=== PATIENT | female | born 1960 | race Caucasian/White ===

== ENCOUNTER 2020-02-09 13:32 | Outpatient (REF) | payer OTHER, SELFPAY | END 2020-02-09 13:33 | disposition home or self-care (01) | LOC: HO.HMGCLDS 13:32 | PROVIDERS: Visit Provider Internal Medicine | DX: Z20.828 Contact with and (suspected) exposure to other viral communicable diseases (principal) | CPT/HCPCS: C9803; U0003 ==

== ENCOUNTER 2020-04-18 07:57 | Outpatient (REF) | payer OTHER, SELFPAY ==
[2020-04-18 11:15] LABS: Hematocrit 39.4 % (37-47); Hemoglobin 12.6 g/dl (12.0-16.0); Mean Corpuscular Hemoglobin 30.4 pg (27.0-33.0); Mean Corpuscular Volume 94.9 fL (80-98); Mean Platelet Volume 10.3 fL (9.4-12.3); Platelet Count 324 X10*3/uL (160-400); Red Blood Count 4.15 X10*6/uL (4.20-5.50); Red Cell Distribution Width 14.3 % (11.0-16.0); White Blood Count 6.3 X10*3/uL (4.8-10.8)
[2020-04-18 11:28] LABS: Alanine Aminotransferase 25 U/L (0-31); Albumin Level 4.5 g/dL (3.5-5.0); Alkaline Phosphatase 81 U/L (39-117); Anion Gap 16 (12-20); Aspartate Amino Transferase 30 U/L (5-31); Bilirubin Total 0.4 mg/dL (0.0-1.0); Blood Urea Nitrogen 16 mg/dL (9-16); Calcium 8.3 mg/dL (8.4-10.2); Carbon Dioxide 27 mmol/L (22-29); Chloride 99 mmol/L (96-108); Cholesterol 226 mg/dL; Estimated Glomerular Filt Rate > 60; Glucose Fasting 75 mg/dL (60-99); HDL Cholesterol 79 mg/dL; LDL Cholesterol Calculated 114 mg/dl; Potassium 4.3 mmol/l (3.3-5.1); Sodium 138 mmol/L (135-145); Total Protein 7.6 g/dL (6.5-8.0); Triglycerides 166 mg/dL
[2020-04-18 12:01] LABS: Thyroid Stimulating Hormone 1.21 uIU/mL (0.32-4.0)
== END 2020-04-18 07:58 | disposition home or self-care (01) ==
LOC: HO.HMGCLDS 07:57
PROVIDERS: PCP Internal Medicine; Visit Provider Internal Medicine
DX: J42 Unspecified chronic bronchitis (principal); E78.2 Mixed hyperlipidemia; F32.9 Major depressive disorder, single episode, unspecified
CPT/HCPCS: 36415; 80053; 80061; 84443; 85027

== ENCOUNTER 2021-01-28 15:12 | Inpatient (IN) | payer OTHER, SELFPAY ==
[2021-01-28] VITALS (10 sets, daily range): BP systolic 105–125; BP diastolic 61–68; PULSE 92–104; RESP 16; TEMP 36.6; O2SAT 80–99; BMI 28.3
--- NOTE | ~2021-01-28 | XR_ITS ---
EXAMINATION: XR CHEST CLINICAL INFORMATION: COPD COMPARISON: Previous chest x-ray December [address] January 2015 TECHNIQUE: Frontal view of the chest was obtained. FINDINGS: The cardiac and mediastinal contours are stable. There is a new surgical staple line projecting over the right upper lung. There are bilateral infiltrates, left greater than right suggestive of pneumonia. There is blunting of the right lateral costophrenic angle. This does not appear appreciably changed from previous exam and may represent a chronic small right pleural effusion or pleural thickening. There is no left pleural effusion. There is no pneumothorax. Bony structures are unremarkable. XR/XR chest 1V IMPRESSION: Bilateral infiltrates, left greater than right, probably representing pneumonia. New postsurgical changes to the right upper lung. Chronic blunting of the right lateral costophrenic angle.
--- NOTE | 2021-01-28 16:03 | ECG_ITS ---
Test Reason : dyspnea Blood Pressure : / mmHG Vent. Rate : 108 BPM Atrial Rate : 108 BPM P-R Int : 166 ms QRS Dur : 094 ms QT Int : 366 ms P-R-T Axes : 045 059 -05 degrees QTc Int : 490 ms Sinus tachycardia Intra-ventricular conduction delay Nonspecific T wave abnormality Abnormal ECG T wave amplitude has decreased in Anterolateral leads Inferior leads Referred By: Kayla Briones Electronically Signed By:DALIA GOODEN MD
--- NOTE | 2021-01-28 16:05 | ED_ITS ---
HPI - URI/Sore Throat General Chief Complaint: Upper Respiratory Symptoms Stated Complaint: SOB X'S 3 DAYS Time Seen by Provider: 01/28/21 15:31 Source: patient and EMS Mode of arrival: EMS Limitations: no limitations History of Present Illness HPI Narrative: Patient comes emergency room by EMS from her primary care physician's office. Patient states that she made an appointment today because she has been feeling short of breath. Patient is known to have COPD, last exacerbation was over 5 years ago. Patient only uses inhalers, has no nebulizer home. Patient had a breathing treatment at her PCPs office, oxygen saturation 88% on room air. EMS was called, and was brought to the emergency room. Patient overall feeling better. Related Data Home Medications Medication Instructions Recorded Confirmed aripiprazole 5 mg tablet 5 mg PO DAILY 07/03/20 01/28/21 clonazepam 0.5 mg tablet 1 mg PO DAILY 07/03/20 01/28/21 fluoxetine 40 mg capsule 80 mg PO DAILY 07/03/20 01/28/21 bupropion HCl 150 mg tablet,12 hr 150 mg PO BID 01/08/21 01/28/21 sustained-release clonazepam 0.5 mg tablet 1 tab PO BEDTIME 01/28/21 01/28/21 quetiapine 50 mg tablet 1 tab PO BEDTIME 01/28/21 01/28/21 rosuvastatin 20 mg tablet (Crestor) 20 mg PO BEDTIME 01/28/21 01/28/21 Previous Rx's Medication Instructions Recorded mometasone-formoterol HFA 200 2 puff PO BID #13 g 08/27/20 mcg-5 mcg/actuation aerosol inhaler umeclidinium 62.5 mcg/actuation 1 inh PO DAILY #90 ea 12/01/20 blister powder for inhalation (Incruse Ellipta) Allergies Allergy/AdvReac Type Severity Reaction Status Date / Time No Known Allergies Allergy Verified 01/28/21 14:13 [No Known Allergies*] Review of Systems Review of Systems: Constitutional : No Weight loss, No Fever, No Chills, No Night Sweats, No Fatigue, No Malaise ENT/Mouth : No Hearing loss, No Ear Pain, No Nasal Congestion, No Sinus Pain, No Hoarseness, No sore throat, No Rhinorrhea, No Swallowing Difficulty Eyes: No Eye Pain, No Swelling, No Redness, No Foreign Body, No Discharge, No Vision Changes Cardiovascular : No Chest Pain, No SOB, No Dyspnea on Exertion, No Orthopnea, No Edema, No Palpitations Respiratory : Increased cough with sputum, wheezing, increased shortness of breath, worse with exertion. Gastrointestinal : No Nausea, No Vomiting, No Diarrhea, No Constipation, No abdominal Pain, No Hematochezia, No Melena Genitourinary : no irregular bleeding, No Dysuria, No Urinary Frequency, No Hematuria, No Urinary Incontinence, No Urgency, No Flank Pain, No Urinary Flow Changes, No Hesitancy Musculoskeletal : No joint pain, No Myalgias, No Joint Swelling Skin : No Skin Lesions, No rash Neuro : No Weakness, No Numbness, No Paresthesias, No Loss of Consciousness, No Dizziness, No Headache Psych : No Anxiety/Panic, No Depression, No SI/HI/AH/VH, No Social Issues, Heme/Lymph: No Bruising, No Bleeding,No Lymphadenopathy Endocrine : No Polyuria, No Polydipsia, No Temperature Intolerance COUNTS INCLUDE 234 BEDS AT THE [facility] Past Medical History Medical History Annual physical exam Colonoscopy refused COPD (chronic obstructive pulmonary disease) Depression Hyperlipidemia Normal breast exam PTSD (post-traumatic stress disorder) Recurrent pleural effusion Family History Family History Father No problems noted. Mother No problems noted. Social History Social History Housing: Apartment Alcohol intake: never Patient Tobacco Use Status: Former Tobacco user Quit Date: 10 years ago e-Cigarette/Vaping Use: Never Used Use of substances other than those prescribed or required for medical reasons: No Advance Directives: No Advance Directives Information Provided: No Patient : No Current occupational status: retired Physical Exam Vital Signs: Vital Signs: Last Vital Signs Pulse 99 01/28/21 19:49 BP 124/68 01/28/21 15:27 Pulse Ox 89 L 01/28/21 18:42 Oxygen Flow Rate 15 01/28/21 15:30 Body Mass Index 28.3 Const: Other: Appearance: Alert. Oriented X3. No acute distress. Eyes: Pupils equal, round and reactive to light. ENT: Pharynx normal. Neck: Normal inspection. Neck supple. No lymph nodes noted. No crepitus CVS: Normal heart rate and rhythm. Pulses normal. Normal S1 and S2 Respiratory: No respiratory distress, bilateral diffuse wheezing, moderate air movement Abdomen: Soft and nontender. No rigidity. No distention. Skin: Skin warm and dry. Normal skin color. Normal skin turgor. Extremities: No lower extremity edema. No Lacerations. No Rash Neuro: Oriented X 3. No motor deficit. No sensory deficit. Moving all extermities. No slurred speech. Course Course Course Narrative: Patient's oxygen saturation dropped to 88% with any exertion or coughing even on 2 L of oxygen. Patient will be admitted for bilateral pneumonia, COPD exacerbation. Patient was given one dose of IV ceftriaxone and azithromycin. Multiple breathing treatments. I discussed the patient with Dr. Clark, patient admitted. MDM - URI/Sore Throat Lab Data Result diagrams: 01/28/21 16:41 01/28/21 16:41 Labs: Lab Results 01/28/21 01/28/21 01/28/21 Range/Units 16:40 16:41 16:41 WBC 13.0 H (4.8-10.8) X10*3/uL RBC 3.65 L (4.20-5.50) X10*6/uL Hgb 10.9 L (12.0-16.0) g/dl Hct 32.7 L (37.0-47.0) % MCV 89.6 (80.0-98.0) fL MCH 29.9 (27.0-33.0) pg MCHC 33.3 (31.0-35.0) g/dl RDW 12.9 (11.0-16.0) % Plt Count 393 (160-400) X10*3/uL MPV 9.7 (9.4-12.3) fL Immature Gran % (Auto) 0.7 H (0.0-0.4) % Neut % (Auto) 87.0 H (45-73) % Lymph % (Auto) 8.5 L (20-40) % [place] % (Auto) 3.4 (2-11) % Eos % (Auto) 0.2 (0-4) % Baso % (Auto) 0.2 (0-2) % Lymph # (Auto) 1.1 L (1.2-4.9) X10*3/uL [place] # (Auto) 0.4 (0.1-1.2) X10*3/uL Eos # (Auto) 0.0 (0.0-0.4) X10*3/uL Baso # (Auto) 0.0 (0.0-0.2) X10*3/uL Abs Immat Gran (auto) 0.09 H (0.00-0.03) X10*3/uL Absolute Neuts (auto) 11.3 H (2.0-8.3) x10*3/uL Absolute Nucleated RBC 0.000 (0.0-0.012) X10*3/uL Nucleated RBC % (auto) 0.0 (0.0-0.2) /100WBC Sodium 136 (135-145) mmol/L Potassium 3.8 (3.3-5.1) mmol/L Chloride 100 (96-108) mmol/L Carbon Dioxide 23 (22-29) mmol/L Anion Gap 17 (12-20) BUN 4 L D (9-16) mg/dL Creatinine 0.70 (0.5-1.4) mg/dL Estim Creat Clear Calc 96.6 Estimated GFR > 60 Random Glucose 131 H (60-115) mg/dL Lactic Acid (0.5-2.0) mmol/L Calcium 8.6 (8.4-10.2) mg/dL Total Bilirubin 0.5 (0.0-1.0) mg/dL Direct Bilirubin 0.2 (0.0-0.5) mg/dL AST 36 H (5-31) U/L ALT 23 (0-31) U/L Alkaline Phosphatase 100 D (39-117) U/L Troponin I High Sens < 3.5 (<3.5-17.0) ng/L B-Natriuretic Peptide 45 (<100) pg/mL Total Protein 7.1 (6.5-8.0) g/dL Albumin 3.8 (3.5-5.0) g/dL Urine Color Urine Appearance Urine pH (5.0-8.0) Ur Specific [place] (1.005-1.025) Urine Protein (NEG-TRACE) MG/DL Urine Glucose (UA) (NEG) MG/DL Urine Ketones (NEG) MG/DL Urine Blood (NEG) Urine Nitrite (NEG) Ur Leukocyte Esterase (NEG) Urine RBC (0) /HPF Urine WBC (0-4) /HPF Ur Squamous Epith Cells /LPF Urine Bacteria /LPF COVID-19 ([facility]) (Negative) COVID-19 Clin Com 01/28/21 01/28/21 01/28/21 Range/Units 16:41 16:42 18:47 WBC (4.8-10.8) X10*3/uL RBC (4.20-5.50) X10*6/uL Hgb (12.0-16.0) g/dl Hct (37.0-47.0) % MCV (80.0-98.0) fL MCH (27.0-33.0) pg MCHC (31.0-35.0) g/dl RDW (11.0-16.0) % Plt Count (160-400) X10*3/uL MPV (9.4-12.3) fL Immature Gran % (Auto) (0.0-0.4) % Neut % (Auto) (45-73) % Lymph % (Auto) (20-40) % [place] % (Auto) (2-11) % Eos % (Auto) (0-4) % Baso % (Auto) (0-2) % Lymph # (Auto) (1.2-4.9) X10*3/uL [place] # (Auto) (0.1-1.2) X10*3/uL Eos # (Auto) (0.0-0.4) X10*3/uL Baso # (Auto) (0.0-0.2) X10*3/uL Abs Immat Gran (auto) (0.00-0.03) X10*3/uL Absolute Neuts (auto) (2.0-8.3) x10*3/uL Absolute Nucleated RBC (0.0-0.012) X10*3/uL Nucleated RBC % (auto) (0.0-0.2) /100WBC Sodium (135-145) mmol/L Potassium (3.3-5.1) mmol/L Chloride (96-108) mmol/L Carbon Dioxide (22-29) mmol/L Anion Gap (12-20) BUN (9-16) mg/dL Creatinine (0.5-1.4) mg/dL Estim Creat Clear Calc Estimated GFR Random Glucose (60-115) mg/dL Lactic Acid 1.1 (0.5-2.0) mmol/L Calcium (8.4-10.2) mg/dL Total Bilirubin (0.0-1.0) mg/dL Direct Bilirubin (0.0-0.5) mg/dL AST (5-31) U/L ALT (0-31) U/L Alkaline Phosphatase (39-117) U/L Troponin I High Sens (<3.5-17.0) ng/L B-Natriuretic Peptide (<100) pg/mL Total Protein (6.5-8.0) g/dL Albumin (3.5-5.0) g/dL Urine Color YELLOW Urine Appearance CLEAR Urine pH 6.0 (5.0-8.0) Ur Specific [place] <= 1.005 (1.005-1.025) Urine Protein TRACE (NEG-TRACE) MG/DL Urine Glucose (UA) NEG (NEG) MG/DL Urine Ketones >=80 (NEG) MG/DL Urine Blood 1+ H (NEG) Urine Nitrite NEG (NEG) Ur Leukocyte Esterase NEG (NEG) Urine RBC 0-2 (0) /HPF Urine WBC 1-4 (0-4) /HPF Ur Squamous Epith Cells 1+ /LPF Urine Bacteria 1+ /LPF COVID-19 ([facility]) Negative (Negative) COVID-19 Clin Com See Note Imaging Data Chest x-ray: Radiologist's impression: FINDINGS: The cardiac and mediastinal contours are stable. There is a new surgical staple line projecting over the right upper lung. There are bilateral infiltrates, left greater than right suggestive of pneumonia. There is blunting of the right lateral costophrenic angle. This does not appear appreciably changed from previous exam and may represent a chronic small right pleural effusion or pleural thickening. There is no left pleural effusion. There is no pneumothorax. Bony structures are unremarkable. XR/XR chest 1V IMPRESSION: Bilateral infiltrates, left greater than right, probably representing pneumonia. New postsurgical changes to the right upper lung. Chronic blunting of the right lateral costophrenic angle. ECG Data Attestation: I personally reviewed and interpreted this ECG as follows: (Sinus tachycardia, heart rate 108, no ST segment depression or elevation, no T-wave inversion, QTC 490) Critical Care Time Critical Care Time Critical Care Time: Yes Total Critical Care Time: 45 Attestation: 45 minutes were spent in direct patient care and stabilization. Discharge Plan Discharge Clinical Impression: COPD (chronic obstructive pulmonary disease), Hypoxia, PNA (pneumonia)
[2021-01-28] MEDS: Albuterol Sulfate (0.083%) 2.5 MG/3 ML VIAL.NEB 10 MG INHALE (16:11)
[2021-01-28 16:46] LABS: MANUAL DIFF FLAG NO
[2021-01-28 16:49] LABS: Basophils Percent Auto 0.2 % (0-2); Eosinophils Percent Auto 0.2 % (0-4); Hematocrit 32.7 % (37.0-47.0); Hemoglobin 10.9 g/dl (12.0-16.0); Imm Gran Abs Auto 0.09 X10*3/uL (0.00-0.03); Imm Gran Pct Auto 0.7 % (0.0-0.4); Lymphocytes Absolute Auto 1.1 X10*3/uL (1.2-4.9); Lymphocytes Percent Auto 8.5 % (20-40); Mean Corpuscular HGB Conc 33.3 g/dl (31.0-35.0); Mean Corpuscular Hemoglobin 29.9 pg (27.0-33.0); Mean Corpuscular Volume 89.6 fL (80.0-98.0); Mean Platelet Volume 9.7 fL (9.4-12.3); Monocytes Absolute Auto 0.4 X10*3/uL (0.1-1.2); Monocytes Percent Auto 3.4 % (2-11); Neutrophils Absolute Auto 11.3 x10*3/uL (2.0-8.3); Platelet Count 393 X10*3/uL (160-400); Red Blood Count 3.65 X10*6/uL (4.20-5.50); Red Cell Distribution Width 12.9 % (11.0-16.0)
[2021-01-28 16:59] LABS: Lactic Acid 1.1 mmol/L (0.5-2.0)
[2021-01-28] MEDS: 0.9 % Sodium Chloride 1,000 ML 999 ML IVCONT (17:00)
[2021-01-28] MEDS: methylPREDNISolone Sod Succ 125 MG/2 ML VIAL IVPUSH (17:03)
[2021-01-28 17:04] LABS: COVID-19 Test Negative (Negative)
[2021-01-28 17:10] LABS: Alanine Aminotransferase 23 U/L (0-31); Albumin Level 3.8 g/dL (3.5-5.0); Alkaline Phosphatase 100 U/L (39-117); Anion Gap 17 (12-20); Aspartate Amino Transferase 36 U/L (5-31); Bilirubin Direct 0.2 mg/dL (0.0-0.5); Bilirubin Total 0.5 mg/dL (0.0-1.0); Blood Urea Nitrogen 4 mg/dL (9-16); Calcium 8.6 mg/dL (8.4-10.2); Carbon Dioxide 23 mmol/L (22-29); Chloride 100 mmol/L (96-108); Creatinine Clr Calc Pharmacy 96.6; Estimated Glomerular Filt Rate > 60; Glucose Random 131 mg/dL (60-115); Potassium 3.8 mmol/L (3.3-5.1); Sodium 136 mmol/L (135-145); Total Protein 7.1 g/dL (6.5-8.0)
[2021-01-28 17:13] LABS: B Type Natriuretic Peptide 45 pg/mL (<100); Troponin-I High Sensitivity < 3.5 ng/L (<3.5-17.0)
[2021-01-28] MEDS: cefTRIAXone sodium 1 GM in 0.9 % Sodium Chloride 50 ML IV (17:24)
[2021-01-28] MEDS: Azithromycin 500 MG in 0.9 % Sodium Chloride 250 ML 125 MG IV (17:57)
[2021-01-28] MEDS: Albuterol/Iprat 2.5/0.5MG 3 ML AMPUL.NEB INHALE ×2 (18:07→19:48)
[2021-01-28 18:53] LABS: Appearance Urine CLEAR; Color Urine YELLOW; Glucose Urine UA NEG (NEG); Leukocyte Esterase Urine NEG (NEG); Nitrite Urine NEG (NEG); Specific Gravity - Urine <= 1.005 (1.005-1.025); UACC Culture Trigger NO; Urine Blood 1+ (NEG); Urine Ketones >=80 MG/DL (NEG); Urine Protein TRACE MG/DL (NEG-TRACE)
--- NOTE | 2021-01-28 18:53 | PHA.MEDREC ---
Pharmacy Consult ? Medication Reconciliation Pharmacy has completed the medication reconciliation. Natasha LiconaD
[2021-01-28 19:16] LABS: Bacteria Urine 1+ /LPF; RBC Urine 0-2 /HPF (0); Squamous Epithelial Cell Urine 1+ /LPF
--- NOTE | 2021-01-28 19:29 | PM.IMHP ---
History of Present Illness Date of Service: 01/28/21 Chief Complaint: Cough and shortness of breath 60-year-old female with past medical history of hyperlipidemia, COPD, anxiety, depression, PTSD, history of recurrent pleural effusion presented to the hospital today with chief complaint of cough and shortness of breath. Patient reported that her symptoms are Going on for the past 3 days. Complains of cough with sputum production. Denies any fevers. Denies any sick contacts. Denies any recent travel. Denies any chest pain palpitations lightheadedness or dizziness. Denies any GI or symptoms. Review of all other systems is negative except mentioned above ER course: Per ER team patient initially went to the PCP office where she was noted to be hypoxic to 87 88%; given nebulizer treatment and subsequently sent to the hospital for further evaluation; patient noted to be wheezing, given steroids and nebulizers; chest x-ray showed bilateral pulmonary infiltrates consistent with pneumonia; COVID-19 negative; patient was given antibiotics and admitted to the hospital for further management. EKG was nonischemic. [facility] Medical History Annual physical exam Colonoscopy refused COPD (chronic obstructive pulmonary disease) Depression Hyperlipidemia Normal breast exam PTSD (post-traumatic stress disorder) Recurrent pleural effusion Family History Father No problems noted. Mother No problems noted. Pertinent family history: Reviewed Social History Housing: Apartment Alcohol intake: never Patient Tobacco Use Status: Former Tobacco user Quit Date: 10 years ago e-Cigarette/Vaping Use: Never Used Use of substances other than those prescribed or required for medical reasons: No Advance Directives: No Advance Directives Information Provided: No Patient : No Current occupational status: retired Meds Allergies Allergy/AdvReac Type Severity Reaction Status Date / Time No Known Allergies Allergy Verified 01/28/21 14:13 [No Known Allergies*] Active Medications: Current Medications Acetaminophen (Acetaminophen 325 Mg Tablet) 650 mg PO Q6H PRN PRN Reason: Pain, Mild (Pain Scale 1-3) Albuterol/Ipratropium (Albuterol/Iprat 2.5/0.5mg 3 Ml Ampul.Neb) 3 ml INHALE RQ4H WHILE AWAKE [facility] Albuterol/Ipratropium (Albuterol/Iprat 2.5/0.5mg 3 Ml Ampul.Neb) 3 ml INHALE RQ4H PRN PRN Reason: Shortness of Breath/Wheezing Azithromycin (Azithromycin 500 Mg Tablet) 500 mg PO Q24H [facility] Benzonatate (Benzonatate 100 Mg Capsule) 100 mg PO TID PRN PRN Reason: Cough Enoxaparin Sodium (Enoxaparin Sodium 40 Mg/0.4 Ml Syringe) 40 mg SUBCUT Q24H [facility] Famotidine (Famotidine 20 Mg Tablet) 20 mg PO BID [facility] Ceftriaxone Sodium 1 gm/ (Sodium Chloride) 100 mls @ 200 mls/hr IV Q24H [facility] Melatonin (Melatonin 3 Mg Tablet) 6 mg PO BEDTIME PRN PRN Reason: Insomnia Methylprednisolone Sodium Succinate (Methylprednisolone Sod Succ 40 Mg/Ml Vial) 40 mg IVPUSH Q6H [facility] Pharmacy Consult (Consult Rx Perform Med Rec) 1 each MISCELLANE ONCE PRN PRN Reason: Consult order Senna (Sennosides 8.6 Mg Tablet) 17.2 mg PO BEDTIME PRN PRN Reason: Constipation Sodium Chloride (0.9 % Sodium Chloride Flush 3 Ml Syringe) 3 ml IVFLUSH QSHIFT [facility] Home Medications Medication Instructions Recorded Confirmed Last Taken Type aripiprazole 5 mg tablet 5 mg PO DAILY 07/03/20 01/28/21 01/27/21 History clonazepam 0.5 mg tablet 1 mg PO DAILY 07/03/20 01/28/21 01/27/21 History fluoxetine 40 mg capsule 80 mg PO DAILY 07/03/20 01/28/21 01/27/21 History bupropion HCl 150 mg tablet,12 hr 150 mg PO BID 01/08/21 01/28/21 01/27/21 History sustained-release clonazepam 0.5 mg tablet 1 tab PO BEDTIME 01/28/21 01/28/21 01/27/21 History quetiapine 50 mg tablet 1 tab PO BEDTIME 01/28/21 01/28/21 01/27/21 History rosuvastatin 20 mg tablet (Crestor) 20 mg PO BEDTIME 01/28/21 01/28/21 01/27/21 History Physical Exam Vital Signs and Narrative: Vital Signs: Last Vital Signs Pulse 102 H 01/28/21 18:42 BP 124/68 01/28/21 15:27 Pulse Ox 89 L 01/28/21 18:42 Oxygen Flow Rate 15 01/28/21 15:30 Body Mass Index 28.3 Gen: Appears be in no acute distress HEENT: NCAT, Moist mucosa. Pulmonary: Coarse breath sounds, bilateral expiratory wheezing CVS: Normal S1-S2 Abdomen: BS+, Soft, Nontender Extremities: Warm well perfused Neuro: Alert and awake. Results Labs CBC and Chem 7: 01/28/21 16:41 01/28/21 16:41 Labs: Laboratory Results - last 24 hr 01/28/21 01/28/21 01/28/21 16:40 16:41 16:41 MCV 89.6 MCH 29.9 MCHC 33.3 RDW 12.9 Plt Count 393 MPV 9.7 Immature Gran % (Auto) 0.7 H Neut % (Auto) 87.0 H Lymph % (Auto) 8.5 L [place] % (Auto) 3.4 Eos % (Auto) 0.2 Baso % (Auto) 0.2 Lymph # (Auto) 1.1 L [place] # (Auto) 0.4 Eos # (Auto) 0.0 Baso # (Auto) 0.0 Abs Immat Gran (auto) 0.09 H Absolute Neuts (auto) 11.3 H Absolute Nucleated RBC 0.000 Nucleated RBC % (auto) 0.0 Anion Gap 17 Estim Creat Clear Calc 96.6 Estimated GFR > 60 Random Glucose 131 H Lactic Acid Calcium 8.6 Total Bilirubin 0.5 Direct Bilirubin 0.2 AST 36 H ALT 23 Alkaline Phosphatase 100 D Troponin I High Sens < 3.5 B-Natriuretic Peptide 45 Total Protein 7.1 Albumin 3.8 Urine Color Urine Appearance Urine pH Ur Specific [place] Urine Protein Urine Glucose (UA) Urine Ketones Urine Blood Urine Nitrite Ur Leukocyte Esterase Urine RBC Urine WBC Ur Squamous Epith Cells Urine Bacteria COVID-19 ([facility]) COVID-19 Clin Com 01/28/21 01/28/21 01/28/21 16:41 16:42 18:47 MCV MCH MCHC RDW Plt Count MPV Immature Gran % (Auto) Neut % (Auto) Lymph % (Auto) [place] % (Auto) Eos % (Auto) Baso % (Auto) Lymph # (Auto) [place] # (Auto) Eos # (Auto) Baso # (Auto) Abs Immat Gran (auto) Absolute Neuts (auto) Absolute Nucleated RBC Nucleated RBC % (auto) Anion Gap Estim Creat Clear Calc Estimated GFR Random Glucose Lactic Acid 1.1 Calcium Total Bilirubin Direct Bilirubin AST ALT Alkaline Phosphatase Troponin I High Sens B-Natriuretic Peptide Total Protein Albumin Urine Color YELLOW Urine Appearance CLEAR Urine pH 6.0 Ur Specific [place] <= 1.005 Urine Protein TRACE Urine Glucose (UA) NEG Urine Ketones >=80 Urine Blood 1+ H Urine Nitrite NEG Ur Leukocyte Esterase NEG Urine RBC 0-2 Urine WBC 1-4 Ur Squamous Epith Cells 1+ Urine Bacteria 1+ COVID-19 ([facility]) Negative COVID-19 Clin Com See Note Imaging Radiologist's Impressions: Impressions Chest X-Ray 01/28/21 16:04 IMPRESSION: Bilateral infiltrates, left greater than right, probably representing pneumonia. New postsurgical changes to the right upper lung. Chronic blunting of the right lateral costophrenic angle. Assessment and Plan (1) COPD exacerbation: Status: Acute (2) PNA (pneumonia): Status: Acute (3) Hypoxia: Status: Acute (4) PTSD (post-traumatic stress disorder): Status: Acute 60-year-old female with past medical history of hyperlipidemia, COPD, anxiety, depression, PTSD, history of recurrent pleural effusion presented to the hospital today with chief complaint of cough and shortness of breath. Noted to have COPD exacerbation/pneumonia. Admitted for further management. Acute hypoxic respiratory failure: In the setting of COPD/pneumonia; continue supplemental oxygen. Patient not in distress. Patient currently saturating well on 3 L of supplemental oxygen. COPD exacerbation: Continue Solu-Medrol IV and nebulizations standing and p.r.n.. Pulmonology consult. Ambulatory pulse oximetry once patient clinically improves Pneumonia: Community-acquired. Continue ceftriaxone azithromycin. Follow up cultures. History of anxiety/depression/PTSD: Continue home fluoxetine, clonazepam, Seroquel, aripiprazole, bupropion History of hyperlipidemia: Continue home statin DVT prophylaxis: Lovenox Code status: Full code Quality Stroke Does the patient have a stroke diagnosis?: No VTE Prior VTE?: No VTE Risk Level:: Medical - moderate - high VTE Device Contraindication: Treatment Not Indicated VTE Drug Contraindication: N/A - Med Ordered
[2021-01-28] MEDS: Famotidine 20 MG TABLET PO (21:25)
[2021-01-28] MEDS: methylPREDNISolone Sod Succ 40 MG/ML VIAL IVPUSH (21:25)
[2021-01-28] MEDS: Atorvastatin Calcium 80 MG TABLET PO (21:25)
[2021-01-28] MEDS: clonazePAM 0.5 MG TABLET PO (21:25)
[2021-01-28] MEDS: Enoxaparin Sodium 40 MG/0.4 ML SYRINGE SUBCUT (21:25)
[2021-01-28] MEDS: QUEtiapine Fumarate 50 MG TABLET PO (21:25)
[2021-01-29] VITALS (9 sets, daily range): BP systolic 105–145; BP diastolic 62–76; PULSE 81–94; RESP 17–24; TEMP 36.4–36.6; O2SAT 90–95; BMI 28.3
[2021-01-29] MEDS: 0.9 % Sodium Chloride Flush 3 ML SYRINGE IVFLUSH ×4 (01:01→20:52)
[2021-01-29] MEDS: methylPREDNISolone Sod Succ 40 MG/ML VIAL IVPUSH ×4 (01:01→20:51)
--- NOTE | 2021-01-29 06:34 | PC.NURSE ---
PATIENT UP AND ABLE TO AMBULATE AROUND ROOM. PRODUCTIVE COUGH NOTED. PATIENT GETTING LABS OBTAINED BY PHLEBOTOMY AT THIS TIME.
[2021-01-29 06:46] LABS: Basophils Percent Auto 0.1 % (0-2); Hematocrit 33.4 % (37.0-47.0); Imm Gran Abs Auto 0.07 X10*3/uL (0.00-0.03); Imm Gran Pct Auto 0.6 % (0.0-0.4); Lymphocytes Absolute Auto 0.7 X10*3/uL (1.2-4.9); Lymphocytes Percent Auto 6.6 % (20-40); MANUAL DIFF FLAG SCAN; Mean Corpuscular HGB Conc 32.9 g/dl (31.0-35.0); Mean Corpuscular Hemoglobin 29.2 pg (27.0-33.0); Mean Corpuscular Volume 88.6 fL (80.0-98.0); Mean Platelet Volume 9.9 fL (9.4-12.3); Monocytes Absolute Auto 0.1 X10*3/uL (0.1-1.2); Monocytes Percent Auto 1.1 % (2-11); Neutrophils Absolute Auto 10.2 x10*3/uL (2.0-8.3); Neutrophils Percent Auto 91.6 % (45-73); Platelet Count 441 X10*3/uL (160-400); Red Blood Count 3.77 X10*6/uL (4.20-5.50); Red Cell Distribution Width 12.9 % (11.0-16.0); SCAN SMEAR FLAG 1; White Blood Count 11.1 X10*3/uL (4.8-10.8)
[2021-01-29 07:15] LABS: SLIDE REVIEW VERIFIED
[2021-01-29 07:30] LABS: Anion Gap 16 (12-20); Blood Urea Nitrogen 7 mg/dL (9-16); Calcium 8.7 mg/dL (8.4-10.2); Carbon Dioxide 21 mmol/L (22-29); Chloride 106 mmol/L (96-108); Estimated Glomerular Filt Rate > 60; Glucose Random 157 mg/dL (60-115); Potassium 3.8 mmol/L (3.3-5.1); Sodium 139 mmol/L (135-145)
--- NOTE | 2021-01-29 07:54 | PC.NURSE ---
rn to rn given to june, pt aware of plan of care for admission
[2021-01-29] MEDS: Famotidine 20 MG TABLET PO ×2 (08:24→20:52)
[2021-01-29] MEDS: FLUoxetine HCl 20 MG CAPSULE 80 MG PO (08:24)
[2021-01-29] MEDS: buPROPion HCl XL 300 MG TAB.ER.24H PO (08:25)
[2021-01-29] MEDS: ARIPiprazole 5 MG TABLET PO (08:25)
[2021-01-29] MEDS: clonazePAM 1 MG TABLET PO (08:27)
[2021-01-29] MEDS: Acetaminophen 325 MG TABLET 650 MG PO ×2 (08:36→16:25)
--- NOTE | 2021-01-29 09:17 | PM.CNPUL ---
History of Present Illness History of Present Illness Consult date: 01/29/21 Chief complaint: PNA Narrative: This is an inpatient Pulmonary consultation. 60-year-old female with past medical history of hyperlipidemia, COPD, anxiety, depression, PTSD, history of recurrent pleural effusion presented to the hospital today with chief complaint of cough and shortness of breath.? Patient reported that her symptoms are Going on for the past 3 days.? Complains of cough with sputum production.? Denies any fevers. Denies any sick contacts. Denies any recent travel.? The patient could not tolerate her symptoms any longer and decided to come into the [facility] ER for further evaluation. On arrival she was found to be hypoxic and was placed on oxygen. She has significant wheezing was given IV steroids in addition to IV antibiotics. Her chest x-ray demonstrated patchy bibasilar airspace disease some degree some reticulonodular opacities and some evidence of bronchopneumonia bilaterally. Today the patient has been feeling better. On further questioning she has to participating in the lung cancer screening program at [facility]. Her recent CT scan of the chest did mention emphysema in addition to underlying interstitial lung disease in addition to stable pulmonary nodules. Review of Systems Constitutional: Constitutional: Denies night sweats ENT: Denies change in voice, Denies lip swelling, Denies mouth pain, Reports nasal congestion, Reports nasal discharge and Denies tongue swelling Cardiovascular: Cardiovascular: Denies chest pain Respiratory: Respiratory: Reports cough Gastrointestinal: Gastrointestinal: Denies abdominal pain Musculoskeletal: Musculoskeletal: Denies no additional musculoskeletal complaints Neurologic: Denies Neuro-related abnormal movements Allergic/Immunologic: Allergic/Immunologic: Denies lip swelling and Denies tongue swelling PMF Past Medical History Medical History Annual physical exam Colonoscopy refused COPD (chronic obstructive pulmonary disease) Depression Hyperlipidemia Normal breast exam PTSD (post-traumatic stress disorder) Recurrent pleural effusion Family History Family History Father No problems noted. Mother No problems noted. Social History Social History Household Members: Significant Other Household Members Other:: Sylvester Housing: Apartment Do you presently have visiting nurse or other home services: Yes (Therapist home visit 2x week) Alcohol intake: never Patient Tobacco Use Status: Former Tobacco user Quit Date: 10 years ago Tobacco use type: Cigarette Smoked in Last 30 Days: No e-Cigarette/Vaping Use: Never Used Use of substances other than those prescribed or required for medical reasons: Yes Substance Use Type: Marijuana Spiritual Healthcare Practices: none Mandaen Healthcare Practices: none Cultural Healthcare Practices: none Advance Directives: No Advance Directives Information Provided: No Advance Directives on File: No Do you have thoughts of harming others: None Do you have a plan to hurt others: No Plan Recently lost weight without trying: Yes How much weight loss: 2-13 pounds Eating poorly because of decreased appetite: Yes Nutrition screen score: 4 Nutrition Risks: Poor intake 0-25% >4 days Patient : No : No Poor oral hygiene: No Current occupational status: retired Meds Allergies Allergy/AdvReac Type Severity Reaction Status Date / Time shellfish derived Allergy Severe Anaphylaxis Verified 01/29/21 08:40 nuts Allergy Severe Anaphylaxis Uncoded 01/29/21 08:40 Active Medications: Current Medications Acetaminophen (Acetaminophen 325 Mg Tablet) 650 mg PO Q6H PRN PRN Reason: Pain, Mild (Pain Scale 1-3) Last Admin: 01/29/21 08:36 Dose: 650 mg Documented by: Albuterol/Ipratropium (Albuterol/Iprat 2.5/0.5mg 3 Ml Ampul.Neb) 3 ml INHALE RQ4H WHILE AWAKE [facility] Last Admin: 01/29/21 07:59 Dose: Not Given Documented by: Albuterol/Ipratropium (Albuterol/Iprat 2.5/0.5mg 3 Ml Ampul.Neb) 3 ml INHALE RQ4H PRN PRN Reason: Shortness of Breath/Wheezing Aripiprazole (Aripiprazole 5 Mg Tablet) 5 mg PO DAILY [facility] Last Admin: 01/29/21 08:25 Dose: 5 mg Documented by: Atorvastatin Calcium (Atorvastatin Calcium 80 Mg Tablet) 80 mg PO BEDTIME [facility] Last Admin: 01/28/21 21:25 Dose: 80 mg Documented by: Azithromycin (Azithromycin 500 Mg Tablet) 500 mg PO Q24H [facility] Benzonatate (Benzonatate 100 Mg Capsule) 100 mg PO TID PRN PRN Reason: Cough Bupropion HCl (Bupropion Hcl Xl 300 Mg Tab.Er.24h) 300 mg PO DAILY [facility] Last Admin: 01/29/21 08:25 Dose: 300 mg Documented by: Clonazepam (Clonazepam 1 Mg Tablet) 1 mg PO DAILY [facility] Last Admin: 01/29/21 08:27 Dose: 1 mg Documented by: Clonazepam (Clonazepam 0.5 Mg Tablet) 0.5 mg PO BEDTIME [facility] Last Admin: 01/28/21 21:25 Dose: 0.5 mg Documented by: Enoxaparin Sodium (Enoxaparin Sodium 40 Mg/0.4 Ml Syringe) 40 mg SUBCUT Q24H [facility] Last Admin: 01/28/21 21:25 Dose: 40 mg Documented by: Famotidine (Famotidine 20 Mg Tablet) 20 mg PO BID [facility] Last Admin: 01/29/21 08:24 Dose: 20 mg Documented by: Fluoxetine HCl (Fluoxetine Hcl 20 Mg Capsule) 80 mg PO DAILY [facility] Last Admin: 01/29/21 08:24 Dose: 80 mg Documented by: Fluticasone/Vilanterol (Fluticasone/Vilanterol 200/25 Blst.W.Dev) 1 puff INHALE DAILY [facility] Last Admin: 01/29/21 07:59 Dose: Not Given Documented by: Ceftriaxone Sodium 1 gm/ (Sodium Chloride) 100 mls @ 200 mls/hr IV Q24H [facility] Melatonin (Melatonin 3 Mg Tablet) 6 mg PO BEDTIME PRN PRN Reason: Insomnia Methylprednisolone Sodium Succinate (Methylprednisolone Sod Succ 40 Mg/Ml Vial) 40 mg IVPUSH Q6H [facility] Last Admin: 01/29/21 08:26 Dose: 40 mg Documented by: Pharmacy Consult (Consult Rx Perform Med Rec) 1 each MISCELLANE ONCE PRN PRN Reason: Consult order Quetiapine Fumarate (Quetiapine Fumarate 50 Mg Tablet) 50 mg PO BEDTIME [facility] Last Admin: 01/28/21 21:25 Dose: 50 mg Documented by: Senna (Sennosides 8.6 Mg Tablet) 17.2 mg PO BEDTIME PRN PRN Reason: Constipation Sodium Chloride (0.9 % Sodium Chloride Flush 3 Ml Syringe) 3 ml IVFLUSH QSHIFT [facility] Last Admin: 01/29/21 08:25 Dose: 3 ml Documented by: Tiotropium [place] (Tiotropium [place] 18 Mcg Cap.W.Dev) 1 puff INHALE RDAILY [facility] Last Admin: 01/29/21 07:59 Dose: Not Given Documented by: Home Medications Medication Instructions Recorded Confirmed Last Taken Type aripiprazole 5 mg tablet 5 mg PO DAILY 07/03/20 01/28/21 01/27/21 History clonazepam 0.5 mg tablet 1 mg PO DAILY 07/03/20 01/28/21 01/27/21 History fluoxetine 40 mg capsule 80 mg PO DAILY 07/03/20 01/28/21 01/27/21 History bupropion HCl 150 mg tablet,12 hr 150 mg PO BID 01/08/21 01/28/21 01/27/21 History sustained-release clonazepam 0.5 mg tablet 1 tab PO BEDTIME 01/28/21 01/28/21 01/27/21 History quetiapine 50 mg tablet 1 tab PO BEDTIME 01/28/21 01/28/21 01/27/21 History rosuvastatin 20 mg tablet (Crestor) 20 mg PO BEDTIME 01/28/21 01/28/21 01/27/21 History Physical Exam Vital Signs: Vital Signs: Last Vital Signs Temp 97.7 F 01/29/21 07:28 Pulse 84 01/29/21 07:28 Resp 17 01/29/21 07:28 BP 133/70 01/29/21 07:28 Pulse Ox 92 01/29/21 07:28 Oxygen Flow Rate 15 01/28/21 15:30 Body Mass Index 28.3 Const: General: alert Neck: Neck: Yes normal visual inspection, Yes full ROM and Yes no lymphadenopathy Chest: Chest palpation & inspection: normal inspection of the chest Resp: Auscultation: rales, rhonchi, wheezes and diminished lung sounds Cardio: Rate: regular rate Rhythm: regular rhythm Heart sounds: S1 normal heart sound present and S2 normal heart sound present GI: Palpation (GI): Soft to palpation and nontender Auscultation: normal bowel sounds Skin: General skin exam: rashes and/or lesions noted Results Laboratory Findings CBC and BMP: 01/29/21 06:35 01/29/21 06:35 Abnormal lab findings: Abnormal Labs 01/28/21 01/28/21 01/28/21 16:41 16:41 18:47 WBC 13.0 H RBC 3.65 L Hgb 10.9 L Hct 32.7 L Plt Count Immature Gran % (Auto) 0.7 H Neut % (Auto) 87.0 H Lymph % (Auto) 8.5 L [place] % (Auto) Lymph # (Auto) 1.1 L Abs Immat Gran (auto) 0.09 H Absolute Neuts (auto) 11.3 H Carbon Dioxide BUN 4 L D Random Glucose 131 H AST 36 H Urine Blood 1+ H 01/29/21 01/29/21 06:35 06:35 WBC 11.1 H RBC 3.77 L Hgb 11.0 L Hct 33.4 L Plt Count 441 H Immature Gran % (Auto) 0.6 H Neut % (Auto) 91.6 H Lymph % (Auto) 6.6 L [place] % (Auto) 1.1 L Lymph # (Auto) 0.7 L Abs Immat Gran (auto) 0.07 H Absolute Neuts (auto) 10.2 H Carbon Dioxide 21 L BUN 7 L D Random Glucose 157 H AST Urine Blood Assessment and Plan (1) PNA (pneumonia): Status: Acute (2) COPD exacerbation: Status: Acute (3) Hypoxia: Status: Acute Ultimately the patient overall she responding to the current medical regimen. Is likely that she developed a lower respiratory infection that precipitated an asthma exacerbation. The patient is responding well to the therapy so therefore will continue the current regimen. Recommendations: -continue ceftriaxone and azithromycin. Will recommend to deescalate to [place] to complete an 8 day course and complete a 5 day course of azithromycin -continue Solu-Medrol at the current dose. Patient will then be tapered down to 40 mg prednisone with a taper -in view of the patient's interstitial lung disease, COPD and now pneumonia the patient may need oxygen for a longer period of time. Is likely patient will need oxygen upon discharge. Continue to titrate the oxygen to maintain a pulse ox above 90% -requesting urine pneumococcal a antigen -will continue to follow Procedures Date of Service Date of Service: 01/29/21
--- NOTE | 2021-01-29 09:38 | HO.PM.IMPN ---
Subjective Subjective Date of Service: 01/29/21 Interval History: Being followed for COPD exacerbation, complaining of shortness of breath with minimal activity coughing with clear phlegm denies fever chills no acute issues overnight. Review of Systems General no headache, no dizziness, no fever chills. CVS no chest pain, no palpitation. Respiratory cough productive of clear phlegm Gastrointestinal no nausea no vomiting, no abdominal pain no urgency, no frequency Review of Systems: Yes all other systems are reviewed and are negative Physical Exam Vital Signs: Vital Signs: Last Vital Signs Temp 97.8 F 01/29/21 08:00 Pulse 88 01/29/21 08:00 Resp 20 01/29/21 08:00 BP 124/74 01/29/21 08:00 Pulse Ox 90 L 01/29/21 08:00 Oxygen Flow Rate 15 01/28/21 15:30 Body Mass Index 28.3 General awake alert x3, no acute distress. Neck is supple, no JVD. CVS regular rate rhythm, Respiratory diminished breath sounds, no respiratory distress, exp. wheeze, no rale Gastrointestinal abdomen soft, nontender, bowel sounds audible Extremities no edema. Neuro nonfocal Skin no rash Psych appropriate affect Objective Data Active Medications Acetaminophen (Acetaminophen 325 Mg Tablet) 650 mg PO Q6H PRN PRN Reason: Pain, Mild (Pain Scale 1-3) Last Admin: 01/29/21 08:36 Dose: 650 mg Documented by: JUAN ANTONIO Albuterol/Ipratropium (Albuterol/Iprat 2.5/0.5mg 3 Ml Ampul.Neb) 3 ml INHALE RQ4H WHILE AWAKE [facility] Last Admin: 01/29/21 07:59 Dose: Not Given Documented by: AYDIN Non-Admin Reason: Not In Room Albuterol/Ipratropium (Albuterol/Iprat 2.5/0.5mg 3 Ml Ampul.Neb) 3 ml INHALE RQ4H PRN PRN Reason: Shortness of Breath/Wheezing Aripiprazole (Aripiprazole 5 Mg Tablet) 5 mg PO DAILY [facility] Last Admin: 01/29/21 08:25 Dose: 5 mg Documented by: JUAN ANTONIO Atorvastatin Calcium (Atorvastatin Calcium 80 Mg Tablet) 80 mg PO BEDTIME [facility] Last Admin: 01/28/21 21:25 Dose: 80 mg Documented by: BERNARD Azithromycin (Azithromycin 500 Mg Tablet) 500 mg PO Q24H [facility] Benzonatate (Benzonatate 100 Mg Capsule) 100 mg PO TID PRN PRN Reason: Cough Bupropion HCl (Bupropion Hcl Xl 300 Mg Tab.Er.24h) 300 mg PO DAILY [facility] Last Admin: 01/29/21 08:25 Dose: 300 mg Documented by: JUAN ANTONIO Clonazepam (Clonazepam 1 Mg Tablet) 1 mg PO DAILY [facility] Last Admin: 01/29/21 08:27 Dose: 1 mg Documented by: JUAN ANTONIO Clonazepam (Clonazepam 0.5 Mg Tablet) 0.5 mg PO BEDTIME [facility] Last Admin: 01/28/21 21:25 Dose: 0.5 mg Documented by: BERNARD Enoxaparin Sodium (Enoxaparin Sodium 40 Mg/0.4 Ml Syringe) 40 mg SUBCUT Q24H [facility] Last Admin: 01/28/21 21:25 Dose: 40 mg Documented by: BERNARD Famotidine (Famotidine 20 Mg Tablet) 20 mg PO BID [facility] Last Admin: 01/29/21 08:24 Dose: 20 mg Documented by: JUAN ANTONIO Fluoxetine HCl (Fluoxetine Hcl 20 Mg Capsule) 80 mg PO DAILY [facility] Last Admin: 01/29/21 08:24 Dose: 80 mg Documented by: JUAN ANTONIO Fluticasone/Vilanterol (Fluticasone/Vilanterol 200/25 Blst.W.Dev) 1 puff INHALE DAILY [facility] Last Admin: 01/29/21 07:59 Dose: Not Given Documented by: AYDIN Non-Admin Reason: Not In Room Ceftriaxone Sodium 1 gm/ (Sodium Chloride) 100 mls @ 200 mls/hr IV Q24H [facility] Melatonin (Melatonin 3 Mg Tablet) 6 mg PO BEDTIME PRN PRN Reason: Insomnia Methylprednisolone Sodium Succinate (Methylprednisolone Sod Succ 40 Mg/Ml Vial) 40 mg IVPUSH Q6H [facility] Last Admin: 01/29/21 08:26 Dose: 40 mg Documented by: JUAN ANTONIO Pharmacy Consult (Consult Rx Perform Med Rec) 1 each MISCELLANE ONCE PRN PRN Reason: Consult order Quetiapine Fumarate (Quetiapine Fumarate 50 Mg Tablet) 50 mg PO BEDTIME [facility] Last Admin: 11/08/21 21:25 Dose: 50 mg Documented by: BERNARD Senna (Sennosides 8.6 Mg Tablet) 17.2 mg PO BEDTIME PRN PRN Reason: Constipation Sodium Chloride (0.9 % Sodium Chloride Flush 3 Ml Syringe) 3 ml IVFLUSH QSHIFT [facility] Last Admin: 01/29/21 08:25 Dose: 3 ml Documented by: JUAN ANTONIO Tiotropium [place] (Tiotropium [place] 18 Mcg Cap.W.Dev) 1 puff INHALE RDAILY [facility] Last Admin: 01/29/21 07:59 Dose: Not Given Documented by: KASSIDYRICC Non-Admin Reason: Not In Room Labs CBC & Chem 7: 01/29/21 06:35 01/29/21 06:35 Labs: Laboratory Results - last 24 hr 01/28/21 01/28/21 01/28/21 16:40 16:41 16:41 MCV 89.6 MCH 29.9 MCHC 33.3 RDW 12.9 Plt Count 393 MPV 9.7 Immature Gran % (Auto) 0.7 H Neut % (Auto) 87.0 H Lymph % (Auto) 8.5 L [place] % (Auto) 3.4 Eos % (Auto) 0.2 Baso % (Auto) 0.2 Lymph # (Auto) 1.1 L [place] # (Auto) 0.4 Eos # (Auto) 0.0 Baso # (Auto) 0.0 Abs Immat Gran (auto) 0.09 H Absolute Neuts (auto) 11.3 H Absolute Nucleated RBC 0.000 Nucleated RBC % (auto) 0.0 Smear Tech's Comments Anion Gap 17 Estim Creat Clear Calc 96.6 Estimated GFR > 60 Random Glucose 131 H Lactic Acid Calcium 8.6 Total Bilirubin 0.5 Direct Bilirubin 0.2 AST 36 H ALT 23 Alkaline Phosphatase 100 D Troponin I High Sens < 3.5 B-Natriuretic Peptide 45 Total Protein 7.1 Albumin 3.8 Urine Color Urine Appearance Urine pH Ur Specific [place] Urine Protein Urine Glucose (UA) Urine Ketones Urine Blood Urine Nitrite Ur Leukocyte Esterase Urine RBC Urine WBC Ur Squamous Epith Cells Urine Bacteria COVID-19 ([facility]) COVID-19 Clin Com 01/28/21 01/28/21 01/28/21 16:41 16:42 18:47 MCV MCH MCHC RDW Plt Count MPV Immature Gran % (Auto) Neut % (Auto) Lymph % (Auto) [place] % (Auto) Eos % (Auto) Baso % (Auto) Lymph # (Auto) [place] # (Auto) Eos # (Auto) Baso # (Auto) Abs Immat Gran (auto) Absolute Neuts (auto) Absolute Nucleated RBC Nucleated RBC % (auto) Smear Tech's Comments Anion Gap Estim Creat Clear Calc Estimated GFR Random Glucose Lactic Acid 1.1 Calcium Total Bilirubin Direct Bilirubin AST ALT Alkaline Phosphatase Troponin I High Sens B-Natriuretic Peptide Total Protein Albumin Urine Color YELLOW Urine Appearance CLEAR Urine pH 6.0 Ur Specific [place] <= 1.005 Urine Protein TRACE Urine Glucose (UA) NEG Urine Ketones >=80 Urine Blood 1+ H Urine Nitrite NEG Ur Leukocyte Esterase NEG Urine RBC 0-2 Urine WBC 1-4 Ur Squamous Epith Cells 1+ Urine Bacteria 1+ COVID-19 ([facility]) Negative COVID-19 Clin Com See Note 01/29/21 01/29/21 06:35 06:35 MCV 88.6 MCH 29.2 MCHC 32.9 RDW 12.9 Plt Count 441 H MPV 9.9 Immature Gran % (Auto) 0.6 H Neut % (Auto) 91.6 H Lymph % (Auto) 6.6 L [place] % (Auto) 1.1 L Eos % (Auto) 0.0 Baso % (Auto) 0.1 Lymph # (Auto) 0.7 L [place] # (Auto) 0.1 Eos # (Auto) 0.0 Baso # (Auto) 0.0 Abs Immat Gran (auto) 0.07 H Absolute Neuts (auto) 10.2 H Absolute Nucleated RBC 0.000 Nucleated RBC % (auto) 0.0 Smear Tech's Comments VERIFIED Anion Gap 16 Estim Creat Clear Calc 109.0 Estimated GFR > 60 Random Glucose 157 H Lactic Acid Calcium 8.7 Total Bilirubin Direct Bilirubin AST ALT Alkaline Phosphatase Troponin I High Sens B-Natriuretic Peptide Total Protein Albumin Urine Color Urine Appearance Urine pH Ur Specific [place] Urine Protein Urine Glucose (UA) Urine Ketones Urine Blood Urine Nitrite Ur Leukocyte Esterase Urine RBC Urine WBC Ur Squamous Epith Cells Urine Bacteria COVID-19 ([facility]) COVID-19 Clin Com Assessment and Plan (1) Hypoxia: Status: Acute (2) PNA (pneumonia): Status: Acute (3) COPD exacerbation: Status: Acute Assessment and Plan: 60-year-old female with past medical history of hyperlipidemia, COPD, anxiety, depression, PTSD, history of recurrent pleural effusion presented to the hospital today with chief complaint of cough and shortness of breath.? Noted to have COPD exacerbation/pneumonia.? Admitted for further management. Acute hypoxic respiratory failure: Due to COPD exacerbation and pneumonia Finger oximetry 88% on arrival , now on 3 L of oxygen finger oximetry 90% gradually wean oxygen COPD exacerbation due to pneumonia Persistent shortness of breath with activity, Continue Solu-Medrol IV , continue scheduled updraft and p.r.n. Continue IV azithromycin and Solu Medrol day 2, will add cough medication, incentive spirometer Chest x-ray showed bilateral infiltrate COVID-19 negative Patient seen by Dr. Javier, he recommend to taper prednisone gradually and to obtain home O2 eval prior to discharge Urine pneumococcal antigen obtained History of anxiety/depression/PTSD:? Continue home fluoxetine, clonazepam, Seroquel, aripiprazole, and bupropion History of hyperlipidemia:? Continue home statin DVT prophylaxis:? Lovenox Code status:? Full code Quality Stroke Does the patient have a stroke diagnosis?: No VTE Prior VTE?: No VTE Risk Level:: Medical - moderate - high VTE Device Contraindication: Treatment Not Indicated VTE Drug Contraindication: N/A - Med Ordered
[2021-01-29] MEDS: Albuterol/Iprat 2.5/0.5MG 3 ML AMPUL.NEB INHALE ×3 (11:10→20:34)
--- NOTE | 2021-01-29 12:24 | MHC.CM.PN ---
met with pt pt lives with her s/o pt repoprts having sia and therapy sessions at home 2 x weekly pt has own transportaion home when she is dcd
--- NOTE | 2021-01-29 14:39 | MHC.CLN ---
RE: CONSULT PT IS SEVERELY MALNOURISHED PT EXPERIENCED SIGNIFICANT 5.1% WT LOSS X 3 WEEKS AND CONSUMED <50% ENERGY INTAKE > 5 DAYS PT STATES SHE HAS LOST 10 POUNDS AND HAS HAD VERY POOR PO INTAKE SINCE THURSDAY RECOMMEND ENSURE SUPPLEMENT BID TO PROVIDE 700 KCALS AND 40 GRAMS PROTEIN MONITOR PO INTAKE AND SUPPLEMENT ACCEPTANCE
[2021-01-29] MEDS: guaiFENesin DM 100/10/5 ML 5 ML SYRUP 10 ML PO (16:25)
[2021-01-29] MEDS: Azithromycin 500 MG TABLET PO (16:26)
[2021-01-29] MEDS: Benzonatate 100 MG CAPSULE PO (16:26)
[2021-01-29] MEDS: cefTRIAXone sodium 1 GM in 0.9 % Sodium Chloride 100 ML IV (16:32)
[2021-01-29] MEDS: clonazePAM 0.5 MG TABLET PO (20:51)
[2021-01-29] MEDS: Atorvastatin Calcium 80 MG TABLET PO (20:51)
[2021-01-29] MEDS: QUEtiapine Fumarate 50 MG TABLET PO (20:52)
[2021-01-29] MEDS: Enoxaparin Sodium 40 MG/0.4 ML SYRINGE SUBCUT (20:52)
[2021-01-30] VITALS (9 sets, daily range): BP systolic 105–141; BP diastolic 54–72; PULSE 73–88; RESP 18–22; TEMP 36.3–37.6; O2SAT 90–96
[2021-01-30] MEDS: Albuterol/Iprat 2.5/0.5MG 3 ML AMPUL.NEB INHALE ×5 (02:30→20:05)
[2021-01-30] MEDS: methylPREDNISolone Sod Succ 40 MG/ML VIAL IVPUSH ×4 (02:47→19:17)
[2021-01-30] MEDS: guaiFENesin DM 100/10/5 ML 5 ML SYRUP 10 ML PO ×2 (02:51→09:19)
[2021-01-30] MEDS: Benzonatate 100 MG CAPSULE PO ×2 (02:51→09:19)
[2021-01-30] MEDS: Fluticasone/Vilanterol 200/25 BLST.W.DEV 1 PUFF INHALE (07:27)
[2021-01-30] MEDS: buPROPion HCl XL 300 MG TAB.ER.24H PO (09:14)
[2021-01-30] MEDS: 0.9 % Sodium Chloride Flush 3 ML SYRINGE IVFLUSH ×2 (09:14→16:15)
[2021-01-30] MEDS: clonazePAM 1 MG TABLET PO (09:14)
[2021-01-30] MEDS: ARIPiprazole 5 MG TABLET PO (09:14)
[2021-01-30] MEDS: Famotidine 20 MG TABLET PO ×2 (09:14→21:33)
[2021-01-30] MEDS: FLUoxetine HCl 20 MG CAPSULE 80 MG PO (09:14)
--- NOTE | 2021-01-30 13:48 | MHC.CM.PN ---
Female 60 DX PNA DP home with resumption of services in place: [facility]. Family will provide transportation home. No discharge today per MD rounds. Patient is not ready. She has the comorbidity COPD.
--- NOTE | 2021-01-30 15:09 | HO.PM.IMPN ---
Subjective Subjective Date of Service: 01/30/21 Interval History: cC: sob interval history: still feeling sob Cardiovascular Cardiovascular: Reports no additional cardiovascular complaints Gastrointestinal Gastrointestinal: Reports no additional gastrointestinal complaints Physical Exam Vital Signs: Vital Signs: Last Vital Signs Temp 98.3 F 01/30/21 12:00 Pulse 84 01/30/21 12:00 Resp 22 H 01/30/21 12:00 BP 125/72 01/30/21 12:00 Pulse Ox 90 L 01/30/21 12:00 Oxygen Flow Rate 15 01/28/21 15:30 Body Mass Index 28.3 General: AO X 3, appears uncomfortable Resp: coarse, mild accessory muscles used CVS: S1,S2,RRR GI: soft, non tender, non distended Neuro: motor grossly intact, alert Psych: appropriate affect, appropriate insight Objective Data Active Medications Acetaminophen (Acetaminophen 325 Mg Tablet) 650 mg PO Q6H PRN PRN Reason: Pain, Mild (Pain Scale 1-3) Last Admin: 01/29/21 16:25 Dose: 650 mg Documented by: JUAN MANUEL Albuterol/Ipratropium (Albuterol/Iprat 2.5/0.5mg 3 Ml Ampul.Neb) 3 ml INHALE RQ4H WHILE AWAKE [facility] Last Admin: 01/30/21 11:18 Dose: 3 ml Documented by: LISA Albuterol/Ipratropium (Albuterol/Iprat 2.5/0.5mg 3 Ml Ampul.Neb) 3 ml INHALE RQ4H PRN PRN Reason: Shortness of Breath/Wheezing Last Admin: 01/30/21 02:30 Dose: 3 ml Documented by: AYDIN Aripiprazole (Aripiprazole 5 Mg Tablet) 5 mg PO DAILY [facility] Last Admin: 01/30/21 09:14 Dose: 5 mg Documented by: IGLESNader Atorvastatin Calcium (Atorvastatin Calcium 80 Mg Tablet) 80 mg PO BEDTIME [facility] Last Admin: 01/29/21 20:51 Dose: 80 mg Documented by: YVONNE Azithromycin (Azithromycin 500 Mg Tablet) 500 mg PO Q24H [facility] Last Admin: 01/29/21 16:26 Dose: 500 mg Documented by: JUAN MANUEL Benzonatate (Benzonatate 100 Mg Capsule) 100 mg PO TID PRN PRN Reason: Cough Last Admin: 01/30/21 09:19 Dose: 100 mg Documented by: GRANT Bupropion HCl (Bupropion Hcl Xl 300 Mg Tab.Er.24h) 300 mg PO DAILY [facility] Last Admin: 01/30/21 09:14 Dose: 300 mg Documented by: GRANT Clonazepam (Clonazepam 1 Mg Tablet) 1 mg PO DAILY [facility] Last Admin: 01/30/21 09:14 Dose: 1 mg Documented by: GRANT Clonazepam (Clonazepam 0.5 Mg Tablet) 0.5 mg PO BEDTIME [facility] Last Admin: 01/29/21 20:51 Dose: 0.5 mg Documented by: YVONNE Enoxaparin Sodium (Enoxaparin Sodium 40 Mg/0.4 Ml Syringe) 40 mg SUBCUT Q24H [facility] Last Admin: 01/29/21 20:52 Dose: 40 mg Documented by: YVONNE Famotidine (Famotidine 20 Mg Tablet) 20 mg PO BID [facility] Last Admin: 01/30/21 09:14 Dose: 20 mg Documented by: GRANT Fluoxetine HCl (Fluoxetine Hcl 20 Mg Capsule) 80 mg PO DAILY [facility] Last Admin: 01/30/21 09:14 Dose: 80 mg Documented by: GRANT Fluticasone/Vilanterol (Fluticasone/Vilanterol 200/25 Blst.W.Dev) 1 puff INHALE DAILY [facility] Last Admin: 01/30/21 07:27 Dose: 1 puff Documented by: LISA Guaifenesin/Dextromethorphan (Guaifenesin Dm 100/10/5 Ml 5 Ml Syrup) 10 ml PO Q6H PRN PRN Reason: cough Last Admin: 01/30/21 09:19 Dose: 10 ml Documented by: GRANT Ceftriaxone Sodium 1 gm/ (Sodium Chloride) 100 mls @ 200 mls/hr IV Q24H [facility] Last Infusion: 01/29/21 17:48 Dose: 0 mls/hr Documented by: JUAN MANUEL Melatonin (Melatonin 3 Mg Tablet) 6 mg PO BEDTIME PRN PRN Reason: Insomnia Methylprednisolone Sodium Succinate (Methylprednisolone Sod Succ 40 Mg/Ml Vial) 40 mg IVPUSH Q6H [facility] Last Admin: 01/30/21 14:21 Dose: 40 mg Documented by: GRANT Pharmacy Consult (Consult Rx Perform Med Rec) 1 each MISCELLANE ONCE PRN PRN Reason: Consult order Quetiapine Fumarate (Quetiapine Fumarate 50 Mg Tablet) 50 mg PO BEDTIME [facility] Last Admin: 01/29/21 20:52 Dose: 50 mg Documented by: YVONNE Senna (Sennosides 8.6 Mg Tablet) 17.2 mg PO BEDTIME PRN PRN Reason: Constipation Sodium Chloride (0.9 % Sodium Chloride Flush 3 Ml Syringe) 3 ml IVFLUSH QSHIFT [facility] Last Admin: 01/30/21 09:14 Dose: 3 ml Documented by: GRANT Tiotropium [place] (Tiotropium [place] 18 Mcg Cap.W.Dev) 1 puff INHALE RDAILY [facility] Last Admin: 01/30/21 07:27 Dose: 1 puff Documented by: LISA Labs CBC & Chem 7: 01/29/21 06:35 01/29/21 06:35 Microbiology Microbiology Results: Microbiology 01/28/21 17:22 Blood Culture - Preliminary Blood - Arterial No growth after 24 hours. 01/28/21 17:10 Blood Culture - Preliminary Blood - Arterial No growth after 24 hours. Assessment and Plan (1) Hypoxia: Status: Acute (2) PNA (pneumonia): Status: Acute (3) COPD exacerbation: Status: Acute Assessment and Plan: 60-year-old female with past medical history of hyperlipidemia, COPD, anxiety, depression, PTSD, history of recurrent pleural effusion presented to the hospital today with chief complaint of cough and shortness of breath.? Noted to have COPD exacerbation/pneumonia.? Admitted for further management. Acute hypoxic respiratory failure: Due to COPD exacerbation and pneumonia home o2 eval prior to dc COPD exacerbation due to pneumonia Persistent shortness of breath with activity, Continue Solu-Medrol IV , continue scheduled updraft and p.r.n. Continue IV azithromycin and Solu Medrol day 3, will add cough medication, incentive spirometer Chest x-ray showed bilateral infiltrate COVID-19 negative Patient seen by Dr. Javier, he recommend to taper prednisone gradually and to obtain home O2 eval prior to discharge Urine pneumococcal antigen obtained History of anxiety/depression/PTSD:? Continue home fluoxetine, clonazepam, Seroquel, aripiprazole, and bupropion History of hyperlipidemia:? Continue home statin DVT prophylaxis:? Lovenox Code status:? Full code Quality Stroke Does the patient have a stroke diagnosis?: No VTE Prior VTE?: No VTE Risk Level:: Medical - moderate - high VTE Device Contraindication: Treatment Not Indicated VTE Drug Contraindication: N/A - Med Ordered
[2021-01-30] MEDS: cefTRIAXone sodium 1 GM in 0.9 % Sodium Chloride 100 ML IV (16:10)
[2021-01-30] MEDS: Enoxaparin Sodium 40 MG/0.4 ML SYRINGE SUBCUT (19:17)
[2021-01-30] MEDS: Azithromycin 500 MG TABLET PO (19:17)
[2021-01-30] MEDS: Atorvastatin Calcium 80 MG TABLET PO (21:33)
[2021-01-30] MEDS: QUEtiapine Fumarate 50 MG TABLET PO (21:33)
[2021-01-30] MEDS: clonazePAM 0.5 MG TABLET PO (21:33)
[2021-01-31] VITALS (17 sets, daily range): BP systolic 105–140; BP diastolic 60–69; PULSE 67–91; RESP 16–20; TEMP 36.3–37; O2SAT 91–97
[2021-01-31] MEDS: methylPREDNISolone Sod Succ 40 MG/ML VIAL IVPUSH ×4 (01:32→22:03)
[2021-01-31] MEDS: 0.9 % Sodium Chloride Flush 3 ML SYRINGE IVFLUSH ×4 (01:32→22:03)
[2021-01-31] MEDS: guaiFENesin DM 100/10/5 ML 5 ML SYRUP 10 ML PO ×3 (01:33→22:03)
[2021-01-31] MEDS: Albuterol/Iprat 2.5/0.5MG 3 ML AMPUL.NEB INHALE ×5 (03:37→19:28)
[2021-01-31 07:26] LABS: Hematocrit 33.8 % (37.0-47.0); Hemoglobin 11.1 g/dl (12.0-16.0); Mean Corpuscular HGB Conc 32.8 g/dl (31.0-35.0); Mean Corpuscular Hemoglobin 29.6 pg (27.0-33.0); Mean Corpuscular Volume 90.1 fL (80.0-98.0); Mean Platelet Volume 10.4 fL (9.4-12.3); Platelet Count 520 X10*3/uL (160-400); Red Blood Count 3.75 X10*6/uL (4.20-5.50); Red Cell Distribution Width 13.4 % (11.0-16.0); White Blood Count 14.3 X10*3/uL (4.8-10.8)
[2021-01-31] MEDS: Fluticasone/Vilanterol 200/25 BLST.W.DEV 1 PUFF INHALE (07:34)
[2021-01-31 07:57] LABS: Anion Gap 17 (12-20); Blood Urea Nitrogen 14 mg/dL (9-16); Carbon Dioxide 25 mmol/L (22-29); Chloride 103 mmol/L (96-108); Estimated Glomerular Filt Rate > 60; Glucose Fasting 124 mg/dL (60-99); Potassium 4.6 mmol/L (3.3-5.1); Sodium 140 mmol/L (135-145)
[2021-01-31] MEDS: Famotidine 20 MG TABLET PO ×2 (08:45→22:03)
[2021-01-31] MEDS: buPROPion HCl XL 300 MG TAB.ER.24H PO (08:45)
[2021-01-31] MEDS: clonazePAM 1 MG TABLET PO (08:45)
[2021-01-31] MEDS: FLUoxetine HCl 20 MG CAPSULE 80 MG PO (08:45)
[2021-01-31] MEDS: Benzonatate 100 MG CAPSULE PO ×2 (08:45→22:03)
[2021-01-31] MEDS: ARIPiprazole 5 MG TABLET PO (08:45)
[2021-01-31] MEDS: Acetaminophen 325 MG TABLET 650 MG PO (08:47)
--- NOTE | 2021-01-31 13:23 | HO.PM.IMPN ---
Subjective Subjective Date of Service: 01/31/21 Interval History: cC: sob interval history: still feeling sob Cardiovascular Cardiovascular: Reports no additional cardiovascular complaints Respiratory Respiratory: Reports no additional respiratory complaints Physical Exam Vital Signs: Vital Signs: Last Vital Signs Temp 97.7 F 01/31/21 11:45 Pulse 67 01/31/21 11:45 Resp 20 01/31/21 11:45 BP 119/67 01/31/21 11:45 Pulse Ox 93 01/31/21 12:18 Oxygen Flow Rate 15 01/28/21 15:30 Body Mass Index 28.3 General: AO X 3, appears uncomfortable Resp:? coarse, mild accessory muscles used CVS: S1,S2,RRR GI: soft, non tender, non distended Neuro:? motor grossly intact, alert Psych: appropriate affect, appropriate insight? Objective Data Active Medications Acetaminophen (Acetaminophen 325 Mg Tablet) 650 mg PO Q6H PRN PRN Reason: Pain, Mild (Pain Scale 1-3) Last Admin: 01/31/21 08:47 Dose: 650 mg Documented by: JUAN MANUEL Albuterol/Ipratropium (Albuterol/Iprat 2.5/0.5mg 3 Ml Ampul.Neb) 3 ml INHALE RQ4H WHILE AWAKE [facility] Last Admin: 01/31/21 11:07 Dose: 3 ml Documented by: LISA Albuterol/Ipratropium (Albuterol/Iprat 2.5/0.5mg 3 Ml Ampul.Neb) 3 ml INHALE RQ4H PRN PRN Reason: Shortness of Breath/Wheezing Last Admin: 01/31/21 03:37 Dose: 3 ml Documented by: CARLITO Aripiprazole (Aripiprazole 5 Mg Tablet) 5 mg PO DAILY [facility] Last Admin: 01/31/21 08:45 Dose: 5 mg Documented by: JUAN MANUEL Atorvastatin Calcium (Atorvastatin Calcium 80 Mg Tablet) 80 mg PO BEDTIME [facility] Last Admin: 01/30/21 21:33 Dose: 80 mg Documented by: VELIA Azithromycin (Azithromycin 500 Mg Tablet) 500 mg PO Q24H [facility] Last Admin: 01/30/21 19:17 Dose: 500 mg Documented by: VELIA Benzonatate (Benzonatate 100 Mg Capsule) 100 mg PO TID PRN PRN Reason: Cough Last Admin: 01/31/21 08:45 Dose: 100 mg Documented by: JUAN MANUEL Bupropion HCl (Bupropion Hcl Xl 300 Mg Tab.Er.24h) 300 mg PO DAILY [facility] Last Admin: 01/31/21 08:45 Dose: 300 mg Documented by: JUAN MANUEL Clonazepam (Clonazepam 1 Mg Tablet) 1 mg PO DAILY [facility] Last Admin: 01/31/21 08:45 Dose: 1 mg Documented by: JUAN MANUEL Clonazepam (Clonazepam 0.5 Mg Tablet) 0.5 mg PO BEDTIME [facility] Last Admin: 01/30/21 21:33 Dose: 0.5 mg Documented by: VELIA Enoxaparin Sodium (Enoxaparin Sodium 40 Mg/0.4 Ml Syringe) 40 mg SUBCUT Q24H [facility] Last Admin: 01/30/21 19:17 Dose: 40 mg Documented by: VELIA Famotidine (Famotidine 20 Mg Tablet) 20 mg PO BID [facility] Last Admin: 01/31/21 08:45 Dose: 20 mg Documented by: JUAN MANUEL Fluoxetine HCl (Fluoxetine Hcl 20 Mg Capsule) 80 mg PO DAILY [facility] Last Admin: 01/31/21 08:45 Dose: 80 mg Documented by: JUAN MANUEL Fluticasone/Vilanterol (Fluticasone/Vilanterol 200/25 Blst.W.Dev) 1 puff INHALE DAILY [facility] Last Admin: 01/31/21 07:34 Dose: 1 puff Documented by: LISA Guaifenesin/Dextromethorphan (Guaifenesin Dm 100/10/5 Ml 5 Ml Syrup) 10 ml PO Q6H PRN PRN Reason: cough Last Admin: 01/31/21 08:46 Dose: 10 ml Documented by: JUAN MANUEL Ceftriaxone Sodium 1 gm/ (Sodium Chloride) 100 mls @ 200 mls/hr IV Q24H [facility] Last Infusion: 01/30/21 16:53 Dose: 0 mls/hr Documented by: VELIA Melatonin (Melatonin 3 Mg Tablet) 6 mg PO BEDTIME PRN PRN Reason: Insomnia Methylprednisolone Sodium Succinate (Methylprednisolone Sod Succ 40 Mg/Ml Vial) 40 mg IVPUSH Q6H [facility] Last Admin: 01/31/21 13:09 Dose: 40 mg Documented by: JUAN MANUEL Pharmacy Consult (Consult Rx Perform Med Rec) 1 each MISCELLANE ONCE PRN PRN Reason: Consult order Quetiapine Fumarate (Quetiapine Fumarate 50 Mg Tablet) 50 mg PO BEDTIME [facility] Last Admin: 01/30/21 21:33 Dose: 50 mg Documented by: VELIA Mays (Sennosides 8.6 Mg Tablet) 17.2 mg PO BEDTIME PRN PRN Reason: Constipation Sodium Chloride (0.9 % Sodium Chloride Flush 3 Ml Syringe) 3 ml IVFLUSH QSHIFT [facility] Last Admin: 01/31/21 08:45 Dose: 3 ml Documented by: JUAN MANUEL Tiotropium [place] (Tiotropium [place] 18 Mcg Cap.W.Dev) 1 puff INHALE RDAILY [facility] Last Admin: 01/31/21 07:34 Dose: 1 puff Documented by: LISA Labs CBC & Chem 7: 01/31/21 05:56 01/31/21 05:56 Labs: Laboratory Results - last 24 hr 01/31/21 01/31/21 05:56 05:56 MCV 90.1 MCH 29.6 MCHC 32.8 RDW 13.4 Plt Count 520 H MPV 10.4 Absolute Nucleated RBC 0.000 Nucleated RBC % (auto) 0.0 Anion Gap 17 Estim Creat Clear Calc 104.0 Estimated GFR > 60 Fasting Glucose 124 H Calcium 9.0 Microbiology Microbiology Results: Microbiology 01/28/21 17:22 Blood Culture - Preliminary Blood - Arterial No growth after 48 hours. 01/28/21 17:10 Blood Culture - Preliminary Blood - Arterial No growth after 48 hours. Assessment and Plan (1) Hypoxia: Status: Acute (2) PNA (pneumonia): Status: Acute (3) COPD exacerbation: Status: Acute Assessment and Plan: 60-year-old female with past medical history of hyperlipidemia, COPD, anxiety, depression, PTSD, history of recurrent pleural effusion presented to the hospital today with chief complaint of cough and shortness of breath.? Noted to have COPD exacerbation/pneumonia.? Admitted for further management. Acute hypoxic respiratory failure Due to COPD exacerbation and pneumonia still sob on mild exertion home o2 eval prior to dc COPD exacerbation due to pneumonia Persistent shortness of breath with activity, continue updraft Continue IV rocephin and azithromycin and Solu Medrol day 4, cough medication, incentive spirometer Chest x-ray showed bilateral infiltrate COVID-19 negative History of anxiety/depression/PTSD:? Continue home fluoxetine, clonazepam, Seroquel, aripiprazole, and bupropion History of hyperlipidemia:? Continue home statin DVT prophylaxis:? Lovenox Code status:? Full code Quality Stroke Does the patient have a stroke diagnosis?: No VTE Prior VTE?: No VTE Risk Level:: Medical - moderate - high VTE Device Contraindication: Treatment Not Indicated VTE Drug Contraindication: N/A - Med Ordered
--- NOTE | 2021-01-31 13:51 | MHC.CLN ---
Addendum entered by Lata Bartlett RD 01/31/21 14:24: agree with provider's assessment below Original Note: PT IS AT INCREASED NUTRITION RISK R/T MALNUTRITION DIET RX: CARDIAC-APPROPRIATE PT STATED SHE IS EATING WELL, PO INTAKE DOCUMENTED 100% X 3 MEALS, 50% X 1 MEAL PT RECEIVING ENSURE SUPPLEMENT BID TO PROVIDE 700 KCALS AND 40 GRAMS PROTEIN MONITOR PO INTAKE
[2021-01-31] MEDS: cefTRIAXone sodium 1 GM in 0.9 % Sodium Chloride 100 ML IV (16:50)
[2021-01-31] MEDS: Azithromycin 500 MG TABLET PO (17:48)
[2021-01-31] MEDS: Enoxaparin Sodium 40 MG/0.4 ML SYRINGE SUBCUT (22:02)
[2021-01-31] MEDS: clonazePAM 0.5 MG TABLET PO (22:03)
[2021-01-31] MEDS: Atorvastatin Calcium 80 MG TABLET PO (22:03)
[2021-01-31] MEDS: QUEtiapine Fumarate 50 MG TABLET PO (22:03)
[2021-02-01] MEDS: methylPREDNISolone Sod Succ 40 MG/ML VIAL IVPUSH ×3 (02:48→12:17)
[2021-02-01 03:35] VITALS: BP 141/74; PULSE 82; RESP 20; TEMP 36.6; O2SAT 94
[2021-02-01] MEDS: Albuterol/Iprat 2.5/0.5MG 3 ML AMPUL.NEB INHALE ×2 (07:21→10:31)
[2021-02-01 07:23] VITALS: PULSE 86; O2SAT 90
[2021-02-01] MEDS: Fluticasone/Vilanterol 200/25 BLST.W.DEV 1 PUFF INHALE (07:23)
[2021-02-01 07:45] VITALS: BP 133/80; PULSE 84; RESP 20; TEMP 36.8; O2SAT 93
[2021-02-01] MEDS: FLUoxetine HCl 20 MG CAPSULE 80 MG PO (09:20)
[2021-02-01] MEDS: clonazePAM 1 MG TABLET PO (09:21)
[2021-02-01] MEDS: buPROPion HCl XL 300 MG TAB.ER.24H PO (09:22)
[2021-02-01] MEDS: Famotidine 20 MG TABLET PO (09:22)
[2021-02-01] MEDS: 0.9 % Sodium Chloride Flush 3 ML SYRINGE IVFLUSH (09:22)
[2021-02-01] MEDS: ARIPiprazole 5 MG TABLET PO (09:22)
[2021-02-01 10:32] VITALS: PULSE 81; O2SAT 86
[2021-02-01 11:30] VITALS: PULSE 78; PULSE 79; PULSE 85; O2SAT 86; O2SAT 88; O2SAT 92
[2021-02-01 11:33] VITALS: BP 133/75; PULSE 76; RESP 18; TEMP 36.2; O2SAT 96
--- NOTE | 2021-02-01 11:49 | P.DS_ITS ---
DS: Providers Provider Date of Service: 02/01/21 Date of admission: 01/28/21 19:25 Primary care physician: Samantha Flores MD Consults: 01/28/21 19:25 Consult to Pulmonology Routine Consulting Provider: Lizzie Amador Reason for consultation: COPD/PNA/Hypoxia DS: Diagnosis Discharge Diagnosis (1) Hypoxia: Status: Acute (2) PNA (pneumonia): Status: Acute (3) COPD exacerbation: Status: Acute DS: Summary Hospital Course Hospital Course: Patient was admitted for acute hypoxic respiratory failure due to COPD exace rbation and pneumonia. She was treated with IV steroids, bronchodilators, ceftriaxone and azithromycin. She was seen by Pulmonary who recommended discharged on cefpodoxime and azithromycin as well as prednisone taper. Patient started to feel much better, she feels close to baseline. Was evaluated for home oxygen and will require 3 L home O2. Time Spent with Patient Time attestation: Total time spent providing and/or coordinating discharge services: Discharge coordination time: Greater than 30 minutes Quality: Stroke Does the patient have a stroke diagnosis?: No Physical Exam Vital Signs: Vital Signs: Last Vital Signs Temp 97.2 F 02/01/21 11:33 Pulse 76 02/01/21 11:33 Resp 18 02/01/21 11:33 BP 133/75 02/01/21 11:33 Pulse Ox 96 02/01/21 11:33 Oxygen Flow Rate 15 01/28/21 15:30 Body Mass Index 28.3 General: AO X 3, appears uncomfortable Resp:? coarse, no accessory muscles used CVS: S1,S2,RRR GI: soft, non tender, non distended Neuro:? motor grossly intact, alert Psych: appropriate affect, appropriate insight? DS: Data Data Completed and Pending Labs on day of discharge: Preliminary micro results at discharge 01/28/21 17:22 Blood Culture - Preliminary Blood - Arterial No growth after 48 hours. 01/28/21 17:10 Blood Culture - Preliminary Blood - Arterial No growth after 48 hours. Discharge Plan Discharge Patient Disposition: Home, Self-Care Discharge Diagnosis: pneumonia, copd Referrals: Lizzie Amador MD [Physician] - 1 Week Samantha Flores MD [Primary Care Provider] - 1 Week Discharge Medications: New azithromycin 500 mg Tablet 500 mg PO Q24H Qty: 3 RF: 0 cefpodoxime 100 mg tablet 100 mg PO Q12H Qty: 10 RF: 0 prednisone 20 mg tablet 40 mg PO DAILY Qty: 15 RF: 0 Continued mometasone-formoterol 200-5 mcg/actuation HFA aerosol inhaler 2 puff PO BID Qty: 13 RF: 3 Incruse Ellipta 62.5 mcg/actuation blister with device 1 inh PO DAILY Qty: 90 RF: 3 clonazepam 0.5 mg tablet 1 tab PO BEDTIME RF: 0 quetiapine 50 mg tablet 1 tab PO BEDTIME RF: 0 rosuvastatin [Crestor] 20 mg tablet 20 mg PO BEDTIME RF: 0 aripiprazole 5 mg tablet 5 mg PO DAILY RF: 0 fluoxetine 40 mg capsule 80 mg PO DAILY RF: 0 clonazepam 0.5 mg tablet 1 mg PO DAILY RF: 0 bupropion HCl 150 mg tablet sustained-release 12 hr 150 mg PO BID RF: 0 Discharge Orders: Discharge Order (Routine); Ordered 02/01/21 Ordered By: Landon Jama Diet: advance to usual diet Activity on Discharge: As tolerated Stand Alone Forms: Patient Portal Discharge page Care Plan Goals: recovery Health Concerns: copd, pneumonia Plan of Treatment: prednisone taper, antibiotics, home o2 Assessment: see above
--- NOTE | 2021-02-01 12:50 | MHC.CM.PN ---
IMM 02/01/21 Female PNA discharged today to home. [facility] services will resume. Family providing transport home.
[2021-02-02 10:52] LABS: Strep Pneumo Ag urine Not Detected (Not Detected)
[2021-02-04 20:07] LABS: Legionella Ag Urine Not Detected (Not Detected)
== END 2021-02-01 13:39 | disposition home or self-care (01) | DRG 193 ==
LOC: HO.ED 16:37 → HO.EDOVER 19:42 → HO.IMC 01-29 07:07
PROVIDERS: Hospitalist; Admitting Provider Hospitalist; Emergency Provider Emergency Medicine; PCP Internal Medicine; Visit Provider Internal Medicine
DX: J18.9 Pneumonia, unspecified organism (principal); J96.01 Acute respiratory failure with hypoxia; J44.1 Chronic obstructive pulmonary disease with (acute) exacerbation; J44.0 Chronic obstructive pulmonary disease with (acute) lower respiratory infection; J45.901 Unspecified asthma with (acute) exacerbation; E78.5 Hyperlipidemia, unspecified; F43.10 Post-traumatic stress disorder, unspecified; F32.A Depression, unspecified; F41.9 Anxiety disorder, unspecified; Z20.822 Contact with and (suspected) exposure to COVID-19; Z87.891 Personal history of nicotine dependence; Z79.899 Other long term (current) drug therapy
CPT/HCPCS: 36415; 71045; 80048; 80076; 81001; 81003; 83605; 83880; 84484; 85025; 85027; 87040; 87449; 87635; 87899; 93005; 94640; 94644; 96365; 96367; 96375; 99285; 99291; J0456; J0696; J1650; J2920; J2930

== ENCOUNTER → 2021-02-18 14:09 | Outpatient (BNVA) | payer OTHER, SELFPAY | PROVIDERS: PCP Internal Medicine; Visit Provider Hospitalist | DX: J44.9 Chronic obstructive pulmonary disease, unspecified (principal); J18.9 Pneumonia, unspecified organism; R91.8 Other nonspecific abnormal finding of lung field | CPT/HCPCS: 90686; 99212 ==

== ENCOUNTER 2021-02-28 07:04 | Outpatient (REF) | payer OTHER, SELFPAY ==
--- NOTE | ~2021-02-28 | XR_ITS ---
EXAMINATION: XR CHEST CLINICAL INFORMATION: COPD COMPARISON: Previous chest x-rays most recent 01/28/2021 TECHNIQUE: 2 views of the chest were obtained. FINDINGS: The cardiac and mediastinal contours are normal. There is a surgical staple line seen in the right upper lobe. The lungs are otherwise clear. The previously identified bilateral airspace disease 01/28/2021 has resolved. There is blunting at the right lateral costophrenic angle questionable for small right pleural effusion or pleural thickening that is stable. There is no left pleural effusion. There is no pneumothorax. There is a thoracolumbar scoliosis. XR/XR chest 2V IMPRESSION: Resolved pneumonia from 01/28/2021 exam. Blunting at the right lateral costophrenic angle questionable for small pleural effusion or pleural thickening similar to previous exams.
--- NOTE | 2021-02-28 11:37 | PFT_ITS ---
FLOWS: FEV1 88% of predicted at 2.55 L. FVC 92% of predicted at 3.42 L. FEV1 to FVC ratio of 0.74. No bronchodilator testing was performed as the patient has had bronchodilator 2 hours prior to testing. LUNG VOLUMES: Total lung capacity 83% of predicted at 4.57 L. Residual volume 62% of predicted at 1.32 L. Slow vital capacity 95% of predicted at 3.25 L. Expiratory reserve volume 134% of predicted at 1.37 L. Diffusion capacity is moderately decreased. IMPRESSION: No obstructive or restrictive ventilatory defect. No bronchodilator testing was performed as the patient has had bronchodilator 2 hours prior to the test. Decreased diffusion capacity suggests emphysema. MD TODD Ramirez/MODL / [id number]
== END 2021-02-28 07:05 | disposition home or self-care (01) ==
LOC: HO.RESP 07:04
PROVIDERS: PCP Internal Medicine; Visit Provider Hospitalist
DX: J44.9 Chronic obstructive pulmonary disease, unspecified (principal)
CPT/HCPCS: 71046; 94010; 94727; 94729

== ENCOUNTER 2021-03-08 14:42 | Outpatient (REF) | payer OTHER, SELFPAY ==
--- NOTE | ~2021-03-08 | CT_ITS ---
EXAMINATION: CT CHEST SCREENING CLINICAL INFORMATION: 42 pack year history. Former smoker. Quit 6 years ago. COMPARISON: Previous chest CT January 2015 TECHNIQUE: Multidetector volumetric CT imaging of the chest is performed without contrast using low dose technique. Additional 2D coronal and sagittal reformatted images and axial 3D maximum intensity projection (MIP) images are generated on the CT workstation. This CT examination was performed using dose optimization techniques as appropriate, variously including the following: *Automated exposure control *Adjustment of mA and/or kV according to patient size (this includes techniques or standardized protocols for targeted exams where dose is matched to indication/reason for exam; i.e. extremities or head) *Use of iterative reconstruction technique DLP: 59 mGy-cm FINDINGS: LUNGS: There is evidence of emphysema. There are increased peripheral interstitial markings with increased peripheral reticulation and bronchiolectasis questionable for mild interstitial lung disease. There is bilateral lower lobe posterior or dependent atelectasis/consolidation or scarring, right greater than left. There is minimal chronic subsegmental atelectasis or scarring in the medial segment of the right middle lobe and inferior segment of the lingula as well. This is similar to January 2015 exam. No pulmonary nodule. No endobronchial or endotracheal lesion is seen. MEDIASTINUM: There is coronary artery calcification. Mediastinum is otherwise normal. PLEURA: There is chronic blunting at the right lateral costophrenic angle suggestive of mild pleural thickening. The previously identified small right pleural effusion January 2015 is no longer seen. AXILLA: No lymphadenopathy. UPPER ABDOMEN: Unremarkable OSSEOUS STRUCTURES: There is mild curvature of the lower thoracic and upper lumbar spine. CT/CT lung screening IMPRESSION: Emphysema and interstitial disease. Stable bibasilar chronic atelectasis or scarring at the lung bases. Right pleural thickening. Coronary artery calcification. ASSESSMENT: Lung-RADS category 2: Benign RECOMMENDATION: Annual low-dose chest CT follow-up recommended.
== END 2021-03-08 14:43 | disposition home or self-care (01) ==
LOC: HO.CT 14:42
PROVIDERS: PCP Internal Medicine; Visit Provider Physician Assistant Medical
DX: Z12.2 Encounter for screening for malignant neoplasm of respiratory organs (principal); Z87.891 Personal history of nicotine dependence
CPT/HCPCS: 71271; G0296

== ENCOUNTER → 2021-03-28 08:35 | Outpatient (BNVA) | payer OTHER, SELFPAY | PROVIDERS: PCP Internal Medicine; Visit Provider Hospitalist | DX: J44.9 Chronic obstructive pulmonary disease, unspecified (principal); J18.9 Pneumonia, unspecified organism; J84.9 Interstitial pulmonary disease, unspecified; R91.8 Other nonspecific abnormal finding of lung field | CPT/HCPCS: 99212 ==

== ENCOUNTER 2021-04-10 09:36 | Outpatient (REF) | payer OTHER, SELFPAY ==
[2021-04-10 12:09] LABS: Erythrocyte Sedimentation Rate 51 MM/HR (0-20)
[2021-04-10 12:12] LABS: Alanine Aminotransferase 16 U/L (0-31); Albumin Level 4.4 g/dL (3.5-5.0); Alkaline Phosphatase 80 U/L (39-117); Anion Gap 13 (12-20); Aspartate Amino Transferase 20 U/L (5-31); Bilirubin Total 0.3 mg/dL (0.0-1.0); Blood Urea Nitrogen 12 mg/dL (9-16); Calcium 9.4 mg/dL (8.4-10.2); Carbon Dioxide 27 mmol/L (22-29); Chloride 98 mmol/L (96-108); Cholesterol 330 mg/dL; Estimated Glomerular Filt Rate > 60; Glucose Fasting 89 mg/dL (60-99); HDL Cholesterol 73 mg/dL; LDL Cholesterol Calculated 230 mg/dl; Potassium 4.2 mmol/L (3.3-5.1); Sodium 134 mmol/L (135-145); Total Protein 7.6 g/dL (6.5-8.0); Triglycerides 136 mg/dL
[2021-04-12 07:01] LABS: Immunoglobulin E 18 kU/L (<OR=114)
[2021-04-12 12:36] LABS: Anti Nuclear Antibody Screen NEGATIVE (NEGATIVE)
[2021-04-17 18:56] LABS: Asperg fumigatus Precip Abs NEGATIVE (NEGATIVE); Micropoly faeni Abs NEGATIVE (NEGATIVE); Pigeon serum Abs NEGATIVE (NEGATIVE); Saccharo pora viridis Abs NEGATIVE (NEGATIVE); Thermo candidus Abs NEGATIVE (NEGATIVE); Thermoa vulgaris #1 NEGATIVE (NEGATIVE)
== END 2021-04-10 09:37 | disposition home or self-care (01) ==
LOC: HO.HMGCLDS 09:36
PROVIDERS: Absent Provider Hospitalist; PCP Internal Medicine; Visit Provider Internal Medicine
DX: Z00.00 Encounter for general adult medical examination without abnormal findings (principal); R91.8 Other nonspecific abnormal finding of lung field; J84.9 Interstitial pulmonary disease, unspecified; E78.5 Hyperlipidemia, unspecified
CPT/HCPCS: 36415; 80053; 80061; 82785; 85652; 86038; 86039; 86331; 86606; 86609

== ENCOUNTER → 2021-09-30 08:22 | Outpatient (BNVA) | payer OTHER, SELFPAY | PROVIDERS: PCP Internal Medicine; Visit Provider Hospitalist | DX: J41.8 Mixed simple and mucopurulent chronic bronchitis (principal); J18.9 Pneumonia, unspecified organism; R91.8 Other nonspecific abnormal finding of lung field; J84.9 Interstitial pulmonary disease, unspecified; Z79.899 Other long term (current) drug therapy | CPT/HCPCS: 99212 ==

== ENCOUNTER 2021-12-11 07:59 | Outpatient (REF) | payer OTHER, SELFPAY ==
--- NOTE | ~2021-12-11 | XR_ITS ---
EXAMINATION: XR HAND, BILATERAL CLINICAL INFORMATION: Pain. COMPARISON: None TECHNIQUE: 3 views of each hand. FINDINGS: RIGHT: There is a fracture of the proximal phalanx of the thumb intra-articular with the MCP joint of uncertain age. There is a 5th metacarpal shaft fracture that appears old. The bones are osteopenic. There is arthritis at the 1st MCP joint. The soft tissues are unremarkable. LEFT: Bone alignment is normal. No fracture or dislocation is seen. There is arthritis at the 1st MCP joint with joint space narrowing. There is a soft tissue periarticular calcification. Joint spaces and soft tissues are otherwise normal. XR/XR hand RT min 3V IMPRESSION: Right: Fracture of the proximal phalanx of the thumb intra-articular with the MCP joint of uncertain age. Arthritis at the MCP joint. Old 5th metacarpal shaft fracture. Left: Mild arthritis at the 1st MCP joint and periarticular soft tissue calcification or ossification likely related to old trauma.
--- NOTE | ~2021-12-11 | XR_ITS ---
EXAMINATION: XR HAND, BILATERAL CLINICAL INFORMATION: Pain. COMPARISON: None TECHNIQUE: 3 views of each hand. FINDINGS: RIGHT: There is a fracture of the proximal phalanx of the thumb intra-articular with the MCP joint of uncertain age. There is a 5th metacarpal shaft fracture that appears old. The bones are osteopenic. There is arthritis at the 1st MCP joint. The soft tissues are unremarkable. LEFT: Bone alignment is normal. No fracture or dislocation is seen. There is arthritis at the 1st MCP joint with joint space narrowing. There is a soft tissue periarticular calcification. Joint spaces and soft tissues are otherwise normal. XR/XR hand LT min 3V IMPRESSION: Right: Fracture of the proximal phalanx of the thumb intra-articular with the MCP joint of uncertain age. Arthritis at the MCP joint. Old 5th metacarpal shaft fracture. Left: Mild arthritis at the 1st MCP joint and periarticular soft tissue calcification or ossification likely related to old trauma.
== END 2021-12-11 08:00 | disposition home or self-care (01) ==
LOC: HO.HOSX 07:59
PROVIDERS: Visit Provider Physician Assistant
DX: M65.312 Trigger thumb, left thumb (principal); M79.641 Pain in right hand; M79.642 Pain in left hand; M65.311 Trigger thumb, right thumb
CPT/HCPCS: 20550; 73130; 99202; J1100

== ENCOUNTER 2022-01-09 06:55 | Day surgery (SDC) | payer OTHER, SELFPAY ==
[2022-01-09 07:24] VITALS: BP 129/63; PULSE 71; RESP 16; TEMP 36.4; O2SAT 98; BMI 29.0
--- NOTE | 2022-01-09 08:36 | MHC.SHP ---
Pre-Procedural Eval Section A Date of Service: 01/09/22 The patient is an INPATIENT: No Changes since office visit: No Cold of Flu in the past 2 weeks, No New Medical Problems, No Changes in Medication and No Patient answered all questions The History & Physical has been completed within 30 days and I have reviewed it.: Yes Section B Chief Complaint: Trigger thumb, left thumb Allergies: Allergies Allergy/AdvReac Type Severity Reaction Status Date / Time shellfish derived Allergy Severe Anaphylaxis Verified 12/11/21 09:07 nuts Allergy Severe Anaphylaxis Uncoded 12/11/21 09:07 Plan I have reviewed the history and physical and performed a pertinent physical examination on my patient. No changes have occurred unless specified.
--- NOTE | 2022-01-09 08:37 | W.PM.OPN ---
Operative Note Operative Note Date of Service: 01/09/22 Narrative: Operative Note Preop diagnosis: 1. Left thumb Trigger finger Postop diagnosis: 1. left thumb Trigger finger Procedure: 1. left thumb A1 vicky release Surgeon: Tiffany Laguerre MD Anesthesia: local block using 1% lidocaine with epinephrine Findings: No locking or catching after A1 vicky release EBL: Less than 5 mL Tourniquet time: None Specimens: None Complications: None Disposition: Brought to recovery room in stable condition Plan: Follow-up for 10-14 days for wound check and suture removal Indications: The patient is 61 years old, with a left thumb trigger finger that has been unresponsive to nonoperative management. The risks and benefits of operative treatment including but not limited to risk of damage to blood vessels, nerves, tendons, infection, persistent pain, persistent symptoms, recurrence or possible need for additional surgery were discussed with the patient and the patient wishes to proceed with surgery. Procedure: Once consent was obtained a local block was performed in the preop area using a combination of 1% lidocaine with epinephrine. The patient was then brought back to the operating suite and placed on the operative table in supine position. A tourniquet was applied to the proximal aspect of the left upper extremity and the limb was prepped and draped in a standard surgical fashion. Once assured that we had a good block, a 1.5 cm oblique incision was made centered over the A1 vicky of the left thumb . The incision was made through the skin to the subcutaneous tissues using a #15 blade. Careful dissection was made down to the level of the A1 vicky using tenotomy scissors, with care being taken to protect the nearby neurovascular structures. A longitudinal incision was made in the A1 vicky 1st using a #15 blade, then using tenotomy scissors under direct visualization. The A1 vicky was noted to be thickened. Following our A1 vicky release, we no longer saw any locking or catching of the digit with flexion and extension. Once satisfied with our A1 vicky release the wound was copiously irrigated with normal saline and hemostasis was obtained with a brief period of local pressure. The skin edges were reapproximated with some 5.0 nylon suture material and a sterile dressing was applied. The patient appears to have tolerated the procedure well and with no complications. All digits were well vascularized at the conclusion of the case.
[2022-01-09 08:41] VITALS: BP 130/69; PULSE 68; RESP 16; TEMP 36.9; O2SAT 99
== END 2022-01-09 08:52 | disposition home or self-care (01) ==
PROVIDERS: PCP Internal Medicine; Visit Provider Orthopaedic Surgery
PROC: (CPT 26055; principal; 2022-01-09 09:10)
DX: M65.312 Trigger thumb, left thumb (principal); J44.9 Chronic obstructive pulmonary disease, unspecified; F32.A Depression, unspecified; E78.5 Hyperlipidemia, unspecified; R91.8 Other nonspecific abnormal finding of lung field; F43.10 Post-traumatic stress disorder, unspecified; Z79.899 Other long term (current) drug therapy; Z87.891 Personal history of nicotine dependence; F12.90 Cannabis use, unspecified, uncomplicated
CPT/HCPCS: 26055; J0171

== ENCOUNTER → 2022-04-08 08:12 | Outpatient (BNVA) | payer OTHER, SELFPAY | PROVIDERS: PCP Internal Medicine; Visit Provider Hospitalist | DX: J41.8 Mixed simple and mucopurulent chronic bronchitis (principal); J84.9 Interstitial pulmonary disease, unspecified; R91.8 Other nonspecific abnormal finding of lung field | CPT/HCPCS: 99212 ==

== ENCOUNTER 2022-05-14 12:46 | Outpatient (REF) | payer OTHER, SELFPAY ==
--- NOTE | ~2022-05-14 | CT_ITS ---
EXAMINATION: CT CHEST SCREENING CLINICAL INFORMATION: 61-year-old former smoker who quit 10 years ago and has a 20 pack-year history. COMPARISON: 03/08/2021 and 01/24/2015 TECHNIQUE: Multidetector volumetric CT imaging of the chest is performed without contrast using low dose technique. Additional 2D coronal and sagittal reformatted images and axial 3D maximum intensity projection (MIP) images are generated on the CT workstation. This CT examination was performed using dose optimization techniques as appropriate, variously including the following: *Automated exposure control *Adjustment of mA and/or kV according to patient size (this includes techniques or standardized protocols for targeted exams where dose is matched to indication/reason for exam; i.e. extremities or head) *Use of iterative reconstruction technique DLP: 55 mGy-cm FINDINGS: LUNGS: Central airways are patent. There is bronchial wall thickening seen bilaterally. There is mild bronchiectasis seen within the right upper and lower lobes. There are moderate changes of paraseptal and centrilobular lobular emphysema within the upper lobes bilaterally. Discoid scarring/atelectasis is seen bilaterally with a region of more prominent disease seen dependently in the right lower lobe. There is question of region of rounded atelectasis, left base. There is apical pleural-parenchymal disease present. There are some regions of peripheral reticulation consistent with some degree of chronic interstitial lung disease. There are a few small sub-4 mm densities present. There is a prominent left intrafissural lymph node measuring 6 mm in longest dimension. Within the right upper lobe posteriorly, there is a 5 mm noncalcified density on image [address] series #5. This is stable. There is a 4 mm noncalcified density seen about the right upper lobe on image 63 of 499. This is stable. MEDIASTINUM: Visualized thyroid gland unremarkable. Heart normal size. No pericardial effusion. No thoracic aortic aneurysm. There is a 1.1 cm short axis precarinal lymph node. This is stable compared to study of 03/08/2021. No hilar lymphadenopathy is appreciated. CORONARY ARTERY CALCIFICATION: Coronary artery calcification is present. PLEURA: There appears be some mild right basilar pleural thickening seen. No significant pleural effusion. AXILLA: No lymphadenopathy. UPPER ABDOMEN: Unremarkable OSSEOUS STRUCTURES: No suspicious destructive bony lesions identified. CT/CT lung screening IMPRESSION: 1. No new suspicious lung nodules identified. 2. Changes of paraseptal and centrilobular emphysema with mild bronchiectasis. 3. Stable 1.1 cm right paratracheal lymph node. ASSESSMENT: Lung-RADS category 2: Benign RECOMMENDATION: Routine annual low-dose CT screening in 12 months.
== END 2022-05-14 12:47 | disposition home or self-care (01) ==
LOC: HO.CT 12:46
PROVIDERS: PCP Internal Medicine; Visit Provider Physician Assistant Medical
DX: Z12.2 Encounter for screening for malignant neoplasm of respiratory organs (principal); F17.210 Nicotine dependence, cigarettes, uncomplicated
CPT/HCPCS: 71271

== ENCOUNTER 2022-06-04 08:32 | Outpatient (REF) | payer OTHER, SELFPAY ==
[2022-06-04 11:20] LABS: MANUAL DIFF FLAG NO
[2022-06-04 11:54] LABS: Basophils Absolute Auto 0.1 X10*3/uL (0.0-0.2); Basophils Percent Auto 0.8 % (0-2); Eosinophils Absolute Auto 0.2 X10*3/uL (0.0-0.4); Eosinophils Percent Auto 2.3 % (0-4); Hematocrit 41.8 % (37.0-47.0); Hemoglobin 13.5 g/dl (12.0-16.0); Imm Gran Abs Auto 0.05 X10*3/uL (0.00-0.03); Imm Gran Pct Auto 0.7 % (0.0-0.4); Lymphocytes Absolute Auto 2.5 X10*3/uL (1.2-4.9); Lymphocytes Percent Auto 34.7 % (20-40); Mean Corpuscular HGB Conc 32.3 g/dl (31.0-35.0); Mean Corpuscular Hemoglobin 30.8 pg (27.0-33.0); Mean Corpuscular Volume 95.4 fL (80.0-98.0); Monocytes Absolute Auto 0.5 X10*3/uL (0.1-1.2); Monocytes Percent Auto 6.5 % (2-11); Platelet Count 299 X10*3/uL (160-400); Red Blood Count 4.38 X10*6/uL (4.20-5.50); Red Cell Distribution Width 14.4 % (11.0-16.0); White Blood Count 7.3 X10*3/uL (4.8-10.8)
[2022-06-04 12:41] LABS: Alanine Aminotransferase 29 U/L (0-31); Albumin Level 4.4 g/dL (3.5-5.0); Alkaline Phosphatase 75 U/L (39-117); Anion Gap 16 (12-20); Aspartate Amino Transferase 27 U/L (5-31); Bilirubin Total 0.4 mg/dL (0.0-1.0); Blood Urea Nitrogen 18 mg/dL (9-16); Calcium 9.1 mg/dL (8.4-10.2); Carbon Dioxide 24 mmol/L (22-29); Chloride 101 mmol/L (96-108); Cholesterol 336 mg/dL; Estimated Glomerular Filt Rate 56; Glucose Fasting 102 mg/dL (60-99); HDL Cholesterol 77 mg/dL; LDL Cholesterol Calculated 228 mg/dl; Sodium 136 mmol/L (135-145); TSH reflex Free T4 2.93 uIU/mL (0.32-4.0); Total Protein 7.4 g/dL (6.5-8.0); Triglycerides 155 mg/dL; Vitamin D 25-OH Total 13.9 ng/mL (>30)
== END 2022-06-04 08:33 | disposition home or self-care (01) ==
LOC: HO.HMGCLDS 08:32
PROVIDERS: PCP Internal Medicine; Visit Provider Internal Medicine
DX: F43.10 Post-traumatic stress disorder, unspecified (principal); J41.8 Mixed simple and mucopurulent chronic bronchitis; J84.9 Interstitial pulmonary disease, unspecified; M79.644 Pain in right finger(s); M79.645 Pain in left finger(s); E78.5 Hyperlipidemia, unspecified
CPT/HCPCS: 36415; 80053; 80061; 82306; 84443; 85025

== ENCOUNTER 2022-07-14 09:22 | Outpatient (REF) | payer OTHER, SELFPAY ==
--- NOTE | ~2022-07-14 | XR_ITS ---
EXAMINATION: XR KNEE, LEFT CLINICAL INFORMATION: Pain COMPARISON: None available. TECHNIQUE: Four views of the left knee. FINDINGS: Bone alignment is normal. No fracture or dislocation. Sclerotic lesion with lucent center in the proximal tibial metaphysis probably representing a bone infarct. Normal joint spaces. No joint effusion. 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 Otherwise unremarkable exam.
== END 2022-07-14 09:23 | disposition home or self-care (01) ==
LOC: HO.HMGCX 09:22
PROVIDERS: PCP Internal Medicine; Visit Provider Internal Medicine
DX: M25.562 Pain in left knee (principal)
CPT/HCPCS: 73564

== ENCOUNTER 2022-08-22 07:26 | Outpatient (REF) | payer OTHER, SELFPAY ==
--- NOTE | ~2022-08-22 | XR_ITS ---
EXAMINATION: XR KNEE AP STANDING CLINICAL INFORMATION: Right knee pain COMPARISON: None available. TECHNIQUE: AP weightbearing bilateral knee FINDINGS: There is mild narrowing of medial compartment of right knee joint. Bones are well-mineralized. No evidence of marginal spurring. No patellar subluxation. On the left area of sclerosis in the proximal metadiaphysis of left tibia most likely related to bone infarct. XR/XR knee standing BI IMPRESSION: 1. Mild narrowing of medial compartment of right knee joint. 2. 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
== END 2022-08-22 07:27 | disposition home or self-care (01) ==
LOC: HO.HOSX 07:26
PROVIDERS: Visit Provider Physician Assistant
DX: M25.561 Pain in right knee (principal); M25.562 Pain in left knee
CPT/HCPCS: 73565; 99202

== ENCOUNTER 2022-10-03 07:42 | Outpatient (REF) | payer OTHER, SELFPAY ==
--- NOTE | ~2022-10-03 | MR_ITS ---
EXAMINATION: MR KNEE WITHOUT CONTRAST, LEFT CLINICAL INFORMATION: Left knee pain. COMPARISON: Most recent left knee radiographs dated 08/22/2022. TECHNIQUE: MRI of the knee without contrast was performed using routine sequences on a high-field scanner. FINDINGS: MENISCI: Medial Meniscus: Intact. Lateral Meniscus: Intact. LIGAMENTS: Cruciate: Attenuation of the anterior cruciate ligament with minimally increased T2 signal which could represent normal variation versus a grade 1 sprain/partial tear. Intact posterior cruciate ligament. Collateral: Intact. EXTENSOR MECHANISM: Intact. ARTICULAR CARTILAGE/BONE: Patellofemoral Compartment: Minimal patellar articular cartilage signal heterogeneity with tiny marginal osteophytes. Medial Compartment: Intact articular cartilage. Lateral Compartment: Intact articular cartilage. Along the posterolateral aspect of the lateral tibial plateau, there is subchondral low T1/low T2 signal with prominent adjacent marrow edema measuring 1.6 x 0.8 cm (AP x ML). Mild adjacent soft tissue and periosteal edema. Findings are consistent with a nondisplaced subchondral fracture. Linear low T1/high T2 signal within the central tibial plateau oriented in the sagittal plane and contacting the medial tibial spine, consistent with a nondisplaced fracture. Redemonstration of a bone infarct within the proximal tibial diametaphysis measuring 2.1 x 2.2 x 2.0 cm. Mild adjacent soft tissue edema. Findings could represent an zuatm-oh-[id number] bone infarct. JOINT FLUID AND BURSAE: Small joint effusion and small Leahy's cyst. MR/MR knee LT wo con IMPRESSION: 1. Nondisplaced subchondral fracture at the posterolateral aspect of the lateral tibial plateau with prominent adjacent marrow edema as well as mild adjacent soft tissue and periosteal edema. 2. Nondisplaced fracture through the central aspect of the tibial plateau contacting the medial tibial spine. 3. Redemonstration of a bone infarct within the proximal tibial diametaphysis with mild adjacent soft tissue edema. Findings could represent an apssm-wy-vqivdyl bone infarct. 4. Attenuation of the anterior cruciate ligament with minimally increased T2 signal which could represent normal variation versus a grade 1 sprain/partial tear. 5. Minimal patellofemoral arthrosis. Small joint effusion and small Leahy's cyst.
== END 2022-10-03 07:43 | disposition home or self-care (01) ==
LOC: HO.MRI 07:42
PROVIDERS: PCP Internal Medicine; Visit Provider Physician Assistant
DX: M87.062 Idiopathic aseptic necrosis of left tibia (principal)
CPT/HCPCS: 73721

== ENCOUNTER 2022-10-06 11:52 | Outpatient (AMB) | payer OTHER, SELFPAY ==
--- NOTE | 2022-10-06 13:06 | AM.OFFWIN_ITS ---
Intake Vital Signs 10/06/22 13:07 Height 5 ft 7 in BP 130/80 Blood Pressure Location Lt brachial Position Sitting Pulse 70 Pulse Source Pulse Oximeter Temp 97.8 F Temp Source Temporal Artery Scan Pulse Oximetry (%) 98 Intake Visit Reasons: EP RT foot injury (lobby) Intake Note: pt is here for c/o rt foot pain, fell last week trying to get to the bathroom during the night Patient Tobacco Use Status: Former Tobacco user Quit Date: 2013 Allergies shellfish derived Allergy (Severe, Verified 10/06/22 13:06) Anaphylaxis nuts Allergy (Severe, Uncoded 08/22/22 08:49) Anaphylaxis Do you need a note to return to daycare/school/sports/work: No HPI EP RT foot injury (lobby) HPI Details 62-year-old female presents to the office for a sick visit. Patient slipped while walking to the bathroom. In the process she has injured her right foot. [facility] Medical History Colonoscopy refused COPD (chronic obstructive pulmonary disease) Depression Hyperlipidemia ILD (interstitial lung disease) Normal breast exam Personal history of nicotine dependence PNA (pneumonia) PTSD (post-traumatic stress disorder) Pulmonary nodules Recurrent pleural effusion Surgical History History of hand surgery History of lung surgery Family History Father No problems noted. Mother No problems noted. 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 Pain on flexion. No visible bruising. Assessment & Plan Assessment & Plan (1) Sprain of right foot: Code(s): S93.601A - Unspecified sprain of right foot, initial encounter Plan: X-ray images were personally reviewed by me. There is a nondisplaced fracture of the 1st metatarsal. Boot has been supplied. Orthopedic appointment given. Orders: Orders XR foot RT min 3V Today S93.601A - Unspecified sprain of right foot, initial encounter Referrals Orthopedics Referral S92.909A - Unspecified fracture of unspecified foot, initial encounter for closed fracture Coding Level of Care Code Est Pt Level 4 (16441) Diagnoses Sprain of right foot S93.601A
[2022-10-06 13:07] VITALS: BP 130/80; PULSE 70; TEMP 36.6; O2SAT 98
== END 2022-10-06 14:19 | disposition home or self-care (01) ==
PROVIDERS: PCP Internal Medicine; Visit Provider Internal Medicine
DX: S93.601A Unspecified sprain of right foot, initial encounter (principal)
CPT/HCPCS: 99214

== ENCOUNTER 2022-10-06 13:37 | Outpatient (REF) | payer OTHER, SELFPAY ==
--- NOTE | ~2022-10-06 | XR_ITS ---
EXAMINATION: XR FOOT, RIGHT CLINICAL INFORMATION: Unspecified sprain of right foot, initial encounter COMPARISON: None available. TECHNIQUE: AP, lateral, and oblique views of the right foot. FINDINGS: There is soft tissue swelling of the dorsum of the foot. There is a healed fracture of the distal shaft of the fifth metatarsal. There is a mildly displaced fracture of the base of the first metatarsal. Associated soft tissue swelling in this region is noted. There is mild degenerative change of the first metatarsophalangeal joint. Achilles enthesopathy is noted. XR/XR foot RT min 3V IMPRESSION: 1. Mildly displaced fracture of the base of the first metatarsal. 2. Healed fracture of the distal shaft of the fifth metatarsal.
== END 2022-10-06 13:38 | disposition home or self-care (01) ==
LOC: HO.HMGCX 13:37
PROVIDERS: PCP Internal Medicine; Visit Provider Internal Medicine
DX: S93.601A Unspecified sprain of right foot, initial encounter (principal)
CPT/HCPCS: 73630

== ENCOUNTER 2022-10-15 08:26 | Outpatient (AMB) | payer OTHER, SELFPAY ==
--- NOTE | 2022-10-15 08:34 | A.OFFVIS_ITS ---
Intake Vital Signs 10/15/22 08:40 Height 5 ft 7 in Weight 189 lb BMI 29.6 Intake Visit Reasons: fc-Shaft of first rt metatarsal, mildly displaced Intake Note: Gay breaux 62 year old female presents today for a follow up from walk in clinic for right foot, DOI 10/03/22. Patient reports that she had slipped on her wood floor when she was running to the bathroom and stubbed her toe on the wall. She has discomfort with wearing boot, states not instructed on how to properly wear boot. Her pain level is 9 out of 10. Patients pain gets worse with walking. Finds no relief with meloxicam and Tylenol. Allergies shellfish derived Allergy (Severe, Verified 10/15/22 08:38) Anaphylaxis nuts Allergy (Severe, Uncoded 10/15/22 08:38) Anaphylaxis HPI fc-Shaft of first rt metatarsal, mildly displaced HPI Details 62-year-old female who presents to the office today for right 1st metatarsal injury . She states she slipped on her wooden floor and stubbed her toe on the wall while running to the bathroom, 10/03/22. She was seen at walk-in clinic about 1 week after the DOI where she was placed in a boot. She states she has discomfort with wearing the boot. Her pain is aggravated with ambulation. She finds no relief with meloxicam and Tylenol. [facility] Medical History Colonoscopy refused COPD (chronic obstructive pulmonary disease) Depression Hyperlipidemia ILD (interstitial lung disease) Normal breast exam Personal history of nicotine dependence PNA (pneumonia) PTSD (post-traumatic stress disorder) Pulmonary nodules Recurrent pleural effusion Surgical History History of hand surgery History of lung surgery Family History Father No problems noted. Mother No problems noted. 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 No open wound or abrasion. She does have moderate swelling throughout the foot with tenderness at the base of great toe which extends into the 2nd and 3rd metatarsal. NVI. Office Procedures Fracture Care Fracture Billing Code: Fracture Billing Code Assessment & Plan Assessment & Plan (1) Sprain of right foot: Code(s): S93.601A - Unspecified sprain of right foot, initial encounter (2) Fracture of right great toe: Code(s): S92.401A - Displaced unspecified fracture of right great toe, initial encounter for closed fracture Plan She will continue to wear the walking boot weight bearing as tolerated. If this is too much for her, she can go down to partial weight bearing. I ordered an MRI of the foot to evaluate this ___ ligament given the nature of the injury and where she is tender. Once this is complete, she will see me back for results. Orders: Orders MR foot RT wo con Today S92.401A - Displaced unspecified fracture of right great toe, initial encounter for closed fracture, S93.601A - Unspecified sprain of right foot, initial encounter Patient Instructions: Scribed for Kenji Grimes PA-C, by Kole Vasquez biomedical analytical scientist, on 10/15/2022 at 8:30 AM RAFIQ. Kenji Harden PA-C, have personally reviewed and agree with the information entered by the scribe. Coding Level of Care Code Est Pt Level 3 (59773) Diagnoses Sprain of right foot S93.601A Fracture of right great toe S92.401A CPT Codes Fracture Care - Fracture Billing Code: Fracture Billing Code ([id number])
[2022-10-15 08:40] VITALS: BMI 29.6
== END 2022-10-15 09:08 | disposition home or self-care (01) ==
PROVIDERS: PCP Internal Medicine; Visit Provider Physician Assistant
DX: S92.401A Displaced unspecified fracture of right great toe, initial encounter for closed fracture (principal); S93.601A Unspecified sprain of right foot, initial encounter
CPT/HCPCS: 99213

== ENCOUNTER → 2022-10-15 08:26 | Outpatient (BNVA) | payer OTHER, SELFPAY | PROVIDERS: PCP Internal Medicine; Visit Provider Physician Assistant | DX: S93.601D Unspecified sprain of right foot, subsequent encounter (principal); S92.401D Displaced unspecified fracture of right great toe, subsequent encounter for fracture with routine healing | CPT/HCPCS: 99212 ==

== ENCOUNTER 2022-11-13 19:26 | Outpatient (REF) | payer OTHER, SELFPAY ==
--- NOTE | ~2022-11-13 | MR_ITS ---
EXAMINATION: MR FOOT WITHOUT CONTRAST, RIGHT CLINICAL INFORMATION: Sprain of right foot. COMPARISON: X-ray of the right foot 10/06/2022. TECHNIQUE: MRI of the right foot without contrast on a high-field MRI scanner. The urpql-hl-texa includes the midfoot and forefoot. FINDINGS: BONE/JOINTS: There is a minimally displaced intra-articular fracture at the base of the 1st metacarpal as previously demonstrated on x-ray of September 2022. There is persistent mild bone marrow edema crossing the fracture line. Findings are indicative of non-healing or incomplete healing. There is mild edema in the surrounding soft tissues, likely consequence of the fracture. 1st Metatarsophalangeal Joint and Hallux Sesamoid Joints: Mild arthrosis manifested by minimal cartilage heterogeneity. Mild joint effusion. 3rd Metatarsal: Mild edema within the 3rd metatarsal head compatible with bone contusion. No fracture line. Remaining bones and joints are unremarkable. LIGAMENTS AND CAPSULAR STRUCTURES: Normal. MUSCLES/TENDONS: Normal. DISTAL PLANTAR FASCIA: Intact. SUBCUTANEOUS SOFT TISSUES: Mild generalized edema. MR/MR foot RT wo con IMPRESSION: 1. Minimally displaced intra-articular non-healed or incompletely healed fracture at the base of the 1st metacarpal. Fracture previously demonstrated on x-ray September 2012. 2. Bone contusion of the 3rd metatarsal head. 3. Mild arthrosis of the 1st metatarsophalangeal joint and hallux sesamoid joints.
== END 2022-11-13 19:27 | disposition home or self-care (01) ==
LOC: HO.MRI 19:26
PROVIDERS: PCP Internal Medicine; Visit Provider Physician Assistant
DX: S92.401A Displaced unspecified fracture of right great toe, initial encounter for closed fracture (principal); S93.601A Unspecified sprain of right foot, initial encounter; X58.XXXA Exposure to other specified factors, initial encounter; Y93.9 Activity, unspecified; Y92.9 Unspecified place or not applicable; Y99.9 Unspecified external cause status
CPT/HCPCS: 73718

== ENCOUNTER 2022-11-21 13:13 | Outpatient (AMB) | payer OTHER, SELFPAY ==
[2022-11-21 13:18] VITALS: BMI 29.6
--- NOTE | 2022-11-21 13:18 | MHC.OFFVIS ---
Intake Vital Signs 11/21/22 13:18 Height 5 ft 7 in Weight 189 lb BMI 29.6 Intake Visit Reasons: OV- MRI Review 1st rt metatarsal, mildly displaced Intake Note: Gay, 62 year old female presents today for a MRI review of right foot, DOI 10/03/22. States her pain has improvement but cont's to have pain when walking with out her boot. Allergies shellfish derived Allergy (Severe, Verified 11/21/22 13:19) Anaphylaxis nuts Allergy (Severe, Uncoded 11/21/22 13:19) Anaphylaxis HPI OV- MRI Review 1st rt metatarsal, mildly displaced HPI Details 62-year-old female who returns to the office today for a MRI review of right 1st metatarsal fracture, 10/03/22. She states she has improvement in her pain but she does have pain with ambulation without her boot and experiences difficulty after getting out of her bed. She is doing well otherwise. [facility] Medical History Colonoscopy refused COPD (chronic obstructive pulmonary disease) Depression Hyperlipidemia ILD (interstitial lung disease) Normal breast exam Personal history of nicotine dependence PNA (pneumonia) PTSD (post-traumatic stress disorder) Pulmonary nodules Recurrent pleural effusion Surgical History History of hand surgery History of lung surgery Family History Father No problems noted. Mother No problems noted. 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 No open wound or abrasion. She does have moderate swelling throughout the foot with tenderness at the base of great toe which extends into the 2nd and 3rd metatarsal. NVI. Results Reviewed Results Reviewed: MR foot RT wo con IMPRESSION: 1. Minimally displaced intra-articular non-healed or incompletely healed fracture at the base of the 1st metacarpal. Fracture previously demonstrated on x-ray September 2012. 2. Bone contusion of the 3rd metatarsal head. 3. Mild arthrosis of the 1st metatarsophalangeal joint and hallux sesamoid joints. Assessment & Plan Assessment & Plan (1) Fracture of right great toe: Code(s): S92.401A - Displaced unspecified fracture of right great toe, initial encounter for closed fracture (2) Fracture of right great toe: Code(s): S92.401A - Displaced unspecified fracture of right great toe, initial encounter for closed fracture Plan She will begin a course of physical therapy to work on gentle ROM and gentle strengthening exercises. She should begin weening out of boot to a comfortable street shoe. I would like to see her back in 6-8 weeks with new x-rays, sooner if needed. Orders: Orders PT Evaluation and Treatment Today S92.401A - Displaced unspecified fracture of right great toe, initial encounter for closed fracture Patient Instructions: Scribed for Kenji Grimes PA-C, by Kole Vasquez faculty i on call medical assistant, on 11/21/2022 at 1:30 PM EST. IKenji PA-C, have personally reviewed and agree with the information entered by the scribe. Coding Level of Care Code Global (36778) Diagnoses Fracture of right great toe S92.401A
== END 2022-11-21 14:10 | disposition home or self-care (01) ==
PROVIDERS: PCP Internal Medicine; Visit Provider Physician Assistant
DX: S92.424A Nondisplaced fracture of distal phalanx of right great toe, initial encounter for closed fracture (principal)
CPT/HCPCS: 99213

== ENCOUNTER → 2022-11-21 13:13 | Outpatient (BNVA) | payer OTHER, SELFPAY | PROVIDERS: PCP Internal Medicine; Visit Provider Physician Assistant ==

== ENCOUNTER 2022-12-10 10:44 | Outpatient (RCR) | payer OTHER, SELFPAY ==
--- NOTE | 2022-12-10 11:51 | MHC.PT.EP ---
[facility] [place] Office [place] [address] Alyse Granados [address] [phone] F: [phone] F: [phone] F: [phone] F: [phone] Physical Therapy Plan of Care Date of Evaluation: 12/10/22 Date of Surgery: n/a Diagnosis: displaced fx of R great toe Assessment: Patient is a 62 year old female presenting to PT with displace R great toe fx. Pt reports onset of pain began August 2022 due to stubbing her toe when she fell. She presents today with impairments in pain, ROM, gait mechanics, strength, balance. Pt's current occupation is retired, with baseline physical activities including ADLs, stair negotiation, ambulating, standing. Pt expresses fdc goal of reducing pain, and is motivated to work towards this in PT. Clinical presentation today is most consistent with signs and sx associated with displaced R great toe fx and pt will benefit from skilled PT 1 week x 6 weeks to address the following problems and impairments noted upon evaluation: pain, ROM, gait mechanics, strength, balance. These problems limit the patient with the following functional activities: ADLs, stair negotiation, ambulating, standing. The prescribed treatment plan of care is medically necessary. Co-morbidities of COPD were identified and taken into considerations of plan of care. Pt was educated on HEP, role of PT, prognosis, POC. Frequency and Duration: The patient will be seen 1 x week x 6 Short Term Goals: Pt will demonstrate great toe AROM with min to no pain in 3 weeks. Pt will demonstrate ability to director of industrial relations tandem stance x 20 sec in 3 weeks. Halfway Goals: Pt will demonstrate improved LEFI score by 9 points in 6 weeks for improved functional mobility. Pt will demonstrate ability to stand and ambulate with no boot and min to no pain in 6 weeks for improved access to the community and tolerance to ADLs. Pt will demonstrate improved ability to negotiate stairs with min to no pain in 6 weeks for return to PLOF. Treatment Plan: Modalities to reduce pain, spasms and effusion. Manual therapy to restore motion and function. Therapeutic exercise to improve strength and flexibility. Neuromuscular re-education for posture and balance. Therapeutic activities to return to functional activities of daily living. Electronically signed by: Estrella Damian, PT, DPT, ATC Please sign and return to therapist. Thank you for your referral.
--- NOTE | 2022-12-31 08:39 | MHC.PT.DC ---
[facility] [place] Office [place] Office [place] Office [address] Granados [address] [phone] F: [phone] F: [phone] F: [phone] F: [phone] Physical Therapy Discharge Report Diagnosis: displaced fx of R great toe Date of Surgery: n/a Date of Evaluation: 12/10/22 Date of Discharge: 12/31/22 Treatments to Date: 1 Cancellations to Date: 0 No Shows to Date: 1 Discharge Status: Patient Elected to Stop Discharge Summary: Pt called and self d/c herself from skilled PT. Electronically signed by: Estrella Damian, PT, DPT, ATC Please sign and return to therapist. Thank you for your referral.
== END 2022-12-31 08:39 | disposition home or self-care (01) ==
LOC: HO.PTCHIC 10:44
PROVIDERS: PCP Internal Medicine; Visit Provider Physician Assistant
DX: S92.401D Displaced unspecified fracture of right great toe, subsequent encounter for fracture with routine healing (principal)
CPT/HCPCS: 97110; 97161

== ENCOUNTER 2022-12-25 08:37 | Outpatient (AMB) | payer OTHER, SELFPAY ==
--- NOTE | 2022-12-25 08:38 | MHC.PC.OV ---
Vital Signs 12/25/22 08:39 Height 5 ft 7 in Weight 195 lb BMI 30.5 BP 120/72 Blood Pressure Location Lt brachial Position Sitting Pulse 73 Pulse Source Pulse Oximeter Pulse Oximetry (%) 96 Oxygen Delivery Method Room Air Intake Visit Reasons: 6 month follow up Hyperlipidemia Intake Note: Pt is here today for 6 months follow up visit. Allergies shellfish derived Allergy (Severe, Verified 12/25/22 08:39) Anaphylaxis nuts Allergy (Severe, Uncoded 12/25/22 08:39) Anaphylaxis Medication List - Last Reconciled 12/25/22 by Samantha Flores MD albuterol sulfate 90 mcg/actuation 2 puffs inhalation Q6H PRN aripiprazole 5 mg PO DAILY bupropion HCl 150 mg PO BID clonazepam 0.5 mg PO TID fluoxetine 80 mg PO DAILY mometasone-formoterol 200-5 mcg/actuation 2 puffs PO BID quetiapine 100 mg PO BEDTIME rosuvastatin 20 mg PO BEDTIME umeclidinium 62.5 mcg/actuation (Incruse Ellipta) 1 inh PO DAILY Tobacco use date assessed: 12/25/22 Dental Screening Dental Screen Date: 12/25/22 Did you have a dental visit in the last 12 months?: Yes Did you have a dental problem in the last 6 months where you did not have access to dental care?: No Was dental information given to patient?: Patient has dentist HPI 6 month follow up Hyperlipidemia HPI Details Pt presents f/u hyperlipid,COPD. Patient fractured the right foot in the summer and followed-up with orthopedic surgeon. The fracture healed well. Patient follows up with psychiatrist for depression and PTSD. [facility] Medical History Colonoscopy refused COPD (chronic obstructive pulmonary disease) Depression Hyperlipidemia ILD (interstitial lung disease) Normal breast exam Personal history of nicotine dependence PNA (pneumonia) PTSD (post-traumatic stress disorder) Pulmonary nodules Recurrent pleural effusion Surgical History History of hand surgery History of lung surgery Family History Father No problems noted. Mother No problems noted. 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 How often do you have a drink containing alcohol?: Monthly or less 2. How many drinks containing alcohol do you have on a typical day when you are drinking?: 1 or 2 3. How often do you have six or more drinks on one occasion?: Never Total Score: 1 JESSICA-7 AMB Questionnaire JESSICA-7 Date JESSICA - 7 assessed: 06/04/22 Source: Developed by Drs. Kenrick Jamison, Chiquis Rob, Kosta Nagy and colleagues, with an educational amadeo from [facility]. Review of Systems Const All systems reviewed & are unremarkable except as noted in HPI and below Reports no additional complaints Eyes Reports no additional complaints ENT Reports no additional complaints Card Reports no additional complaints Resp Reports no additional complaints GI Reports no additional complaints Reports no additional complaints Physical exam (Primary Care) Vital Signs: Last Vital Signs Pulse 73 12/25/22 08:39 BP 120/72 12/25/22 08:39 Pulse Ox 96 12/25/22 08:39 Oxygen Delivery Method Room Air 12/25/22 08:39 BMI result Body Mass Index 30.5 Tobacco/Smoking Status: Tobacco use Status Tobacco use date assessed 12/25/22 12/25/22 08:44 Patient Tobacco Use Status Former Tobacco user 12/25/22 08:39 Tobacco use type Cigarette 12/25/22 08:39 e-Cigarette/Vaping Use Never Used 12/25/22 08:39 Thrive Assessment: Date of Thrive Assessment Date Thrive assessed 06/04/22 12/25/22 08:39 Const General: no acute distress HENMT Head: Yes normal to inspection General nose exam: Normal external nose present Eyes General: appearance normal, both eyes and all related structures Neck Neck: Yes supple Resp Effort & Inspection: normal respiratory effort Auscultation: clear to auscultation bilaterally Cardio Rhythm: regular rhythm Heart sounds: S1 normal heart sound present and S2 normal heart sound present GI Inspection: Yes normal to inspection Assessment and Plan Assessment & Plan (1) COPD (chronic obstructive pulmonary disease): Comment: Follow-up with Dr. Javier Code(s): J44.9 - Chronic obstructive pulmonary disease, unspecified Qualifiers: COPD type: chronic bronchitis Chronic bronchitis type: mixed simple and mucopurulent Qualified Code(s): J41.8 - Mixed simple and mucopurulent chronic bronchitis Plan: Continue inhalers (2) Vitamin D deficiency: Code(s): E55.9 - Vitamin D deficiency, unspecified Plan: Check vitamin-D (3) Fracture of right great toe: Code(s): S92.401A - Displaced unspecified fracture of right great toe, initial encounter for closed fracture Plan: Check DEXA (4) PTSD (post-traumatic stress disorder): Comment: s/p hospitalization at [facility], follow-up with Psychiatry Code(s): F43.10 - Post-traumatic stress disorder, unspecified Plan: Follow-up with Psychiatry (5) Hyperlipidemia: Code(s): E78.5 - Hyperlipidemia, unspecified Plan: Continue Crestor check lipid profile, return in 6 months with a fasting labs before Orders: Orders Lipid Panel 6 Months E55.9 - Vitamin D deficiency, unspecified, E78.5 - Hyperlipidemia, unspecified, J44.9 - Chronic obstructive pulmonary disease, unspecified, Z00.00 - Encounter for general adult medical examination without abnormal findings Vitamin D 25-OH Total 6 Months E55.9 - Vitamin D deficiency, unspecified, E78.5 - Hyperlipidemia, unspecified, J44.9 - Chronic obstructive pulmonary disease, unspecified, Z00.00 - Encounter for general adult medical examination without abnormal findings MM screening mammo BI Today Z12.31 - Encounter for screening mammogram for malignant neoplasm of breast XR DEXA axial skeleton Today Z78.0 - Asymptomatic menopausal state Comprehensive [place]. Panel Fast 6 Months E55.9 - Vitamin D deficiency, unspecified, E78.5 - Hyperlipidemia, unspecified, J44.9 - Chronic obstructive pulmonary disease, unspecified, Z00.00 - Encounter for general adult medical examination without abnormal findings TSH reflex Free T4 6 Months E55.9 - Vitamin D deficiency, unspecified, E78.5 - Hyperlipidemia, unspecified, J44.9 - Chronic obstructive pulmonary disease, unspecified, Z00.00 - Encounter for general adult medical examination without abnormal findings Complete Blood Count Auto Diff 6 Months E55.9 - Vitamin D deficiency, unspecified, E78.5 - Hyperlipidemia, unspecified, J44.9 - Chronic obstructive pulmonary disease, unspecified, Z00.00 - Encounter for general adult medical examination without abnormal findings Medications: Refilled umeclidinium 62.5 mcg/actuation (Incruse Ellipta) 1 inh PO DAILY 90 ea 3RF Coding Level of Care Code Est Pt Level 4 (16461) Diagnoses Mixed simple and mucopurulent chronic bronchitis J41.8 COPD type: chronic bronchitis Chronic bronchitis type: mixed simple and mucopurulent Vitamin D deficiency E55.9 Fracture of right great toe S92.401A PTSD (post-traumatic stress disorder) F43.10 Hyperlipidemia E78.5
[2022-12-25 08:39] VITALS: BP 120/72; PULSE 73; O2SAT 96; BMI 30.5
== END 2022-12-25 09:20 | disposition home or self-care (01) ==
PROVIDERS: PCP Internal Medicine; Visit Provider Internal Medicine
DX: J41.8 Mixed simple and mucopurulent chronic bronchitis (principal); E55.9 Vitamin D deficiency, unspecified; S92.401A Displaced unspecified fracture of right great toe, initial encounter for closed fracture; F43.10 Post-traumatic stress disorder, unspecified; E78.5 Hyperlipidemia, unspecified
CPT/HCPCS: 99214

== ENCOUNTER 2023-02-25 07:51 | Outpatient (REF) | payer OTHER, SELFPAY ==
--- NOTE | ~2023-02-25 | MM_ITS ---
EXAMINATION: BONE DENSITOMETRY CLINICAL INDICATION: Menopause. COMPARISON: This is the patient's baseline examination. TECHNIQUE: Using a [employer] DXA System (software version: 13.1) manufactured by [employer], dual-energy x-ray absorptiometry was performed of the lumbar spine and left hip. The images are of good technical quality. Summary results are attached. FINDINGS: LEFT FEMUR, NECK: BMD 0.750 g/cm2, Z-score -1.2, T-score -2.1, osteopenia. LEFT FEMUR, TOTAL: BMD 0.862 g/cm2, Z-score -0.7, T-score -1.2, osteopenia. AP SPINE L1-L4: BMD 1.034 g/cm2, Z-score -0.6, T-score -1.2, osteopenia. IDENTIFIED RISK FACTORS: Early menopause, secondary osteoporosis. HISTORY OF FRACTURE: None listed. MEDICATIONS: None listed. MM/XR DEXA axial skeleton IMPRESSION: 1. DIAGNOSIS: Osteopenia based on the lowest T-score value of -2.1 in the femoral neck applying World Health Organization criteria. 2. 10-YEAR FRACTURE RISK PREDICTION, FRAX: Major osteoporotic fracture (clinical spine, forearm, hip or shoulder) 9.8%. Hip fracture 1.3%. 3. Treatment Recommendations: NOF guidelines recommend consideration for treatment in postmenopausal women and men age 50 and older presenting with the following: -A hip or vertebral (clinical or morphometric) fracture. -T-score less than or equal to -2.5 at the femoral neck or spine after appropriate evaluation to exclude secondary causes. -Low bone mass at the hip or spine and a 10-year fracture probability by FRAX of greater than or equal to 3% for hip fracture or greater than or equal to 20% for major osteoporotic fracture based on the [place] adapted WHO algorithm. 4. Other Recommendations: All treatment decisions require clinical judgment and consideration of individual patient factors, including patient preferences, comorbidities, previous drug use, risk factors not captured in the FRAX model (e.g. frailty, falls, vitamin D deficiency, increased bone turnover, interval significant decline in bone density) and possible under or overestimation of fracture risk by FRAX. Additional medical evaluation for secondary cause of low bone mineral density may be appropriate. FUTURE SCAN RECOMMENDATION: People with diagnosed cases of osteoporosis or at high risk for fracture should have regular bone mineral density tests. For patients eligible for Medicare, routine testing is allowed once every 2 years. The testing frequency can be increased to one year for patients who have rapidly progressing disease, those who are receiving or discontinuing medical therapy to restore bone mass, or have additional risk factors.
== END 2023-02-25 07:52 | disposition home or self-care (01) ==
LOC: HO.MAMMO 07:51
PROVIDERS: PCP Internal Medicine; Visit Provider Internal Medicine
DX: Z12.31 Encounter for screening mammogram for malignant neoplasm of breast (principal); Z13.820 Encounter for screening for osteoporosis; Z78.0 Asymptomatic menopausal state
CPT/HCPCS: 77063; 77067; 77080

== ENCOUNTER → 2023-02-25 08:30 | Outpatient (BNV) | payer OTHER, SELFPAY | PROVIDERS: PCP Internal Medicine; Visit Provider Radiology Diagnostic Radiology | DX: Z12.31 Encounter for screening mammogram for malignant neoplasm of breast (principal) | CPT/HCPCS: 77063; 77067 ==

== ENCOUNTER 2023-04-14 08:23 | Outpatient (AMB) | payer OTHER, SELFPAY ==
[2023-04-14 08:30] VITALS: PULSE 88; O2SAT 96; BMI 29.0
--- NOTE | 2023-04-14 08:30 | MHC.OFFVIS ---
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 The patient was treated with antibiotics in addition to prednisone and respiratory therapy. She did require oxygen supplementation and she was discharged on 3 L. the patient overall has been feeling better since she was discharged from the hospital. She continues her respiratory therapy which includes Dulera and Increase. She has a short-acting beta agonists that she has not required. In the office we did take her off the oxygen. We did ambulate her on room air she maintain a saturation of 95% throughout the ambulation after walking more than 300 m. her dyspnea score also stable around 3/10. At this point the patient does not need portable oxygen. Will request from [employer] to do an overnight oximetry in order to see if she no longer needs oxygen while sleeping. If her test is negative then we can have the oxygen discontinued. did the patient does have a smoking history. She was participating in the lung cancer screening program at [facility]. She would rather follow up with the program here specially since she is within the system. Therefore will make arrangements for her to be referred to the lung cancer screening program here at [facility]. We did review her last CT scan of the chest that she had at [facility]. the patient does have evidence of scarring and atelectasis at the bases with some thickening of the pleura. She does describe that she had chest tubes in the past for severe pneumonia. In addition to that she does have stable pulmonary nodules. undergo a daily low-dose CT scan of the chest as part of the lung cancer screening program. It demonstrated some [id number] amount of emphysema in addition to some interstitial changes likely residual from her pneumonia and or some degree of pneumonitis. Therefore, which has the opportunity will do additional blood work to assessing for pneumonitis. Otherwise she will continue with current respiratory regimen. 09/30/2021 the patient is here for a pulmonary follow-up visit. She is feeling better at this time. The patient had a recent exacerbation. She bonded well to the Dulera and to the Incruse. She does use it regularly. She has she has been better she has not had to use her rescue inhaler. We did review her last CT scan of the chest was back in February 2021 as part of the lung cancer screening program. The patient did have evidence of some emphysema in addition to interstitial lung disease. She also has pulmonary nodules. Will plan to repeat the CT scan in February 2022 as part of the lung cancer screening program. If the patient has any progression of the interstitial lung disease then further diagnostic testing will be warranted. I am hopeful though that the findings have been stable or improved. 04/08/2022 the patient is here for a pulmonary follow-up visit. Overall the patient has been doing well. She continues on the Dulera and Incruse. She has not required her rescue inhaler. She does complaint of dyspnea on exertion. Primarily when going up a flight of stairs. Mild in severity. She now quit smoking. Although she is smoking marijuana. The patient had her last CT scan back in February 2021. This part of the lung cancer screening program. She has yet to have her follow-up CT scan. I did send a message to the lung cancer screening program to make sure that she gets scheduled. The patient otherwise is without any other complaints. She will follow-up in 1 year. 04/14/2023 the patient is here for a pulmonary follow-up visit. She continues to do well on current respiratory regimen including Dulera and Incruse. She does rinse her mouth well. She has not had to use rescue inhaler often. She has not had any recent sickness. She has been vaccinated for COVID flu and also pneumonia. She will get the RSV vaccine soon. I did encourage her to do so. She quit smoking altogether which is reassuring. I believe still some medical marijuana use. In the meantime the patient is participating in the lung cancer screening program and we did look at her last scans from April 2022. It demonstrated some degree of emphysematous changes and scarring postoperative changes. She will be having her scan in April 2023. The patient is doing well on current therapy she is going to increase his exercise therapy. Will follow-up in a year's time or sooner if any other issues arise. [facility] Medical History Colonoscopy refused COPD (chronic obstructive pulmonary disease) Depression Hyperlipidemia ILD (interstitial lung disease) Normal breast exam Personal history of nicotine dependence PNA (pneumonia) PTSD (post-traumatic stress disorder) Pulmonary nodules Recurrent pleural effusion Surgical History History of hand surgery History of lung surgery Family History Father No problems noted. Mother No problems noted. 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) Substance Use Type: Marijuana service: No Current occupational status: retired Cognitive needs: No Hearing needs: No Vision needs: Yes Review of Systems Const Denies night sweats ENT Denies change in voice, Denies lip swelling, Denies mouth pain, Denies nasal congestion, Reports nasal discharge and Denies tongue swelling Card Denies chest pain and Reports dyspnea on exertion Resp Denies chest congestion, Reports cough, Reports dyspnea on exertion and Denies wheezing GI Denies abdominal pain Musc Denies no additional complaints Neuro Denies Neuro-related abnormal movements Psych Denies no additional complaints Perry/Lymph Denies easy bleeding and Denies lymphadenopathy Aller/Immun Denies lip swelling, Denies tongue swelling and Denies wheezing Physical Exam Vital Signs: Last Vital Signs Pulse 88 04/14/23 08:30 Pulse Ox 96 04/14/23 08:30 Oxygen Delivery Method Room Air 04/14/23 08:30 BMI result Body Mass Index 29.0 Const General: alert Neck Neck: Yes normal visual inspection, Yes full ROM and Yes no lymphadenopathy Chest Chest palpation & inspection: normal inspection of the chest Resp Effort & Inspection: normal respiratory effort Auscultation: no rales, no rhonchi, no wheezes and diminished lung sounds Cardio Rate: regular rate Rhythm: regular rhythm Heart sounds: S1 normal heart sound present and S2 normal heart sound present GI Palpation (GI): Soft to palpation and nontender Auscultation: normal bowel sounds Skin General skin exam: rashes and/or lesions noted Assessment & Plan Assessment & Plan (1) COPD (chronic obstructive pulmonary disease): Code(s): J44.9 - Chronic obstructive pulmonary disease, unspecified Qualifiers: COPD type: chronic bronchitis Chronic bronchitis type: mixed simple and mucopurulent Qualified Code(s): J41.8 - Mixed simple and mucopurulent chronic bronchitis (2) Pulmonary nodules: Comment: (stable on 01/2020 LDCT) Code(s): R91.8 - Other nonspecific abnormal finding of lung field (3) ILD (interstitial lung disease): Code(s): J84.9 - Interstitial pulmonary disease, unspecified Plan Continue Dulera and Incruse GLADIS as needed LDCT 05/16 smoking cessation, No longer smoking cigarettes F/U 1 year Coding Level of Care Code Est Pt Level 4 (03620) Diagnoses Mixed simple and mucopurulent chronic bronchitis J41.8 COPD type: chronic bronchitis Chronic bronchitis type: mixed simple and mucopurulent Pulmonary nodules R91.8 ILD (interstitial lung disease) J84.9 Time Spent (min) 16
== END 2023-04-14 09:20 | disposition home or self-care (01) ==
PROVIDERS: PCP Internal Medicine; Visit Provider Hospitalist
DX: J41.8 Mixed simple and mucopurulent chronic bronchitis (principal); R91.8 Other nonspecific abnormal finding of lung field; J84.9 Interstitial pulmonary disease, unspecified
CPT/HCPCS: 99214

== ENCOUNTER → 2023-04-14 08:23 | Outpatient (BNVA) | payer OTHER, SELFPAY | PROVIDERS: PCP Internal Medicine; Visit Provider Hospitalist | DX: J41.8 Mixed simple and mucopurulent chronic bronchitis (principal); R91.8 Other nonspecific abnormal finding of lung field; J84.9 Interstitial pulmonary disease, unspecified; Z87.891 Personal history of nicotine dependence | CPT/HCPCS: 99212 ==

== ENCOUNTER 2023-06-04 09:11 | Outpatient (REF) | payer OTHER, SELFPAY ==
--- NOTE | ~2023-06-04 | CT_ITS ---
EXAMINATION: CT CHEST SCREENING CLINICAL INFORMATION: Nicotine dependence quit smoking 10 years ago. One pack per day x40 years. COMPARISON: CT lung screening 05/14/2022 TECHNIQUE: Multidetector volumetric CT imaging of the chest is performed without contrast using low dose technique. Additional 2D coronal and sagittal reformatted images and axial 3D maximum intensity projection (MIP) images are generated on the CT workstation. This CT examination was performed using dose optimization techniques as appropriate, variously including the following: *Automated exposure control *Adjustment of mA and/or kV according to patient size (this includes techniques or standardized protocols for targeted exams where dose is matched to indication/reason for exam; i.e. extremities or head) *Use of iterative reconstruction technique DLP: 55 mGy-cm FINDINGS: LUNGS: Mild biapical pleuroparenchymal scarring is present. Emphysematous changes are present most marked in the upper lobes. Peribronchial thickening is seen with some traction bronchiectasis at the lung bases. Some subpleural reticulation is seen most prominent at the apices and lung bases suggestive of interstitial lung disease. There is increasing right basilar atelectasis compared to prior. When comparison is made to the prior study, findings are unchanged with the exception of the increase in right basilar atelectasis. Some small pulmonary nodules are stable including a 3 mm right apical nodule (4:8 compare prior 5:46). MEDIASTINUM: 1.2 cm pretracheal lymph node unchanged. No worrisome lymphadenopathy. CORONARY ARTERY CALCIFICATION: Marked. PLEURA: There is no pleural effusion. No pleural mass or thickening. AXILLA: No lymphadenopathy. UPPER ABDOMEN: Unremarkable OSSEOUS STRUCTURES: Unremarkable. CT/CT lung screening IMPRESSION: No finding seen worrisome for malignancy. Emphysema and possible early interstitial lung disease. ASSESSMENT: Lung-RADS category 2: Benign RECOMMENDATION: Routine annual low-dose CT screening in 12 months.
== END 2023-06-04 09:12 | disposition home or self-care (01) ==
LOC: HO.CT 09:11
PROVIDERS: PCP Internal Medicine; Visit Provider Nurse Practitioner Family
DX: Z12.2 Encounter for screening for malignant neoplasm of respiratory organs (principal); F17.210 Nicotine dependence, cigarettes, uncomplicated
CPT/HCPCS: 71271

== ENCOUNTER 2023-07-17 07:05 | Outpatient (REF) | payer OTHER, SELFPAY ==
[2023-07-17 10:20] LABS: MANUAL DIFF FLAG NO
[2023-07-17 10:32] LABS: Basophils Percent Auto 0.4 % (0-2); Eosinophils Absolute Auto 0.1 X10*3/uL (0.0-0.4); Eosinophils Percent Auto 1.7 % (0-4); Hematocrit 41.8 % (37.0-47.0); Hemoglobin 13.5 g/dl (12.0-16.0); Imm Gran Abs Auto 0.03 X10*3/uL (0.00-0.03); Imm Gran Pct Auto 0.4 % (0.0-0.4); Lymphocytes Absolute Auto 2.1 X10*3/uL (1.2-4.9); Lymphocytes Percent Auto 30.1 % (20-40); Mean Corpuscular HGB Conc 32.3 g/dl (31.0-35.0); Mean Corpuscular Hemoglobin 30.7 pg (27.0-33.0); Mean Platelet Volume 10.7 fL (9.4-12.3); Monocytes Absolute Auto 0.4 X10*3/uL (0.1-1.2); Monocytes Percent Auto 5.6 % (2-11); Neutrophils Absolute Auto 4.3 x10*3/uL (2.0-8.3); Neutrophils Percent Auto 61.8 % (45-73); Platelet Count 287 X10*3/uL (160-400); Red Cell Distribution Width 13.3 % (11.0-16.0)
[2023-07-17 11:00] LABS: Alanine Aminotransferase 20 U/L (0-31); Albumin Level 4.3 g/dL (3.5-5.0); Alkaline Phosphatase 88 U/L (39-117); Anion Gap 12 (12-20); Aspartate Amino Transferase 27 U/L (5-31); Bilirubin Total 0.3 mg/dL (0.0-1.0); Blood Urea Nitrogen 14 mg/dL (9-16); Calcium 9.2 mg/dL (8.4-10.2); Carbon Dioxide 25 mmol/L (22-29); Chloride 104 mmol/L (96-108); Cholesterol 223 mg/dL (<200); Estimated Glomerular Filt Rate > 60; Glucose Fasting 94 mg/dL (60-99); HDL Cholesterol 68 mg/dL (>40); LDL Cholesterol Calculated 127 mg/dL (<100); Potassium 4.4 mmol/L (3.3-5.1); Sodium 137 mmol/L (135-145); Triglycerides 140 mg/dL (<150)
[2023-07-17 11:16] LABS: Vitamin D 25-OH Total 40.9 ng/mL (>30)
== END 2023-07-17 07:06 | disposition home or self-care (01) ==
LOC: HO.HMGCLDS 07:05
PROVIDERS: PCP Internal Medicine; Visit Provider Internal Medicine
DX: Z00.00 Encounter for general adult medical examination without abnormal findings (principal); J44.9 Chronic obstructive pulmonary disease, unspecified; E55.9 Vitamin D deficiency, unspecified; E78.5 Hyperlipidemia, unspecified
CPT/HCPCS: 36415; 80053; 80061; 82306; 84443; 85025

== ENCOUNTER 2023-07-23 08:12 | Outpatient (AMB) | payer OTHER, SELFPAY ==
--- NOTE | 2023-07-23 08:19 | MHC.PC.OV ---
Vital Signs 07/23/23 08:26 Height 5 ft 7 in Weight 189 lb BMI 29.6 BP 120/76 Blood Pressure Location Lt brachial Position Sitting Pulse 70 Pulse Source Pulse Oximeter Pulse Oximetry (%) 97 Oxygen Delivery Method Room Air Intake Visit Reasons: Followup meds, weakness in left leg Intake Note: Pt is here today for a follow up visit on labs. Pt states that she has been having problem with her L leg. Allergies shellfish derived Allergy (Severe, Verified 07/23/23 08:28) Anaphylaxis nuts Allergy (Severe, Uncoded 07/23/23 08:28) Anaphylaxis Medication List - Last Reconciled 07/23/23 by Samantha Flores MD albuterol sulfate 90 mcg/actuation 2 puffs inhalation Q6H PRN aripiprazole 5 mg PO DAILY bupropion HCl SR 150 mg PO BID cholecalciferol (vitamin D3) 25 mcg PO DAILY clonazepam 0.5 mg PO TID fluoxetine 80 mg PO DAILY mirabegron ER (Myrbetriq) 25 mg PO DAILY mometasone-formoterol 200-5 mcg/actuation 2 puffs PO BID quetiapine 100 mg PO BEDTIME rosuvastatin 20 mg PO BEDTIME umeclidinium 62.5 mcg/actuation (Incruse Ellipta) 1 inh PO DAILY Tobacco use date assessed: 07/23/23 Dental Screening Dental Screen Date: 07/23/23 Did you have a dental visit in the last 12 months?: Yes Did you have a dental problem in the last 6 months where you did not have access to dental care?: No Was dental information given to patient?: Patient has dentist HPI Followup meds, weakness in left leg HPI Details Pt presents for f/u hyperlipid, COPD, PTSD chronic depression stable on current medications. Patient noticed her left lower extremity getting weaker for the last month. Patient has difficulty lifting her leg when putting the shoe on but has been walking without difficulty. Patient denies lower back pain or knee pain, change in bowel or bladder function. Patient is going to [place] for her son's long-term ceremony. [facility] Medical History (Updated 07/23/23 @ 09:07 by Samantha Flores MD) ILD (interstitial lung disease) Personal history of nicotine dependence Pulmonary nodules COPD (chronic obstructive pulmonary disease) PNA (pneumonia) Normal breast exam Colonoscopy refused Hyperlipidemia Recurrent pleural effusion PTSD (post-traumatic stress disorder) Depression Surgical History History of hand surgery History of lung surgery Family History Father No problems noted. Mother No problems noted. 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 1. Little interest or pleasure in doing things: not at all 2. Feeling down, depressed, or hopeless: not at all 3. Trouble falling or staying asleep, or sleeping too much: nearly every day 4. Feeling tired or having little energy: not at all 5. Poor appetite or overeating: not at all 6. Feeling bad about yourself - or that you are a failure or have let yourself or your family down: not at all 7. Trouble concentrating on things, such as reading the newspaper or watching television: nearly every day 8. Moving or speaking so slowly that other people could have noticed. Or the opposite - being so fidgety or restless that you have been moving around a lot more than usual: not at all 9. Thoughts that you would be better off or of hurting yourself in some way: not at all Total score: 6 Depression Screening Interpretation: Negative Depression Screening Done: Yes Source: Developed by Drs. Kenrick Jamison, Chiquis Rob, Kosta Nagy and colleagues, with an educational amadeo from [employer]. Thrive Questionnaire Date Thrive assessed: 06/04/22 AUDIT C Alcohol Use Questionnaire (AUDIT-C) 1. How often do you have a drink containing alcohol?: Monthly or less 2. How many drinks containing alcohol do you have on a typical day when you are drinking?: 1 or 2 3. How often do you have six or more drinks on one occasion?: Never Total Score: 1 JESSICA-7 AMB Questionnaire JESSICA-7 Date JESSICA - 7 assessed: 06/04/22 Source: Developed by Drs. Kenrick Jamison, Chiquis Rob, Kosta Nagy and colleagues, with an educational amadeo from [employer]. Review of Systems Const All systems reviewed & are unremarkable except as noted in HPI and below Reports no additional complaints Eyes Reports no additional complaints ENT Reports no additional complaints Card Reports no additional complaints Resp Reports no additional complaints GI Reports no additional complaints Reports no additional complaints Physical exam (Primary Care) Vital Signs: Last Vital Signs Pulse 70 07/23/23 08:26 BP 120/76 07/23/23 08:26 Pulse Ox 97 07/23/23 08:26 Oxygen Delivery Method Room Air 07/23/23 08:26 BMI result Body Mass Index 29.6 Tobacco/Smoking Status: Tobacco use Status Tobacco use date assessed 07/23/23 07/23/23 08:30 Patient Tobacco Use Status Former Tobacco user 07/23/23 08:19 Tobacco use type Cigarette 07/23/23 08:19 e-Cigarette/Vaping Use Never Used 07/23/23 08:19 PHQ-9: PHQ-9 Score PHQ-9: Total score 6 07/23/23 08:30 Depression Screening Interpretation: Negative Thrive Assessment: Date of Thrive Assessment Date Thrive assessed 06/04/22 07/23/23 08:19 Const General: no acute distress HENMT Mouth: Normal oral and palatal mucosa present Neck Neck: Yes no lymphadenopathy and Yes supple Resp Effort & Inspection: normal respiratory effort Auscultation: clear to auscultation bilaterally Cardio Rhythm: regular rhythm Heart sounds: S1 normal heart sound present and S2 normal heart sound present GI Inspection: Yes normal to inspection Neuro Other: Left lower extremity proximal strength 4/5, distal 5/5, deep tendon reflexes 3+ bilaterally symmetrical upper and lower extremities. Difficulty to walk on toes on the left side, a heel walk intact bilaterally Gait exam (Neuro): Normal gait present Romberg Test: Negative Assessment and Plan Assessment & Plan (1) Left leg weakness: Code(s): R29.898 - Other symptoms and signs involving the musculoskeletal system Plan: For chronic left lower extremity weakness obtain EMG to evaluate for radiculopathy or neuropathy (2) COPD (chronic obstructive pulmonary disease): Code(s): J44.9 - Chronic obstructive pulmonary disease, unspecified Qualifiers: COPD type: chronic bronchitis Chronic bronchitis type: mixed simple and mucopurulent Qualified Code(s): J41.8 - Mixed simple and mucopurulent chronic bronchitis Plan: Continue inhalers (3) Hyperlipidemia: Code(s): E78.5 - Hyperlipidemia, unspecified Plan: Continue crestor (4) PTSD (post-traumatic stress disorder): Comment: s/p hospitalization at [facility], follow-up with Psychiatry Code(s): F43.10 - Post-traumatic stress disorder, unspecified Plan: Continue current medications and follow-up with Psychiatry Orders: Orders NE electromyogram (EMG) Today R29.898 - Other symptoms and signs involving the musculoskeletal system Medications: New mirabegron ER (Myrbetriq) 25 mg PO DAILY 90 tabs 1RF Coding Level of Care Code Est Pt Level 4 (07219) Diagnoses Left leg weakness R29.898 Mixed simple and mucopurulent chronic bronchitis J41.8 COPD type: chronic bronchitis Chronic bronchitis type: mixed simple and mucopurulent Hyperlipidemia E78.5 PTSD (post-traumatic stress disorder) F43.10
[2023-07-23 08:26] VITALS: BP 120/76; PULSE 70; O2SAT 97; BMI 29.6
== END 2023-07-23 09:08 | disposition home or self-care (01) ==
PROVIDERS: PCP Internal Medicine; Visit Provider Internal Medicine
DX: R29.898 Other symptoms and signs involving the musculoskeletal system (principal); J41.8 Mixed simple and mucopurulent chronic bronchitis; E78.5 Hyperlipidemia, unspecified; F43.10 Post-traumatic stress disorder, unspecified
CPT/HCPCS: 99214

== ENCOUNTER 2023-08-04 09:49 | Outpatient (REF) | payer OTHER, SELFPAY ==
--- NOTE | 2023-08-04 09:52 | EMG_ITS ---
Left tibial and peroneal motor studies were performed. Left superficial peroneal, sural, and medial and lateral plantar mixed sensory studies were performed. Tibial H-reflex was obtained and paraspinal muscles were tested with a needle. IMPRESSION: Mild sensory motor axonal peripheral neuropathy. MD GISELLA Lovell/MAYTEL / [phone]
== END 2023-08-04 09:50 | disposition home or self-care (01) ==
LOC: HO.NEURO 09:49
PROVIDERS: PCP Internal Medicine; Visit Provider Internal Medicine
DX: R29.898 Other symptoms and signs involving the musculoskeletal system (principal)
CPT/HCPCS: 95886; 95910

== ENCOUNTER 2023-08-14 09:53 | Outpatient (REF) | payer OTHER, SELFPAY ==
[2023-08-14 14:13] LABS: Folate 2.9 ng/mL (> or = 4.0); Vitamin B12 678 pg/mL (200-900)
== END 2023-08-14 09:54 | disposition home or self-care (01) ==
LOC: HO.HMGCLDS 09:53
PROVIDERS: PCP Internal Medicine; Visit Provider Internal Medicine
DX: G62.9 Polyneuropathy, unspecified (principal)
CPT/HCPCS: 36415; 82607; 82746

== ENCOUNTER 2023-09-03 09:09 | Outpatient (AMB) | payer OTHER, SELFPAY ==
[2023-09-03 09:10] VITALS: BP 110/70; PULSE 90; TEMP 36.2; O2SAT 96; BMI 29.4
--- NOTE | 2023-09-03 09:10 | AM.OFFWIN_ITS ---
Intake Vital Signs 09/03/23 09:10 Height 5 ft 7 in Weight 188 lb BMI 29.4 BP 110/70 Blood Pressure Location Lt brachial Position Sitting Pulse 90 Pulse Source Pulse Oximeter Temp 97.1 F Temp Source Temporal Artery Scan Pulse Oximetry (%) 96 Intake Visit Reasons: EP COPD, fever, diff breath (masked) Intake Note: pt is here today for COPD fever diff breathing started 1 week ago Patient Tobacco Use Status: Former Tobacco user Allergies nut - unspecified Allergy (Severe, Verified 09/03/23 09:23) Anaphylaxis shellfish derived Allergy (Severe, Verified 09/03/23 09:23) Anaphylaxis Do you need a note to return to daycare/school/sports/work: No HPI HPI Comments History of Present Illness Details 63 y/o female patient who presents to [facility] in clinic with c/o SOB, difficult breathing and wheezing for few days. H/o COPD and currently on Steroids. [facility] Medical History (Updated 08/14/23 @ 15:42 by Samantha Flores MD) ILD (interstitial lung disease) Personal history of nicotine dependence Pulmonary nodules COPD (chronic obstructive pulmonary disease) PNA (pneumonia) Normal breast exam Colonoscopy refused Hyperlipidemia Recurrent pleural effusion PTSD (post-traumatic stress disorder) Depression Surgical History History of hand surgery History of lung surgery Family History Father No problems noted. Mother No problems noted. 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) Substance Use Type: Marijuana service: No Current occupational status: retired Cognitive needs: No Hearing needs: No Vision needs: Yes Review of Systems Const All systems reviewed & are unremarkable except as noted in HPI and below Physical Exam Vital Signs: Last Vital Signs Temp 97.1 F 06/13/24 09:10 Pulse 90 09/03/23 09:10 BP 110/70 09/03/23 09:10 Pulse Ox 96 09/03/23 09:10 BMI result Body Mass Index 29.4 Const General: comfortable Nutritional Appearance: obese Orientation/consciousness: patient oriented x3 HEENT Head: Yes normocephalic Ears: external ears normal and TM's normal bilaterally General nose exam: Normal nasal mucous membranes and turbinates present Face and sinus: Yes sinuses nontender Mouth: moist mucous membranes Throat: Yes posterior oropharynx normal Resp Effort & Inspection: normal respiratory effort and able to speak in complete sentences Auscultation: no crackles, no rales, rhonchi and wheezes Cardio Rate: regular rate Rhythm: regular rhythm Neuro General: patient oriented x3, gait normal and moves all extremities Psych Speech and movement: Normal speech and movement present Assessment & Plan Assessment & Plan (1) COPD exacerbation: Code(s): J44.1 - Chronic obstructive pulmonary disease with (acute) exacerbation Plan: - Small dose of Prednisone for wheezing - Continue on current regiment - RTC if symptoms worse. Medications: New prednisone 50 mg PO DAILY 5 days 5 tabs 0RF J44.1 - Chronic obstructive pulmonary disease with (acute) exacerbation doxycycline hyclate 100 mg PO BID 7 days 14 caps 0RF J44.1 - Chronic obstructive pulmonary disease with (acute) exacerbation cetirizine (Zyrtec) 10 mg PO DAILY PRN 30 tabs 0RF allergy symptoms J44.1 - Chronic obstructive pulmonary disease with (acute) exacerbation Coding Level of Care Code Est Pt Level 3 (52300) Diagnoses COPD exacerbation J44.1 Time Spent (min) 15
== END 2023-09-03 10:17 | disposition home or self-care (01) ==
PROVIDERS: PCP Internal Medicine; Visit Provider Nurse Practitioner Family
DX: J44.1 Chronic obstructive pulmonary disease with (acute) exacerbation (principal)
CPT/HCPCS: 99213

== ENCOUNTER 2023-11-09 17:57 | Inpatient (IN) | payer OTHER, SELFPAY ==
[2023-11-09 18:27] VITALS: BP 132/89; PULSE 91; RESP 14; TEMP 36.6; O2SAT 98; BMI 29.0
[2023-11-09 18:29] VITALS: RESP 16
[2023-11-09 19:07] LABS: Appearance Urine Clear; Color Urine Yellow; Glucose Urine UA Negative (Negative); Leukocyte Esterase Urine Trace (Negative); Nitrite Urine Negative (Negative); PH 6.5 (5.0-9.0); Specific Gravity - Urine <= 1.005 (1.005-1.025); UMIC TRIGGER UACC YES; Urine Blood Negative (Negative); Urine Ketones Negative (Negative); Urine Protein Negative (Neg-Trace)
[2023-11-09 19:10] LABS: MANUAL DIFF FLAG NO
[2023-11-09 19:17] LABS: Bacteria Urine None Seen (None Seen); Hyaline Casts Urine 0-2 /LPF (0-2); RBC Urine 0-2 /HPF (0-2); Squamous Epithelial Cell Urine 0-2 /HPF (0-2); WBC Urine 0-5 /HPF (0-5)
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
[2023-11-09 19:21] LABS: Amphetamine Screen Urine Not Detected (Not Detect); Barbiturates, Urine Not Detected (Not Detect); Benzodiazepines Screen Urine Not Detected (Not Detect); Buprenorphine Scr Not Detected (Not Detect); Cannabinoid Screen Urine POSITIVE (Not Detect); Cocaine Screen Urine Not Detected (Not Detect); Fentanyl, urine Not Detected (Not Detect); Methadone Screen, Urine Not Detected (Not Detect); Opiate Screen Urine Not Detected (Not Detect); Oxycodone Screen Urine Not Detected (Not Detect); Phencyclidine Screen Urine Not Detected (Not Detect)
[2023-11-09 19:23] LABS: Basophils Percent Auto 0.4 % (0-2); Eosinophils Absolute Auto 0.1 X10*3/uL (0.0-0.4); Eosinophils Percent Auto 1.9 % (0-4); Hematocrit 37.2 % (37.0-47.0); Hemoglobin 12.8 g/dl (12.0-16.0); Imm Gran Abs Auto 0.03 X10*3/uL (0.00-0.03); Imm Gran Pct Auto 0.4 % (0.0-0.4); Lymphocytes Absolute Auto 2.1 X10*3/uL (1.2-4.9); Mean Corpuscular HGB Conc 34.4 g/dl (31.0-35.0); Mean Corpuscular Hemoglobin 31.2 pg (27.0-33.0); Mean Corpuscular Volume 90.7 fL (80.0-98.0); Mean Platelet Volume 9.3 fL (9.4-12.3); Monocytes Absolute Auto 0.3 X10*3/uL (0.1-1.2); Monocytes Percent Auto 5.1 % (2-11); Neutrophils Absolute Auto 4.1 x10*3/uL (2.0-8.3); Neutrophils Percent Auto 61.2 % (45-73); Platelet Count 264 X10*3/uL (160-400); Red Cell Distribution Width 14.6 % (11.0-16.0); White Blood Count 6.7 X10*3/uL (4.8-10.8)
--- NOTE | 2023-11-09 19:23 | PC.NURSE ---
patient appears to remain at rest presently respirations are even and unlabored patient appears in no distress. 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
[2023-11-09 19:26] LABS: Alanine Aminotransferase 33 U/L (0-31); Albumin Level 4.4 g/dL (3.5-5.0); Alkaline Phosphatase 77 U/L (39-117); Anion Gap 16 (12-20); Aspartate Amino Transferase 45 U/L (5-31); Bilirubin Total 0.2 mg/dL (0.0-1.0); Blood Urea Nitrogen 14 mg/dL (9-16); Calcium 9.8 mg/dL (8.4-10.2); Carbon Dioxide 23 mmol/L (22-29); Chloride 104 mmol/L (96-108); Creatinine Clr Calc Pharmacy 80.2; Estimated Glomerular Filt Rate > 60; Ethanol 184 mg/dL; Glucose Random 99 mg/dL (60-115); Potassium 3.8 mmol/L (3.3-5.1); Sodium 139 mmol/L (135-145); Total Protein 7.9 g/dL (6.5-8.0)
--- NOTE | 2023-11-09 23:41 | MHC.CARE ---
CARE Team called [facility] and provided them with clinical on this pt. Once a bed is found, please call [facility] and let them know in order to obtain an auth number.
--- NOTE | 2023-11-10 | ECG_ITS ---
Test Reason : QT INTERVAL Blood Pressure : / mmHG Vent. Rate : 073 BPM Atrial Rate : 073 BPM P-R Int : 180 ms QRS Dur : 090 ms QT Int : 400 ms P-R-T Axes : 069 083 037 degrees QTc Int : 440 ms Normal sinus rhythm Normal ECG When compared with ECG of 28-JAN-2021 17:33, Nonspecific T wave abnormality, improved in Inferior leads Nonspecific T wave abnormality, improved in Anterolateral leads QT has shortened Referred By: Ron Fitch Electronically Signed By:MORENITA GAMBINO
[2023-11-10] MEDS: Atorvastatin Calcium 80 MG TABLET PO ×2 (00:31→20:10)
[2023-11-10] MEDS: clonazePAM 0.5 MG TABLET PO ×4 (00:31→20:09)
[2023-11-10] MEDS: QUEtiapine Fumarate 100 MG TABLET PO ×2 (00:31→20:10)
[2023-11-10 05:24] VITALS: BP 154/77; PULSE 73; RESP 16; TEMP 36.6; O2SAT 96
[2023-11-10] MEDS: Ondansetron ODT 4 MG TAB.RAPDIS TRANSLINGU (05:41)
[2023-11-10] MEDS: LORazepam 1 MG TABLET PO (05:47)
[2023-11-10] MEDS: ARIPiprazole 5 MG TABLET PO (09:28)
[2023-11-10] MEDS: FLUoxetine HCl 20 MG CAPSULE 80 MG PO (09:28)
[2023-11-10] MEDS: buPROPion HCl XL 300 MG TAB.ER.24H PO (09:28)
[2023-11-10] MEDS: Tiotropium Bromide 2.5 mcg 1 PUFF/2.5 MCG MIST.INHAL 2 PUFF INHALE (10:27)
[2023-11-10] MEDS: Fluticasone/Vilanterol 200/25 BLST.W.DEV 1 PUFF INHALE (10:27)
[2023-11-10] MEDS: Mirabegron 25 MG TAB.ER.24H PO (10:27)
--- NOTE | 2023-11-10 13:00 | MHC.CARE ---
Spoke with Yael at [facility]. Auth #[id number]. From 11/09-11/12 (4 days) with review on the
[2023-11-10 13:45] VITALS: BP 164/70; PULSE 86; RESP 18; TEMP 36.3; O2SAT 98
--- NOTE | 2023-11-10 17:43 | HO.PSYADMNOT ---
HPI Date of Service: 11/10/23 Chief Complaint: crisis Sources of Information: patient interviewed, chart reviewed and crisis/core team assessment reviewed HPI Subjective Notes: Fitch Warning and Conditional Voluntary Narrative: Patient is a 63-year-old female with history of MDD and PTSD, who self [place] [facility] due to suicidal ideation secondary to increased depression and life stressors. Per crisis report, patient was recently triggered bringing up her trauma. Patient has a psychiatric provider which she reports has been seeing for the past 15 years. She also has an outpatient therapist which she sees twice a week. Patient reports being medication compliant. Patient reports she is not clear if her medications are still working and would like someone to take a look at them. Patient stated that she does not trust herself right now being at home. During admission assessment, patient presents alert and oriented x3, calm and cooperative. Patient stated, I am feeling anxious and depressed. My sister is triggering my PTSD. Her ex- and fiance the same month;she calls me every night and will not let me hang up the phone. The stress of everything is getting to me. I do not sleep at night and when I do I get nightmares . Patient denies SI/HI/VH/AH. She reports taking THC edibles daily. She also reports drinking alcohol 3 times a week. Denies any other substance use. Patient reports being hospitalized on an inpatient psychiatric unit twice in her life both at [facility] about 10 years ago. She denies any detox admissions, respite, or PHP. Patient denies any history of suicide attempts. Patient stated, I only thought of doing them but I never acted on them . UTOX positive for marijuana and alcohol. 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 Patient stated, I do not need or want any help with my drinking I just need help with my depression . Past Psychiatric History: History of two inpatient psychiatric admissions at [facility] 10 years ago. Patient has been seeing the same psychiatric provider for the past 10 years. She sees her outpatient therapist twice a week. Denies any history of detox, respite, PHP. Denies any history of suicide attempts. Medical Evaluation Reviewed: Yes [facility] Medical History (Updated 11/10/23 @ 18:01 by Rhiannon Macias NP) ILD (interstitial lung disease) Personal history of nicotine dependence Pulmonary nodules COPD (chronic obstructive pulmonary disease) PNA (pneumonia) Normal breast exam Colonoscopy refused Hyperlipidemia Recurrent pleural effusion PTSD (post-traumatic stress disorder) Depression Surgical History History of hand surgery History of lung surgery Family History: Denies Social History: Lives with her boyfriend, , 1 son (39 years old), disability. Substance History: Alcohol and marijuana use. Trauma History: Yes Diagnostics Vital Signs (24Hr): Vital Signs - 24 hr 11/09/23 18:27 11/09/23 18:29 11/10/23 05:24 Temperature 97.8 F 97.8 F Pulse Rate 91 73 Respiratory Rate 14 16 16 Blood Pressure 132/89 154/77 H Pulse Oximetry 98 96 Oxygen Delivery Method Room Air Room Air 11/10/23 13:45 Temperature 97.3 F Pulse Rate 86 Respiratory Rate 18 Blood Pressure 164/70 H Pulse Oximetry 98 Oxygen Delivery Method Room Air BMI result Body Mass Index 29.0 Labs 11/09/23 19:02 11/09/23 19:02 Labs: Laboratory Results - last 48 hr 11/09/23 11/09/23 18:34 19:02 WBC 6.7 RBC 4.10 L Hgb 12.8 Hct 37.2 MCV 90.7 MCH 31.2 MCHC 34.4 RDW 14.6 Plt Count 264 MPV 9.3 L Immature Gran % (Auto) 0.4 Neut % (Auto) 61.2 Lymph % (Auto) 31.0 [place] % (Auto) 5.1 Eos % (Auto) 1.9 Baso % (Auto) 0.4 Lymph # (Auto) 2.1 [place] # (Auto) 0.3 Eos # (Auto) 0.1 Baso # (Auto) 0.0 Abs Immat Gran (auto) 0.03 Absolute Neuts (auto) 4.1 Absolute Nucleated RBC 0.000 Nucleated RBC % (auto) 0.0 Sodium 139 Potassium 3.8 Chloride 104 Carbon Dioxide 23 Anion Gap 16 BUN 14 Creatinine 0.82 Estim Creat Clear Calc 80.2 Estimated GFR > 60 Random Glucose 99 Calcium 9.8 D Total Bilirubin 0.2 AST 45 H ALT 33 H Alkaline Phosphatase 77 Total Protein 7.9 Albumin 4.4 Urine Color Yellow Urine Appearance Clear Urine pH 6.5 Ur Specific [place] <= 1.005 Urine Protein Negative Urine Glucose (UA) Negative Urine Ketones Negative Urine Blood Negative Urine Nitrite Negative Ur Leukocyte Esterase Trace H Urine RBC 0-2 Urine WBC 0-5 Ur Squamous Epith Cells 0-2 Urine Bacteria None Seen Hyaline Casts 0-2 Urine Opiates Screen Not Detected Ur Buprenorphine Scrn Not Detected Ur Oxycodone Screen Not Detected Urine Methadone Screen Not Detected Urine Fentanyl Screen Not Detected Ur Barbiturates Screen Not Detected Ur Phencyclidine Scrn Not Detected Ur Amphetamines Screen Not Detected U Benzodiazepines Scrn Not Detected Urine Cocaine Screen Not Detected U Marijuana (THC) Screen POSITIVE H Ethyl Alcohol 184 Meds/Allergies Meds Home Medications ?Medication ?Instructions ?Recorded ?Confirmed ?Type aripiprazole 5 mg tablet 5 mg PO DAILY 07/03/20 11/09/23 History fluoxetine 40 mg capsule 80 mg PO DAILY 07/03/20 11/09/23 History bupropion HCl 150 mg tablet,12 hr 150 mg PO BID 01/08/21 11/09/23 History sustained-release clonazepam 0.5 mg tablet 0.5 mg PO TID 10/31/21 11/09/23 History quetiapine 100 mg tablet 100 mg PO BEDTIME 12/11/21 11/09/23 History Allergies Allergies Allergy/AdvReac Type Severity Reaction Status Date / Time nut - unspecified Allergy Severe Anaphylaxis Verified 11/09/23 18:28 shellfish derived Allergy Severe Anaphylaxis Verified 11/09/23 18:28 Mental Status Exam Mental Status Exam Narrative: Pt is alert and oriented; behavior is cooperative and calm; dressed in casual attire; mood is described as anxious and depressed ; eye contact appropriate; Speech is normal rate, volume and not pressured; thought process is organized and goal directed; Thought content is on tx; otherwise pertinent to relevant topics and without any delusional content, paranoid ideations or grandiosity; denies SI/HI/VH/AH. Assessment & Plan Assessment & Plan (1) MDD (major depressive disorder), recurrent episode: Status: Acute Code(s): F33.9 - Major depressive disorder, recurrent, unspecified (2) PTSD (post-traumatic stress disorder): Status: Acute Code(s): F43.10 - Post-traumatic stress disorder, unspecified (3) Alcohol use disorder: Status: Acute Code(s): F10.90 - Alcohol use, unspecified, uncomplicated Plan Patient is a 63-year-old female with history of MDD and PTSD, who self presented [place] [facility] due to suicidal ideation secondary to increased depression and life stressors. Plan: CV 15 minutes safety checks Continue home medication CIWA Obtain collateral Start: Prazosin 1 mg PO bedtime Encourage groups Possible referral to [facility] Discharge planning Patient educated on: diagnosis, medication risk/benefits, substance abuse and therapeutic strategies Informed Consent: understands Reason for continued inpatient stay Substantial Risk for: med/psych decompensation Statement Statement: I have reviewed the history and physical and performed a pertinent examination on my patient. No changes have occurred unless specified. If the History and Physical was not performed prior to admission, the Hospitalist's service will be consulted for completing the admission physical. Time Spent With Patient Time: Total time managing care of this patient today _60___ minutes.
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
[2023-11-10 19:17] VITALS: BMI 29.1
[2023-11-10 20:00] VITALS: BP 107/58; PULSE 93; RESP 16; TEMP 36.4; O2SAT 96
[2023-11-10] MEDS: Prazosin HCL 1 MG CAPSULE PO (20:09)
[2023-11-11 07:47] LABS: Alanine Aminotransferase 34 U/L (0-31); Albumin Level 4.5 g/dL (3.5-5.0); Alkaline Phosphatase 84 U/L (39-117); Anion Gap 13 (12-20); Aspartate Amino Transferase 44 U/L (5-31); Bilirubin Total 0.5 mg/dL (0.0-1.0); Blood Urea Nitrogen 12 mg/dL (9-16); Calcium 9.9 mg/dL (8.4-10.2); Carbon Dioxide 26 mmol/L (22-29); Chloride 104 mmol/L (96-108); Cholesterol 201 mg/dL (<200); Creatinine Clr Calc Pharmacy 69.4; Estimated Glomerular Filt Rate 60; Glucose Fasting 116 mg/dL (60-99); HDL Cholesterol 99 mg/dL (>40); LDL Cholesterol Calculated 79 mg/dL (<100); Potassium 4.4 mmol/L (3.3-5.1); Sodium 139 mmol/L (135-145); Total Protein 8.2 g/dL (6.5-8.0); Triglycerides 118 mg/dL (<150)
[2023-11-11 07:57] VITALS: BP 169/76; PULSE 76; RESP 16; TEMP 36.4; O2SAT 96
--- NOTE | 2023-11-11 08:54 | P.PNPSI_ITS ---
Subjective Subjective Date of Service: 11/11/23 Reason For Visit: crisis Subjective Notes: Conditional Voluntary Interim History: Reviewed with Dr. Davies. Patient tearful during 1:1. Patient stated, I miss my home and my boyfriend. My sister needs to understand that she needs her own therapist and stopped relying on me . Patient reports sleeping well last night and states that she did not have any nightmares. Patient reports she would be interested in attending PHP after discharge. Patient denies SI/HI/VH/AH. Medication Compliance: Yes Side effects from medications: No Attending Groups: Yes Review of Systems Constitutional: Reports as per HPI Eyes: Reports as per HPI Reports as per HPI Cardiovascular: Reports as per HPI Respiratory: Reports as per HPI Gastrointestinal: Reports as per HPI Musculoskeletal: Reports as per HPI Skin/Breast: Reports as per HPI Reports as per HPI Psychiatric: Reports as per HPI Endocrine: Reports as per HPI Hematologic/Lymphatic: Reports as per HPI Allergic/Immunologic: Reports as per HPI Mental Status Exam Mental Status Exam Narrative: Pt is alert and oriented; behavior is cooperative and calm; dressed in casual attire; mood is described as anxious and depressed ; eye contact appropriate; Speech is normal rate, volume and not pressured; thought process is organized and goal directed; Thought content is on tx; otherwise pertinent to relevant topics and without any delusional content, paranoid ideations or grandiosity; denies SI/HI/VH/AH. Diagnostics Vital Signs (24Hr): Vital Signs - 24 hr 11/10/23 13:45 11/10/23 20:00 11/11/23 07:57 Temperature 97.3 F 97.6 F 97.5 F Pulse Rate 86 93 76 Respiratory Rate 18 16 16 Blood Pressure 164/70 H 107/58 L 169/76 H Pulse Oximetry 98 96 96 Oxygen Delivery Method Room Air Room Air Room Air BMI result Body Mass Index 29.1 Labs 11/09/23 19:02 11/11/23 07:26 Labs: Laboratory Results - last 48 hr 11/09/23 11/09/23 11/11/23 18:34 19:02 07:26 WBC 6.7 RBC 4.10 L Hgb 12.8 Hct 37.2 MCV 90.7 MCH 31.2 MCHC 34.4 RDW 14.6 Plt Count 264 MPV 9.3 L Immature Gran % (Auto) 0.4 Neut % (Auto) 61.2 Lymph % (Auto) 31.0 [place] % (Auto) 5.1 Eos % (Auto) 1.9 Baso % (Auto) 0.4 Lymph # (Auto) 2.1 [place] # (Auto) 0.3 Eos # (Auto) 0.1 Baso # (Auto) 0.0 Abs Immat Gran (auto) 0.03 Absolute Neuts (auto) 4.1 Absolute Nucleated RBC 0.000 Nucleated RBC % (auto) 0.0 Sodium 139 139 Potassium 3.8 4.4 Chloride 104 104 Carbon Dioxide 23 26 Anion Gap 16 13 BUN 14 12 Creatinine 0.82 0.95 Estim Creat Clear Calc 80.2 69.4 Estimated GFR > 60 60 Random Glucose 99 Fasting Glucose 116 H Calcium 9.8 D 9.9 Total Bilirubin 0.2 0.5 AST 45 H 44 H ALT 33 H 34 H Alkaline Phosphatase 77 84 Total Protein 7.9 8.2 H Albumin 4.4 4.5 Triglycerides 118 Cholesterol 201 H LDL Cholesterol, Calc 79 HDL Cholesterol 99 Urine Color Yellow Urine Appearance Clear Urine pH 6.5 Ur Specific [place] <= 1.005 Urine Protein Negative Urine Glucose (UA) Negative Urine Ketones Negative Urine Blood Negative Urine Nitrite Negative Ur Leukocyte Esterase Trace H Urine RBC 0-2 Urine WBC 0-5 Ur Squamous Epith Cells 0-2 Urine Bacteria None Seen Hyaline Casts 0-2 Urine Opiates Screen Not Detected Ur Buprenorphine Scrn Not Detected Ur Oxycodone Screen Not Detected Urine Methadone Screen Not Detected Urine Fentanyl Screen Not Detected Ur Barbiturates Screen Not Detected Ur Phencyclidine Scrn Not Detected Ur Amphetamines Screen Not Detected U Benzodiazepines Scrn Not Detected Urine Cocaine Screen Not Detected U Marijuana (THC) Screen POSITIVE H Ethyl Alcohol 184 Medications Medications Current Medications Acetaminophen (Acetaminophen 325 Mg Tablet) 650 mg PO Q6H PRN PRN Reason: Headache/Pain Mild Scale (1-3) Al Hydroxide/Mg Hydroxide (Magnesium Hydrox/Alum Hydrox 30 Ml Oral.Susp) 30 ml PO Q6H PRN PRN Reason: Heartburn/Nausea Albuterol Sulfate (Albuterol Sulfate 90 Mcg 8 Gm Inhaler) 2 puff INHALE Q6H PRN PRN Reason: Shortness of Breath/Wheezing Aripiprazole (Aripiprazole 5 Mg Tablet) 5 mg PO DAILY JEAN PIERRE Last Admin: 11/10/23 09:28 Dose: 5 mg Atorvastatin Calcium (Atorvastatin Calcium 80 Mg Tablet) 80 mg PO BEDTIME [facility] Last Admin: 11/10/23 20:10 Dose: 80 mg Bupropion HCl (Bupropion Hcl Xl 300 Mg Tab.Er.24h) 300 mg PO DAILY [facility] Last Admin: 11/10/23 09:28 Dose: 300 mg Clonazepam (Clonazepam 0.5 Mg Tablet) 0.5 mg PO TID [facility] Last Admin: 11/10/23 20:09 Dose: 0.5 mg Fluoxetine HCl (Fluoxetine Hcl 20 Mg Capsule) 80 mg PO DAILY [facility] Last Admin: 11/10/23 09:28 Dose: 80 mg Fluticasone/Vilanterol (Fluticasone/Vilanterol 200/25 Blst.W.Dev) 1 puff INHALE RDAILY [facility] Last Admin: 11/10/23 10:27 Dose: 1 puff Hydroxyzine HCl (Hydroxyzine Hcl 25 Mg Tablet) 25 mg PO Q6H PRN PRN Reason: Anxiety Lorazepam (Lorazepam 1 Mg Tablet) 1 mg PO Q4H PRN PRN Reason: CIWA 6-12 Lorazepam (Lorazepam 1 Mg Tablet) 2 mg PO Q4H PRN PRN Reason: CIWA 13 and above Magnesium Hydroxide (Milk Of Magnesia 30 Ml Oral.Susp) 30 ml PO DAILY PRN PRN Reason: Constipation Mirabegron (Mirabegron 25 Mg Tab.Er.24h) 25 mg PO DAILY [facility] Last Admin: 11/10/23 10:27 Dose: 25 mg Nicotine (Nicotine 21 Mg Patch.Td24) 21 mg TRANSDERMA DAILY [facility] Nicotine Polacrilex (Nicotine Polacrilex 2 Mg Gum) 4 mg BUCCAL Q2H PRN PRN Reason: Nicotine Cravings Ondansetron HCl (Ondansetron Odt 8 Mg Tab.Rapdis) 8 mg TRANSLINGU Q8H PRN PRN Reason: Nausea and Vomiting Prazosin HCl (Prazosin Hcl 1 Mg Capsule) 1 mg PO BEDTIME [facility]; Protocol Last Admin: 11/10/23 20:09 Dose: 1 mg Quetiapine Fumarate (Quetiapine Fumarate 100 Mg Tablet) 100 mg PO BEDTIME [facility] Last Admin: 11/10/23 20:10 Dose: 100 mg Tiotropium [place] (Tiotropium [place] 2.5 Mcg 1 Puff/2.5 Mcg Mist.Inhal) 2 puff INHALE RDAILY [facility] Last Admin: 11/10/23 10:27 Dose: 2 puff Trazodone HCl (Trazodone Hcl 50 Mg Tablet) 50 mg PO BEDTIME MRX1 PRN PRN Reason: Insomnia Allergies Allergies Allergy/AdvReac Type Severity Reaction Status Date / Time nut - unspecified Allergy Severe Anaphylaxis Verified 11/09/23 18:28 shellfish derived Allergy Severe Anaphylaxis Verified 11/09/23 18:28 Assessment & Plan Assessment & Plan (1) MDD (major depressive disorder), recurrent episode: Status: Acute Code(s): F33.9 - Major depressive disorder, recurrent, unspecified (2) PTSD (post-traumatic stress disorder): Status: Acute Code(s): F43.10 - Post-traumatic stress disorder, unspecified (3) Alcohol use disorder: Status: Acute Code(s): F10.90 - Alcohol use, unspecified, uncomplicated Plan Patient is a 63-year-old female with history of MDD and PTSD, who self presented [place] [facility] due to suicidal ideation secondary to increased depression and life stressors. Plan: CV 15 minutes safety checks Continue home medication CIWA Obtain collateral Start: Prazosin 1 mg PO bedtime Encourage groups Possible referral to PHP Discharge planning 11/10: Patient tearful during 1:1. Patient stated, I miss my home and my boyfriend. My sister needs to understand that she needs her own therapist and stopped relying on me . Patient reports sleeping well last night and states that she did not have any nightmares. Patient reports she would be interested in attending PHP after discharge. Patient denies SI/HI/VH/AH. Patient educated on: diagnosis, medication risk/benefits and therapeutic strategies Informed Consent: understands Reason for continued inpatient stay Substantial Risk for: med/psych decompensation Time Spent With Patient Time: Total time managing care of this patient today _20___ minutes.
[2023-11-11] MEDS: FLUoxetine HCl 20 MG CAPSULE 80 MG PO (09:38)
[2023-11-11] MEDS: Mirabegron 25 MG TAB.ER.24H PO (09:38)
[2023-11-11] MEDS: buPROPion HCl XL 300 MG TAB.ER.24H PO (09:38)
[2023-11-11] MEDS: clonazePAM 0.5 MG TABLET PO ×3 (09:38→20:46)
[2023-11-11] MEDS: ARIPiprazole 5 MG TABLET PO (09:38)
[2023-11-11] MEDS: Fluticasone/Vilanterol 200/25 BLST.W.DEV 1 PUFF INHALE (11:32)
[2023-11-11] MEDS: Tiotropium Bromide 2.5 mcg 1 PUFF/2.5 MCG MIST.INHAL 2 PUFF INHALE (11:33)
[2023-11-11] MEDS: Atorvastatin Calcium 80 MG TABLET PO (20:46)
[2023-11-11] MEDS: Prazosin HCL 1 MG CAPSULE PO (20:46)
[2023-11-11] MEDS: QUEtiapine Fumarate 100 MG TABLET PO (20:46)
[2023-11-11 20:50] VITALS: BP 121/72; PULSE 72; RESP 18; TEMP 36.5; O2SAT 98
[2023-11-12] MEDS: Albuterol Sulfate 90 MCG 8 GM INHALER 2 PUFF INHALE (05:50)
[2023-11-12 07:00] VITALS: BMI 29.1
[2023-11-12 07:55] VITALS: BP 138/84; PULSE 88; RESP 18; TEMP 36.6; O2SAT 96
[2023-11-12] MEDS: Fluticasone/Vilanterol 200/25 BLST.W.DEV 1 PUFF INHALE (08:25)
[2023-11-12] MEDS: Tiotropium Bromide 2.5 mcg 1 PUFF/2.5 MCG MIST.INHAL 2 PUFF INHALE (08:25)
[2023-11-12] MEDS: ARIPiprazole 5 MG TABLET PO (08:26)
[2023-11-12] MEDS: buPROPion HCl XL 300 MG TAB.ER.24H PO (08:26)
[2023-11-12] MEDS: FLUoxetine HCl 20 MG CAPSULE 80 MG PO (08:26)
[2023-11-12] MEDS: Mirabegron 25 MG TAB.ER.24H PO (08:26)
[2023-11-12] MEDS: clonazePAM 0.5 MG TABLET PO ×3 (08:26→20:30)
--- NOTE | 2023-11-12 11:20 | MHC.RECOVRN ---
AUDIT-C Brief Intervention Pt had positive screen for unhealthy alcohol use on admission, subsequently met with t/w to discuss alcohol use and recovery supports/options. Pt denies concern regarding alcohol use and is aware that drinking at unhealthy levels is known to increase risk of alcohol related health problems. Pt reports 3x a week 2 vodka drinks with at a bar. Pt denies that alcohol use has impacted health, including negative impact on. Discussed risk reduction strategies including drinking below the recommended limit. Provided pt with written resources including information on inpatient and outpatient treatment, YAMILETH, harm reduction, and recovery coaching. Pt plans to seek out [place] care here [place] [facility] [place]. Pt provided with t/w contact information if questions or concerns arise. Denies other questions or concerns at this time.?
--- NOTE | 2023-11-12 13:16 | P.PNPSI_ITS ---
Subjective Subjective Date of Service: 11/12/23 Reason For Visit: crisis Subjective Notes: Conditional Voluntary Interim History: Reviewed with Dr. Davies. Patient reports feeling better than yesterday ; pt stated, I've slept well the past two nights and haven't had nightmares. I want to go home and be with my partner . When discussing alcohol use, pt stated, I'm going to stop drinking. I don't need to drink. I was only drinking because I was stressed out from my sister . Pt reports she is looking forward to attending PHP. She denies SI/HI/VH/AH. Medication Compliance: Yes Side effects from medications: No Attending Groups: Yes Review of Systems Constitutional: Reports as per HPI Eyes: Reports as per HPI Reports as per HPI Cardiovascular: Reports as per HPI Respiratory: Reports as per HPI Gastrointestinal: Reports as per HPI Musculoskeletal: Reports as per HPI Skin/Breast: Reports as per HPI Reports as per HPI Psychiatric: Reports as per HPI Endocrine: Reports as per HPI Hematologic/Lymphatic: Reports as per HPI Allergic/Immunologic: Reports as per HPI Mental Status Exam Mental Status Exam Narrative: Pt is alert and oriented; behavior is cooperative and calm; dressed in casual attire; mood is described as good ; eye contact appropriate; Speech is normal rate, volume and not pressured; thought process is organized and goal directed; Thought content is on tx; otherwise pertinent to relevant topics and without any delusional content, paranoid ideations or grandiosity; denies SI/HI/VH/AH. Diagnostics Vital Signs (24Hr): Vital Signs - 24 hr 11/11/23 20:50 11/12/23 07:55 Temperature 97.7 F 97.9 F Pulse Rate 72 88 Respiratory Rate 18 18 Blood Pressure 121/72 138/84 Pulse Oximetry 98 96 Oxygen Delivery Method Room Air Room Air BMI result Body Mass Index 29.1 Labs 11/09/23 19:02 11/11/23 07:26 Labs: Laboratory Results - last 48 hr 11/11/23 07:26 Sodium 139 Potassium 4.4 Chloride 104 Carbon Dioxide 26 Anion Gap 13 BUN 12 Creatinine 0.95 Estim Creat Clear Calc 69.4 Estimated GFR 60 Fasting Glucose 116 H Calcium 9.9 Total Bilirubin 0.5 AST 44 H ALT 34 H Alkaline Phosphatase 84 Total Protein 8.2 H Albumin 4.5 Triglycerides 118 Cholesterol 201 H LDL Cholesterol, Calc 79 HDL Cholesterol 99 Medications Medications Current Medications Acetaminophen (Acetaminophen 325 Mg Tablet) 650 mg PO Q6H PRN PRN Reason: Headache/Pain Mild Scale (1-3) Al Hydroxide/Mg Hydroxide (Magnesium Hydrox/Alum Hydrox 30 Ml Oral.Susp) 30 ml PO Q6H PRN PRN Reason: Heartburn/Nausea Albuterol Sulfate (Albuterol Sulfate 90 Mcg 8 Gm Inhaler) 2 puff INHALE Q6H PRN PRN Reason: Shortness of Breath/Wheezing Last Admin: 11/12/23 05:50 Dose: 2 puff Aripiprazole (Aripiprazole 5 Mg Tablet) 5 mg PO DAILY [facility] Last Admin: 11/12/23 08:26 Dose: 5 mg Atorvastatin Calcium (Atorvastatin Calcium 80 Mg Tablet) 80 mg PO BEDTIME [facility] Last Admin: 11/11/23 20:46 Dose: 80 mg Bupropion HCl (Bupropion Hcl Xl 300 Mg Tab.Er.24h) 300 mg PO DAILY [facility] Last Admin: 11/12/23 08:26 Dose: 300 mg Clonazepam (Clonazepam 0.5 Mg Tablet) 0.5 mg PO TID [facility] Last Admin: 11/12/23 08:26 Dose: 0.5 mg Fluoxetine HCl (Fluoxetine Hcl 20 Mg Capsule) 80 mg PO DAILY [facility] Last Admin: 11/12/23 08:26 Dose: 80 mg Fluticasone/Vilanterol (Fluticasone/Vilanterol 200/25 Blst.W.Dev) 1 puff INHALE RDAILY [facility] Last Admin: 11/12/23 08:25 Dose: 1 puff Hydroxyzine HCl (Hydroxyzine Hcl 25 Mg Tablet) 25 mg PO Q6H PRN PRN Reason: Anxiety Lorazepam (Lorazepam 1 Mg Tablet) 1 mg PO Q4H PRN PRN Reason: CIWA 6-12 Lorazepam (Lorazepam 1 Mg Tablet) 2 mg PO Q4H PRN PRN Reason: CIWA 13 and above Magnesium Hydroxide (Milk Of Magnesia 30 Ml Oral.Susp) 30 ml PO DAILY PRN PRN Reason: Constipation Mirabegron (Mirabegron 25 Mg Tab.Er.24h) 25 mg PO DAILY [facility] Last Admin: 11/12/23 08:26 Dose: 25 mg Ondansetron HCl (Ondansetron Odt 8 Mg Tab.Rapdis) 8 mg TRANSLINGU Q8H PRN PRN Reason: Nausea and Vomiting Prazosin HCl (Prazosin Hcl 1 Mg Capsule) 1 mg PO BEDTIME [facility]; Protocol Last Admin: 11/11/23 20:46 Dose: 1 mg Quetiapine Fumarate (Quetiapine Fumarate 100 Mg Tablet) 100 mg PO BEDTIME [facility] Last Admin: 11/11/23 20:46 Dose: 100 mg Tiotropium [place] (Tiotropium [place] 2.5 Mcg 1 Puff/2.5 Mcg Mist.Inhal) 2 puff INHALE RDAILY [facility] Last Admin: 11/12/23 08:25 Dose: 2 puff Trazodone HCl (Trazodone Hcl 50 Mg Tablet) 50 mg PO BEDTIME MRX1 PRN PRN Reason: Insomnia Allergies Allergies Allergy/AdvReac Type Severity Reaction Status Date / Time nut - unspecified Allergy Severe Anaphylaxis Verified 11/09/23 18:28 shellfish derived Allergy Severe Anaphylaxis Verified 11/09/23 18:28 Assessment & Plan Assessment & Plan (1) MDD (major depressive disorder), recurrent episode: Status: Acute Code(s): F33.9 - Major depressive disorder, recurrent, unspecified (2) PTSD (post-traumatic stress disorder): Status: Acute Code(s): F43.10 - Post-traumatic stress disorder, unspecified (3) Alcohol use disorder: Status: Acute Code(s): F10.90 - Alcohol use, unspecified, uncomplicated Plan Patient is a 63-year-old female with history of MDD and PTSD, who self presented to [facility] [place] [facility] due to suicidal ideation secondary to increased depression and life stressors. Plan: CV 15 minutes safety checks Continue home medication CIWA Obtain collateral Start: Prazosin 1 mg PO bedtime Encourage groups Possible referral to PHP Discharge planning 11/10: Patient tearful during 1:1. Patient stated, I miss my home and my boyfriend. My sister needs to understand that she needs her own therapist and stopped relying on me . Patient reports sleeping well last night and states that she did not have any nightmares. Patient reports she would be interested in attending PHP after discharge. Patient denies SI/HI/VH/AH. 11/11: Patient reports feeling better than yesterday ; pt stated, I've slept well the past two nights and haven't had nightmares. I want to go home and be with my partner . When discussing alcohol use, pt stated, I'm going to stop drinking. I don't need to drink. I was only drinking because I was stressed out from my sister . Pt reports she is looking forward to attending PHP. She denies SI/HI/VH/AH. Patient educated on: diagnosis, medication risk/benefits, substance abuse and therapeutic strategies Reason for continued inpatient stay Substantial Risk for: stable for discharge Time Spent With Patient Time: Total time managing care of this patient today _20___ minutes.
[2023-11-12 20:00] VITALS: BP 151/72; PULSE 80; RESP 18; TEMP 36.1; O2SAT 99
[2023-11-12] MEDS: QUEtiapine Fumarate 100 MG TABLET PO (20:29)
[2023-11-12] MEDS: Atorvastatin Calcium 80 MG TABLET PO (20:29)
[2023-11-12] MEDS: Prazosin HCL 1 MG CAPSULE PO (20:29)
[2023-11-13] MEDS: Albuterol Sulfate 90 MCG 8 GM INHALER 2 PUFF INHALE (06:17)
[2023-11-13 07:10] VITALS: BP 138/64; PULSE 73; RESP 18; TEMP 36.5; O2SAT 98
--- NOTE | 2023-11-13 09:04 | P.DS_ITS ---
DS: Providers Provider Date of Service: 11/13/23 Date of admission: 11/10/23 12:38 Date of discharge: 11/13/23 Primary care physician: Samantha Flores MD Admitting clinician: Rhiannon Macias Attending physician on admission: Harmeet Davies Consults: 11/10/23 15:23 Addiction Medicine Routine Consulting Provider: Addiction Covering Reason for consultation: positive screen Attending physician on discharge: Harmeet Davies Discharging clinician: Rhiannon Macias DS: Diagnosis Discharge Diagnosis (1) MDD (major depressive disorder), recurrent episode: Status: Acute (2) PTSD (post-traumatic stress disorder): Status: Acute (3) Alcohol use disorder: Status: Acute DS: Medications Discharge Medications Home Medications: Home Medications ?Medication ?Instructions ?Recorded ?Confirmed aripiprazole 5 mg tablet 5 mg PO DAILY 07/03/20 11/09/23 fluoxetine 40 mg capsule 80 mg PO DAILY 07/03/20 11/09/23 bupropion HCl 150 mg tablet,12 hr 150 mg PO BID 01/08/21 11/09/23 sustained-release clonazepam 0.5 mg tablet 0.5 mg PO TID 10/31/21 11/09/23 quetiapine 100 mg tablet 100 mg PO BEDTIME 12/11/21 11/09/23 Previous Rx's ?Medication ?Instructions ?Recorded albuterol sulfate 90 mcg/actuation 2 puff inhalation Q6H PRN 10/01/21 aerosol inhaler shortness of breath or wheezing #8.5 grams umeclidinium 62.5 mcg/actuation 1 inh PO DAILY #90 ea 12/25/22 blister powder for inhalation (Incruse Ellipta) mirabegron 25 mg tablet,extended 25 mg PO DAILY #90 tabs 07/23/23 release 24 hr (Myrbetriq) rosuvastatin 20 mg tablet 20 mg PO BEDTIME #90 tabs 09/01/23 mometasone-formoterol HFA 200 2 puff PO BID #13 grams 09/03/23 mcg-5 mcg/actuation aerosol inhaler prazosin 1 mg capsule 1 mg PO BEDTIME 30 days #30 caps 11/12/23 Mental Status Exam Mental Status Exam Narrative: Pt is alert and oriented; behavior is cooperative and calm; dressed in casual attire; mood is described as good ; eye contact appropriate; Speech is normal rate, volume and not pressured; thought process is organized and goal directed; Thought content is on tx; otherwise pertinent to relevant topics and without any delusional content, paranoid ideations or grandiosity; denies SI/HI/VH/AH. Data Data Completed and Pending Completed studies during hospitalization [Text1]: 11/09/23 11/09/23 11/11/23 18:34 19:02 07:26 WBC 6.7 RBC 4.10 L Hgb 12.8 Hct 37.2 MCV 90.7 MCH 31.2 MCHC 34.4 RDW 14.6 Plt Count 264 MPV 9.3 L Immature Gran % (Auto) 0.4 Neut % (Auto) 61.2 Lymph % (Auto) 31.0 [place]ell % (Auto) 5.1 Eos % (Auto) 1.9 Baso % (Auto) 0.4 Lymph # (Auto) 2.1 [place]ell # (Auto) 0.3 Eos # (Auto) 0.1 Baso # (Auto) 0.0 Abs Immat Gran (auto) 0.03 Absolute Neuts (auto) 4.1 Absolute Nucleated RBC 0.000 Nucleated RBC % (auto) 0.0 Sodium 139 139 Potassium 3.8 4.4 Chloride 104 104 Carbon Dioxide 23 26 Anion Gap 16 13 BUN 14 12 Creatinine 0.82 0.95 Estim Creat Clear Calc 80.2 69.4 Estimated GFR > 60 60 Random Glucose 99 Fasting Glucose 116 H Calcium 9.8 D 9.9 Total Bilirubin 0.2 0.5 AST 45 H 44 H ALT 33 H 34 H Alkaline Phosphatase 77 84 Total Protein 7.9 8.2 H Albumin 4.4 4.5 Triglycerides 118 Cholesterol 201 H LDL Cholesterol, Calc 79 HDL Cholesterol 99 Urine Color Yellow Urine Appearance Clear Urine pH 6.5 Ur Specific [place] <= 1.005 Urine Protein Negative Urine Glucose (UA) Negative Urine Ketones Negative Urine Blood Negative Urine Nitrite Negative Ur Leukocyte Esterase Trace H Urine RBC 0-2 Urine WBC 0-5 Ur Squamous Epith Cells 0-2 Urine Bacteria None Seen Hyaline Casts 0-2 Urine Opiates Screen Not Detected Ur Buprenorphine Scrn Not Detected Ur Oxycodone Screen Not Detected Urine Methadone Screen Not Detected Urine Fentanyl Screen Not Detected Ur Barbiturates Screen Not Detected Ur Phencyclidine Scrn Not Detected Ur Amphetamines Screen Not Detected U Benzodiazepines Scrn Not Detected Urine Cocaine Screen Not Detected U Marijuana (THC) Screen POSITIVE H Ethyl Alcohol 184 DS: Summary Hospital Course Hospital Course: Patient is a 63-year-old female with history of MDD and PTSD, who self presented to [facility] [place] [facility] [place] [facility] due to suicidal ideation secondary to increased depression and life stressors. Per crisis report, patient was recently triggered bringing up her trauma. Patient has a psychiatric provider which she reports has been seeing for the past 15 years. She also has an outpatient therapist which she sees twice a week. Patient reports being medication compliant. Patient reports she is not clear if her medications are still working and would like someone to take a look at them. Patient stated that she does not trust herself right now being at home. During admission assessment, patient presents alert and oriented x3, calm and cooperative. Patient stated, I am feeling anxious and depressed. My sister is triggering my PTSD. Her ex- and fiance the same month;she calls me every night and will not let me hang up the phone. The stress of everything is getting to me. I do not sleep at night and when I do I get nightmares . Patient denies SI/HI/VH/AH. She reports taking THC edibles daily. She also reports drinking alcohol 3 times a week. Denies any other substance use. Patient reports being hospitalized on an inpatient psychiatric unit twice in her life both at [facility] about 10 years ago. She denies any detox admissions, respite, or PHP. Patient denies any history of suicide attempts. Patient stated, I only thought of doing them but I never acted on them . UTOX positive for marijuana and alcohol. 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 Patient stated, I do not need or want any help with my drinking I just need help with my depression . Plan: CV 15 minutes safety checks Continue home medication CIWA Obtain collateral Start: Prazosin 1 mg PO bedtime Encourage groups Possible referral to PHP Discharge planning Patient tearful during 1:1. Patient stated, I miss my home and my boyfriend. My sister needs to understand that she needs her own therapist and stopped relying on me . Patient reports sleeping well last night and states that she did not have any nightmares. Patient reports she would be interested in attending PHP after discharge. Patient denies SI/HI/VH/AH. Patient reports feeling better than yesterday ; pt stated, I've slept well the past two nights and haven't had nightmares. I want to go home and be with my partner . When discussing alcohol use, pt stated, I'm going to stop drinking. I don't need to drink. I was only drinking because I was stressed out from my sister . Pt reports she is looking forward to attending PHP. She denies SI/HI/VH/AH. Patient reports feeling great today; pt stated, I'm looking forward to going to the partial program after here . Pt denies SI/HI/VH/AH. Time spent discussing smoking cessation with patient: 3 to 10 minutes Status at Discharge Cognitive/behavioral status at discharge: Patient was interviewed prior to discharge and found to be fully oriented and without SI or HI. Patient has insight and demonstrates good judgment in terms of wanting to pursue treatment. Patient has a safety plan that includes presenting to the closest ER or calling 911 if feeling unsafe. Functional status at discharge: independent ambulation Overall status at discharge: patient is back to baseline Time Spent with Patient Time attestation: Total time managing care of this patient today _20___ minutes. Time spent: Less than 30 minutes Discharge Plan Discharge Anticipated Discharge Date/Time: 11/13/23 11:00 Patient Disposition: Home, Self-Care Discharge Diagnosis: MDD, PTSD, Alcohol use d/o Referrals: [facility] PROVID[facility] [Other] - 12/03/23 7:30 am (TELEPHONE APPOINTMENT) PARTIAL HOSPITALIZATION PROGRAM [Other] - 12/08/23 8:00 am Samantha Flores MD [Primary Care Provider] - 1 Week (Your primary care provider has been contacted in regards to setting up a follow up appt. We are awaiting a call back at this time.) Discharge Medications: New prazosin 1 mg Capsule 1 mg PO BEDTIME 30 Days Qty: 30 0RF Protocol: Hold for SBP< HOLD for SBP < : 90 Continued albuterol sulfate 90 mcg/actuation HFA aerosol inhaler 2 puff inhalation Q6H PRN (Reason: shortness of breath or wheezing) Qty: 8.5 5RF rosuvastatin 20 mg tablet 20 mg PO BEDTIME Qty: 90 3RF mometasone-formoterol 200-5 mcg/actuation HFA aerosol inhaler 2 puff PO BID Qty: 13 5RF clonazepam 0.5 mg tablet 0.5 mg PO TID Rx Instructions: 0.5mg aripiprazole 5 mg tablet 5 mg PO DAILY fluoxetine 40 mg capsule 80 mg PO DAILY bupropion HCl 150 mg tablet sustained-release 12 hr 150 mg PO BID Incruse Ellipta 62.5 mcg/actuation blister with device 1 inh PO DAILY Qty: 90 3RF Myrbetriq 25 mg tablet extended release 24 hr 25 mg PO DAILY Qty: 90 1RF quetiapine 100 mg tablet 100 mg PO BEDTIME Discharge Orders: Discharge Order (Routine); Ordered 11/13/23 Ordered By: Rhiannon Macias Diet: Regular diet Activity on Discharge: As tolerated Stand Alone Forms: Patient Portal Discharge page, Community Support Print Language: Tamazight Care Plan Goals: Maintain mood and safe behaviors Take medications as prescribed Continue to pursue sobriety Practice coping skills Continue with outpatient providers and reach out to them as needed Health Concerns: Mood stability and behaviors Sobriety Plan of Treatment: Follow up with your PCP, psychiatric provider and other outpatient providers regarding above concerns Take medications as prescribed Assessment: Patient was interviewed prior to discharge and found to be fully oriented and without SI or HI. Patient has insight and demonstrates good judgment in terms of wanting to pursue treatment. Patient has a safety plan that includes presenting to the closest ER or calling 911 if feeling unsafe. Patient Instructions: Gastroesophageal Reflux Disease (DC) Discharge Date/Time: 11/13/23 10:47
[2023-11-13] MEDS: buPROPion HCl XL 300 MG TAB.ER.24H PO (09:12)
[2023-11-13] MEDS: FLUoxetine HCl 20 MG CAPSULE 80 MG PO (09:12)
[2023-11-13] MEDS: ARIPiprazole 5 MG TABLET PO (09:12)
[2023-11-13] MEDS: Mirabegron 25 MG TAB.ER.24H PO (09:12)
[2023-11-13] MEDS: clonazePAM 0.5 MG TABLET PO (09:13)
[2023-11-13] MEDS: Tiotropium Bromide 2.5 mcg 1 PUFF/2.5 MCG MIST.INHAL 2 PUFF INHALE (09:14)
[2023-11-13] MEDS: Fluticasone/Vilanterol 200/25 BLST.W.DEV 1 PUFF INHALE (09:14)
== END 2023-11-13 10:47 | disposition home or self-care (01) | DRG 885 ==
LOC: HO.ED 11-10 05:59 → HO.PADLT16 11-10 12:42
PROVIDERS: Admitting Provider Registered Nurse; Emergency Provider Internal Medicine; PCP Internal Medicine; Responsible Provider Registered Nurse; Visit Provider Psychiatry & Neurology Psychiatry
DX: F33.9 Major depressive disorder, recurrent, unspecified (principal); R45.851 Suicidal ideations; J44.9 Chronic obstructive pulmonary disease, unspecified; Y90.6 Blood alcohol level of 120-199 mg/100 ml; F43.10 Post-traumatic stress disorder, unspecified; F10.90 Alcohol use, unspecified, uncomplicated; Z63.8 Other specified problems related to primary support group; Z91.410 Personal history of adult physical and sexual abuse; Z87.891 Personal history of nicotine dependence; Z79.899 Other long term (current) drug therapy
CPT/HCPCS: 36415; 80053; 80061; 80307; 81001; 85025; 93005; 99285; S9485

== ENCOUNTER → 2023-11-10 12:38 | Outpatient (BNV) | payer OTHER, SELFPAY | PROVIDERS: Admitting Provider Registered Nurse; Emergency Provider Internal Medicine; PCP Internal Medicine; Responsible Provider Registered Nurse; Visit Provider Registered Nurse | DX: F33.2 Major depressive disorder, recurrent severe without psychotic features (principal); F43.11 Post-traumatic stress disorder, acute; F10.90 Alcohol use, unspecified, uncomplicated | CPT/HCPCS: 90792; 99231; 99238 ==

== ENCOUNTER 2023-12-09 10:17 | Outpatient (REF) | payer OTHER, SELFPAY ==
[2023-12-11 10:39] LABS: Amphetamine Screen Urine Not Detected (Not Detect); Barbiturates, Urine Not Detected (Not Detect); Benzodiazepines Screen Urine Not Detected (Not Detect); Buprenorphine Scr Not Detected (Not Detect); Cannabinoid Screen Urine POSITIVE (Not Detect); Cocaine Screen Urine Not Detected (Not Detect); Fentanyl, urine Not Detected (Not Detect); Methadone Screen, Urine Not Detected (Not Detect); Opiate Screen Urine Not Detected (Not Detect); Oxycodone Screen Urine Not Detected (Not Detect); Phencyclidine Screen Urine Not Detected (Not Detect)
== END 2023-12-09 10:18 | disposition home or self-care (01) ==
LOC: HO.PHPLNP 10:17
PROVIDERS: Visit Provider Psychiatry & Neurology Psychiatry
DX: F33.1 Major depressive disorder, recurrent, moderate (principal); F10.99 Alcohol use, unspecified with unspecified alcohol-induced disorder
CPT/HCPCS: 80307

== ENCOUNTER 2023-12-10 10:00 | Outpatient (RCR) | payer OTHER, SELFPAY ==
[2023-12-09 12:12] VITALS: BP 108/62; PULSE 76; TEMP 37
[2023-12-09 12:16] VITALS: BMI 29.5
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
--- NOTE | 2023-12-10 16:55 | HO.PHP ---
Client's case has been opened and reviewed in team
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
== END 2023-12-10 23:59 | disposition home or self-care (01) ==
LOC: HO.PHPA 10:00
PROVIDERS: Visit Provider Psychiatry & Neurology Psychiatry
DX: F32.A Depression, unspecified (principal); Z79.899 Other long term (current) drug therapy
CPT/HCPCS: 90791; 90853

== ENCOUNTER → 2023-12-10 10:00 | Outpatient (BNV) | payer OTHER, SELFPAY | PROVIDERS: Visit Provider Psychiatry & Neurology Psychiatry | DX: F33.9 Major depressive disorder, recurrent, unspecified (principal); F10.90 Alcohol use, unspecified, uncomplicated; F12.90 Cannabis use, unspecified, uncomplicated; F43.10 Post-traumatic stress disorder, unspecified | CPT/HCPCS: 90792 ==

== ENCOUNTER 2023-12-16 08:01 | Outpatient (AMB) | payer OTHER, SELFPAY ==
[2023-12-16 08:02] VITALS: BP 120/84; PULSE 108; TEMP 38.4; O2SAT 81; BMI 28.8
--- NOTE | 2023-12-16 08:02 | MHC.OFFWIV ---
Intake Vital Signs 12/16/23 08:02 12/16/23 08:19 Height 5 ft 7 in Weight 184 lb BMI 28.8 BP 120/84 Blood Pressure Location Lt brachial Position Sitting Pulse 108 H Pulse Source Pulse Oximeter Temp 101.2 F H Temp Source Oral Pulse Oximetry (%) 81 L 90 L Oxygen Delivery Method Room Air Intake Visit Reasons: EP ?Pneumonia Intake Note: Patient here for lung pain and sob that has been present since Thursday and has worsened quickly. pt has a hx of COPD. Patient Tobacco Use Status: Former Tobacco user Allergies nut - unspecified Allergy (Severe, Verified 12/16/23 08:07) Anaphylaxis shellfish derived Allergy (Severe, Verified 12/16/23 08:07) Anaphylaxis tree nut Allergy (Verified 12/16/23 08:07) Tongue swelling, tongue itching. Do you need a note to return to daycare/school/sports/work: No HPI EP ?Pneumonia HPI Details This note is constructed using voice recognition software. While every effort has been made to ensure accuracy, auto bumper straightener errors may have been included. The patient is a 63 year old female who presents to the clinic today with dyspnea at rest. She notes that she called her primary care office yesterday and was unable to be seen until coming Thursday. She had recently been in the hospital and had her lung drain. She reports that she has been steadily having increased shortness of breath, she does have a history of COPD. [facility] Medical History (Updated 12/09/23 @ 12:10 by Aria Briones RN) Emphysema lung History of foot fracture ILD (interstitial lung disease) Personal history of nicotine dependence Pulmonary nodules COPD (chronic obstructive pulmonary disease) PNA (pneumonia) Normal breast exam Colonoscopy refused Hyperlipidemia Recurrent pleural effusion PTSD (post-traumatic stress disorder) Depression Surgical History History of hand surgery History of lung surgery Family History Father No problems noted. Mother No problems noted. Social History Household Members: Significant Other Household Members Other:: Spouse Housing: Condominium Do you presently have visiting nurse or other home services: No Alcohol intake: current Alcohol intake frequency: a few times a week Comment: bed 2 Patient Tobacco Use Status: Former Tobacco user Tobacco use type: Cigarette Years Smoked: 35 e-Cigarette/Vaping Use: Never Used Second Hand Smoke Exposure: No Substance Use Type: Other and Caffiene service: No Current occupational status: retired Sexual orientation: Straight/Heterosexual Cognitive needs: No Hearing needs: No Vision needs: Yes Review of Systems Const All systems reviewed & are unremarkable except as noted in HPI and below Physical Exam Vital Signs: Last Vital Signs Pulse 108 H 12/16/23 08:02 BP 120/84 12/16/23 08:02 Pulse Ox 81 L 12/16/23 08:02 Oxygen Delivery Method Room Air 12/16/23 08:02 BMI result Body Mass Index 28.8 Const General: cooperative, healthy appearing, comfortable, no acute distress and alert Orientation/consciousness: patient oriented x3 Limitations: no limitations Resp Other: Tripod breathing Effort & Inspection: labored and tachypneic Auscultation: clear to auscultation bilaterally Cardio Jugular venous distension: no JVD Palpation: normal PMI Rate: regular rate Heart sounds: S1 normal heart sound present, S2 normal heart sound present, no click, no gallops, no murmurs and no rubs Skin General skin exam: no rashes or lesions noted, elasticity normal and turgor normal Neuro General: patient oriented x3 Psych Appearance: grossly normal Mental Status: mental status grossly normal Speech and movement: Normal speech and movement present Affect: normal affect Assessment & Plan Assessment & Plan (1) Dyspnea: Code(s): R06.00 - Dyspnea, unspecified Qualifiers: Dyspnea type: unspecified Qualified Code(s): R06.00 - Dyspnea, unspecified Plan: Patient is a 63-year-old female patient who presented today with dyspnea at rest, concern for pneumonia based on physical examination findings. Due to her presentation, it was clear that she required a higher level of care, I offered to call EMS for transfer to the hospital, which she agreed to. She reports that she only came here over the emergency room because she had just been discharged not long ago and was afraid to go back. We did place oxygen on her to attempt to improve her oxygenation, however were not successful at obtaining normal levels until we reached 4 liters. She does not wear oxygen at home. Plan See above for full details and plan. Coding Level of Care Code Est Pt Level 4 (74125) Diagnoses Dyspnea, unspecified type R06.00 Dyspnea type: unspecified
[2023-12-16 08:19] VITALS: O2SAT 90
== END 2023-12-16 12:44 | disposition home or self-care (01) ==
PROVIDERS: PCP Internal Medicine; Visit Provider Registered Nurse
DX: R06.00 Dyspnea, unspecified (principal)

== ENCOUNTER → 2023-12-16 08:01 | Outpatient (BNVA) | payer OTHER, SELFPAY | PROVIDERS: PCP Internal Medicine ==

== ENCOUNTER 2023-12-16 08:57 | Inpatient (IN) | payer OTHER, SELFPAY ==
[2023-12-16] VITALS (15 sets, daily range): BP systolic 100–145; BP diastolic 53–94; PULSE 83–128; RESP 16–24; TEMP 36.6–37.7; O2SAT 81–94; BMI 30.5
--- NOTE | 2023-12-16 | ECG_ITS ---
Test Reason : DYSPNEA Blood Pressure : / mmHG Vent. Rate : 102 BPM Atrial Rate : 102 BPM P-R Int : 156 ms QRS Dur : 088 ms QT Int : 348 ms P-R-T Axes : 055 080 004 degrees QTc Int : 453 ms Sinus tachycardia Nonspecific T wave abnormality Abnormal ECG When compared with ECG of 10-NOV-2023 12:12, Nonspecific T wave abnormality, worse in Inferior leads Nonspecific T wave abnormality, worse in Anterolateral leads Referred By: Generic ED Physician Electronically Signed By:MORENITA GAMBINO
--- NOTE | ~2023-12-16 | CT_ITS ---
EXAMINATION: CT ANGIOGRAM CHEST CLINICAL INFORMATION: Hypoxia and tachycardia COMPARISON: 06/04/2023 TECHNIQUE: Multiple axial images were obtained through the chest after the administration of 80 mL of Omnipaque 350 intravenous contrast. Extensive vascular post-processing including two-dimensional and three-dimensional reformatted images were created and reviewed on an independent workstation. This CT examination was performed using dose optimization techniques as appropriate, variously including the following: *Automated exposure control *Adjustment of mA and/or kV according to patient size (this includes techniques or standardized protocols for targeted exams where dose is matched to indication/reason for exam; i.e. extremities or head) *Use of iterative reconstruction technique DLP: 343 mGy-cm FINDINGS: Extensive alveolar infiltrates are seen throughout the left mid and lower lung and right lower lung likely reflective of a pneumonia. The lungs also have a somewhat mild underlying fibrotic appearance. No suspicious masses. Heart size is normal. No pericardial effusion. There is normal contrast enhancement in the great vessels of the mediastinum. No evidence for acute PE. Multiple small mediastinal nodes are present, the largest near the aortic arch, at 13 mm. No pneumothorax. No pleural effusion. Images through the upper abdomen show enlarged fatty liver. Adrenals unremarkable. CT/CT angio chest PE protocol IMPRESSION: Extensive parenchymal infiltrates likely pneumonia. No PE VTE: Negative Fleischner guidelines were followed. Electronically signed by: Larry Salinas MD 12/16/2023 11:26 AM EDT
--- NOTE | ~2023-12-16 | XR_ITS ---
EXAMINATION: XR CHEST CLINICAL INFORMATION: Follow-up hypoxemia COMPARISON: Chest CT 12/16/2023 TECHNIQUE: Frontal view of the chest was obtained. FINDINGS: Again demonstrated are patchy areas of interstitial thickening and groundglass opacities in the right lower lobe and left midlung and lower lobe with probable trace right pleural effusion. No dense focal consolidation. Overall, the appearance may have slightly improved since the previous CT. This most likely represents an atypical pneumonia superimposed on moderate centrilobular emphysema. XR/XR chest 1V IMPRESSION: Probable slight improvement in the patchy bilateral airspace opacities. Probable trace right pleural effusion. No dense focal consolidation. Electronically signed by: Mitchel Maguire MD 12/23/2023 09:12 AM EDT
--- NOTE | 2023-12-16 09:05 | PC.NURSE ---
pt biba from [facility] d/t dyspnea and left sided rib cage induced w/ inspiration that's been worsening x thursday. productive cough/fever/chills present. on RA baseline - found @ 81% on RA - placed on 4L via NC w/ good effect - 96%. duoneb w/o relief via EMS. upon ED arrival - a&ox4. tachycardic. hypoxic. pt on 4L NC by EMS but found to be at 87%. sob/wob noted. pt positioned upright to promote patent airway. oxygen increased to 6L via NC w/ good effect - resting @ 93%. hx of asthma/copd. pt verbalizing 8/0 pain in left rib cage that worsens w/ moment and deep inspiration. 20gIV in the RAC placed via EMS. another 20gIV placed in the left forearm placed by this RN - labs obtained/sent to lab. ekg performed by tech. plan of care ongoing. call chin placed within reach.
--- NOTE | 2023-12-16 09:15 | ED_ITS ---
HPI - SOB/Dyspnea General Chief Complaint: Dyspnea Stated Complaint: SOB,CP ON INSPIRATION PER EMS Time Seen by Provider: 12/16/23 09:14 Source: EMS Mode of arrival: EMS Limitations: no limitations History of Present Illness HPI Narrative: 63 year old female PTSD, COPD, hyperlipidemia here in October for SI history of alcohol abuse disorder depression who presents to the ER from [facility] after being found to be hypoxic. Patient admits to having worsening shortness breath for the past several days she was given breathing treatments by EMS without improvement she denies any falls or injuries denies any fevers chills Related Data Home Medications ?Medication ?Instructions ?Recorded ?Confirmed aripiprazole 5 mg tablet 5 mg PO DAILY 07/03/20 12/09/23 fluoxetine 40 mg capsule 80 mg PO DAILY 07/03/20 12/09/23 bupropion HCl 150 mg tablet,12 hr 150 mg PO BID 01/08/21 12/09/23 sustained-release clonazepam 0.5 mg tablet 0.5 mg PO TID 10/31/21 12/09/23 quetiapine 100 mg tablet 100 mg PO BEDTIME 12/11/21 12/09/23 Previous Rx's ?Medication ?Instructions ?Recorded albuterol sulfate 90 mcg/actuation 2 puff inhalation Q6H PRN 10/01/21 aerosol inhaler shortness of breath or wheezing #8.5 grams mirabegron 25 mg tablet,extended 25 mg PO DAILY #90 tabs 07/23/23 release 24 hr (Myrbetriq) rosuvastatin 20 mg tablet 20 mg PO BEDTIME #90 tabs 09/01/23 mometasone-formoterol HFA 200 2 puff PO BID #13 grams 09/03/23 mcg-5 mcg/actuation aerosol inhaler prazosin 1 mg capsule 1 mg PO BEDTIME 30 days #30 caps 11/12/23 umeclidinium 62.5 mcg/actuation 1 inh PO DAILY #90 ea 12/15/23 blister powder for inhalation (Incruse Ellipta) azithromycin 250 mg tablet See Rx Instructions PO .COMPLEX #6 12/16/23 tabs Allergies Allergy/AdvReac Type Severity Reaction Status Date / Time nut - unspecified Allergy Severe Anaphylaxis Verified 12/16/23 09:03 shellfish derived Allergy Severe Anaphylaxis Verified 12/16/23 09:03 tree nut Allergy Tongue Verified 12/16/23 09:03 swelling, tongue itching. Review of Systems 2 Review of Systems: Review of systems: General: Patient denies any fever chills recent illness or falls Musculoskeletal: Denies back pain or body aches or other injuries HEENT: denies headache, runny nose, ear pain Respiratory: shortness of breath, cough Cardiovascular: no chest pain or palpitations : denies dysuria, frequency Abdomen: no nausea vomiting denies abdominal pain Extremities: no swelling, no pain Skin: no diaphoresis Yes all other systems are reviewed and are negative [facility] Past Medical History Medical History (Updated 12/16/23 @ 11:38 by Elkin Miller DO) Emphysema lung History of foot fracture ILD (interstitial lung disease) Personal history of nicotine dependence Pulmonary nodules COPD (chronic obstructive pulmonary disease) PNA (pneumonia) Normal breast exam Colonoscopy refused Hyperlipidemia Recurrent pleural effusion PTSD (post-traumatic stress disorder) Depression Surgical History History of hand surgery History of lung surgery Family History Family History Father No problems noted. Mother No problems noted. Social History Social History Household Members: Significant Other Household Members Other:: Spouse Housing: Condominium Do you presently have visiting nurse or other home services: No Alcohol intake: current Alcohol intake frequency: a few times a week Comment: bed 2 Patient Tobacco Use Status: Former Tobacco user Tobacco use type: Cigarette Years Smoked: 35 e-Cigarette/Vaping Use: Never Used Second Hand Smoke Exposure: No Substance Use Type: Other and Caffiene Advance Directives: Yes Advance Directives on File: Yes Advance Directives Date on File: 02/04/21 Do you have a plan to hurt others: No Plan service: No Current occupational status: retired Sexual orientation: Straight/Heterosexual Cognitive needs: No Hearing needs: No Vision needs: Yes Physical Exam 2 Vital Signs: Vital Signs: Last Vital Signs Temp 99.7 F 12/16/23 11:08 Pulse 105 H 12/16/23 11:08 Resp 18 12/16/23 11:08 BP 134/68 12/16/23 11:08 Pulse Ox 93 12/16/23 11:08 O2 Del Method Nasal Cannula 12/16/23 11:08 O2 Flow Rate 3 12/16/23 11:08 Oxygen Flow Rate 4 12/16/23 09:00 BMI result Body Mass Index 30.5 General: Well-appearing well-nourished in no signs of distress HEENT: Normocephalic atraumatic Neck: No signs of JVD, no masses no tenderness or lymphadenopathy Cardiovascular: Regular rate and rhythm Respiratory: Wheezing and rhonchi bilaterally Abdomen: Soft nontender no masses Extremities: Normal pedal pulses no signs of edema Skin: Dry warm no rashes Back: No tenderness full ROM Course Course Course Narrative: Patient found to have pneumonia patient did get sepsis fluids 3 L patient to get early antibiotics I will admit the patient to the hospitalist service patient is still requiring oxygen at this time. Will need admission I discussed the case with Dr. Jama. Medications Administered Discontinued Medications Generic Name Dose Route Start Last Admin Trade Name Freq PRN Reason Stop Dose Admin Albuterol Sulfate 5 mg/ 0 mg 12/16/23 09:24 12/16/23 09:27 Albuterol/Ipratropium 3 ml INHALE 12/16/23 09:25 1 each ONCE ONE Administration Sodium Chloride 1,000 mls @ 999 mls/hr 12/16/23 09:30 12/16/23 10:46 Ns IV 12/16/23 10:30 Infused .Q1H1M JEAN PIERRE Infusion Ceftriaxone Sodium 1 gm/ 50 mls @ 100 mls/hr 12/16/23 09:40 12/16/23 10:24 Sodium Chloride IV 12/16/23 10:09 Infused ONCE ONE Infusion Doxycycline Hyclate 100 mg/ 250 mls @ 166.67 mls/hr 12/16/23 09:40 12/16/23 09:54 Sodium Chloride IV 12/16/23 11:09 166.67 mls/hr ONCE ONE Administration Iohexol 65 ml 12/16/23 10:21 12/16/23 10:22 Iohexol 350 Mg/Ml 100 Ml Infus..Btl IV 12/16/23 10:22 65 ml ONCE ONE Administration Methylprednisolone Sodium Succinate 125 mg 12/16/23 09:38 12/16/23 09:54 Methylprednisolone Sod Succ 125 Mg/2 Ml Vial IVPUSH 12/16/23 09:39 125 mg ONCE ONE Administration Medical Decision Making Medical Decision Making [facility] Narrative: I will give the patient for CTA give the patient fluids check labs and reassess patient is requiring several L of oxygen at this time Differential Diagnosis Differential Diagnoses: The differential diagnosis associated with the presentation includes COPD exacerbation PE pneumonia COVID flu other restrained infection anemia alcohol abuse withdrawals Admission/Observation Consideration of admission/observation: Escalation of care including admission/observation considered Patient will require admission for hypoxia Consult Healthcare Provider Management of the patient was discussed with: Hospitalist and Primary Care Provider Lab Data [facility] Lab Attestation statement: I reviewed the patient's lab results. 12/16/23 09:14 12/16/23 09:14 Labs: Lab Results 12/16/23 12/16/23 Range/Units 09:14 09:27 WBC 13.0 H (4.8-10.8) X10*3/uL RBC 3.83 L (4.20-5.50) X10*6/uL Hgb 11.6 L (12.0-16.0) g/dl Hct 33.9 L (37.0-47.0) % MCV 88.5 (80.0-98.0) fL MCH 30.3 (27.0-33.0) pg MCHC 34.2 (31.0-35.0) g/dl RDW 13.5 (11.0-16.0) % Plt Count 300 (160-400) X10*3/uL MPV 10.0 (9.4-12.3) fL Immature Gran % (Auto) 0.6 H (0.0-0.4) % Neut % (Auto) 88.8 H (45-73) % Lymph % (Auto) 6.0 L (20-40) % [place] % (Auto) 4.2 (2-11) % Eos % (Auto) 0.2 (0-4) % Baso % (Auto) 0.2 (0-2) % Lymph # (Auto) 0.8 L (1.2-4.9) X10*3/uL [place] # (Auto) 0.5 (0.1-1.2) X10*3/uL Eos # (Auto) 0.0 (0.0-0.4) X10*3/uL Baso # (Auto) 0.0 (0.0-0.2) X10*3/uL Abs Immat Gran (auto) 0.08 H (0.00-0.03) X10*3/uL Absolute Neuts (auto) 11.5 H (2.0-8.3) x10*3/uL Absolute Nucleated RBC 0.000 (0.0-0.012) X10*3/uL Nucleated RBC % (auto) 0.0 (0.0-0.2) /100WBC VBG pH 7.55 H (7.32-7.43) VBG pCO2 27 mmHg VBG pO2 50 mmHg VBG HCO3 24 (22-26) mmol/L VBG O2 Saturation 84.0 % VBG Base Excess 3.0 mmol/L Sodium 133 L (135-145) mmol/L Potassium 3.4 D (3.3-5.1) mmol/L Chloride 99 (96-108) mmol/L Carbon Dioxide 22 (22-29) mmol/L Anion Gap 15 (12-20) BUN 5 L (9-16) mg/dL Creatinine 0.75 (0.5-1.4) mg/dL Estim Creat Clear Calc 89.8 Estimated GFR > 60 Random Glucose 109 (60-115) mg/dL Lactic Acid 1.4 (0.5-2.0) mmol/L Calcium 10.0 (8.4-10.2) mg/dL Total Bilirubin 0.4 (0.0-1.0) mg/dL Direct Bilirubin 0.2 (0.0-0.5) mg/dL AST 28 (5-31) U/L ALT 24 (0-31) U/L Alkaline Phosphatase 87 (39-117) U/L Troponin I High Sens < 2.7 (<3.5-17.0) ng/L B-Natriuretic Peptide 51 (<100) pg/mL Total Protein 8.5 H (6.5-8.0) g/dL Albumin 4.1 (3.5-5.0) g/dL Lipase 9 (8-78) U/L Ethyl Alcohol < 10 mg/dL Influenza Type A (PCR) NEGATIVE (Negative) Influenza Type B (PCR) NEGATIVE (Negative) RSV RNA Qual (PCR) NEGATIVE (Negative) SARS-CoV-2 RNA (RT-PCR) NEGATIVE (Negative) ABG Data Attestation ABG: I personally reviewed and interpreted this ABG as follows: Independent Interpretation I performed an independent interpretation of an: EKG, Rhythm Strip and CT Scan Radiology Impression Discussion of test interpretation with radiology: I discussed test interpretation with the radiologist and I have reviewed the radiologist's reading. Independent Historian Clinical information obtained from an independent historian. History obtained from or confirmed by: EMS External Record Review External record reviewed: Inpatient record, Office record, Outpatient record, Prior outpatient labs, Prior outpatient radiology, Primary care record, Outside ED record and Other Prescription Management I considered prescription management with: Antibiotic Chronic Conditions Patient?s care impacted by: Hypertension Social Determinants Patient?s care significantly limited by Social Determinants of Health including: Alcoholism and drug addiction in family Core Measures AMI core measures followed: Yes Critical Care Time Critical Care Time Critical Care Time: Yes Total Critical Care Time: 50 Attestation: Seen immediately upon arrival started early antibiotics as well as fluids for sepsis an upper limit admission to the hospitalist service Discharge Plan Discharge Clinical Impression: COPD (chronic obstructive pulmonary disease), Pneumonia, COPD with hypoxia Patient Disposition: Admitted As Inpatient Prescriptions: No Action albuterol sulfate 90 mcg/actuation HFA aerosol inhaler 2 puff inhalation Q6H PRN (Reason: shortness of breath or wheezing) Qty: 8.5 5RF rosuvastatin 20 mg tablet 20 mg PO BEDTIME Qty: 90 3RF mometasone-formoterol 200-5 mcg/actuation HFA aerosol inhaler 2 puff PO BID Qty: 13 5RF Incruse Ellipta 62.5 mcg/actuation blister with device 1 inh PO DAILY Qty: 90 3RF azithromycin 250 mg tablet See Rx Instructions PO .COMPLEX Qty: 6 0RF Rx Instructions: For 250 mg dose pack: take 500 mg today (day 1), then 250 mg for 4 days (days 2-5) PO clonazepam 0.5 mg tablet 0.5 mg PO TID prazosin 1 mg Capsule 1 mg PO BEDTIME 30 Days Qty: 30 0RF Protocol: Hold for SBP< HOLD for SBP < : 90 aripiprazole 5 mg tablet 5 mg PO DAILY fluoxetine 40 mg capsule 80 mg PO DAILY bupropion HCl 150 mg tablet sustained-release 12 hr 150 mg PO BID Myrbetriq 25 mg tablet extended release 24 hr 25 mg PO DAILY Qty: 90 1RF quetiapine 100 mg tablet 100 mg PO BEDTIME Print Language: Austrian
[2023-12-16 09:27] LABS: MANUAL DIFF FLAG NO
[2023-12-16] MEDS: Albuterol Sulfate 5 MG, Albuterol/Iprat 2.5/0.5MG 3 ML 3 ML INHALE (09:27)
[2023-12-16 09:31] LABS: Basophils Percent Auto 0.2 % (0-2); Eosinophils Percent Auto 0.2 % (0-4); Hematocrit 33.9 % (37.0-47.0); Hemoglobin 11.6 g/dl (12.0-16.0); Imm Gran Abs Auto 0.08 X10*3/uL (0.00-0.03); Imm Gran Pct Auto 0.6 % (0.0-0.4); Lymphocytes Absolute Auto 0.8 X10*3/uL (1.2-4.9); Mean Corpuscular HGB Conc 34.2 g/dl (31.0-35.0); Mean Corpuscular Hemoglobin 30.3 pg (27.0-33.0); Mean Corpuscular Volume 88.5 fL (80.0-98.0); Monocytes Absolute Auto 0.5 X10*3/uL (0.1-1.2); Monocytes Percent Auto 4.2 % (2-11); Neutrophils Absolute Auto 11.5 x10*3/uL (2.0-8.3); Neutrophils Percent Auto 88.8 % (45-73); Platelet Count 300 X10*3/uL (160-400); Red Blood Count 3.83 X10*6/uL (4.20-5.50); Red Cell Distribution Width 13.5 % (11.0-16.0)
[2023-12-16 09:32] LABS: VBG HCO3 24 mmol/L (22-26); VBG pCO2 27 mmHg; VBG pH 7.55 (7.32-7.43); VBG pO2 50 mmHg
[2023-12-16 09:35] LABS: Venous Blood Gas Refer to POC result
--- NOTE | 2023-12-16 09:39 | PC.NURSE ---
pt receiving breathing treatment via RT at this time.
[2023-12-16 09:42] LABS: Lactic Acid 1.4 mmol/L (0.5-2.0)
[2023-12-16] MEDS: 0.9 % Sodium Chloride 1,000 ML 999 ML IV ×2 (09:45→11:54)
[2023-12-16 09:47] LABS: Anion Gap 15 (12-20)
[2023-12-16 09:51] LABS: Alanine Aminotransferase 24 U/L (0-31); Albumin Level 4.1 g/dL (3.5-5.0); Alkaline Phosphatase 87 U/L (39-117); Aspartate Amino Transferase 28 U/L (5-31); Bilirubin Direct 0.2 mg/dL (0.0-0.5); Bilirubin Total 0.4 mg/dL (0.0-1.0); Blood Urea Nitrogen 5 mg/dL (9-16); Carbon Dioxide 22 mmol/L (22-29); Chloride 99 mmol/L (96-108); Creatinine Clr Calc Pharmacy 89.8; Estimated Glomerular Filt Rate > 60; Ethanol < 10 mg/dL; Glucose Random 109 mg/dL (60-115); Lipase 9 U/L (8-78); Potassium 3.4 mmol/L (3.3-5.1); Sodium 133 mmol/L (135-145); Total Protein 8.5 g/dL (6.5-8.0)
[2023-12-16 09:54] LABS: B Type Natriuretic Peptide 51 pg/mL (<100)
[2023-12-16] MEDS: methylPREDNISolone Sod Succ 125 MG/2 ML VIAL IVPUSH (09:54)
[2023-12-16] MEDS: cefTRIAXone sodium 1 GM in 0.9 % Sodium Chloride 50 ML IV (09:54)
[2023-12-16] MEDS: Doxycycline Hyclate 100 MG in 0.9 % Sodium Chloride 250 ML 166.67 MG IV (09:54)
[2023-12-16 09:55] LABS: Troponin-I High Sensitivity < 2.7 ng/L (<3.5-17.0)
--- NOTE | 2023-12-16 09:59 | PC.NURSE ---
IVF/medication administered per provider order. pt to CT at this time.
[2023-12-16 10:13] LABS: Influenza A PCR NEGATIVE (Negative); Influenza B PCR NEGATIVE (Negative); Resp Syncy Virus RNA Qual PCR NEGATIVE (Negative); SARS COV2 PCR INHOUSE NEGATIVE (Negative)
[2023-12-16] MEDS: iohexoL 350 MG/ML 100 ML INFUS..BTL 65 ML IV (10:22)
--- NOTE | 2023-12-16 11:37 | PC.NURSE ---
pt remains on 3L via NC at this time - resting at 92%. slight wob still noted. pt positioned upright to promote patent airway. remains sinus tachy on the monitoring and evaluation advisor. denies chest pain/palpitations. otherwise vss and up to date. abx continues to infuse at this time. imaging results pending. plan of care ongoing. call chin placed within reach.
--- NOTE | 2023-12-16 12:54 | PC.NURSE ---
pt ambulates to the restroom w/ a 1:1 assist. pt extremely sob w/ exertion. py hyperoxygenated w/ 6L NC. pt repositioned back in bed displaying 88% on 6L via NC. pt educated on how to slow down breathing. pt placed back on 4L - resting @ 90%. will titrate back to 3L via NC shortly.
--- NOTE | 2023-12-16 13:05 | PHA.MEDREC ---
Pharmacy Consult ? Medication Reconciliation Pharmacy has completed the medication reconciliation. Spoke with patient at bedside, she was able to confirm her home meds this match her claims. She stated she usually takes one Clonazepam in the AM and two in the afternoon around 3pm. Changed the orders to reflect this.
--- NOTE | 2023-12-16 13:51 | PM.IMHP ---
History of Present Illness Date of Service: 12/16/23 Attending physician on admission: Landon Jama Chief Complaint: sob, productive cough 63-year-old female with history of COPD, interstitial lung disease, hyperlipidemia, PTSD, depression presented to the ED earlier today for evaluation of upper respiratory symptoms ongoing for 3 days. She states that for the last 3 days she has had a cough productive of yellow sputum, fevers up to 101.5, congestion, shortness of breath both at rest with exertion as well as orthopnea and wheezing. She has used her albuterol inhaler with increased frequency and limited results. Denies any sore throat, abdominal pain, nausea, vomiting, diarrhea, urinary symptoms, palpitations, lightheadedness, chest pressure. She is endorsing pleuritic chest pain bilaterally. No edema or weight gain. Denies any sick contacts at home. She was initially seen at her PCP office where she was satting at 81% and sent to the ED. On arrival, she was hypoxic to the low 80s and started on 4 L supplemental O2, now maintaining oximetry 91-93%. She has been febrile to 101.2 and tachycardic as well as tachypneic. No hypotension she has a leukocytosis of 13.0. Renal function normal, electrolyte levels normal except for sodium 133. Troponin undetectable. BNP 51. VBG with pH 7.55, pCO2 27, bicarb 24. Ethyl alcohol undetectable. Negative for COVID-19, RSV, influenza. Chest CTA negative for PE but shows extensive parenchymal infiltrates likely pneumonia. She denies any ongoing alcohol use, cigarette use, illicit drug use but does endorse using marijuana products. In the ED, has been given IV ceftriaxone, doxycycline, multiple nebulizer treatments, 2 L IVF and has been loaded with 125 mg methylprednisolone. Review of Systems Review of Systems: Yes all other systems are reviewed and are negative [facility] Medical History Emphysema lung History of foot fracture ILD (interstitial lung disease) Personal history of nicotine dependence Pulmonary nodules COPD (chronic obstructive pulmonary disease) PNA (pneumonia) Normal breast exam Colonoscopy refused Hyperlipidemia Recurrent pleural effusion PTSD (post-traumatic stress disorder) Depression Family History Father No problems noted. Mother No problems noted. Surgical History History of hand surgery History of lung surgery Social History Household Members: Significant Other Household Members Other:: Spouse Housing: Condominium Do you presently have visiting nurse or other home services: No Alcohol intake: current Alcohol intake frequency: holidays/special occasions only Comment: bed 2 Patient Tobacco Use Status: Former Tobacco user Tobacco use type: Cigarette Years Smoked: 35 Smoked in Last 30 Days: No e-Cigarette/Vaping Use: Never Used Second Hand Smoke Exposure: No Use of substances other than those prescribed or required for medical reasons: No Substance Use Type: Other and Caffiene Advance Directives: Yes Advance Directives on File: Yes Advance Directives Date on File: 02/04/21 Do you have a plan to hurt others: No Plan Nutrition Risks: No Nutritional Risk Patient : No service: No Current occupational status: retired Sexual orientation: Straight/Heterosexual Cognitive needs: No Hearing needs: No Vision needs: Yes Meds Allergies Allergy/AdvReac Type Severity Reaction Status Date / Time nut - unspecified Allergy Severe Anaphylaxis Verified 12/16/23 09:03 shellfish derived Allergy Severe Anaphylaxis Verified 12/16/23 09:03 tree nut Allergy Tongue Verified 12/16/23 09:03 swelling, tongue itching. Active Medications: Current Medications Acetaminophen (Acetaminophen 325 Mg Tablet) 650 mg PO Q6H PRN PRN Reason: Pain, Mild (Pain Scale 1-3), fever or headache Albuterol/Ipratropium (Albuterol/Iprat 2.5/0.5mg 3 Ml Ampul.Neb) 3 ml INHALE Q4H PRN PRN Reason: Shortness of Breath/Wheezing Albuterol/Ipratropium (Albuterol/Iprat 2.5/0.5mg 3 Ml Ampul.Neb) 3 ml INHALE RQ4H WHILE AWAKE JEAN PIERRE Aripiprazole (Aripiprazole 5 Mg Tablet) 5 mg PO DAILY JEAN PIERRE Calcium Carbonate (Calcium Carbonate 750 Mg Tab.Chew) 750 mg PO Q4H PRN PRN Reason: Heartburn Clonazepam (Clonazepam 0.5 Mg Tablet) 0.5 mg PO DAILY JEAN PIERRE Clonazepam (Clonazepam 1 Mg Tablet) 1 mg PO DAILY@1500 JEAN PIERRE Cyanocobalamin (Cyanocobalamin (Vitamin B-12) 100 Mcg Tablet) 100 mcg PO DAILY [facility] Enoxaparin Sodium (Enoxaparin Sodium 40 Mg/0.4 Ml Syringe) 40 mg SUBCUT Q24H JEAN PIERRE Fluoxetine HCl (Fluoxetine Hcl 20 Mg Capsule) 80 mg PO DAILY JEAN PIERRE Guaifenesin (Guaifenesin 200 Mg/10 Ml 10 Ml Liquid) 10 ml PO Q6H PRN PRN Reason: Cough Ceftriaxone Sodium 1 gm/ (Sodium Chloride) 50 mls @ 100 mls/hr IV Q24H JEAN PIERRE Azithromycin 500 mg/ Sodium (Chloride) 250 mls @ 125 mls/hr IV Q24H JEAN PIERRE Magnesium Hydroxide (Milk Of Magnesia 30 Ml Oral.Susp) 30 ml PO DAILY PRN PRN Reason: Constipation Melatonin (Melatonin 3 Mg Tablet) 6 mg PO BEDTIME PRN PRN Reason: Insomnia Methylprednisolone Sodium Succinate (Methylprednisolone Sod Succ 40 Mg/Ml Vial) 40 mg IVPUSH Q12H JEAN PIERRE Mirabegron (Mirabegron 25 Mg Tab.Er.24h) 25 mg PO DAILY [facility] Non-Formulary Medication (Bupropion Hcl) 150 mg PO BID JEAN PIERRE Non-Formulary Medication (Mometasone-Formoterol) 2 puff PO BID JEAN PIERRE Non-Formulary Medication (Rosuvastatin) 20 mg PO BEDTIME JEAN PIERRE Non-Formulary Medication (Umeclidinium [Incruse Ellipta]) 1 inhalation PO DAILY [facility] Prazosin HCl (Prazosin Hcl 1 Mg Capsule) 1 mg PO BEDTIME JEAN PIERRE; Protocol Quetiapine Fumarate (Quetiapine Fumarate 100 Mg Tablet) 100 mg PO BEDTIME [facility] Sodium Chloride (0.9 % Sodium Chloride Flush 3 Ml Syringe) 3 ml IVFLUSH QSHIFT [facility] Home Medications ?Medication ?Instructions ?Recorded ?Confirmed ?Last Taken ?Type aripiprazole 5 mg tablet 5 mg PO DAILY 07/03/20 12/16/23 12/16/23 09:00 History fluoxetine 40 mg capsule 80 mg PO DAILY 07/03/20 12/16/23 12/16/23 09:00 History bupropion HCl 150 mg tablet,12 hr 150 mg PO BID 01/08/21 12/16/23 12/16/23 09:00 History sustained-release clonazepam 0.5 mg tablet 0.5 mg PO DAILY 10/31/21 12/16/23 12/16/23 09:00 History quetiapine 100 mg tablet 100 mg PO BEDTIME 12/11/21 12/16/23 12/16/23 09:00 History clonazepam 0.5 mg tablet 1 mg PO DAILY@1500 12/16/23 12/16/23 12/16/23 09:00 History cyanocobalamin (vitamin B-12) 100 100 mcg PO DAILY 12/16/23 12/16/23 12/16/23 09:00 History mcg tablet (Vitamin B-12) Physical Exam Vital Signs and Narrative: Vital Signs: Last Vital Signs Temp 98.7 F 12/16/23 11:37 Pulse 102 H 12/16/23 11:37 Resp 16 12/16/23 11:37 BP 129/67 12/16/23 11:37 Pulse Ox 91 L 12/16/23 11:37 O2 Del Method Nasal Cannula 12/16/23 11:37 O2 Flow Rate 3 12/16/23 11:37 Oxygen Flow Rate 4 12/16/23 09:00 BMI result Body Mass Index 30.5 Constitutional - Awake and Alert, No apparent distress Eyes - PERRLA, EOMI Cardiovascular - S1S2, RRR, No edema Respiratory - Normal lung expansion, Normal respiratory effort, No respiratory distress on 4L, diffuse bilaterally wheezing and rhonchi in lower lobes Gastrointestinal - NT / ND; +BS; No rebound or guarding Extremities - no calf tenderness bilaterally, no swelling Skin - Warm/Dry Neurological - Alert & oriented x3 Psychological - Appropriate affect Results Labs 12/16/23 09:14 12/16/23 09:14 Labs: Laboratory Results - last 24 hr 12/16/23 12/16/23 09:14 09:27 MCV 88.5 MCH 30.3 MCHC 34.2 RDW 13.5 Plt Count 300 MPV 10.0 Immature Gran % (Auto) 0.6 H Neut % (Auto) 88.8 H Lymph % (Auto) 6.0 L [place] % (Auto) 4.2 Eos % (Auto) 0.2 Baso % (Auto) 0.2 Lymph # (Auto) 0.8 L [place] # (Auto) 0.5 Eos # (Auto) 0.0 Baso # (Auto) 0.0 Abs Immat Gran (auto) 0.08 H Absolute Neuts (auto) 11.5 H Absolute Nucleated RBC 0.000 Nucleated RBC % (auto) 0.0 VBG pH 7.55 H VBG pCO2 27 VBG pO2 50 VBG HCO3 24 VBG O2 Saturation 84.0 VBG Base Excess 3.0 Anion Gap 15 Estim Creat Clear Calc 89.8 Estimated GFR > 60 Random Glucose 109 Lactic Acid 1.4 Calcium 10.0 Total Bilirubin 0.4 Direct Bilirubin 0.2 AST 28 ALT 24 Alkaline Phosphatase 87 Troponin I High Sens < 2.7 B-Natriuretic Peptide 51 Total Protein 8.5 H Albumin 4.1 Lipase 9 Ethyl Alcohol < 10 Influenza Type A (PCR) NEGATIVE Influenza Type B (PCR) NEGATIVE RSV RNA Qual (PCR) NEGATIVE SARS-CoV-2 RNA (RT-PCR) NEGATIVE Imaging Radiologist's Impressions: Impressions Chest CTA 12/16/23 10:00 IMPRESSION: Extensive parenchymal infiltrates likely pneumonia. No PE VTE: Negative Fleischner guidelines were followed. Electronically signed by: Larry Salinas MD 12/16/2023 11:26 AM EDT RP Assessment and Plan (1) COPD with hypoxia: Status: Acute (2) Pneumonia: Status: Acute Plan 63-year-old female with history of COPD, interstitial lung disease, hyperlipidemia, PTSD, depression admitted for acute hypoxemic respiratory failure secondary to COPD exacerbation and community-acquired pneumonia # acute COPD exacerbation -negative for COVID-19, RSV, influenza. Check RPP -IV methylprednisolone 40 mg b.i.d. -DuoNebs q.4h while awake and p.r.n. -IV azithromycin for pleiotropic effect -continue maintenance inhalers -symptomatic management # acute community-acquired pneumonia with sepsis -febrile, tachycardic, tachypneic with leukocytosis 13.5. No lactic acidosis or end-organ damage. No hypotension. No severe sepsis/shock on admission -CTA chest shows bilateral parenchymal infiltrates, negative PE -IV ceftriaxone and azithromycin (initiated 12/15) -additional plan as above -strep pneumo antigen, Legionella antigen, sputum culture pending -follow CBC, cultures # acute hypoxemic respiratory failure -secondary to above -continue supplemental O2 to maintain oximetry 90-92%, wean as tolerated per protocol # mood disorder/PTSD -continue home meds # hyperlipidemia -statin # alcohol use disorder -reports in early remission. Denies recent use -monitor on CIWA as precaution DVT prophylaxis-Lovenox Full code Patient requires inpatient stay at least 2 midnights for management of acute COPD exacerbation pneumonia with sepsis and acute hypoxemic respiratory failure requiring IV antibiotics, IV steroids, scheduled nebulizer treatments, weaning of supplemental O2 with close monitoring of respiratory status and hemodynamics to monitor for and prevent decompensation Quality Stroke Does the patient have a stroke diagnosis?: No VTE Prior VTE?: No VTE Risk Level:: Medical - moderate - high VTE Device Contraindication: Treatment Not Indicated VTE Drug Contraindication: N/A - Med Ordered
[2023-12-16] MEDS: Azithromycin 500 MG in 0.9 % Sodium Chloride 250 ML 125 MG IV (14:43)
[2023-12-16] MEDS: Enoxaparin Sodium 40 MG/0.4 ML SYRINGE SUBCUT (14:43)
[2023-12-16] MEDS: Atorvastatin Calcium 80 MG TABLET PO (14:44)
[2023-12-16] MEDS: clonazePAM 1 MG TABLET PO (14:44)
[2023-12-16] MEDS: Albuterol/Iprat 2.5/0.5MG 3 ML AMPUL.NEB INHALE ×2 (14:54→18:51)
[2023-12-16] MEDS: buPROPion HCl XL 300 MG TAB.ER.24H PO (14:57)
--- NOTE | 2023-12-16 14:57 | PC.NURSE ---
pt medicated per provider order. pt receiving breathing treatment via RT at this time.
[2023-12-16 15:31] LABS: Adenovirus PCR Not Detected (Not Detect.); Bordetella parapertussis PCR Not Detected (Not Detect.); Bordetella pertussis PCR Not Detected (Not Detect.); Chlamydia pneumoniae PCR Not Detected (Not Detect.); Coronavirus 229E PCR Not Detected (Not Detect.); Coronavirus HKU1 PCR Not Detected (Not Detect.); Coronavirus NL63 PCR Not Detected (Not Detect.); Coronavirus OC43 PCR Not Detected (Not Detect.); Human metapneumovirus PCR Not Detected (Not Detect.); Influenza A PCR Not Detected (Not Detect.); Influenza B PCR Not Detected (Not Detect.); Mycoplasma pneumoniae PCR Not Detected (Not Detect.); Parainfluenza 1 PCR Not Detected (Not Detect.); Parainfluenza 2 PCR Not Detected (Not Detect.); Parainfluenza 3 PCR Not Detected (Not Detect.); Parainfluenza 4 PCR Not Detected (Not Detect.); RSV PCR Not Detected (Not Detect.); Rhino/Enterovirus PCR Not Detected (Not Detect.)
[2023-12-16 15:33] LABS: SARS-CoV-2 PCR Not Detected (Not Detect.)
[2023-12-16] MEDS: QUEtiapine Fumarate 100 MG TABLET PO (20:35)
[2023-12-16] MEDS: Prazosin HCL 1 MG CAPSULE PO (20:35)
--- NOTE | 2023-12-16 20:37 | PC.NURSE ---
pt noted to be at 88% on 4L via NC. wob noted. pt repositioned upright to promote patent airway. pt placed on 6L via NC w/ good effect - resting at 91%. medication administered per provider order. pt continues to wait for bed assignment. plan of care ongoing.
--- NOTE | 2023-12-16 23:30 | PC.NURSE ---
This tag writer assumed care of this Pt at 2300. Pt A&Ox3, denies any pain. Pt on 6L of O2 via NC, spO2 87%, RT made aware, Pt switched over to 9L via oxymask to improvement of spO2 ranging from 89-94%. Plan of care ongoing.
[2023-12-17] VITALS (13 sets, daily range): BP systolic 109–156; BP diastolic 56–71; PULSE 82–106; RESP 12–22; TEMP 36.2–37; O2SAT 80–94; BMI 28.7
[2023-12-17] MEDS: 0.9 % Sodium Chloride Flush 3 ML SYRINGE IVFLUSH ×3 (00:09→14:05)
[2023-12-17] MEDS: Albuterol/Iprat 2.5/0.5MG 3 ML AMPUL.NEB INHALE ×5 (00:19→19:25)
--- NOTE | 2023-12-17 03:00 | PC.NURSE ---
Pt stand by assist to bedside commode, Pt moved over to hospital bed.
[2023-12-17] MEDS: Acetaminophen 325 MG TABLET 650 MG PO ×2 (05:51→19:44)
[2023-12-17 06:28] LABS: MANUAL DIFF FLAG NO
[2023-12-17 06:47] LABS: Anion Gap 14 (12-20); Blood Urea Nitrogen 6 mg/dL (9-16); Calcium 9.8 mg/dL (8.4-10.2); Carbon Dioxide 22 mmol/L (22-29); Chloride 107 mmol/L (96-108); Creatinine Clr Calc Pharmacy 100.6; Estimated Glomerular Filt Rate > 60; Glucose Random 108 mg/dL (60-115); Potassium 3.2 mmol/L (3.3-5.1); Sodium 140 mmol/L (135-145)
[2023-12-17] MEDS: methylPREDNISolone Sod Succ 40 MG/ML VIAL IVPUSH ×2 (07:00→17:32)
[2023-12-17 07:03] LABS: Basophils Percent Auto 0.2 % (0-2); Hematocrit 29.6 % (37.0-47.0); Hemoglobin 9.8 g/dl (12.0-16.0); Imm Gran Abs Auto 0.13 X10*3/uL (0.00-0.03); Lymphocytes Absolute Auto 0.9 X10*3/uL (1.2-4.9); Lymphocytes Percent Auto 6.7 % (20-40); Mean Corpuscular HGB Conc 33.1 g/dl (31.0-35.0); Mean Corpuscular Hemoglobin 29.7 pg (27.0-33.0); Mean Corpuscular Volume 89.7 fL (80.0-98.0); Mean Platelet Volume 10.1 fL (9.4-12.3); Monocytes Absolute Auto 0.5 X10*3/uL (0.1-1.2); Monocytes Percent Auto 3.7 % (2-11); Neutrophils Absolute Auto 11.5 x10*3/uL (2.0-8.3); Neutrophils Percent Auto 88.4 % (45-73); Platelet Count 301 X10*3/uL (160-400); Red Cell Distribution Width 13.5 % (11.0-16.0)
[2023-12-17] MEDS: Atorvastatin Calcium 80 MG TABLET PO (08:42)
[2023-12-17] MEDS: clonazePAM 0.5 MG TABLET PO (08:42)
[2023-12-17] MEDS: Cyanocobalamin (Vitamin B-12) 100 MCG TABLET PO (08:42)
[2023-12-17] MEDS: ARIPiprazole 5 MG TABLET PO (08:42)
[2023-12-17] MEDS: FLUoxetine HCl 20 MG CAPSULE 80 MG PO (08:42)
--- NOTE | 2023-12-17 09:48 | MHC.CM.PN ---
IMM 12/16. Pt self-care lives at home with her partner/HCP Sylvester who will transport her home at discharge. 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 HCP on file and verified. PCP: Dr. Samantha Flores
--- NOTE | 2023-12-17 10:08 | P.PNIM_ITS ---
Subjective Subjective Date of Service: 12/17/23 Interval History: Shortness of breaths Physical Exam 2 Vital Signs: Vital Signs: Last Vital Signs Temp 97.9 F 12/17/23 08:10 Pulse 104 H 12/17/23 08:10 Resp 12 12/17/23 08:10 BP 156/63 H 12/17/23 08:10 Pulse Ox 92 12/17/23 08:10 O2 Del Method Room Air 12/17/23 08:10 O2 Flow Rate 6 12/17/23 00:00 Oxygen Flow Rate 4 12/16/23 09:00 BMI result Body Mass Index 30.5 General: AO X 3, dyspnea Resp: Crackles bilateral, no accessory muscles used CVS: S1,S2,RRR GI: soft, non tender, non distended Neuro: motor grossly intact, alert Psych: appropriate affect, appropriate insight Objective Data Active Medications Acetaminophen (Acetaminophen 325 Mg Tablet) 650 mg PO Q6H PRN PRN Reason: Pain, Mild (Pain Scale 1-3), fever or headache Last Admin: 12/17/23 05:51 Dose: 650 mg Documented By: TRA Albuterol/Ipratropium (Albuterol/Iprat 2.5/0.5mg 3 Ml Ampul.Neb) 3 ml INHALE Q4H PRN PRN Reason: Shortness of Breath/Wheezing Last Admin: 12/17/23 00:19 Dose: 3 ml Documented By: NISA Albuterol/Ipratropium (Albuterol/Iprat 2.5/0.5mg 3 Ml Ampul.Neb) 3 ml INHALE RQ4H WHILE AWAKE [facility] Last Admin: 12/17/23 07:17 Dose: 3 ml Documented By: RICHIE Aripiprazole (Aripiprazole 5 Mg Tablet) 5 mg PO DAILY [facility] Last Admin: 12/17/23 08:42 Dose: 5 mg Documented By: ROBERTA Atorvastatin Calcium (Atorvastatin Calcium 80 Mg Tablet) 80 mg PO DAILY [facility] Last Admin: 12/17/23 08:42 Dose: 80 mg Documented By: ROBERTA Bupropion HCl (Bupropion Hcl Xl 300 Mg Tab.Er.24h) 300 mg PO DAILY [facility] Last Admin: 12/16/23 14:57 Dose: 300 mg Documented By: ROOSEVELT Calcium Carbonate (Calcium Carbonate 750 Mg Tab.Chew) 750 mg PO Q4H PRN PRN Reason: Heartburn Clonazepam (Clonazepam 0.5 Mg Tablet) 0.5 mg PO DAILY [facility] Last Admin: 12/17/23 08:42 Dose: 0.5 mg Documented By: ROBERTA Clonazepam (Clonazepam 1 Mg Tablet) 1 mg PO DAILY@1500 [facility] Last Admin: 12/16/23 14:44 Dose: 1 mg Documented By: ROOSEVELT Cyanocobalamin (Cyanocobalamin (Vitamin B-12) 100 Mcg Tablet) 100 mcg PO DAILY [facility] Last Admin: 12/17/23 08:42 Dose: 100 mcg Documented By: ROBERTA Enoxaparin Sodium (Enoxaparin Sodium 40 Mg/0.4 Ml Syringe) 40 mg SUBCUT Q24H [facility] Last Admin: 12/16/23 14:43 Dose: 40 mg Documented By: ROOSEVELT Fluoxetine HCl (Fluoxetine Hcl 20 Mg Capsule) 80 mg PO DAILY [facility] Last Admin: 12/17/23 08:42 Dose: 80 mg Documented By: ROBERTA Fluticasone/Vilanterol (Fluticasone/Vilanterol 200/25 Blst.W.Dev) 1 puff INHALE RDAILY [facility] Guaifenesin (Guaifenesin 200 Mg/10 Ml 10 Ml Liquid) 10 ml PO Q6H PRN PRN Reason: Cough Ceftriaxone Sodium 1 gm/ (Sodium Chloride) 50 mls @ 100 mls/hr IV Q24H JEAN PIERRE Azithromycin 500 mg/ Sodium (Chloride) 250 mls @ 125 mls/hr IV Q24H [facility] Last Infusion: 12/16/23 16:46 Dose: Infused Documented By: ROOSEVELT Magnesium Hydroxide (Milk Of Magnesia 30 Ml Oral.Susp) 30 ml PO DAILY PRN PRN Reason: Constipation Melatonin (Melatonin 3 Mg Tablet) 6 mg PO BEDTIME PRN PRN Reason: Insomnia Methylprednisolone Sodium Succinate (Methylprednisolone Sod Succ 40 Mg/Ml Vial) 40 mg IVPUSH Q12H [facility] Last Admin: 12/17/23 07:00 Dose: 40 mg Documented By: SERRANRoderick Mirabegron (Mirabegron 25 Mg Tab.Er.24h) 25 mg PO DAILY [facility] Prazosin HCl (Prazosin Hcl 1 Mg Capsule) 1 mg PO BEDTIME [facility]; Protocol Last Admin: 12/16/23 20:35 Dose: 1 mg Documented By: ROOSEVELT Quetiapine Fumarate (Quetiapine Fumarate 100 Mg Tablet) 100 mg PO BEDTIME [facility] Last Admin: 12/16/23 20:35 Dose: 100 mg Documented By: ROOSEVELT Sodium Chloride (0.9 % Sodium Chloride Flush 3 Ml Syringe) 3 ml IVFLUSH QSHIFT [facility] Last Admin: 12/17/23 00:09 Dose: 3 ml Documented By: SERRANX Tiotropium [place] (Tiotropium [place] 2.5 Mcg 1 Puff/2.5 Mcg Mist.Inhal) 2 puff INHALE RDAILY [facility] Labs 12/17/23 06:15 12/17/23 06:15 Labs: Laboratory Results - last 24 hr 12/16/23 12/16/23 12/17/23 09:14 14:21 06:15 MCV 89.7 MCH 29.7 MCHC 33.1 RDW 13.5 Plt Count 301 MPV 10.1 Immature Gran % (Auto) 1.0 H Neut % (Auto) 88.4 H Lymph % (Auto) 6.7 L Bee % (Auto) 3.7 Eos % (Auto) 0.0 Baso % (Auto) 0.2 Lymph # (Auto) 0.9 L Bee # (Auto) 0.5 Eos # (Auto) 0.0 Baso # (Auto) 0.0 Abs Immat Gran (auto) 0.13 H Absolute Neuts (auto) 11.5 H Absolute Nucleated RBC 0.000 Nucleated RBC % (auto) 0.0 Anion Gap 14 Estim Creat Clear Calc 100.6 Estimated GFR > 60 Random Glucose 108 Calcium 9.8 Respiratory Panel Barnes See Note Adenovirus (Rapid PCR) Not Detected B.pert (TEM-PCR) Not Detected B.parapertussis DNA PCR Not Detected C. pneumoniae DNA (PCR) Not Detected Coronavirus OC43 (PCR) Not Detected Coronavirus HKU1 (PCR) Not Detected Coronavirus 229E (PCR) Not Detected Coronavirus NL63 (PCR) Not Detected Human Metapneumovir PCR Not Detected Influenza A (RT-PCR) Not Detected Influenza Type A (PCR) NEGATIVE Influenza B (RT-PCR) Not Detected Influenza Type B (PCR) NEGATIVE M. pneumoniae (PCR) Not Detected Parainfluenza 1 (PCR) Not Detected Parainfluenza 2 (PCR) Not Detected Parainfluenza 3 (PCR) Not Detected Parainfluenza 4 (PCR) Not Detected RSV (PCR) Not Detected RSV RNA Qual (PCR) NEGATIVE Entero/Rhino (PCR) Not Detected SARS-CoV-2 RNA (RT-PCR) NEGATIVE Not Detected Assessment and Plan (1) Pneumonia: Status: Acute Plan 63F PMH COPD, interstitial lung disease, hyperlipidemia, PTSD, depression presented with shortness of breath Sepsis and acute hypoxic respiratory failure secondary to pneumonia and COPD with acute decompensation Continue ceftriaxone azithromycin, follow-up cultures, IV steroids, bronchodilators Wean oxygen as tolerated, still requiring 10 L Hyperlipidemia Continue statin PTSD/mood disorder Continue Seroquel, Prozac, Klonopin, bupropion, Abilify DVT prophylaxis with Lovenox Full Code reason for continued hospitalization: Severe hypoxia Quality Stroke Does the patient have a stroke diagnosis?: No VTE Prior VTE?: No VTE Risk Level:: Medical - moderate - high VTE Device Contraindication: Treatment Not Indicated VTE Drug Contraindication: N/A - Med Ordered
--- NOTE | 2023-12-17 11:02 | PC.NURSE ---
Morning med administration delayed d/t meds not in pxyis. Pharmacy notified
[2023-12-17] MEDS: buPROPion HCl XL 300 MG TAB.ER.24H PO (11:22)
[2023-12-17] MEDS: Mirabegron 25 MG TAB.ER.24H PO (11:22)
[2023-12-17] MEDS: cefTRIAXone sodium 1 GM in 0.9 % Sodium Chloride 50 ML IV (12:05)
[2023-12-17] MEDS: Enoxaparin Sodium 40 MG/0.4 ML SYRINGE SUBCUT (14:04)
[2023-12-17] MEDS: clonazePAM 1 MG TABLET PO (14:04)
[2023-12-17] MEDS: guaiFENesin 200 MG/10 ML 10 ML LIQUID PO ×2 (14:04→20:49)
[2023-12-17] MEDS: Azithromycin 500 MG in 0.9 % Sodium Chloride 250 ML 125 MG IV (14:05)
[2023-12-17] MEDS: Tiotropium Bromide 2.5 mcg 1 PUFF/2.5 MCG MIST.INHAL 2 PUFF INHALE (17:32)
[2023-12-17] MEDS: Fluticasone/Vilanterol 200/25 BLST.W.DEV 1 PUFF INHALE (17:33)
[2023-12-17] MEDS: Melatonin 3 MG TABLET 6 MG PO (19:44)
[2023-12-17] MEDS: Prazosin HCL 1 MG CAPSULE PO (20:50)
[2023-12-17] MEDS: QUEtiapine Fumarate 100 MG TABLET PO (20:51)
[2023-12-18] VITALS (10 sets, daily range): BP systolic 108–138; BP diastolic 54–66; PULSE 84–98; RESP 14–19; TEMP 36.1–36.5; O2SAT 86–96
[2023-12-18] MEDS: 0.9 % Sodium Chloride Flush 3 ML SYRINGE IVFLUSH ×3 (00:30→14:35)
[2023-12-18] MEDS: methylPREDNISolone Sod Succ 40 MG/ML VIAL IVPUSH ×2 (06:10→17:47)
[2023-12-18] MEDS: guaiFENesin 200 MG/10 ML 10 ML LIQUID PO (06:10)
[2023-12-18 07:16] LABS: Hematocrit 33.6 % (37.0-47.0); Mean Corpuscular HGB Conc 32.7 g/dl (31.0-35.0); Mean Corpuscular Hemoglobin 29.8 pg (27.0-33.0); Mean Corpuscular Volume 91.1 fL (80.0-98.0); Mean Platelet Volume 10.3 fL (9.4-12.3); Platelet Count 404 X10*3/uL (160-400); Red Blood Count 3.69 X10*6/uL (4.20-5.50); Red Cell Distribution Width 13.9 % (11.0-16.0); White Blood Count 15.1 X10*3/uL (4.8-10.8)
[2023-12-18] MEDS: Furosemide 40 MG/4 ML VIAL IVPUSH (07:55)
[2023-12-18] MEDS: FLUoxetine HCl 20 MG CAPSULE 80 MG PO (07:59)
[2023-12-18] MEDS: Atorvastatin Calcium 80 MG TABLET PO (07:59)
[2023-12-18] MEDS: buPROPion HCl XL 300 MG TAB.ER.24H PO (07:59)
[2023-12-18] MEDS: Cyanocobalamin (Vitamin B-12) 100 MCG TABLET PO (07:59)
[2023-12-18] MEDS: Acetaminophen 325 MG TABLET 650 MG PO ×2 (07:59→17:53)
[2023-12-18] MEDS: Mirabegron 25 MG TAB.ER.24H PO (07:59)
[2023-12-18] MEDS: ARIPiprazole 5 MG TABLET PO (07:59)
[2023-12-18] MEDS: clonazePAM 0.5 MG TABLET PO (07:59)
[2023-12-18 08:07] LABS: Anion Gap 16 (12-20); Blood Urea Nitrogen 8 mg/dL (9-16); Calcium 10.2 mg/dL (8.4-10.2); Carbon Dioxide 24 mmol/L (22-29); Chloride 106 mmol/L (96-108); Creatinine Clr Calc Pharmacy 97.6; Estimated Glomerular Filt Rate > 60; Glucose Fasting 106 mg/dL (60-99); Glucose Random 106 mg/dL (60-115); Potassium 3.4 mmol/L (3.3-5.1); Sodium 143 mmol/L (135-145)
[2023-12-18] MEDS: Albuterol/Iprat 2.5/0.5MG 3 ML AMPUL.NEB INHALE ×4 (08:42→19:11)
[2023-12-18] MEDS: Fluticasone/Vilanterol 200/25 BLST.W.DEV 1 PUFF INHALE (08:42)
[2023-12-18] MEDS: Tiotropium Bromide 2.5 mcg 1 PUFF/2.5 MCG MIST.INHAL 2 PUFF INHALE (08:42)
--- NOTE | 2023-12-18 09:43 | P.PNIM_ITS ---
Subjective Subjective Date of Service: 12/18/23 Interval History: Still with cough and shortness of breath Physical Exam 2 Vital Signs: Vital Signs: Last Vital Signs Temp 97.5 F 12/18/23 07:25 Pulse 85 12/18/23 08:43 Resp 19 12/18/23 08:43 BP 128/60 12/18/23 07:55 Pulse Ox 86 L 12/18/23 07:25 O2 Del Method Oxymask 12/18/23 07:25 O2 Flow Rate 10 12/18/23 07:25 Oxygen Flow Rate 4 12/16/23 09:00 BMI result Body Mass Index 28.7 General: AO X 3, dyspnea Resp: Crackles bilateral, no accessory muscles used CVS: S1,S2,RRR GI: soft, non tender, non distended Neuro: motor grossly intact, alert Psych: appropriate affect, appropriate insight Objective Data Active Medications Acetaminophen (Acetaminophen 325 Mg Tablet) 650 mg PO Q6H PRN PRN Reason: Pain, Mild (Pain Scale 1-3), fever or headache Last Admin: 12/18/23 07:59 Dose: 650 mg Documented By: MELVINA Albuterol/Ipratropium (Albuterol/Iprat 2.5/0.5mg 3 Ml Ampul.Neb) 3 ml INHALE Q4H PRN PRN Reason: Shortness of Breath/Wheezing Last Admin: 12/17/23 00:19 Dose: 3 ml Documented By: NISA Albuterol/Ipratropium (Albuterol/Iprat 2.5/0.5mg 3 Ml Ampul.Neb) 3 ml INHALE RQ4H WHILE AWAKE [facility] Last Admin: 12/18/23 08:42 Dose: 3 ml Documented By: CHELLE Aripiprazole (Aripiprazole 5 Mg Tablet) 5 mg PO DAILY [facility] Last Admin: 12/18/23 07:59 Dose: 5 mg Documented By: MELVINA Atorvastatin Calcium (Atorvastatin Calcium 80 Mg Tablet) 80 mg PO DAILY [facility] Last Admin: 12/18/23 07:59 Dose: 80 mg Documented By: MELVINA Bupropion HCl (Bupropion Hcl Xl 300 Mg Tab.Er.24h) 300 mg PO DAILY [facility] Last Admin: 12/18/23 07:59 Dose: 300 mg Documented By: MELVINA Calcium Carbonate (Calcium Carbonate 750 Mg Tab.Chew) 750 mg PO Q4H PRN PRN Reason: Heartburn Clonazepam (Clonazepam 0.5 Mg Tablet) 0.5 mg PO DAILY [facility] Last Admin: 12/18/23 07:59 Dose: 0.5 mg Documented By: MELVINA Clonazepam (Clonazepam 1 Mg Tablet) 1 mg PO DAILY@1500 [facility] Last Admin: 12/17/23 14:04 Dose: 1 mg Documented By: MELVINA Cyanocobalamin (Cyanocobalamin (Vitamin B-12) 100 Mcg Tablet) 100 mcg PO DAILY [facility] Last Admin: 12/18/23 07:59 Dose: 100 mcg Documented By: MELVINA Enoxaparin Sodium (Enoxaparin Sodium 40 Mg/0.4 Ml Syringe) 40 mg SUBCUT Q24H [facility] Last Admin: 12/17/23 14:04 Dose: 40 mg Documented By: MELVINA Fluoxetine HCl (Fluoxetine Hcl 20 Mg Capsule) 80 mg PO DAILY [facility] Last Admin: 12/18/23 07:59 Dose: 80 mg Documented By: MELVINA Fluticasone/Vilanterol (Fluticasone/Vilanterol 200/25 Blst.W.Dev) 1 puff INHALE RDAILY [facility] Last Admin: 12/18/23 08:42 Dose: 1 puff Documented By: CHELLE Guaifenesin (Guaifenesin 200 Mg/10 Ml 10 Ml Liquid) 10 ml PO Q6H PRN PRN Reason: Cough Last Admin: 12/18/23 06:10 Dose: 10 ml Documented By: RAY Ceftriaxone Sodium 1 gm/ (Sodium Chloride) 50 mls @ 100 mls/hr IV Q24H [facility] Last Infusion: 12/17/23 12:42 Dose: Infused Documented By: MELVINA Azithromycin 500 mg/ Sodium (Chloride) 250 mls @ 125 mls/hr IV Q24H [facility] Last Infusion: 12/17/23 16:18 Dose: Infused Documented By: MELVINA Magnesium Hydroxide (Milk Of Magnesia 30 Ml Oral.Susp) 30 ml PO DAILY PRN PRN Reason: Constipation Melatonin (Melatonin 3 Mg Tablet) 6 mg PO BEDTIME PRN PRN Reason: Insomnia Last Admin: 12/17/23 19:44 Dose: 6 mg Documented By: RAY Methylprednisolone Sodium Succinate (Methylprednisolone Sod Succ 40 Mg/Ml Vial) 40 mg IVPUSH Q12H [facility] Last Admin: 12/18/23 06:10 Dose: 40 mg Documented By: RAY Mirabegron (Mirabegron 25 Mg Tab.Er.24h) 25 mg PO DAILY [facility] Last Admin: 12/18/23 07:59 Dose: 25 mg Documented By: MELVINA Prazosin HCl (Prazosin Hcl 1 Mg Capsule) 1 mg PO BEDTIME [facility]; Protocol Last Admin: 12/17/23 20:50 Dose: 1 mg Documented By: RAY Quetiapine Fumarate (Quetiapine Fumarate 100 Mg Tablet) 100 mg PO BEDTIME [facility] Last Admin: 12/17/23 20:51 Dose: 100 mg Documented By: RAY Sodium Chloride (0.9 % Sodium Chloride Flush 3 Ml Syringe) 3 ml IVFLUSH QSHIFT [facility] Last Admin: 12/18/23 07:59 Dose: 3 ml Documented By: MELVINA Tiotropium [place] (Tiotropium [place] 2.5 Mcg 1 Puff/2.5 Mcg Mist.Inhal) 2 puff INHALE RDAILY [facility] Last Admin: 12/18/23 08:42 Dose: 2 puff Documented By: CHELLE Labs 12/18/23 05:21 12/18/23 05:21 Labs: Laboratory Results - last 24 hr 12/18/23 05:21 MCV 91.1 MCH 29.8 MCHC 32.7 RDW 13.9 Plt Count 404 H D MPV 10.3 Absolute Nucleated RBC 0.000 Nucleated RBC % (auto) 0.0 Anion Gap 16 Estim Creat Clear Calc 97.6 Estimated GFR > 60 Random Glucose 106 Fasting Glucose 106 H Calcium 10.2 Microbiology Microbiology Results: Microbiology 12/17/23 07:44 Gram Stain - Final Sputum - Expectorated Sputum Culture - Final 12/16/23 09:39 Blood Culture - Preliminary Blood - Venous No growth after 24 hours. 12/16/23 09:14 Blood Culture - Preliminary Blood - Venous No growth after 24 hours. Assessment and Plan (1) Pneumonia: Status: Acute Plan 63F PMH COPD, interstitial lung disease, hyperlipidemia, PTSD, depression presented with shortness of breath Sepsis and acute hypoxic respiratory failure secondary to pneumonia and COPD with acute decompensation Continue ceftriaxone azithromycin, follow-up cultures - so far negative, respiratory viral panel negative, continued IV steroids, bronchodilators Wean oxygen as tolerated, still requiring 10 L Give 1 dose of IV Lasix empirically for any component of pulmonary edema Hyperlipidemia Continue statin PTSD/mood disorder Continue Seroquel, Prozac, Klonopin, bupropion, Abilify DVT prophylaxis with Lovenox Full Code reason for continued hospitalization: Severe hypoxia Quality Stroke Does the patient have a stroke diagnosis?: No VTE Prior VTE?: No VTE Risk Level:: Medical - moderate - high VTE Device Contraindication: Treatment Not Indicated VTE Drug Contraindication: N/A - Med Ordered
[2023-12-18] MEDS: guaiFENesin DM 100/10/5 ML 5 ML SYRUP PO ×2 (09:54→17:53)
[2023-12-18] MEDS: cefTRIAXone sodium 1 GM in 0.9 % Sodium Chloride 50 ML IV (10:43)
--- NOTE | 2023-12-18 12:24 | MHC.CM.PN ---
EMR REVIEWED AND PER MD ROUNDS, PT IS NOT MEDICALLY CLEARED FOR DC (SOB, COUGH, STILL REQUIRING 10 L 02 RX) CM WILL CONTINUE TO FOLLOW FOR ANY CHANGE TO DC PLAN/NEEDS.
[2023-12-18] MEDS: clonazePAM 1 MG TABLET PO (14:25)
[2023-12-18] MEDS: Azithromycin 500 MG in 0.9 % Sodium Chloride 250 ML 125 MG IV (14:26)
[2023-12-18] MEDS: Enoxaparin Sodium 40 MG/0.4 ML SYRINGE SUBCUT (14:26)
--- NOTE | 2023-12-18 15:27 | MHC.CLN ---
NUTRITION PATIENT REQUESTING NUTRITION SHAKES. ADDING ENSURE BID TO PROVIDE 700 KCALS, 40 G PROTEIN. INTAKE AT MEALS APPEARS TO BE VERY GOOD.
[2023-12-18] MEDS: Prazosin HCL 1 MG CAPSULE PO (20:39)
[2023-12-18] MEDS: QUEtiapine Fumarate 100 MG TABLET PO (20:39)
[2023-12-19] VITALS (12 sets, daily range): BP systolic 110–148; BP diastolic 55–73; PULSE 74–88; RESP 16–20; TEMP 36.1–36.5; O2SAT 83–94
[2023-12-19] MEDS: guaiFENesin DM 100/10/5 ML 5 ML SYRUP PO ×4 (01:40→21:57)
[2023-12-19] MEDS: 0.9 % Sodium Chloride Flush 3 ML SYRINGE IVFLUSH ×3 (01:45→22:55)
[2023-12-19] MEDS: Acetaminophen 325 MG TABLET 650 MG PO ×2 (04:05→20:46)
[2023-12-19] MEDS: methylPREDNISolone Sod Succ 40 MG/ML VIAL IVPUSH ×2 (05:46→17:03)
[2023-12-19 06:29] LABS: Strep Pneumo Ag urine Not Detected (Not Detected)
[2023-12-19 07:02] LABS: Anion Gap 15 (12-20); Blood Urea Nitrogen 12 mg/dL (9-16); Calcium 9.8 mg/dL (8.4-10.2); Carbon Dioxide 26 mmol/L (22-29); Chloride 104 mmol/L (96-108); Creatinine Clr Calc Pharmacy 102.2; Estimated Glomerular Filt Rate > 60; Glucose Fasting 111 mg/dL (60-99); Glucose Random 111 mg/dL (60-115); Magnesium 2.3 mg/dL (1.6-2.6); Potassium 3.2 mmol/L (3.3-5.1); Sodium 142 mmol/L (135-145)
[2023-12-19 07:04] LABS: Hematocrit 31.3 % (37.0-47.0); Hemoglobin 10.2 g/dl (12.0-16.0); Mean Corpuscular HGB Conc 32.6 g/dl (31.0-35.0); Mean Corpuscular Hemoglobin 29.2 pg (27.0-33.0); Mean Corpuscular Volume 89.7 fL (80.0-98.0); Mean Platelet Volume 10.3 fL (9.4-12.3); Platelet Count 392 X10*3/uL (160-400); Red Blood Count 3.49 X10*6/uL (4.20-5.50); White Blood Count 11.1 X10*3/uL (4.8-10.8)
[2023-12-19] MEDS: FLUoxetine HCl 20 MG CAPSULE 80 MG PO (07:26)
[2023-12-19] MEDS: Atorvastatin Calcium 80 MG TABLET PO (07:26)
[2023-12-19] MEDS: clonazePAM 0.5 MG TABLET PO (07:26)
[2023-12-19] MEDS: Cyanocobalamin (Vitamin B-12) 100 MCG TABLET PO (07:26)
[2023-12-19] MEDS: buPROPion HCl XL 300 MG TAB.ER.24H PO (07:26)
[2023-12-19] MEDS: Mirabegron 25 MG TAB.ER.24H PO (07:26)
[2023-12-19] MEDS: ARIPiprazole 5 MG TABLET PO (07:26)
[2023-12-19] MEDS: Tiotropium Bromide 2.5 mcg 1 PUFF/2.5 MCG MIST.INHAL 2 PUFF INHALE (07:52)
[2023-12-19] MEDS: Albuterol/Iprat 2.5/0.5MG 3 ML AMPUL.NEB INHALE ×4 (07:52→18:56)
[2023-12-19] MEDS: Fluticasone/Vilanterol 200/25 BLST.W.DEV 1 PUFF INHALE (07:53)
--- NOTE | 2023-12-19 08:31 | PC.NURSE ---
Pt doing well this AM, still on 10L O2. Lungs wheezing. No resp distress, DOA. 1 assist with ADLs to support patient, Normally Independent with ADLs at baseline. Continue IV ABT. Call giuseppe oates, encouraged patient to call for assistance.
[2023-12-19] MEDS: cefTRIAXone sodium 1 GM in 0.9 % Sodium Chloride 50 ML IV (09:00)
--- NOTE | 2023-12-19 09:11 | P.PNIM_ITS ---
Subjective Subjective Date of Service: 12/19/23 Interval History: feels about the same, still very hypoxic Physical Exam 2 Vital Signs: Vital Signs: Last Vital Signs Temp 97 F 12/19/23 07:35 Pulse 81 12/19/23 07:55 Resp 20 12/19/23 07:55 BP 148/73 H 12/19/23 07:35 Pulse Ox 94 12/19/23 07:35 O2 Del Method Nasal Cannula 12/19/23 07:35 O2 Flow Rate 10 12/19/23 07:35 Oxygen Flow Rate 4 12/16/23 09:00 BMI result Body Mass Index 28.7 General: AO X 3, dyspnea Resp: rhonchi bilateral, no accessory muscles used CVS: S1,S2,RRR GI: soft, non tender, non distended Neuro: motor grossly intact, alert Psych: appropriate affect, appropriate insight Objective Data Active Medications Acetaminophen (Acetaminophen 325 Mg Tablet) 650 mg PO Q6H PRN PRN Reason: Pain, Mild (Pain Scale 1-3), fever or headache Last Admin: 12/19/23 04:05 Dose: 650 mg Documented By: EVERETT Albuterol/Ipratropium (Albuterol/Iprat 2.5/0.5mg 3 Ml Ampul.Neb) 3 ml INHALE Q4H PRN PRN Reason: Shortness of Breath/Wheezing Last Admin: 12/17/23 00:19 Dose: 3 ml Documented By: NISA Albuterol/Ipratropium (Albuterol/Iprat 2.5/0.5mg 3 Ml Ampul.Neb) 3 ml INHALE RQ4H WHILE AWAKE [facility] Last Admin: 12/19/23 07:52 Dose: 3 ml Documented By: ISACC Aripiprazole (Aripiprazole 5 Mg Tablet) 5 mg PO DAILY [facility] Last Admin: 12/19/23 07:26 Dose: 5 mg Documented By: HARVINDER Atorvastatin Calcium (Atorvastatin Calcium 80 Mg Tablet) 80 mg PO DAILY [facility] Last Admin: 12/19/23 07:26 Dose: 80 mg Documented By: HARVINDER Bupropion HCl (Bupropion Hcl Xl 300 Mg Tab.Er.24h) 300 mg PO DAILY [facility] Last Admin: 12/19/23 07:26 Dose: 300 mg Documented By: HARVINDER Calcium Carbonate (Calcium Carbonate 750 Mg Tab.Chew) 750 mg PO Q4H PRN PRN Reason: Heartburn Clonazepam (Clonazepam 0.5 Mg Tablet) 0.5 mg PO DAILY [facility] Last Admin: 12/19/23 07:26 Dose: 0.5 mg Documented By: HARVINDER Clonazepam (Clonazepam 1 Mg Tablet) 1 mg PO DAILY@1500 [facility] Last Admin: 12/18/23 14:25 Dose: 1 mg Documented By: MELVINA Cyanocobalamin (Cyanocobalamin (Vitamin B-12) 100 Mcg Tablet) 100 mcg PO DAILY [facility] Last Admin: 12/19/23 07:26 Dose: 100 mcg Documented By: HARVINDER Enoxaparin Sodium (Enoxaparin Sodium 40 Mg/0.4 Ml Syringe) 40 mg SUBCUT Q24H [facility] Last Admin: 12/18/23 14:26 Dose: 40 mg Documented By: MELVINA Fluoxetine HCl (Fluoxetine Hcl 20 Mg Capsule) 80 mg PO DAILY [facility] Last Admin: 12/19/23 07:26 Dose: 80 mg Documented By: HARVINDER Fluticasone/Vilanterol (Fluticasone/Vilanterol 200/25 Blst.W.Dev) 1 puff INHALE RDAILY [facility] Last Admin: 12/19/23 07:53 Dose: 1 puff Documented By: ISACC Guaifenesin (Guaifenesin 200 Mg/10 Ml 10 Ml Liquid) 10 ml PO Q6H PRN PRN Reason: Cough Last Admin: 12/18/23 06:10 Dose: 10 ml Documented By: RAY Guaifenesin/Dextromethorphan (Guaifenesin Dm 100/10/5 Ml 5 Ml Syrup) 5 ml PO Q4H PRN PRN Reason: Cough Last Admin: 12/19/23 05:49 Dose: 5 ml Documented By: EVERETT Ceftriaxone Sodium 1 gm/ (Sodium Chloride) 50 mls @ 100 mls/hr IV Q24H [facility] Last Admin: 12/19/23 09:00 Dose: 100 mls/hr Documented By: HARVINDER Azithromycin 500 mg/ Sodium (Chloride) 250 mls @ 125 mls/hr IV Q24H [facility] Last Infusion: 12/18/23 16:26 Dose: Infused Documented By: MELVINA Magnesium Hydroxide (Milk Of Magnesia 30 Ml Oral.Susp) 30 ml PO DAILY PRN PRN Reason: Constipation Melatonin (Melatonin 3 Mg Tablet) 6 mg PO BEDTIME PRN PRN Reason: Insomnia Last Admin: 12/17/23 19:44 Dose: 6 mg Documented By: RAY Methylprednisolone Sodium Succinate (Methylprednisolone Sod Succ 40 Mg/Ml Vial) 40 mg IVPUSH Q12H [facility] Last Admin: 12/19/23 05:46 Dose: 40 mg Documented By: EVERETT Mirabegron (Mirabegron 25 Mg Tab.Er.24h) 25 mg PO DAILY [facility] Last Admin: 12/19/23 07:26 Dose: 25 mg Documented By: HARVINDER Potassium Chloride (Potassium Chloride Er 20 Meq Tab.Er.Prt) 40 meq PO ONCE ONE Stop: 12/19/23 09:11 Prazosin HCl (Prazosin Hcl 1 Mg Capsule) 1 mg PO BEDTIME [facility]; Protocol Last Admin: 12/18/23 20:39 Dose: 1 mg Documented By: EVERETT Quetiapine Fumarate (Quetiapine Fumarate 100 Mg Tablet) 100 mg PO BEDTIME [facility] Last Admin: 12/18/23 20:39 Dose: 100 mg Documented By: EVERETT Sodium Chloride (0.9 % Sodium Chloride Flush 3 Ml Syringe) 3 ml IVFLUSH QSHIFT [facility] Last Admin: 12/19/23 07:27 Dose: 3 ml Documented By: HARVINDER Tiotropium [place] (Tiotropium [place] 2.5 Mcg 1 Puff/2.5 Mcg Mist.Inhal) 2 puff INHALE RDAILY [facility] Last Admin: 12/19/23 07:52 Dose: 2 puff Documented By: ISACC Labs 12/19/23 05:37 12/19/23 05:37 Labs: Laboratory Results - last 24 hr 12/16/23 12/19/23 16:25 05:37 MCV 89.7 MCH 29.2 MCHC 32.6 RDW 14.0 Plt Count 392 MPV 10.3 Absolute Nucleated RBC 0.000 Nucleated RBC % (auto) 0.0 Anion Gap 15 Estim Creat Clear Calc 102.2 Estimated GFR > 60 Random Glucose 111 Fasting Glucose 111 H Calcium 9.8 Magnesium 2.3 Hold Yellow Top See Note Ur Strep pneumoniae Ag Not Detected Microbiology Microbiology Results: Microbiology 12/16/23 09:39 Blood Culture - Preliminary Blood - Venous No growth after 48 hours. 12/16/23 09:14 Blood Culture - Preliminary Blood - Venous No growth after 48 hours. Assessment and Plan (1) Pneumonia: Status: Acute Plan 63F PMH COPD, interstitial lung disease, hyperlipidemia, PTSD, depression presented with shortness of breath Sepsis and acute hypoxic respiratory failure secondary to pneumonia and COPD with acute decompensation Continue ceftriaxone azithromycin, follow-up cultures - so far negative, respiratory viral panel negative, continued IV steroids, bronchodilators Wean oxygen as tolerated, still requiring 10 L Give 1 dose of IV Lasix empirically for any component of pulmonary edema - no signficant improvement follow up urine legionella, strep Hyperlipidemia Continue statin PTSD/mood disorder Continue Seroquel, Prozac, Klonopin, bupropion, Abilify DVT prophylaxis with Lovenox Full Code reason for continued hospitalization: Severe hypoxia Quality Stroke Does the patient have a stroke diagnosis?: No VTE Prior VTE?: No VTE Risk Level:: Medical - moderate - high VTE Device Contraindication: Treatment Not Indicated VTE Drug Contraindication: N/A - Med Ordered
[2023-12-19] MEDS: Potassium Chloride ER 20 MEQ TAB.ER.PRT 40 MEQ PO (09:22)
[2023-12-19] MEDS: Azithromycin 500 MG in 0.9 % Sodium Chloride 250 ML 125 MG IV (13:38)
[2023-12-19] MEDS: Enoxaparin Sodium 40 MG/0.4 ML SYRINGE SUBCUT (13:44)
[2023-12-19] MEDS: clonazePAM 1 MG TABLET PO (14:00)
[2023-12-19] MEDS: QUEtiapine Fumarate 100 MG TABLET PO (20:46)
[2023-12-19] MEDS: Prazosin HCL 1 MG CAPSULE PO (20:46)
[2023-12-19] MEDS: Milk of Magnesia 30 ML ORAL.SUSP PO (21:57)
[2023-12-20] VITALS (9 sets, daily range): BP systolic 106–136; BP diastolic 58–71; PULSE 80–91; RESP 18–20; TEMP 36–37.1; O2SAT 89–94
[2023-12-20] MEDS: guaiFENesin DM 100/10/5 ML 5 ML SYRUP PO ×6 (01:59→23:24)
[2023-12-20] MEDS: methylPREDNISolone Sod Succ 40 MG/ML VIAL IVPUSH ×2 (05:20→17:06)
[2023-12-20 06:57] LABS: Hematocrit 31.5 % (37.0-47.0); Hemoglobin 10.1 g/dl (12.0-16.0); Mean Corpuscular HGB Conc 32.1 g/dl (31.0-35.0); Mean Corpuscular Hemoglobin 29.1 pg (27.0-33.0); Mean Corpuscular Volume 90.8 fL (80.0-98.0); Mean Platelet Volume 10.1 fL (9.4-12.3); Platelet Count 424 X10*3/uL (160-400); Red Blood Count 3.47 X10*6/uL (4.20-5.50); Red Cell Distribution Width 14.3 % (11.0-16.0); White Blood Count 11.1 X10*3/uL (4.8-10.8)
[2023-12-20] MEDS: 0.9 % Sodium Chloride Flush 3 ML SYRINGE IVFLUSH ×3 (07:06→20:51)
[2023-12-20] MEDS: FLUoxetine HCl 20 MG CAPSULE 80 MG PO (07:07)
[2023-12-20] MEDS: Cyanocobalamin (Vitamin B-12) 100 MCG TABLET PO (07:07)
[2023-12-20] MEDS: Atorvastatin Calcium 80 MG TABLET PO (07:07)
[2023-12-20] MEDS: buPROPion HCl XL 300 MG TAB.ER.24H PO (07:07)
[2023-12-20] MEDS: ARIPiprazole 5 MG TABLET PO (07:07)
[2023-12-20 07:08] LABS: Alanine Aminotransferase 194 U/L (0-31); Albumin Level 3.4 g/dL (3.5-5.0); Alkaline Phosphatase 122 U/L (39-117); Anion Gap 14 (12-20); Aspartate Amino Transferase 135 U/L (5-31); Bilirubin Direct 0.1 mg/dL (0.0-0.5); Bilirubin Total 0.3 mg/dL (0.0-1.0); Blood Urea Nitrogen 12 mg/dL (9-16); Calcium 9.5 mg/dL (8.4-10.2); Carbon Dioxide 27 mmol/L (22-29); Chloride 104 mmol/L (96-108); Creatinine Clr Calc Pharmacy 109.1; Estimated Glomerular Filt Rate > 60; Glucose Fasting 115 mg/dL (60-99); Magnesium 2.5 mg/dL (1.6-2.6); Potassium 3.5 mmol/L (3.3-5.1); Sodium 141 mmol/L (135-145); Total Protein 7.2 g/dL (6.5-8.0)
[2023-12-20] MEDS: clonazePAM 0.5 MG TABLET PO (07:08)
[2023-12-20] MEDS: Mirabegron 25 MG TAB.ER.24H PO (07:08)
[2023-12-20] MEDS: Albuterol/Iprat 2.5/0.5MG 3 ML AMPUL.NEB INHALE ×4 (08:00→19:57)
[2023-12-20] MEDS: Fluticasone/Vilanterol 200/25 BLST.W.DEV 1 PUFF INHALE (08:00)
[2023-12-20] MEDS: Tiotropium Bromide 2.5 mcg 1 PUFF/2.5 MCG MIST.INHAL 2 PUFF INHALE (08:00)
[2023-12-20] MEDS: cefTRIAXone sodium 1 GM in 0.9 % Sodium Chloride 50 ML IV (08:59)
--- NOTE | 2023-12-20 09:29 | P.PNIM_ITS ---
Subjective Subjective Date of Service: 12/20/23 Interval History: unchanged Physical Exam 2 Vital Signs: Vital Signs: Last Vital Signs Temp 98.1 F 12/20/23 07:38 Pulse 91 12/20/23 08:01 Resp 18 12/20/23 08:01 BP 136/71 12/20/23 07:38 Pulse Ox 92 12/20/23 07:38 O2 Del Method Oxymask 12/20/23 07:38 O2 Flow Rate 10 12/20/23 07:38 Oxygen Flow Rate 4 12/16/23 09:00 BMI result Body Mass Index 28.7 General: AO X 3, dyspnea Resp: rhonchi bilateral, no accessory muscles used CVS: S1,S2,RRR GI: soft, non tender, non distended Neuro: motor grossly intact, alert Psych: appropriate affect, appropriate insight Objective Data Active Medications Acetaminophen (Acetaminophen 325 Mg Tablet) 650 mg PO Q6H PRN PRN Reason: Pain, Mild (Pain Scale 1-3), fever or headache Last Admin: 12/19/23 20:46 Dose: 650 mg Documented By: EVERETT Albuterol/Ipratropium (Albuterol/Iprat 2.5/0.5mg 3 Ml Ampul.Neb) 3 ml INHALE Q4H PRN PRN Reason: Shortness of Breath/Wheezing Last Admin: 12/17/23 00:19 Dose: 3 ml Documented By: NISA Albuterol/Ipratropium (Albuterol/Iprat 2.5/0.5mg 3 Ml Ampul.Neb) 3 ml INHALE RQ4H WHILE AWAKE [facility] Last Admin: 12/20/23 08:00 Dose: 3 ml Documented By: ISRAEL Aripiprazole (Aripiprazole 5 Mg Tablet) 5 mg PO DAILY [facility] Last Admin: 12/20/23 07:07 Dose: 5 mg Documented By: HARVINDER Atorvastatin Calcium (Atorvastatin Calcium 80 Mg Tablet) 80 mg PO DAILY [facility] Last Admin: 12/20/23 07:07 Dose: 80 mg Documented By: HARVINDER Bupropion HCl (Bupropion Hcl Xl 300 Mg Tab.Er.24h) 300 mg PO DAILY [facility] Last Admin: 12/20/23 07:07 Dose: 300 mg Documented By: HARVINDER Calcium Carbonate (Calcium Carbonate 750 Mg Tab.Chew) 750 mg PO Q4H PRN PRN Reason: Heartburn Clonazepam (Clonazepam 0.5 Mg Tablet) 0.5 mg PO DAILY [facility] Last Admin: 12/20/23 07:08 Dose: 0.5 mg Documented By: HARVINDER Clonazepam (Clonazepam 1 Mg Tablet) 1 mg PO DAILY@1500 [facility] Last Admin: 12/19/23 14:00 Dose: 1 mg Documented By: HARVINDER Cyanocobalamin (Cyanocobalamin (Vitamin B-12) 100 Mcg Tablet) 100 mcg PO DAILY [facility] Last Admin: 12/20/23 07:07 Dose: 100 mcg Documented By: HARVINDER Enoxaparin Sodium (Enoxaparin Sodium 40 Mg/0.4 Ml Syringe) 40 mg SUBCUT Q24H [facility] Last Admin: 12/19/23 13:44 Dose: 40 mg Documented By: HARVINDER Fluoxetine HCl (Fluoxetine Hcl 20 Mg Capsule) 80 mg PO DAILY [facility] Last Admin: 12/20/23 07:07 Dose: 80 mg Documented By: HARVINDER Fluticasone/Vilanterol (Fluticasone/Vilanterol 200/25 Blst.W.Dev) 1 puff INHALE RDAILY [facility] Last Admin: 12/20/23 08:00 Dose: 1 puff Documented By: ISRAEL Furosemide (Furosemide 40 Mg/4 Ml Vial) 40 mg IVPUSH BID@0900,1800 [facility]; Protocol Guaifenesin (Guaifenesin 200 Mg/10 Ml 10 Ml Liquid) 10 ml PO Q6H PRN PRN Reason: Cough Last Admin: 12/18/23 06:10 Dose: 10 ml Documented By: RAY Guaifenesin/Dextromethorphan (Guaifenesin Dm 100/10/5 Ml 5 Ml Syrup) 5 ml PO Q4H PRN PRN Reason: Cough Last Admin: 12/20/23 06:00 Dose: 5 ml Documented By: EVERETT Ceftriaxone Sodium 1 gm/ (Sodium Chloride) 50 mls @ 100 mls/hr IV Q24H [facility] Last Admin: 12/20/23 08:59 Dose: 100 mls/hr Documented By: HARVINDER Azithromycin 500 mg/ Sodium (Chloride) 250 mls @ 125 mls/hr IV Q24H [facility] Last Infusion: 12/19/23 15:49 Dose: Infused Documented By: GEENA Magnesium Hydroxide (Milk Of Magnesia 30 Ml Oral.Susp) 30 ml PO DAILY PRN PRN Reason: Constipation Last Admin: 12/19/23 21:57 Dose: 30 ml Documented By: EVERETT Melatonin (Melatonin 3 Mg Tablet) 6 mg PO BEDTIME PRN PRN Reason: Insomnia Last Admin: 12/17/23 19:44 Dose: 6 mg Documented By: RAY Methylprednisolone Sodium Succinate (Methylprednisolone Sod Succ 40 Mg/Ml Vial) 40 mg IVPUSH Q12H JEAN PIERRE Last Admin: 12/20/23 05:20 Dose: 40 mg Documented By: EVERETT Mirabegron (Mirabegron 25 Mg Tab.Er.24h) 25 mg PO DAILY [facility] Last Admin: 12/20/23 07:08 Dose: 25 mg Documented By: HARVINDER Prazosin HCl (Prazosin Hcl 1 Mg Capsule) 1 mg PO BEDTIME [facility]; Protocol Last Admin: 12/19/23 20:46 Dose: 1 mg Documented By: EVERETT Quetiapine Fumarate (Quetiapine Fumarate 100 Mg Tablet) 100 mg PO BEDTIME JEAN PIERRE Last Admin: 12/19/23 20:46 Dose: 100 mg Documented By: EVERETT Sodium Chloride (0.9 % Sodium Chloride Flush 3 Ml Syringe) 3 ml IVFLUSH QSHIFT [facility] Last Admin: 12/20/23 07:06 Dose: 3 ml Documented By: HARVINDER Tiotropium Sontag (Tiotropium [place]ag 2.5 Mcg 1 Puff/2.5 Mcg Mist.Inhal) 2 puff INHALE RDAILY [facility] Last Admin: 12/20/23 08:00 Dose: 2 puff Documented By: NIKOLAYCARWaqas [facility] 12/20/23 06:06 12/20/23 06:06 Labs: Laboratory Results - last 24 hr 12/20/23 06:06 MCV 90.8 MCH 29.1 MCHC 32.1 RDW 14.3 Plt Count 424 H MPV 10.1 Absolute Nucleated RBC 0.000 Nucleated RBC % (auto) 0.0 Anion Gap 14 Estim Creat Clear Calc 109.1 Estimated GFR > 60 Fasting Glucose 115 H Calcium 9.5 Magnesium 2.5 Total Bilirubin 0.3 Direct Bilirubin 0.1 AST 135 H ALT 194 H Alkaline Phosphatase 122 H Total Protein 7.2 Albumin 3.4 L Assessment and Plan (1) Pneumonia: Status: Acute Plan 63F PMH COPD, interstitial lung disease, hyperlipidemia, PTSD, depression presented with shortness of breath Sepsis and acute hypoxic respiratory failure secondary to pneumonia and COPD with acute decompensation Continue ceftriaxone azithromycin, follow-up cultures - so far negative, respiratory viral panel negative, continued IV steroids, bronchodilators Wean oxygen as tolerated, still requiring 10 L will restart lasix iv empirically to see if any improvement follow up urine legionella, strep Hyperlipidemia Continue statin PTSD/mood disorder Continue Seroquel, Prozac, Klonopin, bupropion, Abilify DVT prophylaxis with Lovenox Full Code reason for continued hospitalization: Severe hypoxia Quality Stroke Does the patient have a stroke diagnosis?: No VTE Prior VTE?: No VTE Risk Level:: Medical - moderate - high VTE Device Contraindication: Treatment Not Indicated VTE Drug Contraindication: N/A - Med Ordered
[2023-12-20] MEDS: Furosemide 40 MG/4 ML VIAL IVPUSH ×2 (09:34→17:00)
[2023-12-20] MEDS: Acetaminophen 325 MG TABLET 650 MG PO ×2 (10:40→19:26)
[2023-12-20] MEDS: Azithromycin 500 MG in 0.9 % Sodium Chloride 250 ML 125 MG IV (12:45)
[2023-12-20] MEDS: Enoxaparin Sodium 40 MG/0.4 ML SYRINGE SUBCUT (12:45)
[2023-12-20] MEDS: clonazePAM 1 MG TABLET PO (14:01)
[2023-12-20] MEDS: QUEtiapine Fumarate 100 MG TABLET PO (20:48)
[2023-12-20] MEDS: Prazosin HCL 1 MG CAPSULE PO (20:48)
[2023-12-20] MEDS: Milk of Magnesia 30 ML ORAL.SUSP PO (20:48)
[2023-12-21] VITALS (8 sets, daily range): BP systolic 113–143; BP diastolic 65–66; PULSE 74–82; RESP 15–22; TEMP 36–37.1; O2SAT 90–94
[2023-12-21] MEDS: guaiFENesin DM 100/10/5 ML 5 ML SYRUP PO ×2 (03:56→13:31)
[2023-12-21] MEDS: methylPREDNISolone Sod Succ 40 MG/ML VIAL IVPUSH ×2 (05:01→18:03)
[2023-12-21 06:21] LABS: Hematocrit 32.3 % (37.0-47.0); Hemoglobin 10.3 g/dl (12.0-16.0); Mean Corpuscular HGB Conc 31.9 g/dl (31.0-35.0); Mean Corpuscular Hemoglobin 28.8 pg (27.0-33.0); Mean Corpuscular Volume 90.2 fL (80.0-98.0); Mean Platelet Volume 9.8 fL (9.4-12.3); Platelet Count 460 X10*3/uL (160-400); Red Blood Count 3.58 X10*6/uL (4.20-5.50); Red Cell Distribution Width 14.3 % (11.0-16.0); White Blood Count 9.9 X10*3/uL (4.8-10.8)
[2023-12-21 07:04] LABS: Alanine Aminotransferase 202 U/L (0-31); Albumin Level 3.4 g/dL (3.5-5.0); Alkaline Phosphatase 124 U/L (39-117); Anion Gap 15 (12-20); Aspartate Amino Transferase 105 U/L (5-31); Bilirubin Direct 0.1 mg/dL (0.0-0.5); Bilirubin Total 0.3 mg/dL (0.0-1.0); Blood Urea Nitrogen 13 mg/dL (9-16); Calcium 9.5 mg/dL (8.4-10.2); Carbon Dioxide 30 mmol/L (22-29); Chloride 98 mmol/L (96-108); Creatinine Clr Calc Pharmacy 103.8; Estimated Glomerular Filt Rate > 60; Glucose Fasting 96 mg/dL (60-99); Magnesium 2.7 mg/dL (1.6-2.6); Potassium 3.6 mmol/L (3.3-5.1); Sodium 139 mmol/L (135-145); Total Protein 7.3 g/dL (6.5-8.0)
[2023-12-21] MEDS: Cyanocobalamin (Vitamin B-12) 100 MCG TABLET PO (07:50)
[2023-12-21] MEDS: ARIPiprazole 5 MG TABLET PO (07:50)
[2023-12-21] MEDS: clonazePAM 0.5 MG TABLET PO (07:50)
[2023-12-21] MEDS: FLUoxetine HCl 20 MG CAPSULE 80 MG PO (07:50)
[2023-12-21] MEDS: Atorvastatin Calcium 80 MG TABLET PO (07:50)
[2023-12-21] MEDS: Mirabegron 25 MG TAB.ER.24H PO (07:50)
[2023-12-21] MEDS: buPROPion HCl XL 300 MG TAB.ER.24H PO (07:50)
[2023-12-21] MEDS: 0.9 % Sodium Chloride Flush 3 ML SYRINGE IVFLUSH ×2 (07:52→20:17)
[2023-12-21] MEDS: guaiFENesin 200 MG/10 ML 10 ML LIQUID PO ×2 (08:20→20:23)
[2023-12-21] MEDS: Albuterol/Iprat 2.5/0.5MG 3 ML AMPUL.NEB INHALE ×4 (08:29→20:42)
[2023-12-21] MEDS: Tiotropium Bromide 2.5 mcg 1 PUFF/2.5 MCG MIST.INHAL 2 PUFF INHALE (08:29)
[2023-12-21] MEDS: Fluticasone/Vilanterol 200/25 BLST.W.DEV 1 PUFF INHALE (08:29)
--- NOTE | 2023-12-21 08:31 | P.PNIM_ITS ---
Subjective Subjective Date of Service: 12/21/23 Interval History: unchanged Physical Exam 2 Vital Signs: Vital Signs: Last Vital Signs Temp 96.8 F 12/21/23 07:27 Pulse 76 12/21/23 07:27 Resp 16 12/21/23 07:27 BP 143/65 H 12/21/23 07:27 Pulse Ox 90 L 12/21/23 07:27 O2 Del Method Oxymask 12/21/23 07:27 O2 Flow Rate 10 12/21/23 07:27 Oxygen Flow Rate 4 12/16/23 09:00 BMI result Body Mass Index 28.7 General: AO X 3, dyspnea Resp: rhonchi bilateral, no accessory muscles used CVS: S1,S2,RRR GI: soft, non tender, non distended Neuro: motor grossly intact, alert Psych: appropriate affect, appropriate insight Objective Data Active Medications Acetaminophen (Acetaminophen 325 Mg Tablet) 650 mg PO Q6H PRN PRN Reason: Pain, Mild (Pain Scale 1-3), fever or headache Last Admin: 12/20/23 19:26 Dose: 650 mg Documented By: EVERETT Albuterol/Ipratropium (Albuterol/Iprat 2.5/0.5mg 3 Ml Ampul.Neb) 3 ml INHALE Q4H PRN PRN Reason: Shortness of Breath/Wheezing Last Admin: 12/17/23 00:19 Dose: 3 ml Documented By: NISA Albuterol/Ipratropium (Albuterol/Iprat 2.5/0.5mg 3 Ml Ampul.Neb) 3 ml INHALE RQ4H WHILE AWAKE [facility] Last Admin: 12/21/23 08:29 Dose: 3 ml Documented By: CHELLE Aripiprazole (Aripiprazole 5 Mg Tablet) 5 mg PO DAILY [facility] Last Admin: 12/21/23 07:50 Dose: 5 mg Documented By: REJI Atorvastatin Calcium (Atorvastatin Calcium 80 Mg Tablet) 80 mg PO DAILY [facility] Last Admin: 12/21/23 07:50 Dose: 80 mg Documented By: REJI Bupropion HCl (Bupropion Hcl Xl 300 Mg Tab.Er.24h) 300 mg PO DAILY [facility] Last Admin: 12/21/23 07:50 Dose: 300 mg Documented By: REJI Calcium Carbonate (Calcium Carbonate 750 Mg Tab.Chew) 750 mg PO Q4H PRN PRN Reason: Heartburn Clonazepam (Clonazepam 0.5 Mg Tablet) 0.5 mg PO DAILY [facility] Last Admin: 12/21/23 07:50 Dose: 0.5 mg Documented By: REJI Clonazepam (Clonazepam 1 Mg Tablet) 1 mg PO DAILY@1500 [facility] Last Admin: 12/20/23 14:01 Dose: 1 mg Documented By: HARVINDER Cyanocobalamin (Cyanocobalamin (Vitamin B-12) 100 Mcg Tablet) 100 mcg PO DAILY [facility] Last Admin: 12/21/23 07:50 Dose: 100 mcg Documented By: REJI Enoxaparin Sodium (Enoxaparin Sodium 40 Mg/0.4 Ml Syringe) 40 mg SUBCUT Q24H [facility] Last Admin: 12/20/23 12:45 Dose: 40 mg Documented By: HARVINDER Fluoxetine HCl (Fluoxetine Hcl 20 Mg Capsule) 80 mg PO DAILY [facility] Last Admin: 12/21/23 07:50 Dose: 80 mg Documented By: REJI Fluticasone/Vilanterol (Fluticasone/Vilanterol 200/25 Blst.W.Dev) 1 puff INHALE RDAILY [facility] Last Admin: 12/21/23 08:29 Dose: 1 puff Documented By: CHELLE Guaifenesin (Guaifenesin 200 Mg/10 Ml 10 Ml Liquid) 10 ml PO Q6H PRN PRN Reason: Cough Last Admin: 12/21/23 08:20 Dose: 10 ml Documented By: REJI Guaifenesin/Dextromethorphan (Guaifenesin Dm 100/10/5 Ml 5 Ml Syrup) 5 ml PO Q4H PRN PRN Reason: Cough Last Admin: 12/21/23 03:56 Dose: 5 ml Documented By: EVERETT Ceftriaxone Sodium 1 gm/ (Sodium Chloride) 50 mls @ 100 mls/hr IV Q24H [facility] Last Infusion: 12/20/23 09:31 Dose: Infused Documented By: HARVINDER Azithromycin 500 mg/ Sodium (Chloride) 250 mls @ 125 mls/hr IV Q24H [facility] Last Infusion: 12/20/23 14:47 Dose: Infused Documented By: HARVINDER Magnesium Hydroxide (Milk Of Magnesia 30 Ml Oral.Susp) 30 ml PO DAILY PRN PRN Reason: Constipation Last Admin: 12/20/23 20:48 Dose: 30 ml Documented By: EVERETT Melatonin (Melatonin 3 Mg Tablet) 6 mg PO BEDTIME PRN PRN Reason: Insomnia Last Admin: 12/17/23 19:44 Dose: 6 mg Documented By: RAY Methylprednisolone Sodium Succinate (Methylprednisolone Sod Succ 40 Mg/Ml Vial) 40 mg IVPUSH Q12H [facility] Last Admin: 12/21/23 05:01 Dose: 40 mg Documented By: EVERETT Mirabegron (Mirabegron 25 Mg Tab.Er.24h) 25 mg PO DAILY [facility] Last Admin: 12/21/23 07:50 Dose: 25 mg Documented By: REJI Prazosin HCl (Prazosin Hcl 1 Mg Capsule) 1 mg PO BEDTIME [facility]; Protocol Last Admin: 12/20/23 20:48 Dose: 1 mg Documented By: EVERETT Quetiapine Fumarate (Quetiapine Fumarate 100 Mg Tablet) 100 mg PO BEDTIME [facility] Last Admin: 12/20/23 20:48 Dose: 100 mg Documented By: EVERETT Sodium Chloride (0.9 % Sodium Chloride Flush 3 Ml Syringe) 3 ml IVFLUSH QSHIFT [facility] Last Admin: 12/21/23 07:52 Dose: 3 ml Documented By: REJI Tiotropium [place] (Tiotropium [place] 2.5 Mcg 1 Puff/2.5 Mcg Mist.Inhal) 2 puff INHALE RDAILY [facility] Last Admin: 12/21/23 08:29 Dose: 2 puff Documented By: CHELLE Labs 12/21/23 05:23 12/21/23 05:23 Labs: Laboratory Results - last 24 hr 12/21/23 05:23 MCV 90.2 MCH 28.8 MCHC 31.9 RDW 14.3 Plt Count 460 H MPV 9.8 Absolute Nucleated RBC 0.000 Nucleated RBC % (auto) 0.0 Anion Gap 15 Estim Creat Clear Calc 103.8 Estimated GFR > 60 Fasting Glucose 96 Calcium 9.5 Magnesium 2.7 H Total Bilirubin 0.3 Direct Bilirubin 0.1 AST 105 H ALT 202 H Alkaline Phosphatase 124 H Total Protein 7.3 Albumin 3.4 L Assessment and Plan (1) Pneumonia: Status: Acute Plan 63F PMH COPD, interstitial lung disease, hyperlipidemia, PTSD, depression presented with shortness of breath Sepsis and acute hypoxic respiratory failure secondary to pneumonia and COPD with acute decompensation Continue ceftriaxone azithromycin initiated 12/17/23, follow-up cultures - so far negative, respiratory viral panel negative, continued IV steroids, bronchodilators Wean oxygen as tolerated, still requiring 10 L No improvement with IV diuresis will hold off on further. follow up urine legionella Negative strep Pulmonary eval Hyperlipidemia Continue statin PTSD/mood disorder Continue Seroquel, Prozac, Klonopin, bupropion, Abilify DVT prophylaxis with Lovenox Full Code reason for continued hospitalization: Severe hypoxia Quality Stroke Does the patient have a stroke diagnosis?: No VTE Prior VTE?: No VTE Risk Level:: Medical - moderate - high VTE Device Contraindication: Treatment Not Indicated VTE Drug Contraindication: N/A - Med Ordered
[2023-12-21] MEDS: cefTRIAXone sodium 1 GM in 0.9 % Sodium Chloride 50 ML IV (11:07)
--- NOTE | 2023-12-21 12:16 | MHC.CM.PN ---
PER MD ROUNDS NO DISCHARGE TODAY. PATIENT CONTINUES TO REQUIRE SUPPLEMENTAL OXYGEN 10 L VIA OXYMASK. DP HAS BEEN HOME WITH [facility]. PATIENTS SPOUSE WILL TRANSPORT IF HOME. PATIENT MAY QUALIFY FOR STR. SHE WILL TRANSPORT VIA BLS IF DISPO IS A FACILITY.
--- NOTE | 2023-12-21 12:47 | PM.CNPUL ---
History of Present Illness History of Present Illness Consult date: 12/21/23 Chief complaint: Pneumonia COPD Exacerbation Narrative: 63-year-old lady with underlying COPD and ILD, followed by Dr. Javier, admitted on 12/16/2023 to telemetry jarrell with dyspnea and hypoxia secondary to bilateral pneumonia. Her CT chest demonstrated no evidence of pulmonary emboli, but underlying mild fibrosis in bilateral infiltrates. Patient was treated with empiric antibiotics and continues to require supplemental oxygen to 10 L to maintain normal oximetry. Her cultures are negative to date. Review of Systems Constitutional: Constitutional: Denies daytime sleepiness, Denies excessive sweating, Denies fatigue, Denies fever(s), Denies lethargy, Denies malaise, Denies night sweats, Denies snoring and Denies weight loss Eyes: Eyes: Denies blurry vision and Denies itchy eyes ENT: Denies nasal congestion, Denies post nasal drip, Denies sinus pain, Denies sinus pressure and Denies other ( Thrush) Cardiovascular: Cardiovascular: Denies chest pain, Denies pedal edema, Reports dyspnea, Denies orthopnea and Denies paroxysmal nocturnal dyspnea Respiratory: Respiratory: Reports cough, Denies hemoptysis, Reports excessive phlegm production, Reports dyspnea, Denies snoring and Denies wheezing Gastrointestinal: Gastrointestinal: Denies abdominal pain and Denies heartburn Musculoskeletal: Musculoskeletal: Denies myalgias, Denies arthralgias and Denies joint swelling Integumentary/Breasts: Skin/Breast: Denies rash Neurologic: Denies memory loss and Denies seizure-like activity Psychiatric: Psychiatric: Denies abnormal sleep pattern, Denies anxiety and Denies memory loss Endocrine: Endocrine: Denies excessive sweating, Denies fatigue and Denies heat intolerance Hematologic/Lymphatic: Hematologic/Lymphatic: Denies easy bruising Allergic/Immunologic: Allergic/Immunologic: Denies itchy eyes, Denies seasonal rhinorrhea and Denies wheezing PMFSH Past Medical History Medical History Emphysema lung History of foot fracture ILD (interstitial lung disease) Personal history of nicotine dependence Pulmonary nodules COPD (chronic obstructive pulmonary disease) PNA (pneumonia) Normal breast exam Colonoscopy refused Hyperlipidemia Recurrent pleural effusion PTSD (post-traumatic stress disorder) Depression Family History Family History Father No problems noted. Mother No problems noted. Surgical History Surgical History History of hand surgery History of lung surgery Social History Social History Household Members: Significant Other Household Members Other:: Spouse [facility] Do you presently have visiting nurse or other home services: No Alcohol intake: current Alcohol intake frequency: holidays/special occasions only Comment: for oxymask only Patient Tobacco Use Status: Former Tobacco user Tobacco use type: Cigarette Years Smoked: 35 e-Cigarette/Vaping Use: Never Used Second Hand Smoke Exposure: No Substance Use Type: Marijuana Advance Directives Date on File: 02/04/21 service: No Current occupational status: retired Sexual orientation: Straight/Heterosexual Cognitive needs: No Hearing needs: No Vision needs: Yes Meds Allergies Allergy/AdvReac Type Severity Reaction Status Date / Time nut - unspecified Allergy Severe Anaphylaxis Verified 12/16/23 09:03 shellfish derived Allergy Severe Anaphylaxis Verified 12/16/23 09:03 tree nut Allergy Tongue Verified 12/16/23 09:03 swelling, tongue itching. Active Medications: Current Medications Acetaminophen (Acetaminophen 325 Mg Tablet) 650 mg PO Q6H PRN PRN Reason: Pain, Mild (Pain Scale 1-3), fever or headache Last Admin: 12/20/23 19:26 Dose: 650 mg Albuterol/Ipratropium (Albuterol/Iprat 2.5/0.5mg 3 Ml Ampul.Neb) 3 ml INHALE Q4H PRN PRN Reason: Shortness of Breath/Wheezing Last Admin: 12/17/23 00:19 Dose: 3 ml Albuterol/Ipratropium (Albuterol/Iprat 2.5/0.5mg 3 Ml Ampul.Neb) 3 ml INHALE RQ4H WHILE AWAKE JEAN PIERRE Last Admin: 12/21/23 11:35 Dose: 3 ml Aripiprazole (Aripiprazole 5 Mg Tablet) 5 mg PO DAILY JEAN PIERRE Last Admin: 12/21/23 07:50 Dose: 5 mg Atorvastatin Calcium (Atorvastatin Calcium 80 Mg Tablet) 80 mg PO DAILY JEAN PIERRE Last Admin: 12/21/23 07:50 Dose: 80 mg Bupropion HCl (Bupropion Hcl Xl 300 Mg Tab.Er.24h) 300 mg PO DAILY [facility] Last Admin: 12/21/23 07:50 Dose: 300 mg Calcium Carbonate (Calcium Carbonate 750 Mg Tab.Chew) 750 mg PO Q4H PRN PRN Reason: Heartburn Clonazepam (Clonazepam 0.5 Mg Tablet) 0.5 mg PO DAILY [facility] Last Admin: 12/21/23 07:50 Dose: 0.5 mg Clonazepam (Clonazepam 1 Mg Tablet) 1 mg PO DAILY@1500 [facility] Last Admin: 12/20/23 14:01 Dose: 1 mg Cyanocobalamin (Cyanocobalamin (Vitamin B-12) 100 Mcg Tablet) 100 mcg PO DAILY [facility] Last Admin: 12/21/23 07:50 Dose: 100 mcg Enoxaparin Sodium (Enoxaparin Sodium 40 Mg/0.4 Ml Syringe) 40 mg SUBCUT Q24H [facility] Last Admin: 12/20/23 12:45 Dose: 40 mg Fluoxetine HCl (Fluoxetine Hcl 20 Mg Capsule) 80 mg PO DAILY [facility] Last Admin: 12/21/23 07:50 Dose: 80 mg Fluticasone/Vilanterol (Fluticasone/Vilanterol 200/25 Blst.W.Dev) 1 puff INHALE RDAILY [facility] Last Admin: 12/21/23 08:29 Dose: 1 puff Guaifenesin (Guaifenesin 200 Mg/10 Ml 10 Ml Liquid) 10 ml PO Q6H PRN PRN Reason: Cough Last Admin: 12/21/23 08:20 Dose: 10 ml Guaifenesin/Dextromethorphan (Guaifenesin Dm 100/10/5 Ml 5 Ml Syrup) 5 ml PO Q4H PRN PRN Reason: Cough Last Admin: 12/21/23 03:56 Dose: 5 ml Ceftriaxone Sodium 1 gm/ (Sodium Chloride) 50 mls @ 100 mls/hr IV Q24H [facility] Last Infusion: 12/21/23 11:43 Dose: Infused Azithromycin 500 mg/ Sodium (Chloride) 250 mls @ 125 mls/hr IV Q24H [facility] Last Infusion: 12/20/23 14:47 Dose: Infused Magnesium Hydroxide (Milk Of Magnesia 30 Ml Oral.Susp) 30 ml PO DAILY PRN PRN Reason: Constipation Last Admin: 12/20/23 20:48 Dose: 30 ml Melatonin (Melatonin 3 Mg Tablet) 6 mg PO BEDTIME PRN PRN Reason: Insomnia Last Admin: 12/17/23 19:44 Dose: 6 mg Methylprednisolone Sodium Succinate (Methylprednisolone Sod Succ 40 Mg/Ml Vial) 40 mg IVPUSH Q12H [facility] Last Admin: 12/21/23 05:01 Dose: 40 mg Mirabegron (Mirabegron 25 Mg Tab.Er.24h) 25 mg PO DAILY [facility] Last Admin: 12/21/23 07:50 Dose: 25 mg Prazosin HCl (Prazosin Hcl 1 Mg Capsule) 1 mg PO BEDTIME [facility]; Protocol Last Admin: 12/20/23 20:48 Dose: 1 mg Quetiapine Fumarate (Quetiapine Fumarate 100 Mg Tablet) 100 mg PO BEDTIME [facility] Last Admin: 12/20/23 20:48 Dose: 100 mg Sodium Chloride (0.9 % Sodium Chloride Flush 3 Ml Syringe) 3 ml IVFLUSH QSHIFT [facility] Last Admin: 12/21/23 07:52 Dose: 3 ml Tiotropium [place] (Tiotropium [place] 2.5 Mcg 1 Puff/2.5 Mcg Mist.Inhal) 2 puff INHALE RDAILY [facility] Last Admin: 12/21/23 08:29 Dose: 2 puff Home Medications ?Medication ?Instructions ?Recorded ?Confirmed ?Last Taken ?Type aripiprazole 5 mg tablet 5 mg PO DAILY 07/03/20 12/16/23 12/16/23 09:00 History fluoxetine 40 mg capsule 80 mg PO DAILY 07/03/20 12/16/23 12/16/23 09:00 History bupropion HCl 150 mg tablet,12 hr 150 mg PO BID 01/08/21 12/16/23 12/16/23 09:00 History sustained-release clonazepam 0.5 mg tablet 0.5 mg PO DAILY 10/31/21 12/16/23 12/16/23 09:00 History quetiapine 100 mg tablet 100 mg PO BEDTIME 12/11/21 12/16/23 12/16/23 09:00 History clonazepam 0.5 mg tablet 1 mg PO DAILY@1500 12/16/23 12/16/23 12/16/23 09:00 History cyanocobalamin (vitamin B-12) 100 100 mcg PO DAILY 12/16/23 12/16/23 12/16/23 09:00 History mcg tablet (Vitamin B-12) Physical Exam Vital Signs: Vital Signs: Last Vital Signs Temp 96.8 F 12/21/23 07:27 Pulse 80 12/21/23 11:35 Resp 15 12/21/23 11:35 BP 143/65 H 12/21/23 07:27 Pulse Ox 90 L 12/21/23 07:27 O2 Del Method Oxymask 12/21/23 07:27 O2 Flow Rate 10 12/21/23 07:27 Oxygen Flow Rate 4 12/16/23 09:00 BMI result Body Mass Index 28.7 Const: General: no acute distress and alert Nutritional Appearance: not obese Orientation/consciousness: Other orientation findings ( oriented) HEENT: Head: Yes atraumatic Eyes: General: appearance normal, both eyes and all related structures Sclerae: sclerae normal EOM: EOMs intact bilaterally Neck: Neck: Yes supple Lymphatic: no lymphadenopathy noted Resp: Effort & Inspection: normal respiratory effort and no use of accessory muscles Auscultation: rales (Bilateral) Cardio: Rate: regular rate Rhythm: regular rhythm Heart sounds: no gallops, no murmurs and no rubs Skin: General skin exam: other ( warm) Extrem: General: No clubbing, No cyanosis and No edema Results Laboratory Findings 12/21/23 05:23 12/21/23 05:23 Abnormal lab findings: Abnormal Labs 12/16/23 12/16/23 12/17/23 09:14 09:27 06:15 WBC 13.0 H 13.0 H RBC 3.83 L 3.30 L Hgb 11.6 L 9.8 L Hct 33.9 L 29.6 L Plt Count Immature Gran % (Auto) 0.6 H 1.0 H Neut % (Auto) 88.8 H 88.4 H Lymph % (Auto) 6.0 L 6.7 L Lymph # (Auto) 0.8 L 0.9 L Abs Immat Gran (auto) 0.08 H 0.13 H Absolute Neuts (auto) 11.5 H 11.5 H VBG pH 7.55 H Sodium 133 L Potassium 3.2 L Carbon Dioxide BUN 5 L 6 L Fasting Glucose Magnesium AST ALT Alkaline Phosphatase Total Protein 8.5 H Albumin 12/18/23 12/19/23 12/20/23 05:21 05:37 06:06 WBC 15.1 H 11.1 H 11.1 H RBC 3.69 L 3.49 L 3.47 L Hgb 11.0 L 10.2 L 10.1 L Hct 33.6 L 31.3 L 31.5 L Plt Count 404 H D 424 H Immature Gran % (Auto) Neut % (Auto) Lymph % (Auto) Lymph # (Auto) Abs Immat Gran (auto) Absolute Neuts (auto) VBG pH Sodium Potassium 3.2 L Carbon Dioxide BUN 8 L Fasting Glucose 106 H 111 H 115 H Magnesium AST 135 H ALT 194 H Alkaline Phosphatase 122 H Total Protein Albumin 3.4 L 12/21/23 05:23 WBC RBC 3.58 L Hgb 10.3 L Hct 32.3 L Plt Count 460 H Immature Gran % (Auto) Neut % (Auto) Lymph % (Auto) Lymph # (Auto) Abs Immat Gran (auto) Absolute Neuts (auto) VBG pH Sodium Potassium Carbon Dioxide 30 H BUN Fasting Glucose Magnesium 2.7 H AST 105 H ALT 202 H Alkaline Phosphatase 124 H Total Protein Albumin 3.4 L Microbiology: Microbiology 12/16/23 09:39 Blood - Venous Blood Culture - Final No growth after 5 days. 12/16/23 09:14 Blood - Venous Blood Culture - Final No growth after 5 days. 12/17/23 07:44 Sputum - Expectorated Gram Stain - Final 12/17/23 07:44 Sputum - Expectorated Sputum Culture - Final Assessment and Plan (1) COPD (chronic obstructive pulmonary disease): Qualifiers: COPD type: chronic bronchitis Chronic bronchitis type: mixed simple and mucopurulent Qualified Code(s): J41.8 - Mixed simple and mucopurulent chronic bronchitis Status: Acute (2) ILD (interstitial lung disease): Status: Acute (3) Pneumonia: Qualifiers: Aspiration pneumonia type: unspecified Lung location: middle lobe of lung Status: Acute (4) Acute respiratory failure with hypoxia: Status: Acute Plan Impression: 63-year-old lady with underlying COPD and ILD admitted with acute hypoxic respiratory failure secondary to multifocal bilateral pneumonia. CT angio chest with no evidence of pulmonary emboli. Recommendations: Agree with current treatment regimen of empiric antibiotics for community-acquired pneumonia and systemic glucocorticoids. Continue to titrate off supplemental oxygen as tolerated. Procedures Date of Service Date of Service: 12/21/23
[2023-12-21] MEDS: Enoxaparin Sodium 40 MG/0.4 ML SYRINGE SUBCUT (15:10)
[2023-12-21] MEDS: Azithromycin 500 MG in 0.9 % Sodium Chloride 250 ML 125 MG IV (15:10)
[2023-12-21] MEDS: clonazePAM 1 MG TABLET PO (15:21)
[2023-12-21] MEDS: Prazosin HCL 1 MG CAPSULE PO (20:16)
[2023-12-21] MEDS: Melatonin 3 MG TABLET 6 MG PO (20:16)
[2023-12-21] MEDS: QUEtiapine Fumarate 100 MG TABLET PO (20:16)
[2023-12-22] VITALS (8 sets, daily range): BP systolic 107–132; BP diastolic 56–63; PULSE 70–88; RESP 16–18; TEMP 36.1–36.7; O2SAT 88–96
[2023-12-22] MEDS: guaiFENesin 200 MG/10 ML 10 ML LIQUID PO ×3 (03:23→19:44)
[2023-12-22] MEDS: methylPREDNISolone Sod Succ 40 MG/ML VIAL IVPUSH ×2 (05:19→17:44)
[2023-12-22 07:22] LABS: Hematocrit 32.4 % (37.0-47.0); Hemoglobin 10.4 g/dl (12.0-16.0); Mean Corpuscular HGB Conc 32.1 g/dl (31.0-35.0); Mean Corpuscular Hemoglobin 29.2 pg (27.0-33.0); Mean Platelet Volume 9.9 fL (9.4-12.3); Platelet Count 466 X10*3/uL (160-400); Red Blood Count 3.56 X10*6/uL (4.20-5.50); Red Cell Distribution Width 14.5 % (11.0-16.0); White Blood Count 10.3 X10*3/uL (4.8-10.8)
[2023-12-22 07:44] LABS: Alanine Aminotransferase 192 U/L (0-31); Albumin Level 3.4 g/dL (3.5-5.0); Alkaline Phosphatase 116 U/L (39-117); Anion Gap 15 (12-20); Aspartate Amino Transferase 82 U/L (5-31); Bilirubin Direct 0.1 mg/dL (0.0-0.5); Bilirubin Total 0.3 mg/dL (0.0-1.0); Blood Urea Nitrogen 14 mg/dL (9-16); Calcium 9.4 mg/dL (8.4-10.2); Carbon Dioxide 28 mmol/L (22-29); Chloride 102 mmol/L (96-108); Creatinine Clr Calc Pharmacy 102.2; Estimated Glomerular Filt Rate > 60; Glucose Fasting 88 mg/dL (60-99); Magnesium 2.6 mg/dL (1.6-2.6); Potassium 4.1 mmol/L (3.3-5.1); Sodium 141 mmol/L (135-145); Total Protein 7.1 g/dL (6.5-8.0)
[2023-12-22] MEDS: ARIPiprazole 5 MG TABLET PO (07:57)
[2023-12-22] MEDS: FLUoxetine HCl 20 MG CAPSULE 80 MG PO (07:57)
[2023-12-22] MEDS: buPROPion HCl XL 300 MG TAB.ER.24H PO (07:57)
[2023-12-22] MEDS: 0.9 % Sodium Chloride Flush 3 ML SYRINGE IVFLUSH ×3 (07:58→19:45)
[2023-12-22] MEDS: Atorvastatin Calcium 80 MG TABLET PO (07:58)
[2023-12-22] MEDS: Cyanocobalamin (Vitamin B-12) 100 MCG TABLET PO (07:58)
[2023-12-22] MEDS: Mirabegron 25 MG TAB.ER.24H PO (07:58)
[2023-12-22] MEDS: clonazePAM 0.5 MG TABLET PO (07:58)
[2023-12-22] MEDS: Fluticasone/Vilanterol 200/25 BLST.W.DEV 1 PUFF INHALE (08:03)
[2023-12-22] MEDS: Tiotropium Bromide 2.5 mcg 1 PUFF/2.5 MCG MIST.INHAL 2 PUFF INHALE (08:03)
[2023-12-22] MEDS: Albuterol/Iprat 2.5/0.5MG 3 ML AMPUL.NEB INHALE ×4 (08:05→19:49)
--- NOTE | 2023-12-22 09:03 | HO.PM.IMPN ---
Subjective Subjective Date of Service: 12/22/23 Interval History: first day noting some improvement in sob and overall energy level Physical Exam Vital Signs: Vital Signs: Last Vital Signs Temp 97.0 F 12/22/23 07:30 Pulse 78 12/22/23 08:05 Resp 16 12/22/23 08:05 BP 132/63 12/22/23 07:30 Pulse Ox 94 12/22/23 07:30 O2 Del Method Oxymask 12/22/23 07:30 O2 Flow Rate 10 12/22/23 07:30 Oxygen Flow Rate 4 12/16/23 09:00 BMI result Body Mass Index 28.7 Const: General: no acute distress and alert Nutritional Appearance: not obese Orientation/consciousness: Other orientation findings ( oriented) HEENT: Head: Yes atraumatic Eyes: General: appearance normal, both eyes and all related structures Sclerae: sclerae normal EOM: EOMs intact bilaterally Neck: Neck: Yes supple Lymphatic: no lymphadenopathy noted Resp: Effort & Inspection: normal respiratory effort and no use of accessory muscles Auscultation: rales (Bilateral) Cardio: Rate: regular rate Rhythm: regular rhythm Heart sounds: no gallops, no murmurs and no rubs Skin: General skin exam: other ( warm) Extrem: General: No clubbing, No cyanosis and No edema Objective Data Active Medications Acetaminophen (Acetaminophen 325 Mg Tablet) 650 mg PO Q6H PRN PRN Reason: Pain, Mild (Pain Scale 1-3), fever or headache Last Admin: 12/20/23 19:26 Dose: 650 mg Documented By: EVERETT Albuterol/Ipratropium (Albuterol/Iprat 2.5/0.5mg 3 Ml Ampul.Neb) 3 ml INHALE Q4H PRN PRN Reason: Shortness of Breath/Wheezing Last Admin: 12/17/23 00:19 Dose: 3 ml Documented By: NISA Albuterol/Ipratropium (Albuterol/Iprat 2.5/0.5mg 3 Ml Ampul.Neb) 3 ml INHALE RQ4H WHILE AWAKE [facility] Last Admin: 12/22/23 08:05 Dose: 3 ml Documented By: CHELLE Aripiprazole (Aripiprazole 5 Mg Tablet) 5 mg PO DAILY [facility] Last Admin: 12/22/23 07:57 Dose: 5 mg Documented By: RUBÉN Atorvastatin Calcium (Atorvastatin Calcium 80 Mg Tablet) 80 mg PO DAILY [facility] Last Admin: 12/22/23 07:58 Dose: 80 mg Documented By: RUBÉN Bupropion HCl (Bupropion Hcl Xl 300 Mg Tab.Er.24h) 300 mg PO DAILY [facility] Last Admin: 12/22/23 07:57 Dose: 300 mg Documented By: RUBÉN Calcium Carbonate (Calcium Carbonate 750 Mg Tab.Chew) 750 mg PO Q4H PRN PRN Reason: Heartburn Clonazepam (Clonazepam 0.5 Mg Tablet) 0.5 mg PO DAILY [facility] Last Admin: 12/22/23 07:58 Dose: 0.5 mg Documented By: RUBÉN Clonazepam (Clonazepam 1 Mg Tablet) 1 mg PO Q24H [facility] Last Admin: 12/21/23 15:21 Dose: 1 mg Documented By: REJI Cyanocobalamin (Cyanocobalamin (Vitamin B-12) 100 Mcg Tablet) 100 mcg PO DAILY [facility] Last Admin: 12/22/23 07:58 Dose: 100 mcg Documented By: RUBÉN Enoxaparin Sodium (Enoxaparin Sodium 40 Mg/0.4 Ml Syringe) 40 mg SUBCUT Q24H [facility] Last Admin: 12/21/23 15:10 Dose: 40 mg Documented By: REJI Fluoxetine HCl (Fluoxetine Hcl 20 Mg Capsule) 80 mg PO DAILY [facility] Last Admin: 12/22/23 07:57 Dose: 80 mg Documented By: RUBÉN Fluticasone/Vilanterol (Fluticasone/Vilanterol 200/25 Blst.W.Dev) 1 puff INHALE RDAILY [facility] Last Admin: 12/22/23 08:03 Dose: 1 puff Documented By: CHELLE Guaifenesin (Guaifenesin 200 Mg/10 Ml 10 Ml Liquid) 10 ml PO Q6H PRN PRN Reason: Cough Last Admin: 12/22/23 03:23 Dose: 10 ml Documented By: KATHY Guaifenesin/Dextromethorphan (Guaifenesin Dm 100/10/5 Ml 5 Ml Syrup) 5 ml PO Q4H PRN PRN Reason: Cough Last Admin: 12/21/23 13:31 Dose: 5 ml Documented By: KAYLIE Ceftriaxone Sodium 1 gm/ (Sodium Chloride) 50 mls @ 100 mls/hr IV Q24H [facility] Last Infusion: 12/21/23 11:43 Dose: Infused Documented By: REJI Azithromycin 500 mg/ Sodium (Chloride) 250 mls @ 125 mls/hr IV Q24H [facility] Last Infusion: 12/21/23 17:11 Dose: Infused Documented By: REJI Magnesium Hydroxide (Milk Of Magnesia 30 Ml Oral.Susp) 30 ml PO DAILY PRN PRN Reason: Constipation Last Admin: 12/20/23 20:48 Dose: 30 ml Documented By: JUANPABLO-YESSICA Melatonin (Melatonin 3 Mg Tablet) 6 mg PO BEDTIME PRN PRN Reason: Insomnia Last Admin: 12/21/23 20:16 Dose: 6 mg Documented By: KATHY Methylprednisolone Sodium Succinate (Methylprednisolone Sod Succ 40 Mg/Ml Vial) 40 mg IVPUSH Q12H [facility] Last Admin: 12/22/23 05:19 Dose: 40 mg Documented By: KATHY Mirabegron (Mirabegron 25 Mg Tab.Er.24h) 25 mg PO DAILY [facility] Last Admin: 12/22/23 07:58 Dose: 25 mg Documented By: RUBÉN Prazosin HCl (Prazosin Hcl 1 Mg Capsule) 1 mg PO BEDTIME [facility]; Protocol Last Admin: 12/21/23 20:16 Dose: 1 mg Documented By: KATHY Quetiapine Fumarate (Quetiapine Fumarate 100 Mg Tablet) 100 mg PO BEDTIME [facility] Last Admin: 12/21/23 20:16 Dose: 100 mg Documented By: KATHY Sodium Chloride (0.9 % Sodium Chloride Flush 3 Ml Syringe) 3 ml IVFLUSH QSHIFT [facility] Last Admin: 12/22/23 07:58 Dose: 3 ml Documented By: RUBÉN Tiotropium [place] (Tiotropium [place] 2.5 Mcg 1 Puff/2.5 Mcg Mist.Inhal) 2 puff INHALE RDAILY [facility] Last Admin: 12/22/23 08:03 Dose: 2 puff Documented By: REILLK Labs 12/22/23 05:27 12/22/23 05:27 Labs: Laboratory Results - last 24 hr 12/22/23 05:27 MCV 91.0 MCH 29.2 MCHC 32.1 RDW 14.5 Plt Count 466 H MPV 9.9 Absolute Nucleated RBC 0.000 Nucleated RBC % (auto) 0.0 Anion Gap 15 Estim Creat Clear Calc 102.2 Estimated GFR > 60 Fasting Glucose 88 Calcium 9.4 Magnesium 2.6 Total Bilirubin 0.3 Direct Bilirubin 0.1 AST 82 H ALT 192 H Alkaline Phosphatase 116 Total Protein 7.1 Albumin 3.4 L Microbiology Microbiology Results: Microbiology 12/16/23 09:39 Blood Culture - Final Blood - Venous No growth after 5 days. 12/16/23 09:14 Blood Culture - Final Blood - Venous No growth after 5 days. Assessment and Plan (1) Pneumonia: Status: Acute Plan 63F PMH COPD, interstitial lung disease, hyperlipidemia, PTSD, depression presented with shortness of breath Sepsis and acute hypoxic respiratory failure secondary to pneumonia and COPD with acute decompensation Continue ceftriaxone azithromycin initiated 12/17/23, continued IV steroids, bronchodilators Wean oxygen as tolerated, some improvement today but still requiring 10 L No improvement with IV diuresis will hold off on further. follow up urine legionella Negative strep, resp viral panel, cutlures Pulmonary appreciated Hyperlipidemia Continue statin PTSD/mood disorder Continue Seroquel, Prozac, Klonopin, bupropion, Abilify DVT prophylaxis with Lovenox Full Code reason for continued hospitalization: Severe hypoxia Quality Stroke Does the patient have a stroke diagnosis?: No VTE Prior VTE?: No VTE Risk Level:: Medical - moderate - high VTE Device Contraindication: Treatment Not Indicated VTE Drug Contraindication: N/A - Med Ordered
[2023-12-22] MEDS: cefTRIAXone sodium 1 GM in 0.9 % Sodium Chloride 50 ML IV (09:06)
[2023-12-22] MEDS: Azithromycin 500 MG in 0.9 % Sodium Chloride 250 ML 125 MG IV (13:06)
[2023-12-22] MEDS: Enoxaparin Sodium 40 MG/0.4 ML SYRINGE SUBCUT (13:07)
[2023-12-22] MEDS: clonazePAM 1 MG TABLET PO (14:19)
[2023-12-22] MEDS: QUEtiapine Fumarate 100 MG TABLET PO (19:44)
[2023-12-22] MEDS: Melatonin 3 MG TABLET 6 MG PO (19:44)
[2023-12-22] MEDS: Prazosin HCL 1 MG CAPSULE PO (19:44)
[2023-12-23] VITALS (8 sets, daily range): BP systolic 119–139; BP diastolic 57–71; PULSE 68–92; RESP 14–20; TEMP 36.6–36.7; O2SAT 90–97
[2023-12-23] MEDS: guaiFENesin 200 MG/10 ML 10 ML LIQUID PO ×3 (02:24→17:15)
[2023-12-23] MEDS: methylPREDNISolone Sod Succ 40 MG/ML VIAL IVPUSH ×2 (05:34→17:09)
[2023-12-23] MEDS: Acetaminophen 325 MG TABLET 650 MG PO ×2 (06:21→17:15)
[2023-12-23] MEDS: 0.9 % Sodium Chloride Flush 3 ML SYRINGE IVFLUSH ×2 (06:38→14:17)
[2023-12-23] MEDS: Mirabegron 25 MG TAB.ER.24H PO (07:08)
[2023-12-23] MEDS: clonazePAM 0.5 MG TABLET PO (07:08)
[2023-12-23] MEDS: Cyanocobalamin (Vitamin B-12) 100 MCG TABLET PO (07:08)
[2023-12-23] MEDS: Atorvastatin Calcium 80 MG TABLET PO (07:08)
[2023-12-23] MEDS: ARIPiprazole 5 MG TABLET PO (07:08)
[2023-12-23] MEDS: FLUoxetine HCl 20 MG CAPSULE 80 MG PO (07:08)
[2023-12-23] MEDS: Milk of Magnesia 30 ML ORAL.SUSP PO (08:00)
[2023-12-23] MEDS: buPROPion HCl XL 300 MG TAB.ER.24H PO (08:01)
[2023-12-23] MEDS: Albuterol/Iprat 2.5/0.5MG 3 ML AMPUL.NEB INHALE ×3 (08:16→15:38)
[2023-12-23] MEDS: Tiotropium Bromide 2.5 mcg 1 PUFF/2.5 MCG MIST.INHAL 2 PUFF INHALE (08:16)
[2023-12-23] MEDS: Fluticasone/Vilanterol 200/25 BLST.W.DEV 1 PUFF INHALE (08:16)
[2023-12-23] MEDS: cefTRIAXone sodium 1 GM in 0.9 % Sodium Chloride 50 ML IV (09:50)
--- NOTE | 2023-12-23 12:50 | P.PNIM_ITS ---
Subjective Subjective Date of Service: 12/23/23 Interval History: seen and evaluated this morning Still on 7L of O2 feels better overall but dyspneic with minimal exertion Review of Systems Review of Systems: Yes all other systems are reviewed and are negative Physical Exam 2 Vital Signs: Vital Signs: Last Vital Signs Temp 97.8 F 12/23/23 07:02 Pulse 71 12/23/23 11:41 Resp 18 12/23/23 11:41 BP 139/61 12/23/23 07:02 Pulse Ox 97 12/23/23 07:02 O2 Del Method Nasal Cannula 12/23/23 07:02 O2 Flow Rate 8 12/23/23 07:02 Oxygen Flow Rate 4 12/16/23 09:00 BMI result Body Mass Index 28.7 Const: Other: Constitutional : Awake, interactive Neck : Normal inspection, Supple Cardiovascular : RRR, no JVP, no lower extremity edema Respiratory : decreased bilateral air entry, fine basal crackles, expiratory wheezes on 7L O2 Gastrointestinal: soft, lax, Normal bowel sounds, Non tender Skin : Warm, Dry Neurological : Alert & oriented x3, No focal deficit Objective Data Active Medications Acetaminophen (Acetaminophen 325 Mg Tablet) 650 mg PO Q6H PRN PRN Reason: Pain, Mild (Pain Scale 1-3), fever or headache Last Admin: 12/23/23 06:21 Dose: 650 mg Documented By: KATHY Albuterol/Ipratropium (Albuterol/Iprat 2.5/0.5mg 3 Ml Ampul.Neb) 3 ml INHALE Q4H PRN PRN Reason: Shortness of Breath/Wheezing Last Admin: 12/17/23 00:19 Dose: 3 ml Documented By: NISA Albuterol/Ipratropium (Albuterol/Iprat 2.5/0.5mg 3 Ml Ampul.Neb) 3 ml INHALE RQ4H WHILE AWAKE [facility] Last Admin: 12/23/23 11:39 Dose: 3 ml Documented By: ISRAEL Aripiprazole (Aripiprazole 5 Mg Tablet) 5 mg PO DAILY [facility] Last Admin: 12/23/23 07:08 Dose: 5 mg Documented By: RUBÉN Atorvastatin Calcium (Atorvastatin Calcium 80 Mg Tablet) 80 mg PO DAILY [facility] Last Admin: 12/23/23 07:08 Dose: 80 mg Documented By: RUBÉN Bupropion HCl (Bupropion Hcl Xl 300 Mg Tab.Er.24h) 300 mg PO DAILY [facility] Last Admin: 12/23/23 08:01 Dose: 300 mg Documented By: RUBÉN Calcium Carbonate (Calcium Carbonate 750 Mg Tab.Chew) 750 mg PO Q4H PRN PRN Reason: Heartburn Clonazepam (Clonazepam 0.5 Mg Tablet) 0.5 mg PO DAILY [facility] Last Admin: 12/23/23 07:08 Dose: 0.5 mg Documented By: RUBÉN Clonazepam (Clonazepam 1 Mg Tablet) 1 mg PO Q24H [facility] Last Admin: 12/22/23 14:19 Dose: 1 mg Documented By: RUBÉN Cyanocobalamin (Cyanocobalamin (Vitamin B-12) 100 Mcg Tablet) 100 mcg PO DAILY [facility] Last Admin: 12/23/23 07:08 Dose: 100 mcg Documented By: RUBÉN Enoxaparin Sodium (Enoxaparin Sodium 40 Mg/0.4 Ml Syringe) 40 mg SUBCUT Q24H [facility] Last Admin: 12/22/23 13:07 Dose: 40 mg Documented By: RUBÉN Fluoxetine HCl (Fluoxetine Hcl 20 Mg Capsule) 80 mg PO DAILY [facility] Last Admin: 12/23/23 07:08 Dose: 80 mg Documented By: RUBÉN Fluticasone/Vilanterol (Fluticasone/Vilanterol 200/25 Blst.W.Dev) 1 puff INHALE RDAILY [facility] Last Admin: 12/23/23 08:16 Dose: 1 puff Documented By: ISRAEL Guaifenesin (Guaifenesin 200 Mg/10 Ml 10 Ml Liquid) 10 ml PO Q6H PRN PRN Reason: Cough Last Admin: 12/23/23 08:01 Dose: 10 ml Documented By: RUBÉN Guaifenesin/Dextromethorphan (Guaifenesin Dm 100/10/5 Ml 5 Ml Syrup) 5 ml PO Q4H PRN PRN Reason: Cough Last Admin: 12/21/23 13:31 Dose: 5 ml Documented By: KAYLIE Ceftriaxone Sodium 1 gm/ (Sodium Chloride) 50 mls @ 100 mls/hr IV Q24H [facility] Last Infusion: 12/23/23 10:47 Dose: Infused Documented By: RUBÉN Azithromycin 500 mg/ Sodium (Chloride) 250 mls @ 125 mls/hr IV Q24H [facility] Last Infusion: 12/22/23 15:07 Dose: Infused Documented By: RUBÉN Magnesium Hydroxide (Milk Of Magnesia 30 Ml Oral.Susp) 30 ml PO DAILY PRN PRN Reason: Constipation Last Admin: 12/23/23 08:00 Dose: 30 ml Documented By: RUBÉN Melatonin (Melatonin 3 Mg Tablet) 6 mg PO BEDTIME PRN PRN Reason: Insomnia Last Admin: 12/22/23 19:44 Dose: 6 mg Documented By: KATHY Methylprednisolone Sodium Succinate (Methylprednisolone Sod Succ 40 Mg/Ml Vial) 40 mg IVPUSH Q12H [facility] Last Admin: 12/23/23 05:34 Dose: 40 mg Documented By: KATHY Mirabegron (Mirabegron 25 Mg Tab.Er.24h) 25 mg PO DAILY [facility] Last Admin: 12/23/23 07:08 Dose: 25 mg Documented By: RUBÉN Prazosin HCl (Prazosin Hcl 1 Mg Capsule) 1 mg PO BEDTIME [facility]; Protocol Last Admin: 12/22/23 19:44 Dose: 1 mg Documented By: KATHY Quetiapine Fumarate (Quetiapine Fumarate 100 Mg Tablet) 100 mg PO BEDTIME [facility] Last Admin: 12/22/23 19:44 Dose: 100 mg Documented By: KATHY Sodium Chloride (0.9 % Sodium Chloride Flush 3 Ml Syringe) 3 ml IVFLUSH QSHIFT [facility] Last Admin: 12/23/23 06:38 Dose: 3 ml Documented By: RUBÉN Tiotropium Dufur (Tiotropium Dufur 2.5 Mcg 1 Puff/2.5 Mcg Mist.Inhal) 2 puff INHALE RDAILY [facility] Last Admin: 12/23/23 08:16 Dose: 2 puff Documented By: BEVERLYR Labs 12/22/23 05:27 12/22/23 05:27 Assessment and Plan (1) Acute respiratory failure with hypoxia: Status: Acute (2) COPD with hypoxia: Status: Acute (3) Pneumonia: Status: Acute Plan 63F PMH COPD, interstitial lung disease, hyperlipidemia, PTSD, depression presented with shortness of breath Sepsis and acute hypoxic respiratory failure secondary to pneumonia and COPD with acute decompensation Continue ceftriaxone azithromycin initiated 12/17/23, Negative strep, resp viral panel, cutlures continued IV steroids, bronchodilator nebulizers repeat CXR showing bilateral opacities and effusion Add one time IV Lasix Wean oxygen as tolerated follow up urine legionella Pulmonary appreciated will need home O2 eval Hyperlipidemia Continue statin PTSD/mood disorder Continue Seroquel, Prozac, Klonopin, bupropion, Abilify DVT prophylaxis with Lovenox Full Code reason for continued hospitalization: Severe hypoxia requiring O2 supplement Quality Stroke Does the patient have a stroke diagnosis?: No VTE Prior VTE?: No VTE Risk Level:: Medical - moderate - high VTE Device Contraindication: Treatment Not Indicated VTE Drug Contraindication: N/A - Med Ordered
[2023-12-23] MEDS: Enoxaparin Sodium 40 MG/0.4 ML SYRINGE SUBCUT (13:00)
[2023-12-23] MEDS: Azithromycin 500 MG in 0.9 % Sodium Chloride 250 ML 125 MG IV (13:00)
[2023-12-23] MEDS: Furosemide 20 MG/2 ML VIAL IVPUSH (13:00)
[2023-12-23] MEDS: clonazePAM 1 MG TABLET PO (14:17)
--- NOTE | 2023-12-23 14:18 | MHC.CM.PN ---
EMR REVIEWED AND PER MD ROUNDS, PT IS NOT MEDICALLY CLEARED FOR DC (SEVERE HYPOXIA, 02 AT 7 L) CM WILL CONTINUE TO FOLLOW FOR ANY CHANGE TO DC PLAN.
[2023-12-23] MEDS: QUEtiapine Fumarate 100 MG TABLET PO (20:00)
[2023-12-23] MEDS: Prazosin HCL 1 MG CAPSULE PO (20:00)
[2023-12-23] MEDS: Melatonin 3 MG TABLET 6 MG PO (20:00)
[2023-12-24] MEDS: 0.9 % Sodium Chloride Flush 3 ML SYRINGE IVFLUSH ×2 (00:54→09:30)
[2023-12-24] MEDS: guaiFENesin 200 MG/10 ML 10 ML LIQUID PO (00:56)
[2023-12-24 03:10] VITALS: BP 122/72; PULSE 84; RESP 16; TEMP 36.2; O2SAT 89
[2023-12-24] MEDS: methylPREDNISolone Sod Succ 40 MG/ML VIAL IVPUSH (05:01)
[2023-12-24] MEDS: Tiotropium Bromide 2.5 mcg 1 PUFF/2.5 MCG MIST.INHAL 2 PUFF INHALE (07:35)
[2023-12-24] MEDS: Fluticasone/Vilanterol 200/25 BLST.W.DEV 1 PUFF INHALE (07:35)
[2023-12-24 07:36] VITALS: PULSE 74; RESP 16; O2SAT 93
[2023-12-24 07:43] VITALS: BP 125/82; PULSE 67; RESP 17; TEMP 37.1; O2SAT 92
[2023-12-24] MEDS: Atorvastatin Calcium 80 MG TABLET PO (07:52)
[2023-12-24] MEDS: Cyanocobalamin (Vitamin B-12) 100 MCG TABLET PO (07:52)
[2023-12-24] MEDS: ARIPiprazole 5 MG TABLET PO (07:52)
[2023-12-24] MEDS: FLUoxetine HCl 20 MG CAPSULE 80 MG PO (07:53)
[2023-12-24] MEDS: buPROPion HCl XL 300 MG TAB.ER.24H PO (07:53)
[2023-12-24] MEDS: clonazePAM 0.5 MG TABLET PO (07:53)
[2023-12-24] MEDS: Mirabegron 25 MG TAB.ER.24H PO (07:53)
[2023-12-24 08:04] VITALS: BP 125/82
[2023-12-24] MEDS: Furosemide 20 MG/2 ML VIAL IVPUSH (08:04)
[2023-12-24 08:07] VITALS: PULSE 75; PULSE 86; PULSE 87; PULSE 96; O2SAT 87; O2SAT 92; O2SAT 95
[2023-12-24 09:11] LABS: Hematocrit 39.8 % (37.0-47.0); Hemoglobin 12.9 g/dl (12.0-16.0); Mean Corpuscular HGB Conc 32.4 g/dl (31.0-35.0); Mean Corpuscular Hemoglobin 28.7 pg (27.0-33.0); Mean Corpuscular Volume 88.4 fL (80.0-98.0); Mean Platelet Volume 9.2 fL (9.4-12.3); Platelet Count 665 X10*3/uL (160-400); Red Cell Distribution Width 14.2 % (11.0-16.0); White Blood Count 13.3 X10*3/uL (4.8-10.8)
[2023-12-24] MEDS: cefTRIAXone sodium 1 GM in 0.9 % Sodium Chloride 50 ML IV (09:31)
[2023-12-24 09:39] LABS: Anion Gap 16 (12-20); Blood Urea Nitrogen 17 mg/dL (9-16); Calcium 10.1 mg/dL (8.4-10.2); Carbon Dioxide 27 mmol/L (22-29); Chloride 96 mmol/L (96-108); Creatinine Clr Calc Pharmacy 93.4; Estimated Glomerular Filt Rate > 60; Glucose Random 122 mg/dL (60-115); Potassium 4.3 mmol/L (3.3-5.1); Sodium 135 mmol/L (135-145)
--- NOTE | 2023-12-24 11:03 | PM.DS ---
DS: Providers Provider Date of Service: 12/24/23 Date of admission: 12/16/23 13:36 Date of discharge: 12/24/23 Primary care physician: Samantha Flores MD Consults: 12/21/23 07:15 Consult to Pulmonology Routine Consulting Provider: [facility] Reason for consultation: pna, hypoxia DS: Diagnosis Discharge Diagnosis (1) Acute respiratory failure with hypoxia: Status: Acute (2) COPD with hypoxia: Status: Acute (3) Pneumonia: Status: Acute (4) Sepsis: Status: Acute DS: Summary Hospital Course Hospital Course: Admission note HPI 63-year-old female with history of COPD, interstitial lung disease, hyperlipidemia, PTSD, depression presented to the ED earlier today for evaluation of upper respiratory symptoms ongoing for 3 days. She states that for the last 3 days she has had a cough productive of yellow sputum, fevers up to 101.5, congestion, shortness of breath both at rest with exertion as well as orthopnea and wheezing. She has used her albuterol inhaler with increased frequency and limited results. Denies any sore throat, abdominal pain, nausea, vomiting, diarrhea, urinary symptoms, palpitations, lightheadedness, chest pressure. She is endorsing pleuritic chest pain bilaterally. No edema or weight gain. Denies any sick contacts at home. She was initially seen at her PCP office where she was satting at 81% and sent to the ED. On arrival, she was hypoxic to the low 80s and started on 4 L supplemental O2, now maintaining oximetry 91-93%. She has been febrile to 101.2 and tachycardic as well as tachypneic. No hypotension she has a leukocytosis of 13.0. Renal function normal, electrolyte levels normal except for sodium 133. Troponin undetectable. BNP 51. VBG with pH 7.55, pCO2 27, bicarb 24. Ethyl alcohol undetectable. Negative for COVID-19, RSV, influenza. Chest CTA negative for PE but shows extensive parenchymal infiltrates likely pneumonia. She denies any ongoing alcohol use, cigarette use, illicit drug use but does endorse using marijuana products. In the ED, has been given IV ceftriaxone, doxycycline, multiple nebulizer treatments, 2 L IVF and has been loaded with 125 mg methylprednisolone. Hospital course The patient was treated for Sepsis and acute hypoxic respiratory failure secondary to pneumonia and COPD with acute decompensation as chest images were concerning for possible pneumonia. Treated with Ceftriaxone azithromycin initiated 12/17/23, along with IV steroids, bronchodilator nebulizers and IV lasix as she was evaluated by pulmonology who recommended to continue current therapy. Negative strep, resp viral panel, blood cultures. repeated CXR showed mild improvement bilateral opacities and effusion. She was on high O2 requirements of 10L at rest. titrated down to 2L at rest and 6L with ambulation to maintain O2 above 90. denies any dyspnea or shortness ofbreath. She will need Home O2 at time of discharge. Nebulizer machine will be provided along with Duonebs. She will be discharged on Azithromycin and Ceftin for 5 more days. Discharge plan Take Azithromycin and Ceftin as prescribed Tapering dose prednisone Use nebulizer 3-4 times daily for the next 5 days then as needed continue to wean down O2 supplement as tolerated Increase physical activity as tolerated Follow with dr Javier in office Time Attestation Discharge Coordination Time (in mins): 38 Quality: Safe Use of Opioids Does Pt have an Active Cancer Diagnosis on the Problem List?: No Quality: Stroke Does the patient have a stroke diagnosis?: No Physical Exam Vital Signs: Vital Signs: Last Vital Signs Temp 98.7 F 12/24/23 07:43 Pulse 67 12/24/23 07:43 Resp 17 12/24/23 07:43 BP 125/82 12/24/23 08:04 Pulse Ox 92 12/24/23 07:43 O2 Del Method Nasal Cannula 12/24/23 07:43 O2 Flow Rate 3 12/24/23 07:43 Oxygen Flow Rate 4 12/16/23 09:00 BMI result Body Mass Index 28.7 Const: Other: Constitutional : Awake, interactive Neck : Normal inspection, Supple Cardiovascular : RRR, no JVP, no lower extremity edema Respiratory : fair bilateral air entry, no crackles, no wheezes on 2L O2 Gastrointestinal: soft, lax, Normal bowel sounds, Non tender Skin : Warm, Dry Neurological : Alert & oriented x3, No focal deficit DS: Data Data Completed and Pending Labs on day of discharge: Laboratory Results - last 24 hr 12/24/23 08:53 WBC 13.3 H RBC 4.50 D Hgb 12.9 D Hct 39.8 D MCV 88.4 MCH 28.7 MCHC 32.4 RDW 14.2 Plt Count 665 H D MPV 9.2 L Absolute Nucleated RBC 0.000 Nucleated RBC % (auto) 0.0 Sodium 135 Potassium 4.3 Chloride 96 Carbon Dioxide 27 Anion Gap 16 BUN 17 H Creatinine 0.70 Estim Creat Clear Calc 93.4 Estimated GFR > 60 Random Glucose 122 H Calcium 10.1 D Imaging Chest x-ray: Radiologist's impression: ITS Impressions Chest CTA 12/16/23 10:00 IMPRESSION: Extensive parenchymal infiltrates likely pneumonia. No PE VTE: Negative Fleischner guidelines were followed. Electronically signed by: Larry Salinas MD 12/16/2023 11:26 AM EDT RP Chest X-Ray 12/23/23 08:10 IMPRESSION: Probable slight improvement in the patchy bilateral airspace opacities. Probable trace right pleural effusion. No dense focal consolidation. Electronically signed by: Mitchel Maguire MD 12/23/2023 09:12 AM EDT RP Discharge Plan Discharge Anticipated Discharge Date/Time: 12/24/23 10:51 Patient Disposition: Home Health Service Discharge Diagnosis: Hypoixa, Pneumonia ILD & COPD exacerbation Referrals: Samantha Flores MD [Primary Care Provider] - 1 Week Discharge Medications: New dextromethorphan-guaifenesin 10-100 mg/5 mL Syrup 5 ml PO Q4H PRN (Reason: Cough) Qty: 237 1RF azithromycin 500 mg tablet 500 mg PO DAILY 5 Days Qty: 5 0RF cefuroxime axetil 500 mg tablet 500 mg PO BID Qty: 10 0RF prednisone 10 mg tablet See Taper PO DIRECTED Qty: 30 0RF Taper: Prednisone 40 mg daily for 3 Days and 0 Hour 30 mg daily for 3 Days and 0 Hour 20 mg daily for 3 Days and 0 Hour 10 mg daily for 3 Days and 0 Hour Rx Instructions: see taper instructions ipratropium-albuterol 0.5 mg-3 mg(2.5 mg base)/3 mL solution for nebulization 3 ml inhalation QID PRN (Reason: Dyspnea, Wheezing) Qty: 180 1RF Continued albuterol sulfate 90 mcg/actuation HFA aerosol inhaler 2 puff inhalation Q6H PRN (Reason: shortness of breath or wheezing) Qty: 8.5 5RF rosuvastatin 20 mg tablet 20 mg PO BEDTIME Qty: 90 3RF mometasone-formoterol 200-5 mcg/actuation HFA aerosol inhaler 2 puff PO BID Qty: 13 5RF clonazepam 0.5 mg tablet 0.5 mg PO DAILY clonazepam 0.5 mg tablet 1 mg PO DAILY@1500 cyanocobalamin (vitamin B-12) [Vitamin B-12] 100 mcg Tablet 100 mcg PO DAILY Incruse Ellipta 62.5 mcg/actuation blister with device 1 inh PO DAILY Qty: 90 3RF prazosin 1 mg Capsule 1 mg PO BEDTIME 30 Days Qty: 30 0RF Protocol: Hold for SBP< HOLD for SBP < : 90 aripiprazole 5 mg tablet 5 mg PO DAILY fluoxetine 40 mg capsule 80 mg PO DAILY bupropion HCl 150 mg tablet sustained-release 12 hr 150 mg PO BID Myrbetriq 25 mg tablet extended release 24 hr 25 mg PO DAILY Qty: 90 1RF quetiapine 100 mg tablet 100 mg PO BEDTIME Discharge Orders: Discharge Order (Routine); Ordered 12/24/23 Ordered By: Katelin Gonzalez Diet: Low salt diet Activity on Discharge: As tolerated Stand Alone Forms: Patient Portal Discharge page Print Language: Sami Care Plan Goals: Take Azithromycin and Ceftin as prescribed Tapering dose prednisone Use nebulizer 3-4 times daily for the next 5 days then as needed continue to wean down O2 supplement as tolerated Increase physical activity as tolerated Follow with dr Javier in office Health Concerns: COPD, ILD, Pneumonia Plan of Treatment: Read below Assessment: Read below
--- NOTE | 2023-12-24 11:15 | W.MHC.F2F ---
Service Date Service Date: 12/24/23 Encounter Date of encounter: 12/24/23 Reasons for Services Signs and symptoms assessed: [place] O2 New Nebulizer Reason for long term: medication management and teach disease management Reason for physical therapy: home safety and mobility and therapeutic exercises Homebound: Leaving the home is medically contraindicated at this time without the asist of a device and/or another person due th the listed conditions above and below. Reason homebound: shortness of breath with minimal effort and other Certification: Based on the above findings, I certify that this patient is confined to the home and needs intermittent long term care, physical therapy and/or speech therapy, or continues to need occupational therapy. The patient is under my care, and I have initiated the establishment of the plan of care. The patient will be followed by a physician who will periodically review the plan of care. Time Spent With Patient Time: Total time managing care of this patient today ____ minutes.
--- NOTE | 2023-12-24 11:18 | MHC.CM.PN ---
IMM 12/24/23 Patient is discharged to home today. [facility] has been referred at patients request. New home O2 will be provided by [facility]. Patients spouse will provide transportation home. Respiratory will arrange home O2 and Nebulizer machine delivery.
[2023-12-24] MEDS: Albuterol/Iprat 2.5/0.5MG 3 ML AMPUL.NEB INHALE (11:36)
[2023-12-24 11:37] VITALS: PULSE 67; RESP 18; O2SAT 90
[2023-12-26 08:18] LABS: Legionella Ag Urine Not Detected (Not Detected)
== END 2023-12-24 11:59 | disposition home health service (06) | DRG 871 ==
LOC: HO.ED 11:38 → HO.EDOVER 14:01 → HO.S3 12-17 10:38
PROVIDERS: Internal Medicine; Admitting Provider Physician Assistant; Emergency Provider Student in an Organized Health Care Education/Training Program; PCP Internal Medicine; Visit Provider Student in an Organized Health Care Education/Training Program
DX: A41.9 Sepsis, unspecified organism (principal); J18.9 Pneumonia, unspecified organism; J96.01 Acute respiratory failure with hypoxia; J98.2 Interstitial emphysema; F43.10 Post-traumatic stress disorder, unspecified; E78.5 Hyperlipidemia, unspecified; F10.10 Alcohol abuse, uncomplicated; Z20.822 Contact with and (suspected) exposure to COVID-19; Z79.899 Other long term (current) drug therapy
CPT/HCPCS: 0241U; 36415; 71045; 71275; 80048; 80053; 80076; 80307; 82248; 82803; 83605; 83690; 83735; 83880; 84484; 85025; 85027; 87040; 87070; 87205; 87449; 87633; 87899; 93005; 94640; 99212; 99285; J0456; J0696; J1650; J1940; J2919; Q9967

== ENCOUNTER → 2023-12-16 13:36 | Outpatient (BNV) | payer OTHER, SELFPAY | PROVIDERS: Admitting Provider Physician Assistant; Emergency Provider Student in an Organized Health Care Education/Training Program; PCP Internal Medicine; Visit Provider Internal Medicine Pulmonary Disease | DX: J18.9 Pneumonia, unspecified organism (principal); J96.01 Acute respiratory failure with hypoxia; J41.8 Mixed simple and mucopurulent chronic bronchitis | CPT/HCPCS: 99222 ==

== ENCOUNTER → 2023-12-16 13:36 | Outpatient (BNV) | payer OTHER, SELFPAY | PROVIDERS: Admitting Provider Physician Assistant; Emergency Provider Student in an Organized Health Care Education/Training Program; PCP Internal Medicine; Visit Provider Physician Assistant | DX: J96.01 Acute respiratory failure with hypoxia (principal); J44.1 Chronic obstructive pulmonary disease with (acute) exacerbation; J18.9 Pneumonia, unspecified organism | CPT/HCPCS: 99223; 99232; 99233; 99239; G0180 ==

== ENCOUNTER 2024-01-18 08:59 | Outpatient (AMB) | payer OTHER, SELFPAY ==
--- NOTE | 2024-01-18 08:40 | A.OFFVIS_ITS ---
Vital Signs 01/18/24 09:16 Height 5 ft 7 in Weight 185 lb 3.013 oz BMI 29.0 BP 116/68 Blood Pressure Location Lt brachial Position Sitting Pulse 74 Pulse Source Pulse Oximeter Pulse Oximetry (%) 96 Oxygen Delivery Method Room Air Intake Visit Reasons: pneumonia/copd Allergies nut - unspecified Allergy (Severe, Verified 01/18/24 09:18) Anaphylaxis shellfish derived Allergy (Severe, Verified 01/18/24 09:18) Anaphylaxis tree nut Allergy (Verified 01/18/24 09:18) Tongue swelling, tongue itching. HPI HPI pneumonia/copd: Details: Gay is a pleasant 63-year-old female, former smoker, quit 2013 with 35+ pyh with underlying interstitial lung disease, hyperlipidemia and PTSD. At baseline she is moderately controlled on Dulera, Incruse and albuterol MDI. She is under the care of Dr. Javier and presents today for a hospital follow up. [place] [facility] [place] for acute respiratory failure with hypoxia secondary to bilateral PNA and COPD exacerbation. She initially presented to ED with productive cough with yellow sputum, fevers up to 101.5, congestion, pleuritic discomfort, shortness of breath both at rest with exertion as well as orthopnea and wheezing for the prior three days. She has used her albuterol inhaler with increased frequency and limited results. She was initially seen at her PCP office where she was satting at 81% and sent to the ED. On arrival, she was hypoxic in the low 80s and started on 4 L supplemental O2, maintaining oximetry 91-93%. She has been febrile to 101.2 and tachycardic as well as tachypneic. Leukocytosis of 13.0, negative for COVID-19, RSV, influenza and blood cultures negative. Chest CTA negative for PE but shows extensive parenchymal infiltrates likely pneumonia.During her hospital course she was treated with IV ceftriaxone, doxycycline, bronchodilator nebulizer treatments, IV steroids and methylprednisolone. She was discharged on 12/23 on prednisone, azithromycin 500 mg x 5 days as well as cefuroxime. She was initially on high O2 requirements of 10L at rest however titrated down to 2L at rest and [facility] Since discharge she reports significant improvements in symptoms, continues with baseline dyspnea and minimal cough. She denies fevers or chills. [facility] Medical History (Updated 01/18/24 @ 16:31 by Kayla Spears NP) ILD (interstitial lung disease) COPD (chronic obstructive pulmonary disease) Emphysema lung History of foot fracture Personal history of nicotine dependence Pulmonary nodules PNA (pneumonia) Normal breast exam Colonoscopy refused Hyperlipidemia Recurrent pleural effusion PTSD (post-traumatic stress disorder) Depression Surgical History History of hand surgery History of lung surgery Family History Father No problems noted. Mother No problems noted. Social History Household Members: Significant Other Household Members Other:: Spouse Housing: Condominium Do you presently have visiting nurse or other home services: No Alcohol intake: current Alcohol intake frequency: holidays/special occasions only Comment: for oxymask only Patient Tobacco Use Status: Former Tobacco user Tobacco use type: Cigarette Years Smoked: 35 e-Cigarette/Vaping Use: Never Used Second Hand Smoke Exposure: No Substance Use Type: Marijuana Advance Directives Date on File: 02/04/21 service: No Current occupational status: retired Sexual orientation: Straight/Heterosexual Cognitive needs: No Hearing needs: No Vision needs: Yes Review of Systems Const Denies chills, Denies excessive sweating, Denies fever(s), Denies headache(s) a nd Denies night sweats Eyes Denies dry eyes, Denies irritation and Denies itchy eyes ENT Reports Normal hearing present, Denies headache(s), Denies nasal congestion, Denies nasal discharge, Denies post nasal drip and Denies sore throat Card Denies chest pain, Denies chest pain at rest, Denies chest pain with activity, Denies claudication, Denies leg edema, Denies orthopnea and Denies paroxysmal nocturnal dyspnea Resp Denies chest congestion, Denies excessive phlegm production, Denies pain on ins piration, Denies pain with cough, Denies stridor and Denies wheezing Musc Denies myalgias Neuro Reports Normal hearing present and Denies headache(s) Endo Denies excessive sweating Perry/Lymph Denies lymphadenopathy Aller/Immun Denies itchy eyes, Denies seasonal rhinorrhea and Denies wheezing Physical Exam Vital Signs: Last Vital Signs Pulse 74 01/18/24 09:16 BP 116/68 01/18/24 09:16 Pulse Ox 96 01/18/24 09:16 Oxygen Delivery Method Room Air 01/18/24 09:16 BMI result Body Mass Index 29.0 Const General: cooperative, healthy appearing, comfortable, no acute distress, well developed and alert Nutritional Appearance: obese Orientation/consciousness: patient oriented x3 Limitations: no limitations HEENT Head: Yes normal to inspection, Yes normocephalic and Yes atraumatic Ears: hearing grossly normal bilaterally and external ears normal Eyes General: appearance normal, both eyes and all related structures Eyelids: Yes eyelids normal Sclerae: sclerae normal EOM: EOMs intact bilaterally Neck Neck: Yes normal visual inspection and Yes no lymphadenopathy Lymphatic: no lymphadenopathy noted Chest Chest palpation & inspection: normal inspection of the chest Resp Effort & Inspection: normal respiratory effort, able to speak in complete sentences, no audible wheezes, no cough, no stridor, not tachypneic, no tripod positioning and no use of accessory muscles Auscultation: diminished lung sounds Cardio Jugular venous distension: no JVD Rate: regular rate Rhythm: regular rhythm Skin Other: warm, dry General skin exam: no rashes or lesions noted Neuro General: patient oriented x3 Cranial nerves: Yes Normal hearing present Cognition (Neuro): normal cognition Gait exam (Neuro): Normal gait present Extrem General: Yes normal to inspection, Yes capillary refill normal, Yes no clubbing, cyanosis or edema and Yes no pedal edema Psych Appearance: grossly normal and well kempt Speech and movement: Normal speech and movement present and Clear speech present Affect: normal affect Attitude: cooperative Thought process: Normal thought process present Thought content: Normal thought content present Insight: Good insight present (Psych) Judgement: Good judgement present (Psych) Office Procedures 6 Minute Walk Time:: 09:52 SPO2 % at rest: 96 Pulse at rest: 76 SPO2 % during excercise: 93 Pulse during excercise: 96 SPO2 % after excercise: 94 Pulse after excercise: 93 Distance in yards walked: 75 Nicolasa Score: 2 Performance Observations:: Patient walked unassisted on level ground. Patient maintained O2 saturation of 93% or greater for the duration with pulse rate in the 90's. Denies shortness of breath/ respiratory distress. Patient reports she tires easily after recent hospitalization. Supplemental O2 was not needed. [address] - 6 Minute Walk Results Reviewed Results Reviewed: [address] [address] [address] Scan Report Signed Patient: Gay Hutchison MR#: [id number] : 1960 Acct:[id number] Age/Sex: 63 / F ADM Date: 12/16/23 Loc: .ED Attending Dr: Ordering Physician: Elkin Miller DO Date of Service: 12/16/23 Procedure(s): CT angio chest PE protocol Accession Number(s): [id number] cc: Samantha Flores MD; Elkin Miller DO~ EXAMINATION: CT ANGIOGRAM CHEST CLINICAL INFORMATION: Hypoxia and tachycardia COMPARISON: 06/04/2023 TECHNIQUE: Multiple axial images were obtained through the chest after the administration of 80 mL of Omnipaque 350 intravenous contrast. Extensive vascular post-processing including two-dimensional and three-dimensional reformatted images were created and reviewed on an independent workstation. This CT examination was performed using dose optimization techniques as appropriate, variously including the following: *Automated exposure control *Adjustment of mA and/or kV according to patient size (this includes techniques or standardized protocols for targeted exams where dose is matched to indication/reason for exam; i.e. extremities or head) *Use of iterative reconstruction technique DLP: 343 mGy-cm FINDINGS: Extensive alveolar infiltrates are seen throughout the left mid and lower lung and right lower lung likely reflective of a pneumonia. The lungs also have a somewhat mild underlying fibrotic appearance. No suspicious masses. Heart size is normal. No pericardial effusion. There is normal contrast enhancement in the great vessels of the mediastinum. No evidence for acute PE. Multiple small mediastinal nodes are present, the largest near the aortic arch, at 13 mm. No pneumothorax. No pleural effusion. Images through the upper abdomen show enlarged fatty liver. Adrenals unremarkable. CT/CT angio chest PE protocol IMPRESSION: Extensive parenchymal infiltrates likely pneumonia. No PE VTE: Negative Fleischner guidelines were followed. Electronically signed by: Larry Salinas MD 12/16/2023 11:26 AM EDT Dictated By: Larry Salinas MD Signed By: <Electronically signed by Larry Salinas MD in OV> 12/16/23 1126 DD/ 1000 TD/TT: 12/16/23 1034 Material Handling Technician: Assessment & Plan Assessment & Plan (1) History of recent pneumonia: Code(s): Z87.01 - Personal history of pneumonia (recurrent) Category: Medical (2) Pulmonary nodules: Comment: (stable on 01/2020 LDCT) Code(s): R91.8 - Other nonspecific abnormal finding of lung field Category: Medical (3) COPD (chronic obstructive pulmonary disease): Code(s): J44.9 - Chronic obstructive pulmonary disease, unspecified Category: Medical Qualifiers: COPD type: chronic bronchitis Chronic bronchitis type: mixed simple and mucopurulent Qualified Code(s): J41.8 - Mixed simple and mucopurulent chronic bronchitis (4) ILD (interstitial lung disease): Code(s): J84.9 - Interstitial pulmonary disease, unspecified Category: Medical Plan Gay presents for hospital follow-up after recent admission for acute respiratory failure with hypoxia secondary to pneumonia and COPD exacerbation. Since discharge she reports significant improvements in symptoms. Advised to continue current regimen of Dulera, Incruse and DuoNeb. 6MWT performed and patient does not require supplemental oxygen at this time. Will send for overnight oximetry on room air to assess for nocturnal hypoxemia. Will also repeat chest CT in 8 weeks to assess for resolution of pneumonia. All questions were answered and patient in agreement of plan. Will follow-up with Dr. Javier in 3 months or sooner if needed. Orders: Orders AMB 6 minute walk Today Z87.01 - Personal history of pneumonia (recurrent) CT chest wo IV con 8 Weeks J84.9 - Interstitial pulmonary disease, unspecified, Z87.01 - Personal history of pneumonia (recurrent) Overnight Pulse Oximetry Today G47.34 - Idiopathic sleep related nonobstructive alveolar hypoventilation Coding Level of Care Code Est Pt Level 4 (52252) Complex EM visit Add On G2211 Diagnoses History of recent pneumonia Z87.01 Pulmonary nodules R91.8 Mixed simple and mucopurulent chronic bronchitis J41.8 COPD type: chronic bronchitis Chronic bronchitis type: mixed simple and mucopurulent ILD (interstitial lung disease) J84.9 CPT Codes Coding ([id number])
[2024-01-18 09:16] VITALS: BP 116/68; PULSE 74; O2SAT 96; BMI 29.0
[2024-01-18 10:13] VITALS: PULSE 76; O2SAT 96
== END 2024-01-18 10:00 | disposition home or self-care (01) ==
PROVIDERS: PCP Internal Medicine; Visit Provider Nurse Practitioner Family
DX: Z87.01 Personal history of pneumonia (recurrent) (principal); R91.8 Other nonspecific abnormal finding of lung field; J41.8 Mixed simple and mucopurulent chronic bronchitis; J84.9 Interstitial pulmonary disease, unspecified
CPT/HCPCS: 94618; 99214; G2211

== ENCOUNTER → 2024-01-18 08:59 | Outpatient (BNVA) | payer OTHER, SELFPAY | PROVIDERS: PCP Internal Medicine; Visit Provider Nurse Practitioner Family | DX: R91.8 Other nonspecific abnormal finding of lung field (principal); J41.8 Mixed simple and mucopurulent chronic bronchitis; J84.9 Interstitial pulmonary disease, unspecified; G47.34 Idiopathic sleep related nonobstructive alveolar hypoventilation; Z87.891 Personal history of nicotine dependence; Z87.01 Personal history of pneumonia (recurrent) | CPT/HCPCS: 94618; 99212 ==

== ENCOUNTER 2024-03-02 07:52 | Outpatient (REF) | payer OTHER, SELFPAY | END 2024-03-02 07:53 | disposition home or self-care (01) | LOC: HO.MAMMO 07:52 | PROVIDERS: PCP Internal Medicine; Visit Provider Internal Medicine | DX: Z12.31 Encounter for screening mammogram for malignant neoplasm of breast (principal) | CPT/HCPCS: 77063; 77067 ==

== ENCOUNTER → 2024-03-02 08:15 | Outpatient (BNV) | payer OTHER, SELFPAY | PROVIDERS: PCP Internal Medicine; Visit Provider Internal Medicine | DX: Z12.31 Encounter for screening mammogram for malignant neoplasm of breast (principal) | CPT/HCPCS: 77063; 77067 ==

== ENCOUNTER 2024-03-21 07:32 | Outpatient (REF) | payer OTHER, SELFPAY ==
--- NOTE | ~2024-03-21 | CT_ITS ---
CLINICAL HISTORY: J84.9 - Interstitial pulmonary disease, unspecified CT chest without IV contrast. COMPARISON: CT angiogram chest dated 12/16/23 at 10:00 EDT FINDINGS: Visualized thyroid is unremarkable. No supraclavicular or axillary lymphadenopathy. Ascending aorta and main pulmonary artery are normal in caliber. No pericardial effusion. Coronary artery calcifications present within the LAD, circumflex and RCA. Normal esophagus. Prominent right paratracheal lymph node measuring 1.1 cm (series 8, image 71), stable. Visualized portions of the upper abdomen are unremarkable. Layering atelectasis versus scarring along the lung bases bilaterally, similar to prior imaging. No pleural effusion. Trachea and central airways are clear. No significant bronchial wall thickening. No bronchiectasis. Suture material present along the lateral aspect of the right upper lobe. Multiple thin-walled cysts present within the upper lobes bilaterally with both centrilobular and paraseptal location. There is mild interlobular septal thickening most pronounced of the right lung apex. Findings are predominantly within the mid to upper lungs in the craniocaudal plane and while relatively diffuse in the axillary plane have mild anterior predominance. No air trapping. Right upper lobe subpleural 5 mm pulmonary nodule (series 8, image 75), previously measured 5 mm. Visualized portions of the upper abdomen are unremarkable. Mild spondylosis. No acute fracture or suspicious bone lesion. IMPRESSION: 1. 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 Recommend comparison with prior imaging if available. 2. Right upper lobe subpleural 5 mm pulmonary nodule, stable from prior imaging. Recommend comparison with more remote imaging if available. If none available, recommend follow-up imaging in 6-12 months. This document has been electronically signed by: Dieter Giles MD on 03/21/2024 13:24:01
== END 2024-03-21 07:33 | disposition home or self-care (01) ==
LOC: HO.CT 07:32
PROVIDERS: PCP Internal Medicine; Visit Provider Nurse Practitioner Family
DX: J44.9 Chronic obstructive pulmonary disease, unspecified (principal); Z87.01 Personal history of pneumonia (recurrent)
CPT/HCPCS: 71250

== ENCOUNTER → 2024-03-21 07:35 | Outpatient (BNV) | payer OTHER, SELFPAY | PROVIDERS: PCP Internal Medicine; Visit Provider Radiology Diagnostic Radiology | DX: J43.8 Other emphysema (principal); J84.178 Other interstitial pulmonary diseases with fibrosis in diseases classified elsewhere; R91.1 Solitary pulmonary nodule | CPT/HCPCS: 71250 ==

== ENCOUNTER 2024-04-20 08:06 | Outpatient (AMB) | payer OTHER, SELFPAY ==
--- OUTSIDE RECORDS SUMMARY | 2024-04-20 08:18 | XMS_ITS | Patient Health Record ---
Author Organization [facility] [address] Address [address] [place] [address] Care Team Providers Care Brand Strategy Manager Name Role Phone Samantha Flores MD Primary Care Provider Tabby Valdez Unavailable [phone] Allergies Allergen (clinical drug ingredient) Drug/Non Drug Allergy documented on EMR Reaction Allergy Type Onset Date Status shrimp allergenic extract Shrimp (Diagnostic) Throat and tongue swells Drug Allergy Active Shellfish (FN) Shellfish-derived Products Throat and tongue swells Drug Allergy Active Tree Nuts Unknown Allergy Active Reason For Referral No Information Medications Medication SIG (Take, Route, Frequency, Duration) Notes Start Date End Date Status Spiriva HandiHaler 18 MCG 1 capsule by i nhaling the contents of the capsule using the HandiHaler device Inhalation Once a day Not-Taking Albuterol Active Dulera Active Incruse Ellipta Acti ve Rosuvastatin Calcium Active Ammonium Lactate 12 % 1 application to affected area Externally to feet Twice a day for 30 days Active KlonoPIN Active Prozac Active Wellbutrin Active SEROquel 50 MG 1 tablet at bedtime Orally Once a day for 30 day(s) Active Abilify 5 MG 1 tablet Orally Once a day for 30 day(s) Active Symbicort 80-4.5 MCG/ACT 2 puffs Inhalat ion Once a day Not-Taking Immunizations Vaccine Route Administration Date Status Comme nts COVID-19 Pfizer BioNTech Vaccine Unknown 05/30/2020 Administered Second Dose: 06/20/2020 Social History Tobacco Use: Social History Observation Description Date Details (start date - stop date) Never Smoker NA - NA Tobacco Use/Smoking Question Answer Notes Are you a: nonsmoker Alcohol Screen Question Answer Notes Did you have a drink containing alcohol in the p ast year? No Points 0 Interpretation Negative Tobacco use other than smoking: Question Answer Notes Are you an other tobacco user? No Plan Of Treatment No Information Insurance Providers Payer Name Payer Address Payer Phone Subscriber Number Group Number Insured Name Patient Relationship to Insured Coverage Start Date Coverage End Date [facility] [employer] Claims [address] [place] [id number] [phone] [id number] Gay Stephen Self - patient is the insured Medical (General) History Medical History History ICD Code asthma Anxiety Lung disease Depression Chicken pox ptsd Surgical History Surgery Date(Month/Year) lung surgery 2014
--- OUTSIDE RECORDS SUMMARY | 2024-04-20 08:18 | XMS_ITS | Encounter Summary ---
Author Organization [employer] Address [address] [address] [place] [address] Care Team Providers Care Art Gallery Internship Name Role Phone Unavailable Primary Care Provider Unavailabl e Encounter Details Date Type Department Care Team (Latest Contact Info) Description 05/25/2019 Abstract [facility] CONVERSIONS Dental, Provider, DDS Social History Tobacco Use Types Packs/Day Years Used Date Smoking Tobacco: Never Assessed Comments Unknown Sex and Gender Information Value Date Recorded Sex Assigned at Not on file Legal Sex Female 5:37 PM EDT Gender Identity Not on file Sexual Orientation Not on file documented as of this encounter Plan of Treatment Not on file documented as of this encounter Visit Diagnoses Not on filedocumented in this encounter
--- OUTSIDE RECORDS SUMMARY | 2024-04-20 08:18 | XMS_ITS | Clinical Summary ---
Author Organization [employer] Address [address] [facility] [address] [place] [address] Care Team Providers Care Side Seam Tender Name Role Phone Unavailable Primary Care Provider Unavailabl e Social History Tobacco Use Types Packs/Day Years Used Date Smoking Tobacco: Never Assessed Comments Unknown Sex and Gender Information Value Date Recorded Sex Assigned at Not on file Legal Sex Female 5:37 PM EDT Gender Identity Not on file Sexual Orientation Not on file Plan of Treatment Health Maintenance Due Date Last Done Comments CT Colonography 1960 Colonoscopy 1960 Colorectal Cancer Screening 1960 Depression Screening 1960 FIT DNA/Cologuard 1960 FIT 1960 FOBT 1960 Sigmoidoscopy 1960 Alcohol/Substance Use Screening 1974 Tobacco Screening 1974 DTaP/Tdap/Td Vaccines (1 - Tdap) 1981 Pap Smear 07/24/1983 Cervical Cancer Screening 1992 HPV/Cotest 1992 Mammogram 2002 Zoster Vaccines (1 of 2) 2012 COVID-19 Vaccine ( - 2023-2 5 season) 2023 Influenza Vaccine (#1) 2023 RSV Patients and Pa tients Aged 60 years or older (1 - 1-dose 75+ series) 2037 HIB Vaccines Aged Out No longer eligi ble based on patient's age to complete this topic HPV Vaccines Aged Out No longer eligi ble based on patient's age to complete this topic Hepatitis A Vaccines Aged Out No long er eligible based on patient's age to complete this topic Hepatitis B Vaccines Aged Out No long er eligible based on patient's age to complete this topic IPV Vaccines Aged Out No longer eligi ble based on patient's age to complete this topic Meningococcal Vaccine Aged Out No laura dave eligible based on patient's age to complete this topic Pneumococcal Vaccine: Pediat rics (0 to 5 Years) and At-Risk Patients (6 to 49) Years) Aged Out No longer eligible b ased on patient's age to complete this topic RSV under 20 months Aged Out No longe r eligible based on patient's age to complete this topic Rotavirus Vaccines Aged Out No longer eligible based on patient's age to complete this topic
--- OUTSIDE RECORDS SUMMARY | 2024-04-20 08:18 | XMS_ITS | Encounter Summary ---
Author Organization [employer] Address [address] [facility] [address] [place] [address] Care Team Providers Care Coil Binder Name Role Phone Unavailable Primary Care Provider Unavailabl e Encounter Details Date Type Department Care Team (Latest Contact Info) Description 05/18/2019 Abstract [facility] CONVERSIONS Dental, Provider, DDS Social [...]
[2024-04-20 08:19] VITALS: BP 122/72; PULSE 78; O2SAT 98; BMI 29.5
--- NOTE | 2024-04-20 08:19 | A.OFFVIS_ITS ---
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 HPI Comments Details: The patient is a 63-year-old woman with a known history of tobacco dependency COPD with recent hospitalization with a COPD exacerbation and bilateral pneumonia. The patient was treated with antibiotics in addition to prednisone and respiratory therapy. She did require oxygen supplementation and she was discharged on 3 L. the patient overall has been feeling better since she was discharged from the hospital. She continues her respiratory therapy which includes Dulera and Increase. She has a short-acting beta agonists that she has not required. In the office we did take her off the oxygen. We did ambulate her on room air she maintain a saturation of 95% throughout the ambulation after walking more than 300 m. her dyspnea score also stable around 3/10. At this point the patient does not need portable oxygen. Will request from [employer] to do an overnight oximetry in order to see if she no longer needs oxygen while sleeping. If her test is negative then we can have the oxygen discontinued. did the patient does have a smoking history. She was participating in the lung cancer screening program at [facility]. She would rather follow up with the program here specially since she is within the system. Therefore will make arrangements for her to be referred to the lung cancer screening program here at [facility]. We did review her last CT scan of the chest that she had at [facility]. the patient does have evidence of scarring and atelectasis at the bases with some thickening of the pleura. She does describe that she had chest tubes in the past for severe pneumonia. In addition to that she does have stable pulmonary nodules. undergo a daily low-dose CT scan of the chest as part of the lung cancer screening program. It demonstrated some [id number] amount of emphysema in addition to some interstitial changes likely residual from her pneumonia and or some degree of pneumonitis. Therefore, which has the opportunity will do additional blood work to assessing for pneumonitis. Otherwise she will continue with current respiratory regimen. 09/30/2021 the patient is here for a pulmonary follow-up visit. She is feeling better at this time. The patient had a recent exacerbation. She bonded well to the Dulera and to the Incruse. She does use it regularly. She has she has been better she has not had to use her rescue inhaler. We did review her last CT scan of the chest was back in February 2021 as part of the lung cancer screening program. The patient did have evidence of some emphysema in addition to interstitial lung disease. She also has pulmonary nodules. Will plan to repeat the CT scan in February 2022 as part of the lung cancer screening program. If the patient has any progression of the interstitial lung disease then further diagnostic testing will be warranted. I am hopeful though that the findings have been stable or improved. 04/08/2022 the patient is here for a pulmonary follow-up visit. Overall the patient has been doing well. She continues on the Dulera and Incruse. She has not required her rescue inhaler. She does complaint of dyspnea on exertion. Primarily when going up a flight of stairs. Mild in severity. She now quit smoking. Although she is smoking marijuana. The patient had her last CT scan back in February 2021. This part of the lung cancer screening program. She has yet to have her follow-up CT scan. I did send a message to the lung cancer screening program to make sure that she gets scheduled. The patient otherwise is without any other complaints. She will follow-up in 1 year. 04/14/2023 the patient is here for a pulmonary follow-up visit. She continues to do well on current respiratory regimen including Dulera and Incruse. She does rinse her mouth well. She has not had to use rescue inhaler often. She has not had any recent sickness. She has been vaccinated for COVID flu and also pneumonia. She will get the RSV vaccine soon. I did encourage her to do so. She quit smoking altogether which is reassuring. I believe still some medical marijuana use. In the meantime the patient is participating in the lung cancer screening program and we did look at her last scans from April 2022. It demonstrated some degree of emphysematous changes and scarring postoperative changes. She will be having her scan in April 2023. The patient is doing well on current therapy she is going to increase his exercise therapy. Will f ollow-up in a year's time or sooner if any other issues arise. 04/20/2024 the patient is here for pulmonary follow-up visit. Overall she is doing well. She continues use respiratory inhalers as prescribed. Back in the fall she did get admitted to the hospital with acute respiratory failure and multilobar pneumonia. She also had pleural effusions requiring drainage. Her serology and microbiology was all negative for any organisms. She was treated with antibiotics. Ultimately had a repeat CT scan of the chest in 03/11/2024 which I also personally reviewed with her. The pneumonias of subsided although a left her with some areas of scarring. She also has emphysematous changes and other patchy areas. She is also being followed by the lung cancer screening program. The patient has oxygen at home which she is not using with discontinued right now. Will go ahead and get blood work to assess her immune system. The patient will follow-up in 6 months with PFTs. She is wondering about traveling to [place] believe does okay but will let her know further after her PFTs. [facility] Medical History (Updated 04/20/24 @ 08:29 by Dwaine Javier MD) PNA (pneumonia) Osteopenia ILD (interstitial lung disease) COPD (chronic obstructive pulmonary disease) Emphysema lung History of foot fracture Personal history of nicotine dependence Pulmonary nodules Normal breast exam Colonoscopy refused Hyperlipidemia Recurrent pleural effusion PTSD (post-traumatic stress disorder) Depression Surgical History History of hand surgery History of lung surgery Family History Father No problems noted. Mother No problems noted. Social History Household Members: Significant Other Household Members Other:: Spouse Housing: Condominium Do you presently have visiting nurse or other home services: No Alcohol intake: current Alcohol intake frequency: holidays/special occasions only Comment: for oxymask only Patient Tobacco Use Status: Former Tobacco user Tobacco use type: Cigarette Years Smoked: 35 e-Cigarette/Vaping Use: Never Used Second Hand Smoke Exposure: No Substance Use Type: Marijuana Advance Directives Date on File: 02/04/21 service: No Current occupational status: retired Sexual orientation: Straight/Heterosexual Cognitive needs: No Hearing needs: No Vision needs: Yes Review of Systems Const Denies night sweats ENT Denies change in voice, Denies lip swelling, Denies mouth pain, Denies nasal congestion, Reports nasal discharge and Denies tongue swelling Card Denies chest pain and Reports dyspnea on exertion Resp Denies chest congestion, Reports cough, Reports dyspnea on exertion and Denies wheezing GI Denies abdominal pain Musc Denies no additional complaints Neuro Denies Neuro-related abnormal movements Psych Denies no additional complaints Perry/Lymph Denies easy bleeding and Denies lymphadenopathy Aller/Immun Denies lip swelling, Denies tongue swelling and Denies wheezing Physical Exam Vital Signs: Last Vital Signs Pulse 78 04/20/24 08:19 BP 122/72 04/20/24 08:19 Pulse Ox 98 04/20/24 08:19 Oxygen Delivery Method Room Air 04/20/24 08:19 BMI result Body Mass Index 29.5 Const General: alert Neck Neck: Yes normal visual inspection, Yes full ROM and Yes no lymphadenopathy Chest Chest palpation & inspection: normal inspection of the chest Resp Effort & Inspection: normal respiratory effort Auscultation: no rales, no rhonchi, no wheezes and diminished lung sounds Cardio Rate: regular rate Rhythm: regular rhythm Heart sounds: S1 normal heart sound present and S2 normal heart sound present GI Palpation (GI): Soft to palpation and nontender Auscultation: normal bowel sounds Skin General skin exam: rashes and/or lesions noted Assessment & Plan Assessment & Plan (1) COPD (chronic obstructive pulmonary disease): Code(s): J44.9 - Chronic obstructive pulmonary disease, unspecified Category: Medical Qualifiers: COPD type: chronic bronchitis Chronic bronchitis type: mixed simple and mucopurulent Qualified Code(s): J41.8 - Mixed simple and mucopurulent chronic bronchitis (2) Pulmonary nodules: Comment: (stable on 01/2020 LDCT) Code(s): R91.8 - Other nonspecific abnormal finding of lung field Category: Medical (3) ILD (interstitial lung disease): Code(s): J84.9 - Interstitial pulmonary disease, unspecified Category: Medical (4) PNA (pneumonia): Comment: [place] Code(s): J18.9 - Pneumonia, unspecified organism Category: Medical Plan Continue Dulera and Incruse GLADIS as needed LDCT Bloodwork smoking cessation, No longer smoking cigarettes F/U 6-8 months Orders: Orders Immunoglobulins,IgG IgA IgM Today J18.9 - Pneumonia, unspecified organism Immunoglobulin E Today J18.9 - Pneumonia, unspecified organism Erythrocyte Sedimentation Rate Today J18.9 - Pneumonia, unspecified organism Vitamin D 1,25 dihydroxy Today J18.9 - Pneumonia, unspecified organism Coding Level of Care Code Est Pt Level 4 (13432) Diagnoses Mixed simple and mucopurulent chronic bronchitis J41.8 COPD type: chronic bronchitis Chronic bronchitis type: mixed simple and mucopurulent Pulmonary nodules R91.8 ILD (interstitial lung disease) J84.9 PNA (pneumonia) J18.9 Time Spent (min) 17
== END 2024-04-20 08:35 | disposition home or self-care (01) ==
PROVIDERS: PCP Internal Medicine; Visit Provider Hospitalist
DX: J41.8 Mixed simple and mucopurulent chronic bronchitis (principal); R91.8 Other nonspecific abnormal finding of lung field; J84.9 Interstitial pulmonary disease, unspecified
CPT/HCPCS: 99214

== ENCOUNTER → 2024-04-20 08:06 | Outpatient (BNVA) | payer OTHER, SELFPAY | PROVIDERS: PCP Internal Medicine; Visit Provider Hospitalist | DX: J41.8 Mixed simple and mucopurulent chronic bronchitis (principal); J84.9 Interstitial pulmonary disease, unspecified; R91.8 Other nonspecific abnormal finding of lung field; Z99.81 Dependence on supplemental oxygen | CPT/HCPCS: 99212 ==

== ENCOUNTER 2024-10-18 09:46 | Outpatient (AMB) | payer OTHER, SELFPAY ==
--- NOTE | 2024-10-18 09:53 | A.OFFVIS_ITS ---
Vital Signs 10/18/24 09:54 Height 5 ft 7 in Weight 189 lb 9.561 oz BMI 29.7 BP 130/64 Blood Pressure Location Lt brachial Position Sitting Pulse 73 Pulse Source Pulse Oximeter Pulse Oximetry (%) 97 Oxygen Delivery Method Room Air Intake Visit Reasons: COPD Perinatal Social Worker Required: No Allergies nut - unspecified Allergy (Severe, Verified 10/18/24 09:57) Anaphylaxis shellfish derived Allergy (Severe, Verified 10/18/24 09:57) Anaphylaxis tree nut Allergy (Verified 10/18/24 09:57) Tongue swelling, tongue itching. HPI Comments Details: The patient is a 64-year-old woman with a known history of tobacco dependency COPD with recent hospitalization with a COPD exacerbation and bilateral pneumonia. The patient was treated with antibiotics in addition to prednisone and respiratory therapy. She did require oxygen supplementation and she was discharged on 3 L. the patient overall has been feeling better since she was discharged from the hospital. She continues her respiratory therapy which includes Dulera and Increase. She has a short-acting beta agonists that she has not required. In the office we did take her off the oxygen. We did ambulate her on room air she maintain a saturation of 95% throughout the ambulation after walking more than 300 m. her dyspnea score also stable around 3/10. At this point the patient does not need portable oxygen. Will request from [employer] to do an overnight oximetry in order to see if she no longer needs oxygen while sleeping. If her test is negative then we can have the oxygen discontinued. did the patient does have a smoking history. She was participating in the lung cancer screening program at [facility]. She would rather follow up with the program here specially since she is within the system. Therefore will make arrangements for her to be referred to the lung cancer screening program here at [facility]. We did review her last CT scan of the chest that she had at [facility]. the patient does have evidence of scarring and atelectasis at the bases with some thickening of t he pleura. She does describe that she had chest tubes in the past for severe pneumonia. In addition to that she does have stable pulmonary nodules. undergo a daily low-dose CT scan of the chest as part of the lung cancer screening program. It demonstrated some [id number] amount of emphysema in addition to some interstitial changes likely residual from her pneumonia and or some degree of pneumonitis. Therefore, which has the opportunity will do additional blood work to assessing for pneumonitis. Otherwise she will continue with current respiratory regimen. 09/30/2021 the patient is here for a pulmonary follow-up visit. She is feeling better at this time. The patient had a recent exacerbation. She bonded well to the Dulera and to the Incruse. She does use it regularly. She has she has been better she has not had to use her rescue inhaler. We did review her last CT scan of the chest was back in February 2021 as part of the lung cancer screening program. The patient did have evidence of some emphysema in addition to interstitial lung disease. She also has pulmonary nodules. Will plan to repeat the CT scan in February 2022 as part of the lung cancer screening program. If the patient has any progression of the interstitial lung disease then further diagnostic testing will be warranted. I am hopeful though that the findings have been stable or improved. 04/08/2022 the patient is here for a pulmonary follow-up visit. Overall the patient has been doing well. She continues on the Dulera and Incruse. She has not required her rescue inhaler. She does complaint of dyspnea on exertion. Primarily when going up a flight of stairs. Mild in severity. She now quit smoking. Although she is smoking marijuana. The patient had her last CT scan back in February 2021. This part of the lung cancer screening program. She has yet to have her follow-up CT scan. I did send a message to the lung cancer screening program to make sure that she gets scheduled. The patient otherwise is without any other complaints. She will follow-up in 1 year. 04/14/2023 the patient is here for a pulmonary follow-up visit. She continues to do well on current respiratory regimen including Dulera and Incruse. She does rinse her mouth well. She has not had to use rescue inhaler often. She has not had any recent sickness. She has been vaccinated for COVID flu and also pneumonia. She will get the RSV vaccine soon. I did encourage her to do so. She quit smoking altogether which is reassuring. I believe still some medical marijuana use. In the meantime the patient is participating in the lung cancer screening program and we did look at her last scans from April 2022. It demonstrated some degree of emphysematous changes and scarring postoperative changes. She will be having her scan in April 2023. The patient is doing well on current therapy she is going to increase his exercise therapy. Will follow-up in a year's time or sooner if any other issues arise. 04/20/2024 the patient is here for pulmonary follow-up visit. Overall she is doing well. She continues use respiratory inhalers as prescribed. Back in the fall she did get admitted to the hospital with acute respiratory failure and multilobar pneumonia. She also had pleural effusions requiring drainage. Her serology and microbiology was all negative for any organisms. She was treated with antibiotics. Ultimately had a repeat CT scan of the chest in 03/11/2024 which I also personally reviewed with her. The pneumonias of subsided although a left her with some areas of scarring. She also has emphysematous changes and other patchy areas. She is also being followed by the lung cancer screening program. The patient has oxygen at home which she is not using with discontinued right now. Will go ahead and get blood work to assess her immune system. The patient will follow-up in 6 months with PFTs. She is wondering about traveling to [place] believe does okay but will let her know further after her PFTs. 10/18/2024 the patient is here for a pulmonary follow-up visit. Overall she is doing better. Respiratory charles she is doing better. The patient is has been taking the Dulera and Incruse. No more pneumonias since we last spoke. We did review her CAT scan from February 2024 with the emphysematous changes in the scarring. The patient is aware that she needs to make sure to take her lungs. She is trying not to smoke. The patient is still using the Dulera and the Incruse. She has not had to use the nebulizer medicine. She does have a cough in the morning productive in nature consistent with a chronic bronchitis. Her phlegm does expectorate easily. I did offer her an Acapella valve but the patient feels like she has as needed right now. Once she is doing good she is planning to going to [place] soon. Will follow-up in a year's time. She will have her low-dose CT scan in February 2025. If any issues arise she will call further recommendations. [facility] Medical History (Updated 10/18/24 @ 10:30 by Dwaine Javier MD) PNA (pneumonia) Osteopenia ILD (interstitial lung disease) COPD (chronic obstructive pulmonary disease) Emphysema lung History of foot fracture Personal history of nicotine dependence Pulmonary nodules Normal breast exam Colonoscopy refused Hyperlipidemia Recurrent pleural effusion PTSD (post-traumatic stress disorder) Depression Surgical History History of hand surgery History of lung surgery Family History Father No problems noted. Mother No problems noted. Social History Household Members: Significant Other Household Members Other:: Spouse Housing: Condominium Do you presently have visiting nurse or other home services: No Alcohol intake: current Alcohol intake frequency: holidays/special occasions only Comment: for oxymask only Patient Tobacco Use Status: Former Tobacco user Tobacco use type: Cigarette Years Smoked: 35 e-Cigarette/Vaping Use: Never Used Second Hand Smoke Exposure: No Substance Use Type: Marijuana Advance Directives Date on File: 02/04/21 service: No Current occupational status: retired Sexual orientation: Straight/Heterosexual Cognitive needs: No Hearing needs: No Vision needs: Yes Review of Systems Const Denies night sweats ENT Denies change in voice, Denies lip swelling, Denies mouth pain, Denies nasal con gestion, Reports nasal discharge and Denies tongue swelling Card Denies chest pain and Reports dyspnea on exertion Resp Denies chest congestion, Reports cough, Reports dyspnea on exertion and Denies wheezing GI Denies abdominal pain Musc Denies no additional complaints Neuro Denies Neuro-related abnormal movements Psych Denies no additional complaints Perry/Lymph Denies easy bleeding and Denies lymphadenopathy Aller/Immun Denies lip swelling, Denies tongue swelling and Denies wheezing Physical Exam Vital Signs: Last Vital Signs Pulse 73 10/18/24 09:54 BP 130/64 10/18/24 09:54 Pulse Ox 97 10/18/24 09:54 Oxygen Delivery Method Room Air 10/18/24 09:54 BMI result Body Mass Index 29.7 Const General: alert Neck Neck: Yes normal visual inspection, Yes full ROM and Yes no lymphadenopathy Chest Chest palpation & inspection: normal inspection of the chest Resp Effort & Inspection: normal respiratory effort Auscultation: clear to auscultation bilaterally, no rales, no rhonchi and no wheezes Cardio Rate: regular rate Rhythm: regular rhythm Heart sounds: S1 normal heart sound present and S2 normal heart sound present GI Palpation (GI): Soft to palpation and nontender Auscultation: normal bowel sounds Skin General skin exam: rashes and/or lesions noted Assessment & Plan Assessment & Plan (1) COPD (chronic obstructive pulmonary disease): Code(s): J44.9 - Chronic obstructive pulmonary disease, unspecified Category: Medical Qualifiers: COPD type: chronic bronchitis Chronic bronchitis type: mixed simple and mucopurulent Qualified Code(s): J41.8 - Mixed simple and mucopurulent chronic bronchitis (2) Pulmonary nodules: Comment: (stable on 01/2020 LDCT) Code(s): R91.8 - Other nonspecific abnormal finding of lung field Category: Medical (3) ILD (interstitial lung disease): Code(s): J84.9 - Interstitial pulmonary disease, unspecified Category: Medical Plan Continue Dulera and Incruse GLADIS as needed LDCT 02/2025 smoking cessation, No longer smoking cigarettes F/U 12 months Coding Level of Care Code Est Pt Level 4 (29958) Diagnoses Mixed simple and mucopurulent chronic bronchitis J41.8 COPD type: chronic bronchitis Chronic bronchitis type: mixed simple and mucopurulent Pulmonary nodules R91.8 ILD (interstitial lung disease) J84.9 Time Spent (min) 16
[2024-10-18 09:54] VITALS: BP 130/64; PULSE 73; O2SAT 97; BMI 29.7
--- OUTSIDE RECORDS SUMMARY | 2024-10-18 10:22 | XMS_ITS | Encounter Summary ---
Author Organization [facility] Address [address] [place] [address] Phone Care Team Providers Care Jewel Inspector Name Role Phone Roland Crowley MD Primary Care Provider [phone] Jayne Armijo LACE AND TEXTILES RESTORER Primary Care Provider Samantha Flores MD Primary Care Provider [phone] Jayne Armijo NP Primary Care Provider [phone] Pcp, Unknown Primary Care Provider Unavailabl e Encounter Details Date Type Department Care Team (Latest Contact Info) Description 01/20/2017 Transcribe Orders [facility] Laboratory [address] [place] [address] Jacklyn Christian MD [address] [place] [id number] [email or web address] Mixed hyperlipidemia; Chest pain on breathing Social History Tobacco Use Types Packs/Day Years Used Date Smoking Tobacco: Never Assessed Comments Unknown Sex and Gender Information Value Date Recorded Sex Assigned at Not on file Legal Sex Female 9:44 PM EDT Gender Identity Not on file Sexual Orientation Not on file documented as of this encounter Progress Notes * Jayne Armijo NP - 01/20/2017 10:19 AM EDT Let her know her labs are normal please. documented in this encounter Plan of Treatment Not on file documented as of this encounter Procedures Procedure Name Priority Date/Time Associated Diagnosis Comments LFTS (HEPATIC PANEL) Routine 01/20/2017 7:28 AM EDT Mixed hyperlipidemia D-DIMER Routine 01/20/2017 7:28 AM EDT Chest pain on breathing LIPID PANEL Routine 01/20/2017 7:28 AM EDT Mixed hyperlipidemia documented in this encounter Results * D-dimer (01/20/2017 7:28 AM EDT) D-DIMER 423 <500 ng/mL FEU [facility] Comment:In patients with low to moderate pre-test probability scores for VTE (PE or DVT), a D-Dimer cut-off less than 500 ng/mL (FEU) has a negative predictive value (NPV) of 97 to 100%. Blood 01/20/2017 7:28 AM EDT 01/20/2017 7:34 AM EDT us Jacklyn Christian MD LAB BLOOD ORDERABLES Edited R esult - Final [facility] [address] [place], [place] [id number] * LFTs (hepatic panel) (01/20/2017 7:28 AM EDT) ALKALINE PHOSPHATASE 111 39 - 117 U/L [facility] TOTAL BILIRUBIN 0.2 0 - 1.2 mg/dL [facility] DIRECT BILIRUBIN <0.2 0 - 0.3 mg/dL [facility] Bilirubin (Indirect) NOT CALCULATED 0 - 1.5 mg/dL [facility] AST 17 0 - 37 U/L [facility] ALT 14 0 - 40 U/L [facility] TOTAL PROTEIN 7.7 6.5 - 8.0 g/dL [facility] ALBUMIN 4.2 3.9 - 4.8 g/dL [facility] GLOBULIN 3.5 1 - 4.8 g/dL [facility] A/G Ratio 1.20 1.00 - 4.80 RATIO [facility] Blood 01/20/2017 7:28 AM EDT 01/20/2017 7:34 AM EDT us Jayne Armijo NP LAB BLOOD ORDERABLES Edited Res ult - Final Performing Organization Address [facility]/ZIP Co de Phone Number [address] [address] * (ABNORMAL) LIPID PANEL (01/20/2017 7:28 AM EDT) HDL 61 mg/dL [facility] Comment: Interpretation: Risk Level Females Decreased >55mg/dL Average 50-55 mg/dL Increased <50 mg/dL CHOLESTEROL 172 0 - 240 mg/dL [facility] TRIGLYCERIDES 138 30 - 160 mg/dL [facility] LDL 83 50 - 129 mg/dL [facility] Comment: LDL levels in terms of risk for coronary heart disease: <100 mg/dL: Optimal 100-129 mg/dL: Near or above optimal 130-159 mg/dL: Borderline high 160-189 mg/dL: High >190 mg/dL: Very High CARDIAC RISK RATIO 2.8(L) 3.3 - 4.4 C [facility] Blood 01/20/2017 7:28 AM EDT 01/20/2017 7:34 AM EDT us Jayne Armijo NP LAB BLOOD ORDERABLES Final Resu lt Performing Organization Address [facility] Co de Phone Number [address] [address] documented in this encounter Visit Diagnoses Diagnosis Mixed hyperlipidemia Chest pain on breathing Painful respiration documented in this encounter Care Teams Jewel Inspector Relationship Specialty Start Date End Date Roland Crowley MD [address] [place] [address] PCP - General 01/06/17 05/25/17 Jayne Armijo NP [address] [place] [address] [email or web address] PCP - General Family Medicine 05/26/17 09/05/19 Samantha Flores MD [address] [place] [address] [place] [address] PCP - General Internal Medicine 09/06/19 02/10/21 Jayne Armijo NP [address] [place] [phone] [email or web address] PCP - General Family Medicine 02/11/21 10/16/21 Pcp, Unknown PCP - General 10/17/21 documented as of this encounter Additional Source Comments The information contained in this document represents components of the legal health record. It is not the complete legal health record.[facility]
== END 2024-10-18 10:17 | disposition home or self-care (01) ==
LOC: HO.HPS 09:47
PROVIDERS: PCP Internal Medicine; Visit Provider Hospitalist
DX: J41.8 Mixed simple and mucopurulent chronic bronchitis (principal); R91.8 Other nonspecific abnormal finding of lung field; J84.9 Interstitial pulmonary disease, unspecified
CPT/HCPCS: 99214

== ENCOUNTER → 2024-10-18 09:46 | Outpatient (BNVA) | payer OTHER, SELFPAY | PROVIDERS: PCP Internal Medicine; Visit Provider Hospitalist | DX: J41.8 Mixed simple and mucopurulent chronic bronchitis (principal); J18.9 Pneumonia, unspecified organism; R91.8 Other nonspecific abnormal finding of lung field | CPT/HCPCS: 99212 ==

== ENCOUNTER 2024-10-31 07:27 | Outpatient (AMB) | payer OTHER, SELFPAY ==
--- OUTSIDE RECORDS SUMMARY | 2024-10-31 07:29 | XMS_ITS | Clinical Summary ---
Author Organization [employer] Address [address] [place] [address] Care Team Providers Care Clinical Investigator Name Role Phone Unavailable Primary Care Provider [...] 1962 FIT 1962 FOBT 1962 Sigmoidoscopy 1962 Disability Screening 1962 Alcohol/Substance Use Screening 1974 Tobacco Screening 1974 DTaP/Tdap/Td Vaccines (1 - Tdap) 1981 Pap Smear 07/24/1983 Cervical Cancer Screening 1992 HPV/Cotest 1992 Mammogram 2002 Pneumococcal Vaccine: 50+ Ye ars (1 of 1 - PCV) 2012 Zoster Vaccines (1 of 2) 2012 COVID-19 Vaccine ( - 2023-2 5 season) 2023 Influenza Vaccine (#1) 2024 RSV Patients and Pa tients Aged 60 [...] patient's age to complete this topic Meningococcal B Vaccine Aged Out No l onger eligible based on patient's age to complete [...]
--- OUTSIDE RECORDS SUMMARY | 2024-10-31 07:29 | XMS_ITS | Encounter Summary ---
Author Organization [facility] Address [address] [facility] [address] [place] [address] Phone Care Team Providers Care Archaeology Professor Name Role Phone Roland Crowley MD Primary Care Provider [phone] Jayne Armijo BREAD ROOM HAND Primary Care Provider Samantha Flores MD Primary Care Provider [phone] Jayne Armijo NP Primary Care Provider [phone] Pcp, Unknown Primary Care Provider Unavailabl e Encounter Details Date Type Department Care Team (Latest Contact Info) Description 01/20/2017 Transcribe Orders [facility] Laboratory [address] [place] [address] Jacklyn Christian MD [address] [place] [id number] [email or web address] Mixed hyperlipidemia; Chest pain on breathing Social [...] AM EDT) D-DIMER 423 <500 ng/mL FEU [facility] Comment:In patients with low to moderate pre-test probability scores for VTE (PE or DVT), a D-Dimer cut-off less than 500 ng/mL (FEU) has a negative predictive value (NPV) of 97 to 100%. Blood 01/20/2017 7:28 AM EDT 01/20/2017 7:34 AM EDT us Jacklyn Christian MD LAB BLOOD ORDERABLES Edited R esult - Final [facility] [address] [place], [place] [phone] * LFTs (hepatic panel) (01/20/2017 7:28 AM EDT) ALKALINE PHOSPHATASE 111 39 - 117 U/L [facility] TOTAL BILIRUBIN 0.2 0 - 1.2 mg/dL [facility] DIRECT BILIRUBIN <0.2 0 - 0.3 mg/dL [facility] Bilirubin (Indirect) NOT CALCULATED 0 - 1.5 mg/dL [facility] AST 17 0 - 37 U/L [facility] ALT 14 0 - 40 U/L [facility] TOTAL PROTEIN 7.7 6.5 - 8.0 g/dL [facility] ALBUMIN 4.2 3.9 - 4.8 g/dL [facility] GLOBULIN 3.5 1 - 4.8 g/dL [facility] A/G Ratio 1.20 1.00 - 4.80 RATIO [facility] Blood 01/20/2017 7:28 AM EDT 01/20/2017 7:34 AM EDT us Jayne Armijo NP LAB BLOOD ORDERABLES Edited Res ult - Final Performing Organization Address [facility]/ZIP Co de Phone Number [address] [address] * (ABNORMAL) LIPID PANEL (01/20/2017 7:28 AM EDT) HDL 61 mg/dL [facility] Comment: Interpretation: Risk Level Females Decreased >55mg/dL Average 50-55 mg/dL Increased <50 mg/dL CHOLESTEROL 172 0 - 240 mg/dL [facility] TRIGLYCERIDES 138 30 - 160 mg/dL [facility] LDL 83 50 - 129 mg/dL [facility] Comment: LDL levels in terms of risk for coronary heart disease: <100 mg/dL: Optimal 100-129 mg/dL: Near or above optimal 130-159 mg/dL: Borderline high 160-189 mg/dL: High >190 mg/dL: Very High CARDIAC RISK RATIO 2.8(L) 3.3 - 4.4 C [facility] Blood 01/20/2017 7:28 AM EDT 01/20/2017 7:34 AM EDT us Jayne Armijo NP LAB BLOOD ORDERABLES Final Resu lt Performing Organization Address [facility] Co de Phone Number [address] [address] documented in this encounter Visit Diagnoses Diagnosis Mixed hyperlipidemia Chest pain on breathing Painful respiration documented in this encounter Care Teams Archaeology Professor Relationship Specialty Start Date End Date Roland Crowley MD [address] [place] [address] PCP - General 01/06/17 05/25/17 Jayne Armijo NP [address] [place] [address] [email or web address] PCP - General Family Medicine 05/26/17 09/05/19 Samantha Flores MD [address] [place] [address] [place] [address] PCP - General Internal Medicine 09/06/19 02/10/21 Jayne Armijo NP [address] [place] [phone] [email or web address] PCP - General Family Medicine 02/11/21 10/16/21 Pcp, Unknown PCP - General 10/17/21 documented as of this encounter Additional Source Comments The information contained in this document represents components of the legal health record. It is not the complete legal health record.[facility]
--- NOTE | 2024-10-31 07:35 | AM.OFFWIN_ITS ---
Intake Vital Signs 10/31/24 07:37 Height 5 ft 7 in Weight 191 lb BMI 29.9 BP 108/64 Blood Pressure Location Lt brachial Position Sitting Pulse 72 Pulse Source Pulse Oximeter Temp 97.9 F Temp Source Oral Pulse Oximetry (%) 98 Oxygen Delivery Method Room Air Intake Visit Reasons: EP Back pain into hip, pins and needles RT hand Intake Note: presents with pain to lower and mid back, right hip and right hand with tingling sensation Patient Tobacco Use Status: Former Tobacco user Allergies nut - unspecified Allergy (Severe, Verified 10/31/24 07:38) Anaphylaxis shellfish derived Allergy (Severe, Verified 10/31/24 07:38) Anaphylaxis tree nut Allergy (Verified 10/31/24 07:38) Tongue swelling, tongue itching. Do you need a note to return to daycare/school/sports/work: No HPI HPI Comments History of Present Illness Details 64 y/o Female patient who presents to [facility] walk in clinic with c/o Mid/lower back pain that radiates down to right Hip. Denies Injury or trauma to the back. Denies numbness or tingling. Reports pain worse with ROM and rates the it at 6/10. She has taken Acetaminophen, Ibuprofen and Lidocaine patches with minimal relief. [facility] Medical History (Updated 10/31/24 @ 07:53 by Eulalia Echols NP) PNA (pneumonia) Osteopenia ILD (interstitial lung disease) COPD (chronic obstructive pulmonary disease) Emphysema lung History of foot fracture Personal history of nicotine dependence Pulmonary nodules Normal breast exam Colonoscopy refused Hyperlipidemia Recurrent pleural effusion PTSD (post-traumatic stress disorder) Depression Surgical History History of hand surgery History of lung surgery Family History Father No problems noted. Mother No problems noted. Social History Household Members: Significant Other Household Members Other:: Spouse Housing: Condominium Do you presently have visiting nurse or other home services: No Alcohol intake: current Alcohol intake frequency: holidays/special occasions only Comment: for oxymask only Patient Tobacco Use Status: Former Tobacco user Tobacco use type: Cigarette Years Smoked: 35 e-Cigarette/Vaping Use: Never Used Second Hand Smoke Exposure: No Substance Use Type: Marijuana Advance Directives Date on File: 02/04/21 service: No Current occupational status: retired Sexual orientation: Straight/Heterosexual Cognitive needs: No Hearing needs: No Vision needs: Yes Review of Systems Const All systems reviewed & are unremarkable except as noted in HPI and below Physical Exam Vital Signs: Last Vital Signs Temp 97.9 F 10/31/24 07:37 Pulse 72 10/31/24 07:37 BP 108/64 10/31/24 07:37 Pulse Ox 98 10/31/24 07:37 Oxygen Delivery Method Room Air 10/31/24 07:37 BMI result Body Mass Index 29.9 Const General: no acute distress; No comfortable Nutritional Appearance: obese Orientation/consciousness: patient oriented x3 Back/Spine/Pelvis Back: back tenderness Thoracic/Lumbar Spine: pain with thoraco-lumbar ROM and lumbar spinal tenderness Neuro General: patient oriented x3, gait normal and moves all extremities Psych Speech and movement: Normal speech and movement present Assessment & Plan Assessment & Plan (1) Lower back pain: Code(s): M54.50 - Low back pain, unspecified Qualifiers: Back pain laterality: midline Chronicity: acute Sciatica laterality: sciatica of right side Sciatica presence: with sciatica Qualified Code(s): M54.41 - Lumbago with sciatica, right side Plan: No need for imaging at this point, Most likely muscle strain. Ordered Meloxicam, Flexeril and Prednisone. Acetaminophen for pain relief. Ice/Hot Rest back. Medications: New acetaminophen 1,000 mg (2 x 500 mg) PO Q6H 20 caps 0RF pain M54.41 - Lumbago with sciatica, right side meloxicam 7.5 mg PO DAILY 10 tabs 0RF 10 days M54.41 - Lumbago with sciatica, right side cyclobenzaprine 5 mg PO BEDTIME 10 tabs 0RF M54.41 - Lumbago with sciatica, right side prednisone 20 mg PO DAILY 7 tabs 0RF 7 days M54.41 - Lumbago with sciatica, right side Coding Level of Care Code Est Pt Level 4 (77617) Diagnoses Acute midline low back pain with right-sided sciatica M54.41 Back pain laterality: midline Chronicity: acute Sciatica laterality: sciatica of right side Sciatica presence: with sciatica Time Spent (min) 20
[2024-10-31 07:37] VITALS: BP 108/64; PULSE 72; TEMP 36.6; O2SAT 98; BMI 29.9
== END 2024-10-31 08:13 | disposition home or self-care (01) ==
PROVIDERS: PCP Internal Medicine; Visit Provider Nurse Practitioner Family
DX: M54.41 Lumbago with sciatica, right side (principal)

== ENCOUNTER → 2024-10-31 07:27 | Outpatient (BNVA) | payer OTHER, SELFPAY | PROVIDERS: PCP Internal Medicine; Visit Provider Nurse Practitioner Family | DX: M54.41 Lumbago with sciatica, right side (principal); M25.551 Pain in right hip | CPT/HCPCS: 99212 ==

== ENCOUNTER 2024-12-05 07:03 | Outpatient (REF) | payer OTHER, SELFPAY ==
[2024-12-06 09:28] LABS: Lyme Abs Screen <0.90 index
== END 2024-12-05 07:04 | disposition home or self-care (01) ==
LOC: HO.HMGCLDS 07:03
PROVIDERS: PCP Internal Medicine; Visit Provider Nurse Practitioner Family
DX: Z01.84 Encounter for antibody response examination (principal); M54.2 Cervicalgia; R21 Rash and other nonspecific skin eruption
CPT/HCPCS: 36415; 86617; 86618; 99212

== ENCOUNTER 2024-12-05 07:03 | Outpatient (AMB) | payer OTHER, SELFPAY ==
--- OUTSIDE RECORDS SUMMARY | 2024-12-05 07:05 | XMS_ITS | Encounter Summary ---
Author Organization [facility] Address [address] [place] [address] Phone Care Team Providers Care Weeder Name Role Phone Rolnad Crowley MD Primary Care Provider [phone] Jayne Armijo COMMUNITY ARTS WORKER Primary Care Provider [phone] Samantha Flores MD Primary Care Provider [phone] Jayne Armijo NP Primary Care Provider [phone] Pcp, Unknown Primary Care Provider Unavailabl e Encounter Details Date Type Department Care Team (Latest Contact Info) Description 01/20/2017 Transcribe Orders [facility] Laboratory [address] [place] [address] Jacklyn Christian MD [address] [place] [address] [email or web address] Mixed hyperlipidemia; Chest pain on breathing Social [...] AM EDT) D-DIMER 423 <500 ng/mL FEU [facility] Comment:In patients with low to moderate pre-test probability scores for VTE (PE or DVT), a D-Dimer cut-off less than 500 ng/mL (FEU) has a negative predictive value (NPV) of 97 to 100%. Blood 01/20/2017 7:28 AM EDT 01/20/2017 7:34 AM EDT us Jacklyn Christian MD LAB BLOOD ORDERABLES Edited R esult - Final [facility] [address] [place], [place] [id number] * LFTs (hepatic panel) (01/20/2017 7:28 AM EDT) ALKALINE PHOSPHATASE 111 39 - 117 U/L [facility] TOTAL BILIRUBIN 0.2 0 - 1.2 mg/dL [facility] DIRECT BILIRUBIN <0.2 0 - 0.3 mg/dL [facility] Bilirubin (Indirect) NOT CALCULATED 0 - 1.5 mg/dL [facility] AST 17 0 - 37 U/L [facility] ALT 14 0 - 40 U/L [facility] TOTAL PROTEIN 7.7 6.5 - 8.0 g/dL [facility] ALBUMIN 4.2 3.9 - 4.8 g/dL [facility] GLOBULIN 3.5 1 - 4.8 g/dL [facility] A/G Ratio 1.20 1.00 - 4.80 RATIO [facility] Blood 01/20/2017 7:28 AM EDT 01/20/2017 7:34 AM EDT us Jayne Armijo NP LAB BLOOD ORDERABLES Edited Res ult - Final Performing Organization Address [facility]/ZIP Co de Phone Number [address] [address] * (ABNORMAL) LIPID PANEL (01/20/2017 7:28 AM EDT) HDL 61 mg/dL [facility] Comment: Interpretation: Risk Level Females Decreased >55mg/dL Average 50-55 mg/dL Increased <50 mg/dL CHOLESTEROL 172 0 - 240 mg/dL [facility] TRIGLYCERIDES 138 30 - 160 mg/dL [facility] LDL 83 50 - 129 mg/dL [facility] Comment: LDL levels in terms of risk for coronary heart disease: <100 mg/dL: Optimal 100-129 mg/dL: Near or above optimal 130-159 mg/dL: Borderline high 160-189 mg/dL: High >190 mg/dL: Very High CARDIAC RISK RATIO 2.8(L) 3.3 - 4.4 C [facility] Blood 01/20/2017 7:28 AM EDT 01/20/2017 7:34 AM EDT us Jayne Armijo NP LAB BLOOD ORDERABLES Final Resu lt Performing Organization Address [facility] Co de Phone Number [address] [address] documented in this encounter Visit Diagnoses Diagnosis Mixed hyperlipidemia Chest pain on breathing Painful respiration documented in this encounter Care Teams Weeder Relationship Specialty Start Date End Date Roland Crowley MD [address] [place] [address] PCP - General 01/06/17 05/25/17 Jayne Armijo NP [address] [place] [address] PCP - General Family Medicine 05/26/17 09/05/19 Samantha Flores MD [address] [place] [address] [place] [address] PCP - General Internal Medicine 09/06/19 02/10/21 Jayne Armijo NP [address] [place] [phone] [email or web address] PCP - General Family Medicine 02/11/21 10/16/21 Pcp, Unknown PCP - General 10/17/21 documented as of this encounter Additional Source Comments The information contained in this document represents components of the legal health record. It is not the complete legal health record.[facility]
--- OUTSIDE RECORDS SUMMARY | 2024-12-05 07:05 | XMS_ITS | Encounter Summary ---
Author Organization [facility] Address [address] [place] [address] Phone Care Team Providers Care Compounding Assistant Name Role Phone Jayne Armijo WIRING MECHANIC Primary Care Provider [phone] Samantha Flores MD Primary Care Provider [phone] Jayne Armijo WIRING MECHANIC Primary Care Provider [phone] Pcp, Unknown Primary Care Provider Unavailabl e Encounter Details Date Type Department Care Team (Late st Contact Info) Description 08/04/2019 Ancillary Orders [facility],Outside Imaging [address] [place] [address] System, Provider Not In, [place] [address] Social History Tobacco Use Types Packs/Day Years Used Date Smoking Tobacco: Former Cigarettes 2 40 0 05/07/1974 - 05/07/2014 Smokeless Tobacco: Never Alcohol Use Standard Drinks/Week Comments Yes 10 (1 standard drink = 0.6 oz pu re alcohol) Comments Unknown Sex and Gender Information Value Date Recorded Sex Assigned at Not on file Legal Sex Female 9:44 PM EDT Gender Identity Not on file Sexual Orientation Not on file documented as of this encounter Plan of Treatment Not on file documented as of this encounter Results * CT Chest Outside (No Interpretation) (01/24/2015 12:00 AM EST) Narrative SYSTEMGENERATED, DOCUMENTATION - 08/04/2019 12:11 PM EDT This study is for PACS storage only and not for interpretation. us Provider Not In System PhD IMG OUTSIDE IMAGING W /OUT INTERPRETATION Final Result * XR Chest Outside (No Interpretation) (01/16/2015 12:00 AM EDT) Narrative SYSTEMGENERATED, DOCUMENTATION - 08/04/2019 12:12 PM EDT This study is for PACS storage only and not for interpretation. us Provider Not In System PhD IMG OUTSIDE IMAGING W /OUT INTERPRETATION Final Result * XR Chest Outside (No Interpretation) (01/01/2015 12:00 AM EDT) Narrative SYSTEMGENERATED, DOCUMENTATION - 08/04/2019 12:12 PM EDT This study is for PACS storage only and not for interpretation. us Provider Not In System PhD IMG OUTSIDE IMAGING W /OUT INTERPRETATION Final Result documented in this encounter Visit Diagnoses Not on filedocumented in this encounter Additional Health Concerns Assessment Noted Time PHQ-2 Depression Total Score: 0 02/05/20 17 2:01 PM EST documented as of this encounter Care Teams Compounding Assistant Relationship Specialty Start Date End Date Jayne Armijo WIRING MECHANIC PCP - General Family Medicine 05/26/17 09/05/19 Samantha Flores MD [facility] [place] [address] PCP - General Internal Medicine 09/06/19 02/10/21 Jayne Armijo NP PCP - General Family Medicine 02/11/21 10/16/21 Pcp, Unknown PCP - General 10/17/21 documented as of this encounter Additional Source Comments The information contained in this document represents components of the legal health record. It is not the complete legal health record.[facility]
--- OUTSIDE RECORDS SUMMARY | 2024-12-05 07:05 | XMS_ITS | Clinical Summary ---
Author Organization [facility] Address [id number] [place] [address] Phone Care Team Providers Care Gate Manager Name Role Phone Pcp, Unknown Primary Care Provider Unavailabl e Allergies Active Allergy Reactions Criticality Noted Date Comments Shellfish Swelling High 12/02/2016 Other reaction(s): THROAT/TONGUE SWELLING Medications ARIPiprazole (ABILIFY) 5 MG tablet 1 tablet Active clonazePAM (KLONOPIN) 1 MG disintegrating tablet 1 tab(s) 1 Active FLUoxetine (PROZAC) 40 MG capsule 2 capsules 1 Active albuterol (PROAIR HFA) 90 mcg/actuation inhaler 2 puffs as needed Active buPROPion (WELLBUTRIN SR) 150 MG SR 12 hr tablet 1 tablet 1 Active clonazePAM (KLONOPIN) 0.5 MG tablet TK 1 T PO BID 1 7 Active predniSONE (DELTASONE) 10 MG tabletIndications: Chronic obstructive pulmonary disease with acute exacerbation Take 1 tablet (10 mg total) by mouth daily. Prednisone taper 6 tabs (60 mg) daily for 3 days 5 tabs (50 mg) daily for 3 days 4 tabs (40 mg) daily for 3 days 3 tabs (30 mg) daily for 3 days 2 tabs (20 mg) daily for 3 days 1 tab (10 mg) daily for 3 days 63 tablet 9 Active guaiFENesin-codein e (ROBITUSSIN AC) 100-10 mg/5 mL liquid Take 5 mL (10 mg of codeine total) by mouth 3 (three) times a day as needed for cough. 120 mL 9 Active umeclidinium (INCRUSE ELLIPTA) 62.5 mcg/actuation inhalation capsule Inhale 1 capsule (62.5 mcg total) into the lungs daily. 1 Inhaler 5 9 Active tiotropium (SPIRIVA WITH HANDIHALER) 18 mcg inhalation capsuleIndications :Chronic obstructive pulmonary disease Inhale 1 capsule (18 mcg total) into the lungs daily. 30 capsule 3 9 Active budesonide-formote rol (SYMBICORT) 80-4.5 mcg/actuation inhalerIndications :Chronic obstructive pulmonary disease Inhale 2 puffs into the lungs 2 (two) times a day. 10.2 Inhaler 3 9 Active atorvastatin (LIPITOR) 40 MG tabletIndications: Mixed hyperlipidemia TAKE 1 TABLET BY MOUTH EVERY DAY 30 tablet 3 0 Active SPIRIVA WITH HANDIHALER 18 mcg inhalation capsuleIndications :Chronic obstructive pulmonary disease INHALE THE CONTENTS OF 1 CAPSULE VIA THE INHALER ONCE DAILY 30 capsule 3 1 Active Active Problems Problem Noted Date Diagnosed Date Chronic obstructive pulmonar y disease with acute exacerbation 05/18/2018 Assessment & Plan (05/18/2018 2:18 PM EST): Acute exacerbation of COPD plus possible pneumonia. Given history of prior parapneumonic effusions, at risk for recurrence. Will treat with augmentin and and prednisone taper and obtain chest xray. Hypoxic in the office today, will treat with a duoneb. If symptoms worsen, advised to present to the ER. Fibrosis of lung 01/21/2017 Pneumonia due to organism 01/21/2017 Pleural effusion 01/21/2017 Mixed hyperlipidemia 01/21/2017 Fatigue 01/21/2017 Essential hypertension 01/21/2017 Depression 01/21/2017 Chronic obstructive pulmonary disease 01/21/2017 Chest pain on breathing 01/21/2017 Anxiety 01/21/[address] scan of lung 01/21/2017 Immunizations Immunization Administration Dates Next Due COVID-19 (Pre) Moderna Vaccine, mRNA, PF 1 05/05/2020 COVID-19 (Pre-01/12) Pfizer Vaccine, mRNA, PF ,05/30/2020 INFLUENZA, SPLIT VIRUS, TRIVALENT W/ PRESERVATIV E IM 01/01/2015,12/03/2010 Influenza Quadrivalent MDCK Preservative Free IM 02/09/2020 Influenza Quadrivalent w/ Preservative IM 2018 Influenza trivalent preservative free intraderma l 03/24/2013 Pneumococcal polysaccharide PPSV23 12/23/2018 Social History Tobacco Use Types Packs/Day Years Used Date Smoking Tobacco: Former Cigarettes 2 40 0 05/07/1974 - 05/07/2014 Smokeless Tobacco: Never Alcohol Use Standard Drinks/Week Comments Yes 10 (1 standard drink = 0.6 oz pu re alcohol) Education Answer Date Recorded Are you interested in more education? Not on jose e 07/18/2022 Are you concerned about learning? Not on file 07/18/2022 No 07/18/2022 No 07/18/2022 Digital Access Answer Date Recorded No 08/18/2022 No 08/18/2022 Reliable internet access at home? Not on file 08/18/2022 Device with a working camera? Not on file Comments Unknown Sex and Gender Information Value Date Recorded Sex Assigned at Not on file Legal Sex Female 9:44 PM EDT Gender Identity Not on file Sexual Orientation Not on file Last Filed Vital Signs Vital Sign Reading Time Taken Comments Blood Pressure 124/74 05/18/2018 1:35 PM EST Pulse 93 05/18/2018 1:35 PM EST Temperature 37.2 C (98.9 F) 02/04/2017 1:57 PM EST Respiratory Rate 16 02/04/2017 1:57 PM EST Oxygen Saturation 89% 05/18/2018 1:35 PM EST Inhaled Oxygen Concentration - - Weight 82.6 kg (182 lb) 05/18/2018 1:35 PM EST Height 167.6 cm (5' 6 ) 02/04/2017 1:57 PM EST Body Mass Index 29.38 02/04/2017 1:57 PM EST Plan of Treatment Health Maintenance Due Date Last Done Comments Adult Td,Tdap Booster 1960 BLOOD PRESSURE 1960 SMOKING Hx and SMOKELESS TOBACCO SCREENING 07/24/1975 HEPATITIS C SCREENING 1980 HIV ONE-TIME SCREENING (18-65 YEARS) 1980 COLOGUARD 07/24/2007 COLONOSCOPY 07/24/2007 COLORECTAL CANCER SCREENING 07/24/2007 FIT TEST 07/24/2007 FOBT 07/24/2007 SIGMOIDOSCOPY 07/24/2007 VIRTUAL COLONOSCOPY 07/24/2007 ZOSTER VACCINES (1 of 2) 2012 MAMMOGRAM 02/21/2017 02/21/2015 PAP SMEAR 08/15/2017 08/15/2014 DEPRESSION SCREENING 02/04/2018 02/04/2017 PNEUMOCOCCAL VACCINES (50+ years) (2 of 2 - PCV) 12/24/2019 12/23/2018 LIPID PANEL 01/20/2022 01/20/2017, 12/15/2016 RSV VACCINE (1 - Risk 60-74 years 1-dose series) 2022 INFLUENZA VACCINE (#1) 2024 , 12/23/2018, 01/01/2015, Additional history exists COVID-19 VACCINE ( - season) 2024 03/04/2021, 06/20/2020, 05/30/2020 HEPATITIS A VACCINES Aged Out No long er eligible based on patient's age to complete this topic HIB VACCINES Aged Out No longer eligi ble based on patient's age to complete this topic MENINGOCOCCAL VACCINES (ACWY) Aged Out No longer eligible based on patient's age to complete this topic MENINGOCOCCAL VACCINES (B) Aged Out N o longer eligible based on patient's age to complete this topic Medical Devices Not on file Procedures Procedure Name Priority Date/Time Associated Diagnosis Comments LIPID PANEL Routine 01/20/2017 7:28 AM EDT Mixed hyperlipidemia from Last 3 Months or Most Recently Relevant to Health Maintenance Results * (ABNORMAL) LIPID PANEL (01/20/2017 7:28 AM EDT) HDL 61 mg/dL [facility] Comment: Interpretation: Risk Level Females Decreased >55mg/dL Average 50-55 mg/dL Increased <50 mg/dL CHOLESTEROL 172 0 - 240 mg/dL [facility] TRIGLYCERIDES 138 30 - 160 mg/dL [facility] LDL 83 50 - 129 mg/dL [facility] Comment: LDL levels in terms of risk for coronary heart disease: <100 mg/dL: Optimal 100-129 mg/dL: Near or above optimal 130-159 mg/dL: Borderline high 160-189 mg/dL: High >190 mg/dL: Very High CARDIAC RISK RATIO 2.8(L) 3.3 - 4.4 [facility] Blood 01/20/2017 7:28 AM EDT 01/20/2017 7:34 AM EDT us Jayne Armijo NP LAB BLOOD ORDERABLES Final Resu lt [address] [address] from Last 3 Months or Most Recently Relevant to Health Maintenance Insurance DONNIE [id number] [facility] MEDICARE REPLACEMENT [facility] [place] [id number] [facility] MEDICARE REPLACEMENT [place] [id number] [place] [address] [address] [place] [place] [address] MEDICARE REPLACEMENT [facility] [employer] [facility] [employer] MEDICARE REPLACEMENT DONNIE MITCHELL [id number] Care Teams Gate Manager Relationship Specialty Start Date End Date Pcp, Unknown PCP - General 10/17/21 Additional Source Comments The information contained in this document represents components of the legal health record. It is not the complete legal health record.[facility]
--- OUTSIDE RECORDS SUMMARY | 2024-12-05 07:06 | XMS_ITS | Encounter Summary ---
Author Organization [employer] Address [address] [facility] [address] [place] [address] Care Team Providers Care Squeegee Operator Name Role Phone Unavailable Primary Care Provider [...]
--- OUTSIDE RECORDS SUMMARY | 2024-12-05 07:06 | XMS_ITS | Clinical Summary ---
Author Organization [employer] Address [address] [facility] [address] [place] [address] Care Team Providers Care Countersinker Name Role Phone Unavailable Primary Care Provider [...] COVID-19 Vaccine ( - 2023-2 5 season) 2024 Influenza Vaccine (#1) 2024 RSV Patients and [...]
--- OUTSIDE RECORDS SUMMARY | 2024-12-05 07:06 | XMS_ITS | Encounter Summary ---
Author Organization [employer] Address [address] [facility] [address] [place] [address] Care Team Providers Care Automotive Light Mechanic Name Role Phone Unavailable Primary Care Provider [...]
[2024-12-05 07:10] VITALS: BP 130/80; PULSE 80; RESP 16; TEMP 36.9; O2SAT 94; BMI 29.6
--- NOTE | 2024-12-05 07:10 | AM.OFFWIN_ITS ---
Intake Vital Signs 3 12/05/24 07:10 Height 5 ft 7 in Weight 189 lb BMI 29.6 BP 130/80 Blood Pressure Location Lt brachial Position Sitting Respiration 16 Pulse 80 Pulse Source Pulse Oximeter Temp 98.4 F Temp Source Oral Pulse Oximetry (%) 94 Oxygen Delivery Method Room Air Intake Visit Reasons: EP neck pain, stiffness, 10 days, from tick bite?? Patient Tobacco Use Status: Former Tobacco user Allergies nut - unspecified Allergy (Severe, Verified 12/05/24 07:11) Anaphylaxis shellfish derived Allergy (Severe, Verified 12/05/24 07:11) Anaphylaxis tree nut Allergy (Verified 12/05/24 07:11) Tongue swelling, tongue itching. HPI HPI Comments 2 History of Present Illness0 Details 64 y/o Female patient who presents to [facility] walk in clinic with c/o Neck pain and stiffness for 10 days. Reports that she was shredding Cheese at home - alot of Cheese and believe that could have brought on the pain. Reports noticing a small area on her Right lower leg - Calf with redness; she is questioning Tick Bite. Denies noticing or removing a Tick - denies living in the [place] or being in the [place]. She does not have Pets or Animals in her house. Denies fevers, chills, Nausea or vomiting. Denies headaches or dizziness. [facility] Medical History (Updated 12/05/24 @ 07:24 by Elualia Echols NP) Cervicalgia Rash PNA (pneumonia) Osteopenia ILD (interstitial lung disease) COPD (chronic obstructive pulmonary disease) Emphysema lung History of foot fracture Personal history of nicotine dependence Pulmonary nodules Normal breast exam Colonoscopy refused Hyperlipidemia Recurrent pleural effusion PTSD (post-traumatic stress disorder) Depression Surgical History History of hand surgery History of lung surgery Family History Father No problems noted. Mother No problems noted. Social History Household Members: Significant Other Household Members Other:: Spouse Housing: Condominium Do you presently have visiting nurse or other home services: No Alcohol intake: current Alcohol intake frequency: holidays/special occasions only Comment: for oxymask only Patient Tobacco Use Status: Former Tobacco user Tobacco use type: Cigarette Years Smoked: 35 e-Cigarette/Vaping Use: Never Used Second Hand Smoke Exposure: No Substance Use Type: Marijuana Advance Directives Date on File: 02/04/21 service: No Current occupational status: retired Sexual orientation: Straight/Heterosexual Cognitive needs: No Hearing needs: No Vision needs: Yes Review of Systems Const All systems reviewed & are unremarkable except as noted in HPI and below Physical Exam Vital Signs: Last Vital Signs Temp 98.4 F 12/05/24 07:10 Pulse 80 12/05/24 07:10 Resp 16 12/05/24 07:10 BP 130/80 12/05/24 07:10 Pulse Ox 94 12/05/24 07:10 Oxygen Delivery Method Room Air 12/05/24 07:10 BMI result Body Mass Index 29.6 Const General: no acute distress Nutritional Appearance: obese Orientation/consciousness: patient oriented x3 Back/Spine/Pelvis Cervical Spine: cervical muscular tenderness, cervical spasm, Cervical spine tenderness and cervical ROM abnormal Skin Full body images: 2 1. Erythematous Rash with a clear center and a raised, red outer ring. Neuro General: patient oriented x3, gait normal and moves all extremities Assessment & Plan Assessment & Plan (1) Rash: Code(s): R21 - Rash and other nonspecific skin eruption Plan: Will treat Empirically for Lyme disease due to the presence of Rash Ordered Lyme Titers Acetaminophen for pain relief. (2) Cervicalgia: Code(s): M54.2 - Cervicalgia Plan: Muscle Sprain vs Strain Ordered Acetaminophen and Meloxicam for pain relief. Ice/Heat Orders: Orders 2 Lyme IgG/IgM w/reflex to WB Today R21 - Rash and other nonspecific skin eruption Medications: New 2 doxycycline hyclate 100 mg PO BID 2 caps 0RF R21 - Rash and other nonspecific skin eruption Refilled 2 acetaminophen 1,000 mg (2 x 500 mg) PO Q6H 30 caps 0RF pain M54.2 - Cervicalgia meloxicam 7.5 mg PO DAILY 20 tabs 0RF 10 days M54.2 - Cervicalgia Coding Level of Care Code Est Pt Level 4 (12403) Diagnoses Rash R21 Cervicalgia M54.2 Time Spent (min) 20
== END 2024-12-05 08:08 | disposition home or self-care (01) ==
PROVIDERS: PCP Internal Medicine; Visit Provider Nurse Practitioner Family
DX: R21 Rash and other nonspecific skin eruption (principal); M54.2 Cervicalgia

== ENCOUNTER 2025-02-06 07:19 | Outpatient (REF) | payer OTHER, SELFPAY ==
--- OUTSIDE RECORDS SUMMARY | 2024-12-14 05:30 | XMS_ITS ---
Author Organization [facility] Address [address] [place] [address] Care Team Providers Care Drilling Supervisor Name Role Phone Samantha Flores MD Primary Care Provider Tabby Valdez Unavailable [phone] Encounters Encounter Location Date Provider Diagnosis [facility] [address] [place] [address] 12/14/2024 Tabby Urrutia Plan Of Treatment No Information Progress Notes * Mabel MORENOOB:1960 (64 yo F)Acc No.[id number]:12/14/2024 Progress Note Patient: Gay URENA Provider: Brain Urrutia DPM :1960 A ge:64 Y S ex:Female Date:12/14/2024 Address:[address] [facility] [address], [id number] Pcp:Samantha Flores MD Subjective: * Chief Complaints: * * Medical History: Objective: * Vitals: Assessment: Plan: * Treatment: * Images: * The named appointment provid er may or may not be the originator of this progress note, and it is not deemed complete until electronically signed by the appointment provider. Sign off status: Pending * Provider: Brain Urrutia DPM Date: 0 12/14/2024 Generated for Printi ng/Faxing/eTransmitting on: 04/08/2024 07:39 AM EST
--- OUTSIDE RECORDS SUMMARY | 2025-02-06 07:39 | XMS_ITS | Encounter Summary ---
Author Organization [facility] Address [address] [place] [address] Phone Care Team Providers Care Nitric Acid Plant Operator Name Role Phone Roland Crowley MD Primary Care Provider [phone] Jayne Armijo CONCRETE JOURNEYMAN Primary Care Provider [phone] Samantha Flores MD Primary Care Provider [phone] Jayne Armijo NP Primary Care Provider [phone] Pcp, Unknown Primary Care Provider Unavailabl e Encounter Details Date Type Department Care Team (Latest Contact Info) Description 01/20/2017 Transcribe Orders [address] [address] Jacklyn Christian MD [address] [place] [id number] [email or web address] Mixed hyperlipidemia; Chest pain on breathing Social [...] AM EDT) D-DIMER 423 <500 ng/mL FEU [facility] Comment:In patients with low to moderate pre-test probability scores for VTE (PE or DVT), a D-Dimer cut-off less than 500 ng/mL (FEU) has a negative predictive value (NPV) of 97 to 100%. Blood 01/20/2017 7:28 AM EDT 01/20/2017 7:34 AM EDT us Jacklyn Christian MD LAB BLOOD BKR ORDERABLES Edit ed Result - Final [facility] [address] [place] [address] * LFTs (hepatic panel) (01/20/2017 7:28 AM EDT) ALKALINE PHOSPHATASE 111 39 - 117 U/L [facility] TOTAL BILIRUBIN 0.2 0 - 1.2 mg/dL [facility] DIRECT BILIRUBIN <0.2 0 - 0.3 mg/dL [facility] Bilirubin (Indirect) NOT CALCULATED 0 - 1.5 mg/dL [facility] AST 17 0 - 37 U/L [facility] ALT 14 0 - 40 U/L [facility] TOTAL PROTEIN 7.7 6.5 - 8.0 g/dL [facility] ALBUMIN 4.2 3.9 - 4.8 g/dL [facility] GLOBULIN 3.5 1 - 4.8 g/dL [facility] A/G Ratio 1.20 1.00 - 4.80 RATIO [facility] Blood 01/20/2017 7:28 AM EDT 01/20/2017 7:34 AM EDT us Jayne Armijo NP LAB BLOOD BKR ORDERABLES Edited Result - Final Performing Organization Address [facility]/ZIP Co de Phone Number [address] [address] * (ABNORMAL) LIPID PANEL (01/20/2017 7:28 AM EDT) HDL 61 mg/dL [facility] Comment: Interpretation: Risk Level Females Decreased >55mg/dL Average 50-55 mg/dL Increased <50 mg/dL CHOLESTEROL 172 0 - 240 mg/dL [facility] TRIGLYCERIDES 138 30 - 160 mg/dL [facility] LDL 83 50 - 129 mg/dL [facility] Comment: LDL levels in terms of risk for coronary heart disease: <100 mg/dL: Optimal 100-129 mg/dL: Near or above optimal 130-159 mg/dL: Borderline high 160-189 mg/dL: High >190 mg/dL: Very High CARDIAC RISK RATIO 2.8(L) 3.3 - 4.4 C [facility] Blood 01/20/2017 7:28 AM EDT 01/20/2017 7:34 AM EDT us Jayne Armijo NP LAB BLOOD BKR ORDERABLES Final Result Performing Organization Address [facility] Co de Phone Number [address] [address] documented in this encounter Visit Diagnoses Diagnosis Mixed hyperlipidemia Chest pain on breathing Painful respiration documented in this encounter Care Teams Nitric Acid Plant Operator Relationship Specialty Start Date End Date Roland Crowley MD [address] [place] [address] PCP - General 01/06/17 05/25/17 Jayne Armijo NP [address] [place] [address] [email or web address] PCP - General Family Medicine 05/26/17 09/05/19 Samantha Flores MD [address] [place] [id number] PCP - General Internal Medicine 09/06/19 02/10/21 Jayne Armijo NP [address] [place] [id number] [email or web address] PCP - General Family Medicine 02/11/21 10/16/21 Pcp, Unknown PCP - General 10/17/21 documented as of this encounter Additional Source Comments The information contained in this document represents components of the legal health record. It is not the complete legal health record.[facility]
--- OUTSIDE RECORDS SUMMARY | 2025-02-06 07:39 | XMS_ITS | Continuity of Care Document ---
Author Name [facility] Medical Address [address] [place] [address] Organization Unknown Address [address] [place] [address] Medications No known medications Problems No known problems
--- OUTSIDE RECORDS SUMMARY | 2025-02-06 07:39 | XMS_ITS | Continuity of Care Document ---
Author Organization [employer] [facility], [facility] Address [address] [place] [address] Care Team Providers Care Machine Cleaner Name Role Phone BRYAN CAMP Primary Care Provider [facility] GERI Primary Care Provider [phone] Assessment Encounter Date Assessment Date Assessment LastModified by Organization Details LastModified Time 12/13/2024 12/13/2024 Mrs. Ward was evaluated for wound to the right knee sustained in a fall one week ago. She is afebrile without any findings to suggest sepsis or systemic infection. She is able to bear weight and range the knee fully without difficulty. She has periwound erythema that appears consistent with a non-purulent cellulitis. Low clinical suspicion for septic arthritis or abscess. I think it is reasonable to start cephalexin for treatment of cellulitis in addition to continuing local wound care measures including daily dressings. She otherwise appears safe to remain home for now and is satisfied with plan of care as above. I provided real -time medical direction via phone for this encounter, and was available for additional phone based assistance as needed. I have reviewed and agree with the Assessment and Plan as documented by the Rn Case Manager. We discussed the diagnostic uncertainty of home visits and the risk associated with this. In this case the patient and I felt this to be an acceptable and reasonable amount of risk given the benefit of avoiding an ED visit. The patient given the opportunity to ask questions. Advised if develops CP/severe SOB/turning blue/uncontrolle d n/v/d or black/bloody emesis or stool/ AMS/ syncope/ hi fever unresponsive to APAP to call 911- verbalized understanding of instruction [email or web address] Not available 12/13/2024 17:46:34 Plan of Treatment Reminders Order Date Submit Date Provider Last Modified By Organization Details Last Modified Time Details Appointments None recorded. Lab None recorded. Referral None recorded. Procedures None recorded. Surgeries None recorded. Imaging None recorded. Medication Orders cephalexin 500 mg capsule 2024 025 [facility]/Pharmacy #[id number], [address] [place], [address], 05:01:54 cephalexin 500 mg capsule 2024 025 [facility]/Pharmacy #[id number], [address] [facility], [place], [address], 05:01:54 Patient TargetsNo targets recorded. Patient InstructionsNo instructions recorded. Reason for Referral None Reported. Medical Equipment None Reported. Allergies Allergen ID Allergen Name Allergen Category Reaction Reaction Severity Criticality Documentation Date Start Date Code Code System Note Provider Name and Address Organization Details Recorded Time 34667 shellfish derived food,medi cation Not available Not available Not available 12/13/2024 Not Available [facility] - production 14:30:03 19666 tree nut food Not available Not available Not available 12/19/2024 Sarah Luu MD [address] [facility],[address], [place], [address], [employer] 15:58:03 52224 pine nut extract food Not available Not available Not available 12/19/2024 [id number] 38 RxNorm Sarah Luu MD [address] [facility],[address], [place], [address], [employer] 15:58:11 Medications Name Sig Start Date Stop Date Status Note LastModified by Organization Details LastModified Time fluoxetine 40 mg capsule TAKE 2 CAPSULES BY MOUTH DAILY PROZAC 80 MG active Not Available Not Available No t Available bupropion HCl SR 150 mg tablet,12 hr sustained-r elease TAKE 1 TABLET BY MOUTH TWICE DAILY active Not Available Not Available No t Available doxycycline hyclate 100 mg capsule TAKE 1 CAPSULE BY MOUTH TWICE A DAY active Not Available Not Available No t Available prazosin 1 mg capsule TAKE 1 CAPSULE BY MOUTH DAILY AT BEDTIME active Not Available Not Available No t Available clonazepam 0.5 mg tablet TAKE 1 TABLET BY MOUTH THREE TIMES DAILY active Not Available Not Available No t Available quetiapine 100 mg tablet TAKE 1 TABLET BY MOUTH DAILY AT BEDTIME active Not Available Not Available No t Available cephalexin 500 mg capsule Take 2 capsules every 8 hours by oral route for 10 days. 12/30 completed Not Available Not Available Not Available aripiprazol e 5 mg tablet TAKE 1 TABLET BY MOUTH DAILY active Not Available Not Available No t Available Dulera 200 mcg-5 mcg/actuati on HFA aerosol inhaler INHALE 2 PUFFS BY MOUTH TWICE DAILY active Not Available Not Available No t Available Incruse Ellipta 62.5 mcg/actuati on powder for inhalation INHALE 1 PUFF BY MOUTH DAILY active Not Available Not Available No t Available Vitals Date Recorded Body height Oxygen saturation Oxygen saturation in Arterial blood by Pulse oximetry Respiratory rate Body temperature Heart rate Body weight Systolic And Diastolic Provider Name and Address Organization Details Last Updated DateTime 170.18 cm 96 % 96 % 16 /min 98.4 [degF] 77 /min 77733.5 2 g 146/90 mm[Hg] Not Available [facility] - production 17:41:39 Social History None recorded. Functional Status None recorded. Mental Status None recorded. Family History Nothing Reported. Medical History No medical history recorded. Gynecological HistoryNo gynecological history recorded. Obstetrics History GPAL:G 0 P 0 0 0 0 Past Encounters Encounter ID Performer Location Encounter Start Date Encounter Closed Date Diagnosis/Indication Diagnosis SNOMED-CT Code Diagnosis ICD10 Code Diagnosis IMO Codes Diagnosis Note [id number] ERIC RASCON MD [facility] ED Medical [address] [address] 12/13/2024 17:41:34 12/13/2024 22:23:46 Open wound of right knee [id number] 7459303 S81.001A [id number] Health Concerns Section Related Observation LastModified by Organization Detai ls LastModified Time None Recorded Concern Status LastModified by Organization Details LastModified Time None Recorded Payers Encounter Date Sequence Insurance Name Policy Number Policy Fitzpatrick Covered Member ID Fitzpatrick Member ID Guarantor Name 12/13/2024 1 [facility] - DOS ON OR AFTER 2022 - DUAL ELIGIBLE - SKILLED NURSING OPTIONS AND ONE CARE (MEDICARE REPLACEMENT/ADV ANTAGE - HMO) Gay Hutchison [id number] Gay Hutchison Notes Date Note Type Note Provider Name and Address Organization Details Recorded Time 12/13/2024 text/html ROS as noted in the [facility] Nurse Triage Notes (Seble Carrizales): Reason For Request: pt fell about a week ago and has a gash on her right knee Denies: Escoto Flash, circumferential escoto Escoto reported with black tissue to the area Open skin area after a fall with uncontrolled bleeding Abscess/infection with streaking noted, presence of fever or without Chief Complaints: Wound Care PMH: Hyperlipidemia, Chronic Obstructive Pulmonary Disease (COPD), Emphysema PMH Reviewed at 12/13/2024: Allergies Reviewed at 12/13/2024:30 Comments: 64 y.o female complains of Wound Care Patient calling in to place a referral Patient reports falling out of bed last last week and caughter her right knee of the bed frame She endorses a 2-3' open are on her knee, +depth to the wound. She is now concerned for infection Wound bed is white, unsure if it is from the peroxide and/or bacitracin she is using +erythema and swelling, denies warmth Denies feverc/hills She is able to bend her knee and ambulate Currently has CRANE CHASER She would like to be evaluated I provided information on the mobile health provider response time and advised the patient and/or caregiver to monitor reported signs and symptoms. I discussed the warning signs of when to seek emergency care. ..................... ..................... ..................... ..................... ..................... ..................... ............... Rn Case Manager Note From Jonah Rseendez: [facility] visit for a female patient with wounds to her right knee. Patient reports she was getting out of bed about a week ago and got laceration falling and striking the bedframe. Patient has several inch wide laceration in some stage of healing. Patient has been applying hydrogen peroxide and triple antibiotic ointment. Patient still noting some pus discharge in addition to redness in the area and pain. Patient presents in no obvious distress sitting in recliner. Vital signs taken as listed. No fever noted on exam. No pus or other discharge noted on exam. Wound seems dry and intact. Area feels slightly warm compared to surrounding tissue. Image taken for [facility] review. Consulted with [facility] who prescribed course of Keflex for suspected cellulitis. First dose given on scene with remainder of script sent to pharmacy. Reviewed red flags. Patient education provided. [facility] Medication Orders: cephalexin 500 mg capsule: Administered ..................... ..................... ..................... ..................... ..................... ..................... ............... [facility] Consulted: Eric Rascon ..................... ..................... ..................... ..................... ..................... ..................... ............... Disposition: Didi RASCON MD [address] [facility],[address], [place], [address], [employer] 12/13/2024 21:24:00 OBGyn Episode No OBEpisode recorded.
--- OUTSIDE RECORDS SUMMARY | 2025-02-06 07:39 | XMS_ITS | Encounter Summary ---
Author Organization [facility] Address [address] [place] [address] Encounters * CPT with Medical [facility] at [facility] on 2024-12-13 { reasonForRequest : pt fell about a week ago and has a gash on her right knee , patientReports : , denies :[ Escoto Flash, circumferential escoto , Escoto reported with black tissue to the area , Open skin area after a fall with uncontrolled bleeding , Abscess/infection with streaking noted, presence of fever or without ], chiefComplaints : Wound Care , pmh : Hyperlipidemia, Chronic Obstructive Pulmonary Disease (COPD), Emphysema , allergies : Shellfish Derived , otherAllergies :null, painAssessment : , vi sitOutcome : , additionalComments : 64 y.o female complains of Wound Care\n\nPatient calling in to place a referral\nPatient reports falling out of bed last last week and caughter her right knee of the bed frame\nShe endorses a 2-3' open are on her knee, +depth to thewound.\nShe is now concerned for infection\nWound bed is white, unsure if it is from the peroxide and/or bacitracin she is using\n+erythema and swelling, denies warmth\nDenies feverc/hills\nShe is able to bend her knee and ambulate\nCurrently has AGRICULTURAL RESEARCH DIRECTOR\nShe would like to be evaluated\n\nI provided information on the mobile health provider response time and advised the patient and/or caregiver to monitor reported signs and symptoms. I discussed the warning signs of when to seek emergency care."} [facility] visit for a female patient with wounds [...] compared to surrounding tissue. Image taken for [facility] [place]. Consulted with [facility] who prescribed course of Keflex for suspected cellulitis. First dose given on scene with remainder of script sent to pharmacy. Reviewed red flags. Patient education provided. ORAL_MEDICATION, WOUND_CARE Written by Medical [facility] on 2024-12-13
--- OUTSIDE RECORDS SUMMARY | 2025-02-06 07:40 | XMS_ITS | Clinical Summary ---
Author Organization [facility] Address [address] [facility] [address] [place] [address] Care Team Providers Care Shuttle Veneering Supervisor Name Role Phone Unavailable Primary Care Provider [...] of 2) 2012 COVID-19 Vaccine ( - 2024-2 6 season) 2024 Influenza Vaccine (#1) 2024 RSV [...]
--- OUTSIDE RECORDS SUMMARY | 2025-02-06 07:40 | XMS_ITS | Encounter Summary ---
Author Organization [employer] Address [address] [facility] [address] [place] [address] Care Team Providers Care Ict Teacher Name Role Phone Unavailable Primary Care Provider [...]
--- OUTSIDE RECORDS SUMMARY | 2025-02-06 07:40 | XMS_ITS | Continuity of Care Document ---
Author Name [facility], Medical Address [address] [place] [address] Organization Unknown Address [address] [place] [address] Medications No known medications Problems No known problems
--- OUTSIDE RECORDS SUMMARY | 2025-02-06 07:40 | XMS_ITS | Data Portability ---
Author Organization [employer] [facility] Address [address] [place] [address] Care Team Providers Care Sheet Manufacturing Supervisor Name Role Phone ADRIANAEVONNELiliBRYAN Primary Care Provider [phone] [facility] GERI Primary Care Provider Assessment Encounter Date Assessment Date Assessment LastModified [...] Assessment and Plan as documented by the Drug Worker. We discussed the diagnostic uncertainty of home [...] of instruction [email or web address] Not available 12/13/2024 17:46:34 12/19/2024 12/19/2024 I provided real -time medical direction via phone for this encounter, and was available for additional phone based assistance as needed. I have reviewed and agree with the Assessment and Plan as documented by the Drug Worker. We discussed the diagnostic uncertainty of home visits and the risk associated with this. In this case the patient and I felt this to be an acceptable and reasonable amount of risk given the benefit of avoiding an ED visit. The patient given the opportunity to ask questions. Advised if develops uncontrolled n/v/d / AMS/ syncope/ hi fever/develops a hot red leg with severe pain, marked swelling to get rechecked at once/ ER- verbalized understanding of instruction [email or web address] Not available 12/19/2024 16:04:52 Plan of Treatment Reminders Order Date Submit Date Provider Last Modified By Organization Details Last Modified Time Details Appointments None recorded. Lab None recorded. Referral None recorded. Procedures None recorded. Surgeries None recorded. Imaging None recorded. Medication Orders bacitracin 500 unit/gram topical ointment 2024 025 [email or web address] [facility]/Pharmacy #[id number], [address] [place] [address], [address], 16:01:47 cephalexin 500 mg capsule 2024 025 [facility]/Pharmacy #[id number], [address] [place] [address], [address], 05:01:54 cephalexin 500 mg capsule 2024 025 [facility]/Pharmacy #[id number], [address] [place], [address], 05:01:54 Patient TargetsNo targets recorded. Patient Instructions Encounter Date Encounter Id Patient Instructions Last Modified By Organization Details Last Modified Time 12/19/2024 [id number] wound care* [email or web address] Not available 16:01:47 Reason for Referral None Reported. Medical Equipment None Reported. Allergies Allergen ID Allergen Name Allergen Category Reaction Reaction Severity Criticality Documentation Date Start Date Code Code System Note Provider Name and Address Organization Details Recorded Time 45910 shellfish derived food,medi cation Not available Not available Not available 12/13/2024 Not Available [facility] - production 14:30:03 84977 tree nut food Not available Not available Not available 12/19/2024 Sarah Luu MD [address], [place], [address], [employer] 15:58:03 53887 pine nut extract food Not available Not available Not available 12/19/2024 [id number] 38 RxNorm Sarah Luu MD [address], [place], [address], [employer] 15:58:11 Medications Name Sig Start Date Stop [...] % 16 /min 98.4 [degF] 77 /min 24555.5 2 g 146/90 mm[Hg] Not Available [facility] - production 17:41:39 Date Recorded Body height Body temperature Respiratory rate Oxygen saturation Oxygen saturation in Arterial blood by Pulse oximetry Heart rate Body weight Systolic And Diastolic Provider Name and Address Organization Details Last Updated DateTime 170.18 cm 98.2 [degF] 16 /min 96 % 96 % 77 /min 64694.5 2 g 122/70 mm[Hg] Not Available [facility] - production 15:55:26 Social History None recorded. Functional Status None recorded. Mental Status None recorded. Family History Nothing Reported. Medical History No medical history recorded. Gynecological HistoryNo gynecological history recorded. Obstetrics History GPAL:G 0 P 0 0 0 0 Past Encounters Encounter ID Performer Location Encounter Start Date Encounter Closed Date Diagnosis/Indication Diagnosis SNOMED-CT Code Diagnosis ICD10 Code Diagnosis IMO Codes Diagnosis Note [id number] ERIC RASCON MD [address] [address] 12/13/2024 17:41:34 12/13/2024 22:23:46 Open wound of right knee [id number] S81.001A [id number] Sarah Luu MD [address] [address] 12/19/2024 15:55:20 12/19/2024 21:09:48 Injury of right leg [id number] 9114442 S81.801D 70619842 advise move up pcp appt if can to next week ( from 01/18)- call us if she needs another visit- finish cephalexin -reviewed wound care will add topical antibiotic ointment./ Patient has triple antibiotic ointment at home but she has not been using it on this wound. I advised to use it at least twice a day and she may cover her wound when she goes out or overnight to prevent rubbing it or irritating it with the sheets. Infection signs reviewed with patient-sh e verbalized understand ing. Health Concerns Section Related Observation LastModified by Organization Detai ls LastModified Time None Recorded Concern Status LastModified by Organization Details LastModified Time None Recorded Advance Directives Directive None Recorded Payers Insurance Date Sequence Insurance Name Policy Number Policy Fitzpatrick Covered Member ID Fitzpatrick Member ID Guarantor Name 12/19/2024 1 [facility] - DOS ON OR AFTER 2022 - DUAL ELIGIBLE - CARE HOME OPTIONS AND ONE CARE (MEDICARE REPLACEMENT/ADV ANTAGE - HMO) Gay Hutchison [id number] Gay Hutchison Notes Date Note Type Note Provider Name and Address Organization Details Recorded Time 12/13/2024 text/html ROS as noted in the [facility] Nurse Triage Notes (Seble Carrizales): Reason [...] Pulmonary Disease (COPD), Emphysema PMH Reviewed at 12/13/2024 Allergies Reviewed at 12/13/2024 Comments: 64 y.o female complains of Wound [...] bend her knee and ambulate Currently has HEMODIALYSIS RN She would like to be evaluated I provided information on the mobile health provider response time and advised the patient and/or caregiver to monitor reported signs and symptoms. I discussed the warning signs of when to seek emergency care. ..................... ..................... ..................... ..................... ..................... ..................... ............... Drug Worker Note From Jonah Resendez: [facility] visit for a female patient with [...] compared to surrounding tissue. Image taken for [facility] review. Consulted with [facility] who prescribed course of Keflex for suspected cellulitis. First dose given on scene with remainder of script sent to pharmacy. Reviewed red flags. Patient education provided. [facility] Medication Orders: cephalexin 500 mg capsule: Administered ..................... ..................... ..................... ..................... ..................... ..................... ............... [facility] Consulted: Eric Rascon ..................... ..................... ..................... ..................... ..................... ..................... ............... Disposition: Didi RASCON MD [address] [facility],[address], [place], [address], [facility] [email or web address] 12/13/2024 21:24:00 12/19/2024 text/html ROS as noted in the [facility] CRC Nurse Triage Notes (Gloria Velásquez): Reason For Request: Patient has a wound on her leg she want's to talk to a Nurse about. Patient Reports: History of cellulitis, isolated redness noted; AbscessDenies: Secoto Flash, circumferential escoto Escoto reported with black tissue to the area Open skin area after a fall with uncontrolled bleeding Abscess/infection with streaking noted, presence of fever or without Fever and chills noted in setting of wound Rash Bites -bugs, spider Chief Complaints: Wound CarePMH: Hyperlipidemia, Chronic Obstructive Pulmonary Disease (COPD), EmphysemaPMH Reviewed at 12/19/2024:41Allergies Reviewed at 12/19/2024:41Comments: 64 y.o female complains of Wound Careon 12/13/24 Mrs. Ward was evaluated for wound to [...] continuing local wound care measures including daily dressings.Today 12/19/24 - blister on bottom of wound lanced itself of yellow thicker drainage, no odor but is concerned. patient currently on Kelfex for abx treatment. redness has subsided.denies any fever or chills in the setting of wound.requesting [facility] visit for assessment. I provided information on the mobile health provider response time and advised the patient and/or caregiver to monitor reported signs and symptoms. I discussed the warning signs of when to seek emergency care. ..................... ..................... ..................... ..................... ..................... ..................... ............... Drug Worker Note From Wally Barnard: EMILY sent to the above address for the pt with a wound from a fall 1 week prior. Upon arrival met the pt at the door. The pt stated she fell out of bed and struck her knee on the edge of her bed frame and was placed on Cephalexin 500mg twice a day for 10 days. The pt stated she had a blister this morning and her sprayed saline which made the blister open and then she cleaned the wound and dressed it. The area was dry and no drainage from the site. The pt stated it was not painful to the touch but it was warm upon exam. Dr Luu was contacted and the exam results were relayed. The pt stated she was also taking Tylenol 500mg PO for pain as needed. Dr Luu stated the picture from todays visit showed improvement and the wound was healing well. The warning signs, chest pain, severe shortness of breath, syncope, fever, altered mental status, red streaking from the injury site to call 911 and go to be evaluated. The pt was advised to was with her saline spray and pat dry and use her triple antibiotic ointment sparingly to the are and she could also cover it at night so as to not scratch at it while sleeping. EMILY cleared the call. WRR. [facility] Medication Orders: bacitracin 500 unit/gram topical ointment: Administered ..................... ..................... ..................... ..................... ..................... ..................... ............... [facility] Consulted: Sarah Luu ..................... ..................... ..................... ..................... ..................... ..................... ............... Disposition: Fulfilled SEGMD: Patient was seen by our service on 12/13 status post a fall 1 week prior with a wound on her right leg felt to have early cellulitis. She was placed on cephalexin 1000 mg every 8 hours for 10 days and she has been taking those as directed. She denies fevers or chills. She denies significant pain. There was a slight blister that formed which opened up this morning and it had yellow serous material not purulent. Sarah Luu MD [address] [facility],[address], [place], [address], [employer] 12/19/2024 18:10:16 OBGyn Episode No OBEpisode recorded.
--- OUTSIDE RECORDS SUMMARY | 2025-02-06 07:40 | XMS_ITS | Encounter Summary ---
Author Organization [facility] Address [address] [place] [address] Encounters * CPT with Medical instED at [employer] on 2024-12-19 { reasonForRequest : Patient has a wound on her leg she want's to talk to a Nurse about. , patientReports : History of cellulitis, isolated redness noted; Abscess", denies :[ Escoto Flash, circumferential escoto , Escoto reported with black tissue to the area , Open skin area after a fall with uncontrolled bleeding ,& quot;Abscess/infection with streaking noted, presence of fever or without , Fever and chills noted in setting of wound , Rash , Bites -bugs, spider ], chiefComplaints : Wound Care , pmh : Hyperlipidemia, Chronic Obstructive Pulmonary Disease (COPD), Emphysema , allergies : Shellfish Derived , otherAllergies :null, painAssessment : , visitOutcome : ,&q uot;additionalComments : 64 y.o female complains of Wound Care\non 12/13/24 Mrs. Ward was evaluated for wound to the right knee sustained in a fall one week ago. She is afebrile without any findings to suggest sepsis or systemic infection. She is able to bear weight and range the knee fully without difficulty. She has periwound erythema that appears consistent with a non- purulent cellulitis. Low clinical suspicion for septic arthritis or abscess. I think it is reasonable to start cephalexin for treatment of cellulitis in addition to continuing local wound care measures including daily dressings.\nToday 12/19/24 - blister on bottom of wound lanced itself of yellow thicker drainage, no odor but is concerned. patient currently on Kelfex for abx treatment. redness has subsided. \ndenies any fever or chills in the setting of wound. \nrequesting insted visit for assessment. \n\n\nI provided information on the mobile health provider response time and advised the patient and/or car egiver to monitor reported signs and symptoms. I discussed the warning signs of when to seek emergency care. } EMILY sent to the above address for the pt with a wound from a fall 1 week prior. Upon arrival met the pt at the door. The pt stated she fell out of bed and struck her knee on the edge of her bed frameand was placed on Cephalexin 500mg twice a [...] healing well. The warning signs, chest pain, severeshortness of breath, syncope, fever, altered mental status, red streaking from the injury site to call 911 and go to be evaluated. The pt was advised to was with her saline spray and pat dry and use her triple antibiotic ointment sparingly to the are and she could also cover it at night so as to not scratch at it while sleeping. YONG1 cleared the call. WRR. ORAL_MEDICATION, WOUND_CARE Written by Medical Tammy on 2024-12-19
--- OUTSIDE RECORDS SUMMARY | 2025-02-06 07:40 | XMS_ITS | Encounter Summary ---
Author Organization [employer] Address [address] 7 [place] [address] Care Team Providers Care Clinical Account Liaison Name Role Phone Unavailable Primary Care Provider [...]
--- OUTSIDE RECORDS SUMMARY | 2025-02-06 07:41 | XMS_ITS | Patient Health Record ---
Author Organization [facility] Address [address] [place] [address] Care Team Providers Care Manufacturing Teacher Name Role Phone Samantha Flores MD Primary Care Provider Tabby Valdez Unavailable [phone] Allergies Allergen (clinical drug ingredient) Drug/Non Drug Allergy documented on EMR Reaction Allergy Type Onset Date Status shrimp allergenic extract Shrimp (Diagnostic) Throat and tongue swells Drug Allergy Active Shellfish (FN) Shellfish-derived Products Throat and tongue swells Drug Allergy Active Tree Nuts Unknown Allergy Active Reason For Referral No Information Medications Medication SIG (Take, Route, Frequency, Duration) Notes Start Date End Date Status buPROPion HCl 100 MG 1 tablet Orally Twi ce a day Active Ammonium Lactate 12 % 1 application to affected area Externally to feet Twice a day; Duration: 30 days Not-Taking Fluoxetine Active Incruse Ellipta Acti ve Symbicort 80-4.5 MCG/ACT 2 puffs Inhalat ion Once a day Not-Taking Dulera Active Albuterol Not-Taking Abilify 5 MG 1 tablet Orally Once a day; Duration: 30 day(s) Not-Taking SEROquel 50 MG 1 tablet at bedtime Orally Once a day; Duration: 30 day(s) Not-Taking QUEtiapine Fumarate 100 MG 1 tablet Orally Once a day Active Wellbutrin Not-Takin g Prazosin HCl 1 MG 1 capsule at bedtime Orally Once a day Active Prozac Not-Taking Mirabegron ER 25 MG 1 tablet Orally Once a day Active KlonoPIN Not-Taking Rosuvastatin Calcium Not-Taking ARIPiprazole 5 MG 1 tablet Orally Once a day Active Spiriva HandiHaler 18 MCG 1 capsule by i nhaling the contents of the capsule using the HandiHaler device Inhalation Once a day Not-Taking Immunizations Vaccine Route Administration Date Status Comme nts Influenza Unknown 11/22/2023 Administered COVID-19 Pfizer BioNTech Vaccine Unknown 05/30/2020 Administered Second Dose: 06/20/2020 Social History Tobacco Use: Social History Observation Description Date Details (start date - stop date) Never Smoker NA - NA Tobacco Use/Smoking Question Answer Notes Are you a: nonsmoker Tobacco use other than smoking: Question Answer Notes Are you an other tobacco user? No AUDIT-C (Standard) Question Answer Notes Did you have a drink contain ing alcohol in the past year? Yes How often did you have a dri nk containing alcohol in the past year? Monthly or less (1 point) How many drinks did you have on a typical day when you were drinking in the past year? 1 or 2 drinks (0 point) How often did you have six o r more drinks on one occasion in the past year? Less than monthly (1 point) Points 2 Interpretation Negative Problems Problem Type SNOMED Code ICD Code Onset Dates Problem Status W/U Status Risk Notes Problem Plantar wart (74453246) Plantar wart (B07.0) Active confirmed Problem Acquired left hallux valgus (7254560443009 03) Hallux valgus (acquired), left foot (M20.12) Active confirmed Problem Acquired right hallux valgus (4553211947029 06) Hallux valgus (acquired), right foot (M20.11) Active confirmed Problem Acquired hammer toe of lesser toe of right foot (9486644992591 9108) Other hammer toe(s) (acquired), right foot (M20.41) Active confirmed Problem Acquired hammer toe of lesser toe of left foot (7208356311035 9103) Other hammer toe(s) (acquired), left foot (M20.42) Active confirmed Vital Signs Blood pressure diastolic 80 mm Hg 09/27/2024 Height 5ft7in in 09/27/2024 Blood pressure systolic 122 mm Hg 09/27/2024 Weight 185 lbs 09/27/2024 BMI 28.97 kg/m2 09/27/2024 Encounters Encounter Location Date Provider Diagnosis [facility] [address] [place] [address] 09/27/2024 Tabby Urrutia Plantar wart B07.0 ; Metatarsalgia of left foot M77.42 ; Right foot pain M79.671 ; Left foot pain M79.672 ; Pain in left ankle and joints of left foot M25.572 ; Bursitis of intermetatarsal bursa of left foot M77.52 ; Pain in right ankle and joints of right foot M25.571 ; Bursitis of intermetatarsal bursa of right foot M77.51 ; Metatarsalgia, right foot M77.41 ; Other hammer toe(s) (acquired), right foot M20.41 ; Other hammer toe(s) (acquired), left foot M20.42 ; Hallux valgus (acquired), right foot M20.11 and Hallux valgus (acquired), left foot M20.12 [facility] [address] [address] 07/05/20[facility] [address] [address] 09/27/2024 Tabby Urrutia [facility] [address] [address] 09/27/2024 Tabby Urrutia [facility] [address] 12/14/2024 Tabby Urrutia Assessments Encounter Date Diagnosis (ICD Code) Assessment Notes Treatment Notes Treatment Clinical Notes Section Notes 09/27/2024 Plantar wart (ICD-10 - B07.0) 09/27/2024 Metatarsalgia of left foot (ICD-10 - M77.42) 09/27/2024 Right foot pain (ICD-10 - M79.671) 09/27/2024 Left foot pain (ICD-10 - M79.672) 09/27/2024 Pain in left ankle and joints of left foot (ICD-10 - M25.572) 09/27/2024 Bursitis of intermetatarsal bursa of left foot (ICD-10 - M77.52) 09/27/2024 Pain in right ankle and joints of right foot (ICD-10 - M25.571) 09/27/2024 Bursitis of intermetatarsal bursa of right foot (ICD-10 - M77.51) 09/27/2024 Metatarsalgia, right foot (ICD-10 - M77.41) 09/27/2024 Other hammer toe(s) (acquired), right foot (ICD-10 - M20.41) 09/27/2024 Other hammer toe(s) (acquired), left foot (ICD-10 - M20.42) 09/27/2024 Hallux valgus (acquired), right foot (ICD-10 - M20.11) 09/27/2024 Hallux valgus (acquired), left foot (ICD-10 - M20.12) Plan Of Treatment Pending Test Test Name Order Date X ray : Foot, left 3V 09/27/2024 X ray : Foot, right 3V 09/27/2024 Insurance Providers Payer Name Payer Address Payer Phone Subscriber Number Group Number Insured Name Patient Relationship to Insured Coverage Start Date Coverage End Date [facility] [employer] Claims [address] DONNIE Gamble [id number] Gay Stephen Self - patient is the insured Medical (General) History Medical History History ICD Code asthma Anxiety Lung disease Depression Chicken pox ptsd Warts Surgical History Surgery Date(Month/Year) lung surgery 2014
--- OUTSIDE RECORDS SUMMARY | 2025-02-06 07:41 | XMS_ITS | Encounter Summary ---
Author Organization [facility] Address [address] [place] [address] Phone Care Team Providers Care Tub Puller Name Role Phone Jayne Armijo MOLDING AND TRIM INSTALLER Primary Care Provider Samantha Flores MD Primary Care Provider [phone] Jayne Armijo MOLDING AND TRIM INSTALLER Primary Care Provider [phone] Pcp, Unknown Primary Care Provider Unavailabl e Encounter Details Date Type Department Care Team (Late st Contact Info) Description 08/04/2019 Ancillary Orders [facility],Outside Imaging [address] [place] [address] System, Provider Not In, [place] [address] Social History Tobacco Use Types Packs/Day Years [...] documented as of this encounter Care Teams Tub Puller Relationship Specialty Start Date End Date Jayne Armijo MOLDING AND TRIM INSTALLER PCP - General Family Medicine 05/26/17 09/05/19 Samantha Flores MD [address] [place] [id number] PCP - General Internal Medicine 09/06/19 02/10/21 Jayne Armijo NP PCP - General Family Medicine 02/11/21 10/16/21 Pcp, Unknown PCP - General 10/17/21 documented as of this encounter Additional Source Comments The information contained in this document represents components of the legal health record. It is not the complete legal health record.[facility]
--- OUTSIDE RECORDS SUMMARY | 2025-02-06 07:41 | XMS_ITS | Continuity of Care Document ---
Author Organization Business Combined [facility], [facility] Address [address] [place] [address] Care Team Providers Care Combination Technician Name Role Phone BRYAN CAMP Primary Care Provider [facility] GERI Primary Care Provider Assessment Encounter Date Assessment Date Assessment LastModified by Organization Details LastModified Time 12/19/2024 12/19/2024 I provided real -time medical direction via phone for this encounter, and was available for additional phone based assistance as needed. I have reviewed and agree with the Assessment and Plan as documented by the Neonatal Intensive Care Unit Nurse. We discussed the diagnostic uncertainty of home [...] at once/ ER- verbalized understanding of instruction [email or web address] Not available 12/19/2024 16:04:52 Plan of Treatment Reminders Order Date Submit Date Provider Last Modified By Organization Details Last Modified Time Details Appointments None recorded. Lab None recorded. Referral None recorded. Procedures None recorded. Surgeries None recorded. Imaging None recorded. Medication Orders bacitracin 500 unit/gram topical ointment [email or web address] [facility] #[id number], [address], [place], [address], 16:01:47 Patient TargetsNo targets recorded. Patient Instructions Encounter Date Encounter Id Patient Instructions Last Modified By Organization Details Last Modified Time 12/19/2024 [id number] wound care* [email or web address] Not available 16:01:47 Reason for Referral None Reported. Medical Equipment None Reported. Allergies Allergen ID Allergen Name Allergen Category Reaction Reaction Severity Criticality Documentation Date Start Date Code Code System Note Provider Name and Address Organization Details Recorded Time 38656 shellfish derived food,medi cation Not available Not available Not available 12/13/2024 Not Available [facility] - production 14:30:03 71949 tree nut food Not available Not available Not available 12/19/2024 Sarah Luu MD [address] [facility],[address], [place], [address], [employer] 15:58:03 59476 pine nut extract food Not available Not available Not available 12/19/2024 [id number] 38 RxNorm Sarah Luu MD [address] [facility],[address], [place], [address], [employer] 15:58:11 Medications Name Sig Start Date Stop [...] t Available Vitals Date Recorded Body height Body temperature Respiratory rate Oxygen saturation Oxygen saturation in Arterial blood by Pulse oximetry Heart rate Body weight Systolic And Diastolic Provider Name and Address Organization Details Last Updated DateTime 170.18 cm 98.2 [degF] 16 /min 96 % 96 % 77 /min 49763.5 2 g 122/70 mm[Hg] Not Available [facility] [...] ICD10 Code Diagnosis IMO Codes Diagnosis Note [id number] MARICRUZ AMIN MD [address] [address] 12/13/2024 17:41:34 12/13/2024 22:23:46 Open wound of right knee [id number] 8321315 S81.001A [id number] Sarah Luu MD [address] [address] 12/19/2024 15:55:20 12/19/2024 21:09:48 Injury of right leg 7690340600 0415327 S81.801D [id number] advise move up pcp appt if can [...] Fitzpatrick Member ID Guarantor Name 12/19/2024 1 [facility] - DOS ON OR AFTER 2022 - DUAL ELIGIBLE - [employer] OPTIONS AND ONE CARE (MEDICARE REPLACEMENT/ADV ANTAGE - HMO) Gay Hutchison [id number] Gay De La Paz Kianna Notes Date Note Type Note Provider Name and Address Organization Details Recorded Time 12/19/2024 text/html ROS as noted in the [facility] CRC Nurse Triage Notes (Gloria Velásquez): Reason For Request: Patient has a wound on her leg she want's to talk to a Nurse about. Patient Reports: History of cellulitis, isolated redness noted; AbscessDenies: Escoto Flash, circumferential escoto Escoto reported with black tissue to the area Open skin area after a fall with uncontrolled bleeding Abscess/infection with streaking noted, presence of fever or without Fever and chills noted in setting of wound Rash Bites -bugs, spider Chief Complaints: Wound CarePMH: Hyperlipidemia, Chronic Obstructive Pulmonary Disease (COPD), EmphysemaPMH Reviewed at 12/19/2024 - 12:41Allergies Reviewed at 12/19/2024 - :41Comments: 64 y.o female complains of Wound Careon [...] or chills in the setting of wound.requesting insted visit for assessment. I provided information on the mobile health provider response time and advised the patient and/or caregiver to monitor reported signs and symptoms. I discussed the warning signs of when to seek emergency care. ..................... ..................... ..................... ..................... ..................... ..................... ............... Neonatal Intensive Care Unit Nurse Note From Wally Barnard: RI1 sent to the above address for the [...] to not scratch at it while sleeping. RI1 cleared the call. WRR. [facility] Medication Orders: bacitracin 500 unit/gram topical ointment: Administered ..................... ..................... ..................... ..................... ..................... ..................... ............... [facility] Consulted: Sarah Luu ..................... [...] material not purulent. Sarah Luu MD [address] [facility], [place], [address], [employer] 12/19/2024 18:10:16 OBGyn Episode No OBEpisode recorded.
--- OUTSIDE RECORDS SUMMARY | 2025-02-06 07:41 | XMS_ITS | Clinical Summary ---
Author Organization [facility] Address [address] [place] [address] Phone Care Team Providers Care Delicatessen Store Manager Name Role Phone Pcp, Unknown Primary [...] FOBT 07/24/2007 SIGMOIDOSCOPY 07/24/2007 VIRTUAL COLONOSCOPY 07/24/2007 RSV VACCINE (1 - Risk 50-74 years 1-dose series) 2012 ZOSTER VACCINES (1 of 2) 2012 MAMMOGRAM 02/21/2017 02/21/2015 PAP SMEAR 08/15/2017 08/15/2014 DEPRESSION SCREENING 02/04/2018 02/04/2017 PNEUMOCOCCAL VACCINES (50+ years) (2 of 2 - PCV) 12/24/2019 12/23/2018 LIPID PANEL 01/20/2022 01/20/2017, 12/15/2016 INFLUENZA VACCINE (#1) 2024 , 12/23/2018, 01/01/2015, Additional history exists COVID-19 VACCINE ( - season) 2024 03/04/2021, 06/20/2020, 05/30/2020 HEPATITIS A VACCINES Aged Out No long er eligible based on patient's age to complete this topic HIB VACCINES Aged Out No longer eligi ble based on patient's age to complete this topic IPV VACCINES Aged Out No longer eligi ble [...] (01/20/2017 7:28 AM EDT) HDL 61 mg/dL [facility] Comment: Interpretation: Risk Level Females Decreased >55mg/dL Average 50-55 mg/dL Increased <50 mg/dL CHOLESTEROL 172 0 - 240 mg/dL [facility] TRIGLYCERIDES 138 30 - 160 mg/dL [facility] LDL 83 50 - 129 mg/dL [facility] Comment: LDL levels in terms of risk for coronary heart disease: <100 mg/dL: Optimal 100-129 mg/dL: Near or above optimal 130-159 mg/dL: Borderline high 160-189 mg/dL: High >190 mg/dL: Very High CARDIAC RISK RATIO 2.8(L) 3.3 - 4.4 C [facility] Blood 01/20/2017 7:28 AM EDT 01/20/2017 7:34 AM EDT us Jayne Armijo NP LAB BLOOD BKR ORDERABLES Final Result [facility] [address] [place] [address] from Last 3 Months or Most Recently Relevant to Health Maintenance Insurance DONNIE MITCHELL [id number] [place] [address] MEDICARE REPLACEMENT [facility] MEDICARE REPLACEMENT [facility] ONE CARE MEDICARE REPLACEMENT DONNIE MITCHELL [id number] Care Teams Delicatessen Store Manager Relationship Specialty Start Date End Date Pcp, Unknown PCP - General 10/17/21 Additional Source Comments The information contained in this document represents components of the legal health record. It is not the complete legal health record.[facility]
[2025-02-06 10:29] LABS: MANUAL DIFF FLAG NO
[2025-02-06 10:37] LABS: Hematocrit 41.5 % (37.0-47.0); Hemoglobin 12.9 g/dl (12.0-16.0); Imm Gran Abs Auto 0.03 X10*3/uL (0.00-0.03); Imm Gran Pct Auto 0.5 % (0.0-0.4); Lymphocytes Absolute Auto 2.2 X10*3/uL (1.2-4.9); Mean Corpuscular HGB Conc 31.1 g/dl (31.0-35.0); Mean Corpuscular Hemoglobin 30.5 pg (27.0-33.0); Mean Corpuscular Volume 98.1 fL (80.0-98.0); NRBC Abs Auto 0.000 X10*3/uL (0.0-0.012); NRBC Pct Auto 0.0 /100WBC (0.0-0.2); Platelet Count 296 X10*3/uL (160-400); Red Blood Count 4.23 X10*6/uL (4.20-5.50); White Blood Count 6.3 X10*3/uL (4.8-10.8)
[2025-02-06 10:56] LABS: Alanine Aminotransferase 34 U/L (0-31); Albumin Level 4.5 g/dL (3.5-5.0); Alkaline Phosphatase 85 U/L (39-117); Anion Gap 13 (12-20); Aspartate Amino Transferase 38 U/L (5-31); Blood Urea Nitrogen 15 mg/dL (9-16); Calcium 9.2 mg/dL (8.4-10.2); Carbon Dioxide 24 mmol/L (22-29); Chloride 104 mmol/L (96-108); Cholesterol 188 mg/dL (<200); Estimated Glomerular Filt Rate > 60; HDL Cholesterol 83 mg/dL (>40); Potassium 4.0 mmol/L (3.3-5.1); Sodium 137 mmol/L (135-145); Total Protein 7.8 g/dL (6.5-8.0); Triglycerides 118 mg/dL (<150)
== END 2025-02-06 07:20 | disposition home or self-care (01) ==
LOC: HO.HMGCLDS 07:19
PROVIDERS: PCP Internal Medicine; Visit Provider Internal Medicine
DX: Z00.00 Encounter for general adult medical examination without abnormal findings (principal); E78.5 Hyperlipidemia, unspecified
CPT/HCPCS: 36415; 80053; 80061; 84443; 85025

== ENCOUNTER 2025-03-08 07:50 | Outpatient (REF) | payer OTHER, SELFPAY ==
--- NOTE | ~2025-03-08 | MM_ITS ---
EXAMINATION: MM SCREENING DIGITAL BREAST TOMOSYNTHESIS, BILATERAL CLINICAL INFORMATION: Screening. Asymptomatic. COMPARISON: Comparison made to multiple prior, most recent March 02, 2024, and most remote January 12, 2019. TECHNIQUE: Digital breast tomosynthesis is performed in mediolateral oblique and craniocaudal views along with computer-aided detection (CAD). Synthesized 2D images are generated from the tomosynthesis. FINDINGS: BREAST COMPOSITION: The breasts are heterogeneously dense, which may obscure small masses. BILATERAL BREASTS: No significant masses, suspicious calcifications or other abnormalities are seen in either breast. MM/MM tomosynthesis screening BI IMPRESSION: BILATERAL BREASTS: Negative, no mammographic evidence of malignancy. Normal interval follow-up is recommended in 12 months. ASSESSMENT: BI-RADS: Category 1: Negative RECOMMENDATION: Routine annual mammography screening. FOLLOW-UP: 1 year F/U This examination should not preclude the clinical evaluation of a suspicious palpable abnormality. This patient's information was entered into a reminder system with a target due date for their next mammogram. Electronically signed by: Phillip Ramos MD 03/11/2025 08:42 PM [facility]
--- OUTSIDE RECORDS SUMMARY | 2025-03-08 07:53 | XMS_ITS | Encounter Summary ---
Author Organization [employer] Address [address] [place] [address] Care Team Providers Care Chemical Engineering Professor Name Role Phone Unavailable Primary Care Provider [...]
--- OUTSIDE RECORDS SUMMARY | 2025-03-08 07:53 | XMS_ITS | Continuity of Care Document ---
Author Organization [employer] [facility], [facility] Address [address] [place] [address] Care Team Providers Care Director Compliance Name Role Phone BRYAN CAMP Primary Care Provider [facility] GERI Primary Care Provider Assessment Encounter Date Assessment Date Assessment LastModified by Organization Details LastModified Time 12/19/2024 12/19/2024 I provided real -time medical direction via phone for this encounter, and was available for additional phone based assistance as needed. I have reviewed and agree with the Assessment and Plan as documented by the Rheostat Assembler. We discussed the diagnostic uncertainty of home [...] at once/ ER- verbalized understanding of instruction [email or web address] Not available 12/19/2024 16:04:52 Plan of Treatment Reminders Order Date Submit Date Provider Last Modified By Organization Details Last Modified Time Details Appointments None recorded. Lab None recorded. Referral None recorded. Procedures None recorded. Surgeries None recorded. Imaging None recorded. Medication Orders bacitracin 500 unit/gram topical ointment 2024 025 [email or web address] [facility]/Pharmacy #[id number], [address], [place], [address], 16:01:47 Patient TargetsNo targets recorded. Patient Instructions Encounter Date Encounter Id Patient Instructions Last Modified By Organization Details Last Modified Time 12/19/2024 [id number] wound care* [email or web address] Not available 16:01:47 Reason for Referral None Reported. Medical Equipment None Reported. Allergies Allergen ID Allergen Name Allergen Category Reaction Reaction Severity Criticality Documentation Date Start Date Code Code System Note Provider Name and Address Organization Details Recorded Time 74423 shellfish derived food,medi cation Not available Not available Not available 12/13/2024 Not Available [facility] - production 14:30:03 27415 tree nut food Not available Not available Not available 12/19/2024 Sarah Luu MD [address] [facility],[address], [place], [address], [employer] 15:58:03 23222 pine nut extract food Not available Not available Not available 12/19/2024 74102 38 RxNorm Sarah Luu MD [address] [facility],[address], [place], [address], [employer] 15:58:11 Medications Name Sig Start Date Stop [...] height Body temperature Respiratory rate Oxygen saturation Heart rate Body weight Systolic And Diastolic Provider Name and Address Organization Details Last Updated DateTime 5 170.18 cm 98.2 [degF] 16 /min 96 % 77 /min 88461.5 2 g 122/70 mm[Hg] Not Available [facility] [...] ICD10 Code Diagnosis IMO Codes Diagnosis Note [id number] MARICRUZ AMIN MD [address] [address] 12/13/2024 17:41:34 12/13/2024 22:23:46 Open wound of right knee [id number] 3599947 S81.001A [id number] Sarha Luu MD [address] [address] 12/19/2024 15:55:20 12/19/2024 21:09:48 Injury of right leg 6894998344 9212587 S81.801D [id number] advise move up pcp appt if can [...] Fitzpatrick Member ID Guarantor Name 12/19/2024 1 [facility] - DOS ON OR AFTER 2022 - DUAL ELIGIBLE - [facility] OPTIONS AND ONE CARE (MEDICARE REPLACEMENT/ADV ANTAGE - HMO) aGy Hutchison [id number] Gay Hutchison Notes Date Note Type Note Provider Name and Address Organization Details Recorded Time 12/19/2024 text/html ROS as noted in the [facility] CRC Nurse Triage Notes (Gloria Velásquez): [...] Disease (COPD), EmphysemaPMH Reviewed at 12/19/2024 - :41Allergies Reviewed at 12/19/2024 - :41Comments: 64 y.o [...] ..................... ..................... ..................... ..................... ..................... ..................... ............... Rheostat Assembler Note From Wally Barnard: ND1 sent to the above address for the [...] to not scratch at it while sleeping. SC1 cleared the call. WRR. [facility] Medication Orders: bacitracin 500 unit/gram topical ointment: Administered ..................... ..................... ..................... ..................... ..................... ..................... ............... [facility] Consulted: Sarah Luu [...] serous material not purulent. Sarah Luu MD [address] [place] [address],[address], [place], [address], [employer] 12/19/2024 18:10:16 OBGyn Episode No OBEpisode recorded.
--- OUTSIDE RECORDS SUMMARY | 2025-03-08 07:53 | XMS_ITS | Clinical Summary ---
Author Organization [employer] Address [address] [facility] [address] [place] [address] Care Team Providers Care Financial Foundations Representative Name Role Phone Unavailable Primary Care Provider [...]
--- OUTSIDE RECORDS SUMMARY | 2025-03-08 07:53 | XMS_ITS | Clinical Summary ---
Author Organization [facility]ly [facility] Address [address] [place] [address] Phone Care Team Providers Care Terrazzo Worker Name Role Phone Pcp, Unknown Primary Care [...] (01/20/2017 7:28 AM EDT) HDL 61 mg/dL [facility] Comment: Interpretation: Risk Level Females Decreased >55mg/dL Average 50-55 mg/dL Increased <50 mg/dL CHOLESTEROL 172 0 - 240 mg/dL [facility] TRIGLYCERIDES 138 30 - 160 mg/dL [facility] LDL 83 50 - 129 mg/dL [facility] Comment: LDL levels in terms of risk for coronary heart disease: <100 mg/dL: Optimal 100-129 mg/dL: Near or above optimal 130-159 mg/dL: Borderline high 160-189 mg/dL: High >190 mg/dL: Very High CARDIAC RISK RATIO 2.8(L) 3.3 - 4.4 C [facility] Blood 01/20/2017 7:28 AM EDT 01/20/2017 7:34 AM EDT us Jayne Armijo WIND ENERGY PROJECT MANAGER LAB BLOOD BKR ORDERABLES Final Result Performing Organization Address City/State/[facility] Co de Phone Number [address] [address] from Last 3 Months or Most Recently Relevant to Health Maintenance Insurance DONNIE MITCHELL [id number] [place] [id number] [facility] MEDICARE REPLACEMENT DONNIE [id number] DONNIE [id number] [facility] MEDICARE REPLACEMENT DONNIE MITCHELL [id number] Care Teams Terrazzo Worker Relationship Specialty Start Date End Date Pcp, Unknown PCP - General 10/17/21 Additional Source Comments The information contained in this document represents components of the legal health record. It is not the complete legal health record.[facility]
--- OUTSIDE RECORDS SUMMARY | 2025-03-08 07:53 | XMS_ITS | Data Portability ---
Author Organization [employer] [facility], [facility] Address [address] [place] [address] Care Team Providers Care Bleach Tester Name Role Phone ADRIANAEVONNELiliBRYAN Primary Care Provider [facility] GERI Primary Care Provider [phone] Assessment Encounter Date Assessment Date Assessment LastModified [...] Assessment and Plan as documented by the Heavy Duty Mechanic Farm Equipment. We discussed the diagnostic uncertainty of home [...] Assessment and Plan as documented by the Heavy Duty Mechanic Farm Equipment. We discussed the diagnostic uncertainty of home [...] at once/ ER- verbalized understanding of instruction [email or web address] Not available 12/19/2024 16:04:52 Plan of Treatment Reminders Order Date Submit Date Provider Last Modified By Organization Details Last Modified Time Details Appointments None recorded. Lab None recorded. Referral None recorded. Procedures None recorded. Surgeries None recorded. Imaging None recorded. Medication Orders bacitracin 500 unit/gram topical ointment 2024 025 [email or web address] [facility]/Pharmacy #[id number], [address] [place] [address], [address], 16:01:47 cephalexin 500 mg capsule 2024 025 [facility]/Pharmacy #[id number], [address] [place] [address], [address], 05:01:54 cephalexin 500 mg capsule 2024 025 [facility]/Pharmacy #2339, [address] [place], [address], 05:01:54 Patient TargetsNo targets recorded. Patient Instructions Encounter Date Encounter Id Patient Instructions Last Modified By Organization Details Last Modified Time 12/19/2024 [id number] wound care* [email or web address] Not available 16:01:47 Reason for Referral None Reported. Medical Equipment None Reported. Allergies Allergen ID Allergen Name Allergen Category Reaction Reaction Severity Criticality Documentation Date Start Date Code Code System Note Provider Name and Address Organization Details Recorded Time 48907 shellfish derived food,medi cation Not available Not available Not available 12/13/2024 Not Available [facility] - production 14:30:03 28728 tree nut food Not available Not available Not available 12/19/2024 Sarah Luu MD [address], [place], [address], [employer] 15:58:03 76415 pine nut extract food Not available Not available Not available 12/19/2024 [id number] RxNorm Sarah Luu MD [address], [place], [address], [employer], [employer] 15:58:11 Medications Name Sig Start Date Stop [...] Vitals Date Recorded Body height Oxygen saturation Respiratory rate Body temperature Heart rate Body weight Systolic And Diastolic Provider Name and Address Organization Details Last Updated DateTime 170.18 cm 96 % 16 /min 98.4 [degF] 77 /min 14120.5 2 g 146/90 mm[Hg] Not Available [facility] - production 17:41:39 Date Recorded Body height Body temperature Respiratory rate Oxygen saturation Heart rate Body weight Systolic And Diastolic Provider Name and Address Organization Details Last Updated DateTime 170.18 cm 98.2 [degF] 16 /min 96 % 77 /min 32077.5 2 g 122/70 mm[Hg] Not Available [facility] [...] ICD10 Code Diagnosis IMO Codes Diagnosis Note [id number] ERIC RASCON MD [address] [address] 12/13/2024 17:41:34 12/13/2024 22:23:46 Open wound of right knee [id number] 4817070 S81.001A [id number] Sarah Luu MD [address] [address] 12/19/2024 15:55:20 12/19/2024 21:09:48 Injury of right leg [id number] 8917426 S81.801D [id number] advise move up pcp appt if can [...] Guarantor Name 12/19/2024 1 [facility] - DOS ON OR AFTER 2022 - DUAL ELIGIBLE - CUSTODIAL OPTIONS AND ONE CARE (MEDICARE REPLACEMENT/ADV ANTAGE - HMO) aGy Hutchison [id number] Gay De La Paz Hutchison Notes Date Note Type Note Provider Name and Address Organization Details Recorded Time 12/13/2024 text/html ROS as noted in the [facility] Nurse Triage Notes (Seble Carrizales): [...] bend her knee and ambulate Currently has EVELIO She would like to be evaluated I provided information on the mobile health provider response time and advised the patient and/or caregiver to monitor reported signs and symptoms. I discussed the warning signs of when to seek emergency care. ..................... ..................... ..................... ..................... ..................... ..................... ............... Heavy Duty Mechanic Farm Equipment Note From Jonah Resendez: [facility] visit for [...] compared to surrounding tissue. Image taken for [facility] review. Consulted with [facility] who prescribed course of Keflex for suspected cellulitis. First dose given on scene with remainder of script sent to pharmacy. Reviewed red flags. Patient education provided. [facility] Medication Orders: cephalexin 500 mg capsule: Administered ..................... ..................... ..................... ..................... ..................... ..................... ............... [facility] Consulted: Eric Rascon ..................... ..................... ..................... ..................... ..................... ..................... ............... Disposition: Didi RASCON MD [address] [facility],[address], [place], [address], ANGEL - SMITHA MONIQUE 12/13/2024 21:24:00 12/19/2024 text/html ROS as noted in the [facility] Nurse Triage Notes (Gloria Velásquez): [...] Reviewed at 12/19/2024 - :41Allergies Reviewed at 12/19/2024:41Comments: 64 y.o female complains [...] ..................... ..................... ..................... ..................... ..................... ..................... ............... Heavy Duty Mechanic Farm Equipment Note From Wally Barnard: KY1 sent to the above address for the [...] while sleeping. SC1 cleared the call. WRR. [facility] Medication Orders: bacitracin 500 unit/gram topical ointment: Administered ..................... ..................... ..................... ..................... ..................... ..................... ............... [facility] Consulted: Sarah Luu ..................... ..................... ..................... ..................... [...] material not purulent. Sarah Luu MD [address] [facility],[address], [place], [address], [employer]ITH[employer] 12/19/2024 18:10:16 OBGyn Episode No OBEpisode recorded.
--- OUTSIDE RECORDS SUMMARY | 2025-03-08 07:53 | XMS_ITS | Continuity of Care Document ---
Author Organization [employer] [facility], [facility] Address [address] [place] [address] Care Team Providers Care Chemist Intern Name Role Phone BRYAN CAMP Primary Care Provider [facility] GERI Primary Care Provider [phone] Assessment Encounter Date Assessment Date Assessment LastModified [...] Assessment and Plan as documented by the Black Powder Glazing Operator. We discussed the diagnostic uncertainty of home [...] Orders cephalexin 500 mg capsule 2024 025 [facility]/Pharmacy #2339, [address] [place], [address], 05:01:54 cephalexin 500 mg capsule 2024 025 [facility]/Pharmacy #2339, [address] [facility], [place], [address], 05:01:54 Patient TargetsNo targets recorded. Patient InstructionsNo instructions recorded. Reason for Referral None Reported. Medical Equipment None Reported. Allergies Allergen ID Allergen Name Allergen Category Reaction Reaction Severity Criticality Documentation Date Start Date Code Code System Note Provider Name and Address Organization Details Recorded Time 53595 shellfish derived food,medi cation Not available Not available Not available 12/13/2024 Not Available [facility] - production 14:30:03 17358 tree nut food Not available Not available Not available 12/19/2024 Sarah Luu MD [address] [facility],[address], [place], [address], [employer] 15:58:03 24547 pine nut extract food Not available Not available Not available 12/19/2024 [id number] 38 RxNorm Sarah Luu MD [address] [facility],[address], [place], [address], [employer] 15:58:11 Medications Name Sig Start Date Stop [...] % 16 /min 98.4 [degF] 77 /min 20757.5 2 g 146/90 mm[Hg] Not Available [facility] [...] ICD10 Code Diagnosis IMO Codes Diagnosis Note [id number] ERIC RASCON MD [facility] ED Medical [address] [address] 12/13/2024 17:41:34 12/13/2024 22:23:46 Open wound of right knee [id number] 4377412 S81.001A [id number] Health Concerns Section Related Observation LastModified by Organization Detai ls LastModified Time None Recorded Concern Status LastModified by Organization Details LastModified Time None Recorded Payers Encounter Date Sequence Insurance Name Policy Number Policy Fitzpatrick Covered Member ID Fitzpatrick Member ID Guarantor Name 12/13/2024 1 [facility] - DOS ON OR AFTER 2022 - DUAL ELIGIBLE - USP OPTIONS AND ONE CARE (MEDICARE REPLACEMENT/ADV ANTAGE - HMO) Gay Hutchison [id number] Gay Hutchison Notes Date Note Type Note Provider Name and Address Organization Details Recorded Time 12/13/2024 text/html ROS as noted in the [facility] Nurse Triage Notes (Jesúslashanda Seble): Reason For Request: pt fell about a [...] PMH Reviewed at 12/13/2024 Allergies Reviewed at 12/13/2024:30 Comments: 64 y.o [...] bend her knee and ambulate 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 I discussed the warning signs of when to seek emergency care. ..................... ..................... ..................... ..................... ..................... ..................... ............... Black Powder Glazing Operator Note From Jonah Resendez: [facility] visit for [...] compared to surrounding tissue. Image taken for [facility] review. Consulted with [facility] who prescribed course of Keflex for suspected cellulitis. First dose given on scene with remainder of script sent to pharmacy. Reviewed red flags. Patient education provided. [facility] Medication Orders: cephalexin 500 mg capsule: Administered ..................... ..................... ..................... ..................... ..................... ..................... ............... [facility] Consulted: Eric Rascon ..................... ..................... ..................... ..................... ..................... ..................... ............... Disposition: Didi RASCON MD [address] [facility],[address], [place], [address], [employer] 12/13/2024 21:24:00 OBGyn Episode No OBEpisode recorded.
--- OUTSIDE RECORDS SUMMARY | 2025-03-08 07:53 | XMS_ITS | Encounter Summary ---
Author Organization [facility] Address [address] [facility] 7 [place] [address] Care Team Providers Care Internal Medicine Doctor Name Role Phone Unavailable Primary Care Provider [...]
--- OUTSIDE RECORDS SUMMARY | 2025-03-08 07:53 | XMS_ITS | Encounter Summary ---
Author Organization [facility] Address [address] [facility] [address] [place] [address] Phone Care Team Providers Care Ssds Mk 2 Advanced Operator Name Role Phone Roland Crowley MD Primary Care Provider [phone] Jayne Armijo PROCESS CONSULTANT Primary Care Provider [phone] Samantha Flores MD Primary Care Provider [phone] Jayne Armijo NP Primary Care Provider [phone] Pcp, Unknown Primary Care Provider Unavailabl e Encounter Details Date Type Department Care Team (Latest Contact Info) Description 01/20/2017 Transcribe Orders [address] [address] Jacklyn Christian MD [address] [place] [id number] [email or web address] Mixed hyperlipidemia; Chest pain on breathing Social [...] AM EDT) D-DIMER 423 <500 ng/mL FEU [facility] Comment:In patients with low to moderate pre-test probability scores for VTE (PE or DVT), a D-Dimer cut-off less than 500 ng/mL (FEU) has a negative predictive value (NPV) of 97 to 100%. Blood 01/20/2017 7:28 AM EDT 01/20/2017 7:34 AM EDT us Jacklyn Christian MD LAB BLOOD BKR ORDERABLES Edit ed Result - Final [facility] [address] [place] [address] * LFTs (hepatic panel) (01/20/2017 7:28 AM EDT) [facility] PHOSPHATASE 111 39 - 117 U/L [facility] TOTAL BILIRUBIN 0.2 0 - 1.2 mg/dL [facility] DIRECT BILIRUBIN <0.2 0 - 0.3 mg/dL [facility] Bilirubin (Indirect) NOT CALCULATED 0 - 1.5 mg/dL [facility] AST 17 0 - 37 U/L [facility] ALT 14 0 - 40 U/L [facility] TOTAL PROTEIN 7.7 6.5 - 8.0 g/dL [facility] ALBUMIN 4.2 3.9 - 4.8 g/dL [facility] GLOBULIN 3.5 1 - 4.8 g/dL [facility] A/G Ratio 1.20 1.00 - 4.80 RATIO [facility] Blood 01/20/2017 7:28 AM EDT 01/20/2017 7:34 AM EDT us Jayne Armijo NP LAB BLOOD BKR ORDERABLES Edited Result - Final Performing Organization Address [facility]/ZIP Co de Phone Number [address] [address] * (ABNORMAL) LIPID PANEL (01/20/2017 7:28 AM EDT) HDL 61 mg/dL [facility] Comment: Interpretation: Risk Level Females Decreased >55mg/dL Average 50-55 mg/dL Increased <50 mg/dL CHOLESTEROL 172 0 - 240 mg/dL [facility] TRIGLYCERIDES 138 30 - 160 mg/dL [facility] LDL 83 50 - 129 mg/dL [facility] Comment: LDL levels in terms of risk for coronary heart disease: <100 mg/dL: Optimal 100-129 mg/dL: Near or above optimal 130-159 mg/dL: Borderline high 160-189 mg/dL: High >190 mg/dL: Very High CARDIAC RISK RATIO 2.8(L) 3.3 - 4.4 C [facility] Blood 01/20/2017 7:28 AM EDT 01/20/2017 7:34 AM EDT us Jayne Armijo NP LAB BLOOD BKR ORDERABLES Final Result Performing Organization Address [facility] Co de Phone Number [address] [address] documented in this encounter Visit Diagnoses Diagnosis Mixed hyperlipidemia Chest pain on breathing Painful respiration documented in this encounter Care Teams Ssds Mk 2 Advanced Operator Relationship Specialty Start Date End Date Roland Crowley MD [address] [place] [address] PCP - General 01/06/17 05/25/17 Jayne Armijo NP [address] [place] [address] PCP - General Family Medicine 05/26/17 09/05/19 Samantha Flores MD [address] [place] [address] PCP - General Internal Medicine 09/06/19 02/10/21 Jayne Armijo NP [address] [place] [phone] [email or web address] PCP - General Family Medicine 02/11/21 10/16/21 Pcp, Unknown PCP - General 10/17/21 documented as of this encounter Additional Source Comments The information contained in this document represents components of the legal health record. It is not the complete legal health record.[facility]
--- OUTSIDE RECORDS SUMMARY | 2025-03-08 07:53 | XMS_ITS | Encounter Summary ---
Author Organization [facility] Address [address] [facility] [address] [place] [address] Phone Care Team Providers Care Assistant City Attorney Name Role Phone Jayne Armijo SENIOR IT PROJECT MANAGER Primary Care Provider [phone] Samantha Flores MD Primary Care Provider [phone] Jayne Armijo SENIOR IT PROJECT MANAGER Primary Care Provider [phone] Pcp, Unknown Primary Care Provider Unavailabl e Encounter Details Date Type Department Care Team (Late st Contact Info) Description 08/04/2019 Ancillary Orders [facility],Outside Imaging [address] [place] [address] System, Provider Not In, [place] [address] Social History Tobacco Use Types Packs/Day Years [...] documented as of this encounter Care Teams Assistant City Attorney Relationship Specialty Start Date End Date Jayne Armijo SENIOR IT PROJECT MANAGER PCP - General Family Medicine 05/26/17 09/05/19 Samantha Flores MD [address] [place] [address] PCP - General Internal Medicine 09/06/19 02/10/21 Jayne Armijo NP PCP - General Family Medicine 02/11/21 10/16/21 Pcp, Unknown PCP - General 10/17/21 documented as of this encounter Additional Source Comments The information contained in this document represents components of the legal health record. It is not the complete legal health record.[facility]
== END 2025-03-08 07:51 | disposition home or self-care (01) ==
LOC: HO.MAMMO 07:50
PROVIDERS: PCP Internal Medicine; Visit Provider Internal Medicine
DX: Z00.00 Encounter for general adult medical examination without abnormal findings (principal); Z12.31 Encounter for screening mammogram for malignant neoplasm of breast; M54.2 Cervicalgia; F43.10 Post-traumatic stress disorder, unspecified; E78.5 Hyperlipidemia, unspecified; J41.8 Mixed simple and mucopurulent chronic bronchitis
CPT/HCPCS: 77063; 77067; 96127; 99396

== ENCOUNTER → 2025-03-08 08:15 | Outpatient (BNV) | payer OTHER, SELFPAY | PROVIDERS: PCP Internal Medicine; Visit Provider Radiology Body Imaging | DX: Z12.31 Encounter for screening mammogram for malignant neoplasm of breast (principal) | CPT/HCPCS: 77063; 77067 ==

== ENCOUNTER 2025-03-08 13:00 | Outpatient (AMB) | payer OTHER, SELFPAY ==
--- NOTE | 2025-03-08 13:03 | MHC.PC.OV ---
Vital Signs 03/08/25 13:04 Height 5 ft 7 in Weight 188 lb BMI 29.4 BP 124/72 Blood Pressure Location Lt brachial Position Sitting Respiration 17 Pulse 82 Pulse Source Pulse Oximeter Temp 98.3 F Temp Source Oral Pulse Oximetry (%) 96 Oxygen Delivery Method Room Air Intake Visit Reasons: PE Intake Note: Pt is here today for a PE. Pt states that she is still having neck pain she was seen in our walk in for it. Allergies nut - unspecified Allergy (Severe, Verified 03/08/25 13:08) Anaphylaxis shellfish derived Allergy (Severe, Verified 03/08/25 13:08) Anaphylaxis tree nut Allergy (Verified 03/08/25 13:08) Tongue swelling, tongue itching. Medication List - Last Reconciled 03/08/25 by Samantha Flores MD acetaminophen 1,000 mg (2 x 500 mg) PO Q6H albuterol sulfate 90 mcg/actuation 2 puffs inhalation Q6H PRN aripiprazole 5 mg PO DAILY baclofen 10 mg PO BEDTIME bupropion HCl SR 150 mg PO BID clonazepam 0.5 mg PO DAILY cyanocobalamin (vitamin B-12) (Vitamin B-12) 100 mcg PO DAILY fluoxetine 80 mg PO DAILY ipratropium-albuterol 0.5 mg-3 mg(2.5 mg base)/3 mL 3 mL inhalation QID PRN mirabegron ER (Myrbetriq) 25 mg PO DAILY mometasone-formoterol 200-5 mcg/actuation (Dulera) 2 puffs inhalation BID prazosin 1 mg See Protocol PO BEDTIME 30 days prednisone 10 mg PO DAILY quetiapine 100 mg PO BEDTIME rosuvastatin 20 mg PO BEDTIME Shower Chair As directed umeclidinium 62.5 mcg/actuation (Incruse Ellipta) 1 inh PO DAILY Tobacco use date assessed: 03/08/25 Dental Screening Dental Screen Date: 03/08/25 Did you have a dental visit in the last 12 months?: Yes Did you have a dental problem in the last 6 months where you did not have access to dental care?: No Was dental information given to patient?: Patient has dentist HPI PE HPI Details Pt presents for PE. Pt complains of chronic since November, daily R side neck pain and stiffness positional and R mandibular pain and discomfort when turning her head to the side. Patient denies any injury, pain radiating to upper extremities, weakness or numbness in extremities. COPD stable on and Dulera and Incruse. Patient follows up with a psychiatrist and counselor for PTSD/depression. [facility] Medical History (Updated 03/08/25 @ 14:05 by Samantha Flores MD) Annual physical exam Localized swelling, mass and lump, neck Cervicalgia Rash PNA (pneumonia) Osteopenia ILD (interstitial lung disease) COPD (chronic obstructive pulmonary disease) Emphysema lung History of foot fracture Personal history of nicotine dependence Pulmonary nodules Normal breast exam Colonoscopy refused Hyperlipidemia Recurrent pleural effusion PTSD (post-traumatic stress disorder) Depression Surgical History History of hand surgery History of lung surgery Family History Father No problems noted. Mother No problems noted. Social History Household Members: Significant Other Household Members Other:: Spouse [facility] Do you presently have visiting nurse or other home services: No Alcohol intake: current Alcohol intake frequency: holidays/special occasions only Comment: for oxymask only Patient Tobacco Use Status: Former Tobacco user Tobacco use type: Cigarette Years Smoked: 35 e-Cigarette/Vaping Use: Never Used Second Hand Smoke Exposure: No Substance Use Type: Marijuana Advance Directives Date on File: 02/04/21 service: No Current occupational status: retired Sexual orientation: Straight/Heterosexual Cognitive needs: No Hearing needs: No Vision needs: Yes Questionnaire PHQ-9 Over the last 2 weeks, how often have you been bothered by any of the following problems? 1. Little interest or pleasure in doing things: not at all 2. Feeling down, depressed, or hopeless: not at all 3. Trouble falling or staying asleep, or sleeping too much: not at all 4. Feeling tired or having little energy: not at all 5. Poor appetite or overeating: not at all 6. Feeling bad about yourself - or that you are a failure or have let yourself or your family down: not at all 7. Trouble concentrating on things, such as reading the newspaper or watching television: not at all 8. Moving or speaking so slowly that other people could have noticed. Or the opposite - being so fidgety or restless that you have been moving around a lot more than usual: not at all 9. Thoughts that you would be better off or of hurting yourself in some way: not at all Total score: 0 Source: Developed by Drs. Kenrick Jamison, Chiquis Rob, Kosta Nagy and colleagues, with an educational amadeo from [employer]. Thrive Questionnaire Date Thrive assessed: 11/27/23 I am a: Patient What is your living situation today?: I have a steady place to live Within the past 12 months, did the food you bought not last and you didn't have the money to get more?: I choose not to answer this question Within the past 12 months, did you worry whether your food would run out before you got money to buy more?: I choose not to answer this question Do you have trouble paying for medicines?: No Do you have trouble getting transportation to medical appointments?: No Do you have trouble paying your heating and electricity bill?: No Do you have trouble taking care of your child, family member or friend?: No Do you have trouble with day-to-day activities such as bathing, preparing meals, shopping, managing finances, etc.?: No Are you currently unemployed and looking for a job?: No Are you interested in more education?: No Please select the resources that you would like help with: None Currently or been in a relationship where the following occur: I choose not to answer THRIVE Score: 0 AUDIT C Alcohol Use Questionnaire (AUDIT-C) 1. How often do you have a drink containing alcohol?: 2-4 times a month 2. How many drinks containing alcohol do you have on a typical day when you are drinking?: 3 or 4 3. How often do you have six or more drinks on one occasion?: Less than monthly Total Score: 4 JESSICA-7 AMB Questionnaire JESSICA-7 Date JESSICA - 7 assessed: 06/04/22 Feeling nervous, anxious, or on edge: 3 = Nearly every day Not being able to stop or control worryin = Nearly every day Worrying too much about different things: 2 = More than half the days Trouble relaxin = Several days Being so restless that it is hard to sit still: 1 = Several days Becoming easily annoyed or irritable: 0 = Not at all Feeling afraid as if something awful might happen: 1 = Several days Total JESSICA-7 score (0-4 normal; 5-9 mild; 10-14 moderate; 15-21 severe): 11 Source: Developed by Drs. Kenrick Jamison, Chiquis Rob, Kosta Nagy and colleagues, with an educational amadeo from [employer]. Review of Systems Const All systems reviewed & are unremarkable except as noted in HPI and below Eyes Reports no additional complaints ENT Reports no additional complaints Card Reports no additional complaints Resp Reports no additional complaints GI Reports no additional complaints Physical exam (Primary Care) Vital Signs: Last Vital Signs Temp 98.3 F 03/08/25 13:04 Pulse 82 03/08/25 13:04 Resp 17 03/08/25 13:04 BP 124/72 03/08/25 13:04 Pulse Ox 96 03/08/25 13:04 Oxygen Delivery Method Room Air 03/08/25 13:04 BMI result Body Mass Index 29.4 Tobacco/Smoking Status: Tobacco use Status Tobacco use date assessed 03/08/25 03/08/25 13:13 Patient Tobacco Use Status Former Tobacco user 03/08/25 13:04 Tobacco use type Cigarette 03/08/25 13:04 e-Cigarette/Vaping Use Never Used 03/08/25 13:04 PHQ-9: PHQ-9 Score PHQ-9: Total score 0 03/08/25 13:04 Thrive Assessment: Date of Thrive Assessment Date Thrive assessed 11/27/23 03/08/25 13:04 Currently or been in a relationship where the following occur: I choose not to answer Const General: no acute distress HENMT Head: Yes normal to inspection Ears: TM's normal bilaterally Face and sinus: Yes normal facial exam Mouth: Normal oral and palatal mucosa present Eyes General: appearance normal, both eyes and all related structures Neck Other: There is right submandibular fullness and tenderness to palpation, paraspinal tenderness and muscle spasm in cervical region right more than left Neck: Yes no lymphadenopathy and Yes supple Resp Effort & Inspection: normal respiratory effort Auscultation: clear to auscultation bilaterally Cardio Rhythm: regular rhythm Heart sounds: S1 normal heart sound present and S2 normal heart sound present GI Inspection: Yes normal to inspection Palpation (GI): Soft to palpation Percussion: Yes normal to percussion Auscultation: normal bowel sounds Neuro Cranial nerves: Yes CN's II-XII intact bilaterally Gait exam (Neuro): Normal gait present Motor exam (neuro): 5/5 motor strength present throughout Coordination: [id number] test normal Extrem General: Yes no clubbing, cyanosis or edema Coding Level of Care Code Est Pt Prev Care 40-64y(59304) Diagnoses Cervicalgia M54.2 PTSD (post-traumatic stress disorder) F43.10 Hyperlipidemia E78.5 Mixed simple and mucopurulent chronic bronchitis J41.8 COPD type: chronic bronchitis Chronic bronchitis type: mixed simple and mucopurulent Annual physical exam Z00.00 Assessment & Plan Assessment & Plan (1) Cervicalgia: Code(s): M54.2 - Cervicalgia Category: Medical Plan: check XR of C spine and tissue neck US, Prednisone taper and Baclofen, refer to PT (2) PTSD (post-traumatic stress disorder): Comment: s/p hospitalization at [facility], follow-up with Psychiatry Code(s): F43.10 - Post-traumatic stress disorder, unspecified Category: Medical Plan: cont meds (3) Hyperlipidemia: Code(s): E78.5 - Hyperlipidemia, unspecified Category: Medical Plan: cont statin (4) COPD (chronic obstructive pulmonary disease): Code(s): J44.9 - Chronic obstructive pulmonary disease, unspecified Category: Medical Qualifiers: COPD type: chronic bronchitis Chronic bronchitis type: mixed simple and mucopurulent Qualified Code(s): J41.8 - Mixed simple and mucopurulent chronic bronchitis Plan: cont inhalers (5) Annual physical exam: Code(s): Z00.00 - Encounter for general adult medical examination without abnormal findings Category: Medical Plan: well balanced diet, regular exercise discussed, pt is up to date with mammogram. She declined colonoscopy Cologuard will be checked Orders: Orders Complete Blood Count Auto Diff 1 Year E55.9 - Vitamin D deficiency, unspecified, E78.5 - Hyperlipidemia, unspecified, Z00.00 - Encounter for general adult medical examination without abnormal findings Lipid Panel 1 Year E55.9 - Vitamin D deficiency, unspecified, E78.5 - Hyperlipidemia, unspecified, Z00.00 - Encounter for general adult medical examination without abnormal findings TSH reflex Free T4 1 Year E55.9 - Vitamin D deficiency, unspecified, E78.5 - Hyperlipidemia, unspecified, Z00.00 - Encounter for general adult medical examination without abnormal findings Vitamin D 25-OH Total 1 Year E55.9 - Vitamin D deficiency, unspecified, E78.5 - Hyperlipidemia, unspecified, Z00.00 - Encounter for general adult medical examination without abnormal findings XR cervical spine 3V Today M54.2 - Cervicalgia US soft tiss head and/or neck Today R60.0 - Localized edema Comprehensive [place]. Panel Fast 1 Year E55.9 - Vitamin D deficiency, unspecified, E78.5 - Hyperlipidemia, unspecified, Z00.00 - Encounter for general adult medical examination without abnormal findings Referrals Cologuard Test Z12.11 - Encounter for screening for malignant neoplasm of colon, Z12.12 - Encounter for screening for malignant neoplasm of rectum Medications: New prednisone 4 TABLETS P.O. Q.D. FOR 3 DAYS THEN 3 TABLETS P.O. Q DUE FOR 3 DAYS THEN 2 TABLETS P.O. Q.D. FOR 3 DAYS THEN 1 TABLET P.O. Q.D. FOR 3 DAYS 10 mg PO DAILY 30 tabs 0RF baclofen 10 mg PO BEDTIME 30 tabs 0RF
[2025-03-08 13:04] VITALS: BP 124/72; PULSE 82; RESP 17; TEMP 36.8; O2SAT 96; BMI 29.4
--- OUTSIDE RECORDS SUMMARY | 2025-03-08 17:06 | XMS_ITS | Continuity of Care Document ---
Author Name [facility], Medical Address [address] [place] [place] [address] Organization Unknown Address [address] [place] [address] Medications No known medications Problems No known problems
--- OUTSIDE RECORDS SUMMARY | 2025-03-08 17:06 | XMS_ITS | Encounter Summary ---
Author Organization [employer] Address [address] [facility] 7 [place] [address] Care Team Providers Care Brickmason Name Role Phone Unavailable Primary Care Provider [...]
--- OUTSIDE RECORDS SUMMARY | 2025-03-08 17:06 | XMS_ITS | Continuity of Care Document ---
Author Name [facility], Medical Address [address] [place] [address] Organization Unknown Address [address] [place] [id number] Medications No known medications Problems No known problems
--- OUTSIDE RECORDS SUMMARY | 2025-03-08 17:06 | XMS_ITS | Encounter Summary ---
Author Organization [facility] Address [address] [place] [address] Phone Care Team Providers Care Furniture Assembly Supervisor Name Role Phone Roland Crowley MD Primary Care Provider [phone] Jayne Armijo MEDICARE BILLER Primary Care Provider Samantha Flores MD Primary Care Provider [phone] Jayne Armijo NP Primary Care Provider [phone] Pcp, Unknown Primary Care Provider Unavailabl e Encounter Details Date Type Department Care Team (Latest Contact Info) Description 01/20/2017 Transcribe Orders [address] [address] Jacklyn Christian MD [address] [place] [address] [id number] [email or web address] Mixed hyperlipidemia; Chest pain on breathing Social [...] AM EDT) D-DIMER 423 <500 ng/mL FEU [facility] Comment:In patients with low to moderate pre-test probability scores for VTE (PE or DVT), a D-Dimer cut-off less than 500 ng/mL (FEU) has a negative predictive value (NPV) of 97 to 100%. Blood 01/20/2017 7:28 AM EDT 01/20/2017 7:34 AM EDT us Jacklyn Christian MD LAB BLOOD BKR ORDERABLES Edit ed Result - Final [facility] [address] [place] [address] * LFTs (hepatic panel) (01/20/2017 7:28 AM EDT) ALKALINE PHOSPHATASE 111 39 - 117 U/L [facility] TOTAL BILIRUBIN 0.2 0 - 1.2 mg/dL [facility] DIRECT BILIRUBIN <0.2 0 - 0.3 mg/dL [facility] Bilirubin (Indirect) NOT CALCULATED 0 - 1.5 mg/dL [facility] AST 17 0 - 37 U/L [facility] ALT 14 0 - 40 U/L [facility] TOTAL PROTEIN 7.7 6.5 - 8.0 g/dL [facility] ALBUMIN 4.2 3.9 - 4.8 g/dL [facility] GLOBULIN 3.5 1 - 4.8 g/dL [facility] A/G Ratio 1.20 1.00 - 4.80 RATIO [facility] Blood 01/20/2017 7:28 AM EDT 01/20/2017 7:34 AM EDT us Jayne Armijo NP LAB BLOOD BKR ORDERABLES Edited Result - Final Performing Organization Address [facility]/ZIP Co de Phone Number [address] [address] * (ABNORMAL) LIPID PANEL (01/20/2017 7:28 AM EDT) HDL 61 mg/dL [facility] Comment: Interpretation: Risk Level Females Decreased >55mg/dL Average 50-55 mg/dL Increased <50 mg/dL CHOLESTEROL 172 0 - 240 mg/dL [facility] TRIGLYCERIDES 138 30 - 160 mg/dL [facility] LDL 83 50 - 129 mg/dL [facility] Comment: LDL levels in terms of risk for coronary heart disease: <100 mg/dL: Optimal 100-129 mg/dL: Near or above optimal 130-159 mg/dL: Borderline high 160-189 mg/dL: High >190 mg/dL: Very High CARDIAC RISK RATIO 2.8(L) 3.3 - 4.4 C [facility] Blood 01/20/2017 7:28 AM EDT 01/20/2017 7:34 AM EDT us Jayne Armijo NP LAB BLOOD BKR ORDERABLES Final Result Performing Organization Address [facility] Co de Phone Number [address] [address] documented in this encounter Visit Diagnoses Diagnosis Mixed hyperlipidemia Chest pain on breathing Painful respiration documented in this encounter Care Teams Furniture Assembly Supervisor Relationship Specialty Start Date End Date Roland Crowley MD [address] [place] [address] PCP - General 01/06/17 05/25/17 Jayne Armijo NP [address] [place] [address] PCP - General Family Medicine 05/26/17 09/05/19 Samantha Flores MD [address] [place] [address] PCP - General Internal Medicine 09/06/19 02/10/21 Jayne Armijo NP [address] [place] [id number] [email or web address] PCP - General Family Medicine 02/11/21 10/16/21 Pcp, Unknown PCP - General 10/17/21 documented as of this encounter Additional Source Comments The information contained in this document represents components of the legal health record. It is not the complete legal health record.[facility]
--- OUTSIDE RECORDS SUMMARY | 2025-03-08 17:06 | XMS_ITS | Clinical Summary ---
Author Organization [email or web address] Address [address] [facility] [address] [place] [address] Care Team Providers Care Dance Choreographer Name Role Phone Unavailable Primary Care Provider [...]
--- OUTSIDE RECORDS SUMMARY | 2025-03-08 17:06 | XMS_ITS | Encounter Summary ---
Author Organization [employer] Address [address] [facility] 7 [place] [address] Care Team Providers Care Police Sergeant Name Role Phone Unavailable Primary Care Provider [...]
--- OUTSIDE RECORDS SUMMARY | 2025-03-08 17:06 | XMS_ITS | Encounter Summary ---
Author Organization [facility] Address [address] [facility] [address] [place] [address] Encounters * CPT with Medical [facility] at [place] on 2024-12-13 { reasonForRequest : pt fell [...] to bend her knee and ambulate\nCurrently has ALUMINIZER\nShe would like to be evaluated\n\nI provided information on the mobile health provider response time and advised the patient and/or caregiver to monitor reported signs and symptoms. I discussed the warning signs of when to seek emergency care."} [facility] visit for a female patient with wounds [...] compared to surrounding tissue. Image taken for [facility] review. Consulted with [facility] who prescribed course of Keflex for suspected cellulitis. First dose given on scene with remainder of script sent to pharmacy. Reviewed red flags. Patient education provided. ORAL_MEDICATION, WOUND_CARE Written by Medical [facility] on 2024-12-13
--- OUTSIDE RECORDS SUMMARY | 2025-03-08 17:07 | XMS_ITS | Clinical Summary ---
Author Organization [facility] Address [address] [place] [address] Phone Care Team Providers Care Md Ophthalmologist Name Role Phone Pcp, Unknown Primary Care [...] (01/20/2017 7:28 AM EDT) HDL 61 mg/dL [facility] Comment: Interpretation: Risk Level Females Decreased >55mg/dL Average 50-55 mg/dL Increased <50 mg/dL CHOLESTEROL 172 0 - 240 mg/dL [facility] TRIGLYCERIDES 138 30 - 160 mg/dL [facility] LDL 83 50 - 129 mg/dL [facility] Comment: LDL levels in terms of risk for coronary heart disease: <100 mg/dL: Optimal 100-129 mg/dL: Near or above optimal 130-159 mg/dL: Borderline high 160-189 mg/dL: High >190 mg/dL: Very High CARDIAC RISK RATIO 2.8(L) 3.3 - 4.4 C [facility] Blood 01/20/2017 7:28 AM EDT 01/20/2017 7:34 AM EDT us Jayne Armijo INTEGRATED SPECIALIST LAB BLOOD BKR ORDERABLES Final Result Performing Organization Address City/State/[facility] Co de Phone Number [address] [address] from Last 3 Months or Most Recently Relevant to Health Maintenance Insurance DONNIE MITCHELL [id number] [place] [id number] [facility] MEDICARE REPLACEMENT DONNIE [id number] DONNIE [id number] [facility] MEDICARE REPLACEMENT DONNIE MITCHELL [id number] Care Teams Md Ophthalmologist Relationship Specialty Start Date End Date Pcp, Unknown PCP - General 10/17/21 Additional Source Comments The information contained in this document represents components of the legal health record. It is not the complete legal health record.[facility]
--- OUTSIDE RECORDS SUMMARY | 2025-03-08 17:07 | XMS_ITS | Encounter Summary ---
Author Organization [facility] Address [address] [place] [address] Phone Care Team Providers Care Hot Tar Roofer Helper Name Role Phone Jayne Armijo FIELD SPEC Primary Care Provider [phone] Samantha Flores MD Primary Care Provider [phone] Jayne Armijo FIELD SPEC Primary Care Provider [phone] Pcp, Unknown Primary Care Provider Unavailabl e Encounter Details Date Type Department Care Team (Late st Contact Info) Description 08/04/2019 Ancillary Orders [facility]Outside Imaging [address] [place] [address] System, Provider Not In, [place] [address] Social History Tobacco Use Types Packs/Day Years [...] documented as of this encounter Care Teams Hot Tar Roofer Helper Relationship Specialty Start Date End Date Jayne Armijo FIELD SPEC PCP - General Family Medicine 05/26/17 09/05/19 Samantha Flores MD [address] [place] [address] PCP - General Internal Medicine 09/06/19 02/10/21 Jayne Armijo NP PCP - General Family Medicine 02/11/21 10/16/21 Pcp, Unknown PCP - General 10/17/21 documented as of this encounter Additional Source Comments The information contained in this document represents components of the legal health record. It is not the complete legal health record.[facility]
--- OUTSIDE RECORDS SUMMARY | 2025-03-08 17:07 | XMS_ITS | Encounter Summary ---
Author Organization [facility] Address [address] [facility] [address] [facility] [address] [place] [address] Encounters * CPT with Medical [facility] at [email or web address] on 2024-12-19 { reasonForRequest : Patient has [...]
== END 2025-03-08 14:06 | disposition home or self-care (01) ==
LOC: HO.HMCC 13:01
PROVIDERS: PCP Internal Medicine; Visit Provider Internal Medicine
DX: Z00.00 Encounter for general adult medical examination without abnormal findings (principal); J41.8 Mixed simple and mucopurulent chronic bronchitis; M54.2 Cervicalgia; F43.10 Post-traumatic stress disorder, unspecified; E78.5 Hyperlipidemia, unspecified